=== PATIENT | female | born 1985 | race Caucasian/White ===

== ENCOUNTER → 2017-08-01 13:38 | Outpatient (CLI) | payer OTHER, MEDICAID, SELFPAY ==
--- NOTE | 2017-08-01 13:42 | ECHOD_ITS ---
Reason For Study: MVP Procedure This was a 2D Doppler, Color Flow transthoracic echocardiogram. The study was technically difficult. Contrast injection was performed. Exam performed in department. Left Ventricle Normal LV size. Left ventricular systolic function is normal. The estimated ejection fraction is 55 %. No evidence for diastolic dysfunction. No regional wall motion abnormalities noted. Right Ventricle Normal RV size. Normal systolic function. Atria Normal left atrium. Normal right atrium. Mitral Valve Normal mitral valve. Tricuspid Valve Normal tricuspid valve. Mild (1+) tricuspid valve insufficiency. Pulmonary artery systolic pressure is 36 mmHg. Aortic Valve The aortic valve is not well visualized. Pulmonic Valve Normal pulmonic valve. Great Vessels Normal aortic root. The pulmonary artery is normal size. Normal inferior vena cava. Pericardium/Pleural No pericardial effusion. Medication 22 gauge I.V. with prn adaptor inserted into right arm. Diluted definity 2ml given slow IV push to enhance endocardial definition. MMode/2D Measurements & Calculations LVIDd: 4.6 cm IVSd: 0.76 cm Ao root diam: 2.7 cm LVIDs: 3.4 cm LVPWd: 0.90 cm LA dimension: 3.3 cm RVDd: 2.9 cm FS: 25.7 % LAV(MOD-bp): 37.8 ml LVAd ap4: 31.4 cm2 SV(MOD-sp4): 54.6 ml LAV(MOD-bp) Indexed: 19.0 ml/m2 EDV(MOD-sp4): 104.6 ml LAV(MOD-sp2): 32.9 ml EDV(sp4-el): 106.9 ml LAV(MOD-sp4): 40.8 ml LVAs ap4: 20.1 cm2 ESV(MOD-sp4): 50.0 ml ESV(sp4-el): 49.9 ml EF(MOD-sp4): 52.2 % EF(sp4-el): 53.3 % SV(sp4-el): 57.0 ml LA A4 area: 16.4 cm2 RA A4 area: 11.7 cm2 Doppler Measurements & Calculations MV E max nilesh: 138.2 cm/sec Ao V2 max: 163.5 cm/sec LV V1 max: 120.2 cm/sec MV A max nilesh: 70.2 cm/sec Ao max P.7 mmHg LV V1 max P.8 mmHg MV E/A: 2.0 TR max nilesh: 283.4 cm/sec TR max P.1 mmHg Interpretation Summary Normal LV size. Left ventricular systolic function is normal. The estimated ejection fraction is 55 %. No evidence for diastolic dysfunction. Mild (1+) tricuspid valve insufficiency. Pulmonary artery systolic pressure is 36 mmHg. Contrast injection was performed. Ordering Physician: LIUDMILA BRANDON Referring Physician: REYNA LITTLE Performed By: Kanika Cook, MICHAELLE, RVT
== END ==
PROVIDERS: Family Provider Student in an Organized Health Care Education/Training Program; PCP Student in an Organized Health Care Education/Training Program; Visit Provider Nurse Practitioner Family
DX: I34.1 Nonrheumatic mitral (valve) prolapse (principal)
CPT/HCPCS: 93306; Q9957; C8929

== ENCOUNTER 2017-09-01 14:00 | Outpatient (RCR) | payer OTHER, SELFPAY | END 2017-09-01 23:59 | LOC: NS 14:00 | PROVIDERS: Family Provider Student in an Organized Health Care Education/Training Program; PCP Student in an Organized Health Care Education/Training Program; Visit Provider Student in an Organized Health Care Education/Training Program | DX: Z68.30 Body mass index [BMI] 30.0-30.9, adult (principal); Q90.9 Down syndrome, unspecified; Z71.3 Dietary counseling and surveillance | CPT/HCPCS: 97802; 97803 ==

== ENCOUNTER 2017-10-27 10:30 | Outpatient (RCR) | payer OTHER, SELFPAY ==
--- NOTE | 2017-10-13 10:00 | DT_ITS ---
This patient was seen during an EMR downtime October 06, 2017 - October 13, 2017. This patient may have a combination of paper and electronic documentation or all paper documentation. All documentation is viewable within the e-chart portion of [facility] for each patient visit.
== END 2017-11-01 23:59 ==
LOC: NS 10:30
PROVIDERS: Family Provider Student in an Organized Health Care Education/Training Program; PCP Student in an Organized Health Care Education/Training Program; Visit Provider Student in an Organized Health Care Education/Training Program
DX: Z68.30 Body mass index [BMI] 30.0-30.9, adult (principal); Q90.9 Down syndrome, unspecified; Z71.3 Dietary counseling and surveillance
CPT/HCPCS: 97803

== ENCOUNTER 2017-12-01 09:01 | Outpatient (RCR) | payer OTHER, SELFPAY | END 2017-12-02 23:59 | LOC: NS 09:01 | PROVIDERS: Family Provider Student in an Organized Health Care Education/Training Program; PCP Student in an Organized Health Care Education/Training Program; Visit Provider Student in an Organized Health Care Education/Training Program | DX: Z68.30 Body mass index [BMI] 30.0-30.9, adult (principal); Z71.3 Dietary counseling and surveillance; Q90.9 Down syndrome, unspecified | CPT/HCPCS: 97803 ==

== ENCOUNTER 2017-12-15 08:24 | Outpatient (RCR) | payer OTHER, SELFPAY | END 2018-01-02 23:59 | LOC: NS 08:24 | PROVIDERS: Family Provider Student in an Organized Health Care Education/Training Program; PCP Student in an Organized Health Care Education/Training Program; Visit Provider Student in an Organized Health Care Education/Training Program | DX: Z68.30 Body mass index [BMI] 30.0-30.9, adult (principal); Z71.3 Dietary counseling and surveillance; Q90.9 Down syndrome, unspecified | CPT/HCPCS: 97803 ==

== ENCOUNTER 2018-01-13 08:39 | Outpatient (RCR) | payer OTHER, SELFPAY | END 2018-02-01 23:59 | LOC: NS 08:39 | PROVIDERS: Family Provider Student in an Organized Health Care Education/Training Program; PCP Student in an Organized Health Care Education/Training Program; Visit Provider Student in an Organized Health Care Education/Training Program | DX: Z68.30 Body mass index [BMI] 30.0-30.9, adult (principal); Z71.3 Dietary counseling and surveillance; Q90.9 Down syndrome, unspecified | CPT/HCPCS: 97803 ==

== ENCOUNTER 2018-03-03 08:37 | Outpatient (RCR) | payer OTHER, SELFPAY | END 2018-03-04 23:59 | LOC: NS 08:37 | PROVIDERS: Family Provider Student in an Organized Health Care Education/Training Program; PCP Student in an Organized Health Care Education/Training Program; Visit Provider Student in an Organized Health Care Education/Training Program | DX: E66.01 Morbid (severe) obesity due to excess calories (principal); Z68.30 Body mass index [BMI] 30.0-30.9, adult; Z71.3 Dietary counseling and surveillance; Q90.9 Down syndrome, unspecified ==

== ENCOUNTER 2018-03-17 12:56 | Outpatient (RCR) | payer OTHER, SELFPAY | END 2018-03-17 23:59 | LOC: NS 12:56 | PROVIDERS: Family Provider Student in an Organized Health Care Education/Training Program; PCP Student in an Organized Health Care Education/Training Program; Visit Provider Student in an Organized Health Care Education/Training Program | DX: E66.01 Morbid (severe) obesity due to excess calories (principal); Z68.30 Body mass index [BMI] 30.0-30.9, adult; Z71.3 Dietary counseling and surveillance; Q90.9 Down syndrome, unspecified | CPT/HCPCS: 97803 ==

== ENCOUNTER 2018-03-24 16:51 | Emergency (ER) | payer MEDICAID, SELFPAY ==
[2018-03-24 16:52] VITALS: BP 141/92; PULSE 74; RESP 18; TEMP 36.8; O2SAT 100; BMI 47.9
--- NOTE | 2018-03-24 17:16 | ED.VISSUMM ---
- ER Visit Summary Date of Service: 03/24/18 Chief Complaint: Nasal wound History of Present Illness: The patient is a 32 F with a history of Down's. She is brought in by staff from her care home. She developed left nasal bridge wound from her glasses when she was visiting family members 3 weeks ago. She was seen at urgent care initially and given Zithromax. She had no improvement. She was taken back to urgent care last night and staff was told that she either had to see the wound center today or she needed to go the emergency room. She has not had fever. She has not had drainage from the wound. Physical Examination: Vital signs unremarkable. Patient sitting upright in bed no acute distress. Head neck examination reveals a 4 x 6 mm scabbed wound to the left nasal bridge. There is no fluctuance or drainage at this time. There is no cellulitis. Remainder of exam is unremarkable. Test Results: [] Emergency Department Course and Treatment: Wound care is discussed with staff. Will be cleansed and bacitracin will be applied. She will be given Bactrim and Keflex for good skin coverage. I did fill out a referral form for the wound center. Treatment Plan: [] Disposition: Discharge Impression: Scabbed wound to left nasal bridge This note was generated with [employer] dictation software. It may contain incorrect words, spelling, and punctuation that were not noted in review of the chart prior to signing ED Disposition - Plan for ED Patient: Chief Complaint: Wound Referrals: Trent Horowitz DO [Primary Care Provider] -
--- NOTE | 2018-03-24 17:18 | ED.DEP ---
ED Disposition - Plan for ED Patient: Disposition: Home or Assisted Living Chief Complaint: Wound Instructions: ED Wound Care Prescriptions: Cephalexin [Keflex] 500 mg PO Q6 #40 capsule Smz/Tmp Ds [Bactrim Ds] 1 tablet PO BID #20 tablet Referrals: Trent Horowitz DO [Primary Care Provider] - Additional Instructions: Follow-up with Wound Center [phone]
[2018-03-24 17:35] VITALS: BP 121/74; PULSE 62; RESP 15; O2SAT 99
== END 2018-03-24 17:39 | disposition home or self-care (01) ==
PROVIDERS: Emergency Provider Emergency Medicine; Family Provider Student in an Organized Health Care Education/Training Program; PCP Student in an Organized Health Care Education/Training Program
DX: S00.30XA Unspecified superficial injury of nose, initial encounter (principal); X58.XXXA Exposure to other specified factors, initial encounter; Y93.89 Activity, other specified; Q90.9 Down syndrome, unspecified
CPT/HCPCS: 99282

== ENCOUNTER 2018-03-31 13:02 | Outpatient (RCR) | payer MEDICAID, SELFPAY ==
[2018-03-31 13:46] VITALS: BP 114/77; PULSE 80; RESP 16; TEMP 35.9; BMI 48.6
[2018-03-31 14:07] VITALS: BMI 48.6
--- NOTE | 2018-03-31 14:29 | PCM.WC.HP ---
(1) Skin ulcer of nose Status: Acute Current Visit: Yes Code(s): L98.499 - Non-pressure chronic ulcer of skin of other sites with unspecified severity (2) History of Down syndrome Status: Chronic Current Visit: No Code(s): Q90.9 - Down syndrome, unspecified History of Present Illness Date of Service: 03/31/18 Chief Complaint: Sore on left side of nose that most likely was caused by sleeping with her glasses on. History of Wound: Sore on left side of nose occurred about a month ago. Noemy has Down Syndrome and her mother believes Noemy fell asleep with her eye glasses on about a month ago. They have not been able to get the sore to heal using bactroban ointment. With the constant pressure from wearing her glasses and Noemy picking at the sore has also prevented it from healing. She has been placed on Keflex by her PCP. Past Medical History Past Medical History: Chronic Problems History of Down syndrome (Chronic) Allergies/Adverse Reactions: Allergies cefaclor [From Ceclor] Allergy (Verified 03/24/18 17:34) Hives sulfamethoxazole [From Bactrim] Allergy (Verified 03/24/18 17:34) Upset Stomach trimethoprim [From Bactrim] Allergy (Verified 03/24/18 17:34) Upset Stomach Home Medications: Ambulatory Orders Medication Instructions Recorded Cephalexin [Keflex] 500 mg PO Q6 #40 capsule 03/24/18 Smz/Tmp Ds [Bactrim Ds] 1 tablet PO BID #20 tablet 03/24/18 Benzonatate 100 mg PO PRN PRN 03/31/18 Cholecalciferol (Vitamin D3) 50,000 unit PO QWEEK 03/31/18 [Vitamin D] Citalopram [Celexa] 20 mg PO DAILY 03/31/18 Fluticasone 0.05% [Flonase Nasal 2 spray NASAL DAILY 03/31/18 [place]] Folic Acid 1 mg PO DAILY 03/31/18 Levothyroxine [Synthroid] 137 mcg PO DAILY 03/31/18 Loratadine [Claritin] 10 mg PO DAILY 03/31/18 Methotrexate Sodium/Pf 25 mg IJ QWEEK 03/31/18 [Methotrexate 25 mg/ml Vial] Metoprolol Tartrate 25 mg PO BID 03/31/18 Multivitamin [Daily Multiple 1 each PO DAILY 03/31/18 Vitamin] Omeprazole [Prilosec] 20 mg PO DAILY 03/31/18 Lives: With Family Smoking Status: Never smoker Tobacco Use: Non-smoker Review of Systems Constitutional: Denies: Anorexia, Chills, Fever Eyes: Reports: - - Wears glasses HEENT: Denies: Difficulty Hearing, Head Aches, Hearing Changes, Nasal bleeding Cardiovascular: Denies: Chest Pain, Edema Respiratory: Denies: Cough, Shortness of Breath Gastrointestinal: Denies: Abdominal Pain Musculoskeletal: Denies: Joint Pain Skin: Reports: Lesions - Sore on left side of nose Psychiatric: Reports: Anxiety Endocrine: Reports: Heat/ Cold Intolerance, - - History of hypothyroidism - Physical Exam Vital Signs Temp Pulse Resp BP 96.6 F L 80 16 114/77 03/31/18 13:46 03/31/18 13:46 03/31/18 13:46 03/31/18 13:46 General: Alert, Cooperative - Very pleasant female HEENT: Atraumatic Oral: Moist Mucosa Lungs: Clear to auscultation, Normal air movement, No rhonchi Cardiovascular: Regular rate, Regular Rhythm Abdomen: Bowel Sounds Present, Soft, Non Tender, Non-Distended Extremities: No edema, Capillary Refill Less than 3 Seconds, No Calf Tenderness Skin: Ulcer/ Wound - Ulcer on left side of nose Wound Measurements and Assessment WC - Nurse 1 - General Ulcer Measurement Start: 03/31/18 13:45 Freq: Status: Active Protocol: Activity Type Activity Date Activity User E-Sign Co-Sign Detail Recorded Client Recorded Date Recorded By Document 03/31/18 13:46 [id number] 03/31/18 14:06 03/31/18 13:46 Wound Center Nurse 1 [Ulcer Assessment] #1 Left Bridge of Nose -Combined with other wound No -Current Size (cm) - Length 0.6 -Current Size (cm) - Width 0.3 -Current Size (cm) - Depth 0.1 -Total Square Cm 0.18 -Photo Taken Yes -Epithelialization None Present -Tunneling No -Undermining/Tunneling No -Circular Undermining No -Classification - Thickness Full Thickness without Exposed Support Structure -Exudate Amt Small (1-33%) -Exudate Type Serosanguineous -Wound Margin Flat & Intact -Granulation Amt None Present (0 %) -Granulation Quality N/A -Slough/Fibrin Yes -Necrosis Amt None Present (0 %) -Necrotic Tissue Type Eschar -Structure Exposed N/A -Texture (Suzette-wound Skin Appearance) Assessed Scarring -Moisture (Suzette-wound Skin Appearance No Abnormality ) Assessed -Color (Suzette-wound Skin Appearance) No Abnormality Assessed -Temperature (Suzette-wound Skin No Abnormality Appearance) (Pt Warm) -Tenderness on Palpation (Suzette-wound No Skin Appearance) -Ulcer Cleansing Rinsed/ Irrigated with Saline -Foul Odor after Cleansing No -Anesthetic Used 4% Lidocaine Solution - Nurse 2 - General Ulcer CM Notes Start: 03/31/18 13:45 Freq: Status: Active Protocol: Activity Type Activity Date Activity User E-Sign Co-Sign Detail Recorded Client Recorded Date Recorded By Document 03/31/18 14:14 [id number] 03/31/18 14:21 03/31/18 14:14 Wound Center Nurse 2 [Procedure/Treatment] -Time 14:14 -Correct Patient Yes -Correct Side, Site, Position Yes -Correct Procedure Yes -Procedure Performed Yes -Type of Procedure Debridement -Clinical Debridement Subcutaneous -Post Debridement Size (cm) - Length 0.9 -Post Debridement Size (cm) - Width 0.4 -Post Debridement Size (cm) - Depth 0.1 -Total Square Cm 0.36 -Wound/Ulcer Outcome Not Healed -Ulcer Cleansing Rinsed/ Irrigated with Saline -Foul Odor after Cleansing No -Bioengineered Tissue No -Bleeding Controlled with Pressure -Treatment Response Procedure Tolerated Well [See Physician Procedure note for Specifics] Pain Scale: 0-10 Numeric [Pain] -Is Patient Pain Free? Yes Musculoskeletal: No Tenderness to Palpation of Joints or Extremities Neurological: Neuro grossly intact Psych/Mental Status: Normal Affect, Appropriate Debridement Note Post-Debridement Measurements/Treatment - Nurse 2 - General Ulcer CM Notes Start: 03/31/18 13:45 Freq: Status: Active Protocol: Activity Type Activity Date Activity User E-Sign Co-Sign Detail Recorded Client Recorded Date Recorded By Document 03/31/18 14:14 [id number] 03/31/18 14:21 03/31/18 14:14 Wound Center Nurse 2 #1 Left Bridge of Nose -Time 14:14 -Correct Patient Yes -Correct Side, Site, Position Yes -Correct Procedure Yes -Procedure Performed Yes -Type of Procedure Debridement -Clinical Debridement Subcutaneous -Post Debridement Size (cm) - Length 0.9 -Post Debridement Size (cm) - Width 0.4 -Post Debridement Size (cm) - Depth 0.1 -Total Square Cm 0.36 -Wound/Ulcer Outcome Not Healed -Ulcer Cleansing Rinsed/ Irrigated with Saline -Foul Odor after Cleansing No -Bioengineered Tissue No -Bleeding Controlled with Pressure -Treatment Response Procedure Tolerated Well Pain Scale: 0-10 Numeric Is Patient Pain Free? Yes Wound debrided: Left side of nose Laterality: Left Type of Debridement: Excisional debridement Anesthesia Used: 4% Lidocaine Solution Depth: Down to and including healthy tissue, in the subcutaneous layer Percentage of wound debrided: 90 Instrument Used: 3mm curette Tissue Removed: Subcutaneous tissue and slough Severity: Limited To Skin Breakdown Amount of bleeding with debridement: Mild Bleeding Controlled with: Pressure Patient tolerated procedure well Assessment/Plan Active Problems Skin ulcer of nose (Acute) Assessment: 1. Skin Ulcer of Left Nose. 2. History of Down Syndrome Plan: The patient was seen and examined at the wound center today. She and her mother and were updated on the plan of care. Subcutaneous debridement was performed today. Patient tolerated procedure well. Patient's wound care will consist of collagen hydrogel that will be topped with dressing and secured with silicone tape. With this padding the patient should be able to wear her glasses. She is to continue her keflex as prescribed by PCP. We will have her follow-up in 1 week. Code Visit Office Visits / Consults: [id number] OV L3 New [id number]: [id number] Ivana subq tissue 20 sq cm/< - 25 modifier
--- NOTE | 2018-03-31 14:38 | HP.PCM_ITS ---
(1) Skin ulcer of nose Status: Acute Current Visit: Yes Code(s): L98.499 - Non-pressure chronic ulcer of skin of other sites with unspecified severity (2) History of Down syndrome Status: Chronic Current Visit: No Code(s): Q90.9 - Down syndrome, unspecified History of Present Illness Date of Service: 03/31/18 Chief Complaint: Sore on left side of nose that most likely was caused by sleeping with her glasses on. History of Wound: Sore on left side of nose occurred about a month ago. Noemy has Down Syndrome and her mother believes Noemy fell asleep with her eye glasses on about a month ago. They have not been able to get the sore to heal using bactroban ointment. With the constant pressure from wearing her glasses and Noemy picking at the sore has also prevented it from healing. She has been placed on Keflex by her PCP. Past Medical History Past Medical History: Chronic Problems History of Down syndrome (Chronic) Allergies/Adverse Reactions: Allergies cefaclor [From Ceclor] Allergy (Verified 03/24/18 17:34) Hives sulfamethoxazole [From Bactrim] Allergy (Verified 03/24/18 17:34) Upset Stomach trimethoprim [From Bactrim] Allergy (Verified 03/24/18 17:34) Upset Stomach Home Medications: Ambulatory Orders Medication Instructions Recorded Cephalexin [Keflex] 500 mg PO Q6 #40 capsule 03/24/18 Smz/Tmp Ds [Bactrim Ds] 1 tablet PO BID #20 tablet 03/24/18 Benzonatate 100 mg PO PRN PRN 03/31/18 Cholecalciferol (Vitamin D3) 50,000 unit PO QWEEK 03/31/18 [Vitamin D] Citalopram [Celexa] 20 mg PO DAILY 03/31/18 Fluticasone 0.05% [Flonase Nasal 2 spray NASAL DAILY 03/31/18 [place]] Folic Acid 1 mg PO DAILY 03/31/18 Levothyroxine [Synthroid] 137 mcg PO DAILY 03/31/18 Loratadine [Claritin] 10 mg PO DAILY 03/31/18 Methotrexate Sodium/Pf 25 mg IJ QWEEK 03/31/18 [Methotrexate 25 mg/ml Vial] Metoprolol Tartrate 25 mg PO BID 03/31/18 Multivitamin [Daily Multiple 1 each PO DAILY 03/31/18 Vitamin] Omeprazole [Prilosec] 20 mg PO DAILY 03/31/18 Lives: With Family Smoking Status: Never smoker Tobacco Use: Non-smoker Review of Systems Constitutional: Denies: Anorexia, Chills, Fever Eyes: Reports: - - Wears glasses HEENT: Denies: Difficulty Hearing, Head Aches, Hearing Changes, Nasal bleeding Cardiovascular: Denies: Chest Pain, Edema Respiratory: Denies: Cough, Shortness of Breath Gastrointestinal: Denies: Abdominal Pain Musculoskeletal: Denies: Joint Pain Skin: Reports: Lesions - Sore on left side of nose Psychiatric: Reports: Anxiety Endocrine: Reports: Heat/ Cold Intolerance, - - History of hypothyroidism - Physical Exam Vital Signs Temp Pulse Resp BP 96.6 F L 80 16 114/77 03/31/18 13:46 03/31/18 13:46 03/31/18 13:46 03/31/18 13:46 General: Alert, Cooperative - Very pleasant female HEENT: Atraumatic Oral: Moist Mucosa Lungs: Clear to auscultation, Normal air movement, No rhonchi Cardiovascular: Regular rate, Regular Rhythm Abdomen: Bowel Sounds Present, Soft, Non Tender, Non-Distended Extremities: No edema, Capillary Refill Less than 3 Seconds, No Calf Tenderness Skin: Ulcer/ Wound - Ulcer on left side of nose Wound Measurements and Assessment WC - Nurse 1 - General Ulcer Measurement Start: 03/31/18 13:45 Freq: Status: Active Protocol: Activity Type Activity Date Activity User E-Sign Co-Sign Detail Recorded Client Recorded Date Recorded By Document 03/31/18 13:46 [id number] 03/31/18 14:06 03/31/18 13:46 Wound Center Nurse 1 [Ulcer Assessment] #1 Left Bridge of Nose -Combined with other wound No -Current Size (cm) - Length 0.6 -Current Size (cm) - Width 0.3 -Current Size (cm) - Depth 0.1 -Total Square Cm 0.18 -Photo Taken Yes -Epithelialization None Present -Tunneling No -Undermining/Tunneling No -Circular Undermining No -Classification - Thickness Full Thickness without Exposed Support Structure -Exudate Amt Small (1-33%) -Exudate Type Serosanguineous -Wound Margin Flat & Intact -Granulation Amt None Present (0 %) -Granulation Quality N/A -Slough/Fibrin Yes -Necrosis Amt None Present (0 %) -Necrotic Tissue Type Eschar -Structure Exposed N/A -Texture (Suzette-wound Skin Appearance) Assessed Scarring -Moisture (Suzette-wound Skin Appearance No Abnormality ) Assessed -Color (Suzette-wound Skin Appearance) No Abnormality Assessed -Temperature (Suzette-wound Skin No Abnormality Appearance) (Pt Warm) -Tenderness on Palpation (Suzette-wound No Skin Appearance) -Ulcer Cleansing Rinsed/ Irrigated with Saline -Foul Odor after Cleansing No -Anesthetic Used 4% Lidocaine Solution - Nurse 2 - General Ulcer CM Notes Start: 03/31/18 13:45 Freq: Status: Active Protocol: Activity Type Activity Date Activity User E-Sign Co-Sign Detail Recorded Client Recorded Date Recorded By Document 03/31/18 14:14 [id number] 03/31/18 14:21 03/31/18 14:14 Wound Center Nurse 2 [Procedure/Treatment] -Time 14:14 -Correct Patient Yes -Correct Side, Site, Position Yes -Correct Procedure Yes -Procedure Performed Yes -Type of Procedure Debridement -Clinical Debridement Subcutaneous -Post Debridement Size (cm) - Length 0.9 -Post Debridement Size (cm) - Width 0.4 -Post Debridement Size (cm) - Depth 0.1 -Total Square Cm 0.36 -Wound/Ulcer Outcome Not Healed -Ulcer Cleansing Rinsed/ Irrigated with Saline -Foul Odor after Cleansing No -Bioengineered Tissue No -Bleeding Controlled with Pressure -Treatment Response Procedure Tolerated Well [See Physician Procedure note for Specifics] Pain Scale: 0-10 Numeric [Pain] -Is Patient Pain Free? Yes Musculoskeletal: No Tenderness to Palpation of Joints or Extremities Neurological: Neuro grossly intact Psych/Mental Status: Normal Affect, Appropriate Debridement Note Post-Debridement Measurements/Treatment - Nurse 2 - General Ulcer CM Notes Start: 03/31/18 13:45 Freq: Status: Active Protocol: Activity Type Activity Date Activity User E-Sign Co-Sign Detail Recorded Client Recorded Date Recorded By Document 03/31/18 14:14 [id number] 03/31/18 14:21 03/31/18 14:14 Wound Center Nurse 2 #1 Left Bridge of Nose -Time 14:14 -Correct Patient Yes -Correct Side, Site, Position Yes -Correct Procedure Yes -Procedure Performed Yes -Type of Procedure Debridement -Clinical Debridement Subcutaneous -Post Debridement Size (cm) - Length 0.9 -Post Debridement Size (cm) - Width 0.4 -Post Debridement Size (cm) - Depth 0.1 -Total Square Cm 0.36 -Wound/Ulcer Outcome Not Healed -Ulcer Cleansing Rinsed/ Irrigated with Saline -Foul Odor after Cleansing No -Bioengineered Tissue No -Bleeding Controlled with Pressure -Treatment Response Procedure Tolerated Well Pain Scale: 0-10 Numeric Is Patient Pain Free? Yes Wound debrided: Left side of nose Laterality: Left Type of Debridement: Excisional debridement Anesthesia Used: 4% Lidocaine Solution Depth: Down to and including healthy tissue, in the subcutaneous layer Percentage of wound debrided: 90 Instrument Used: 3mm curette Tissue Removed: Subcutaneous tissue and slough Severity: Limited To Skin Breakdown Amount of bleeding with debridement: Mild Bleeding Controlled with: Pressure Patient tolerated procedure well Assessment/Plan Active Problems Skin ulcer of nose (Acute) Assessment: 1. Skin Ulcer of Left Nose. 2. History of Down Syndrome Plan: The patient was seen and examined at the wound center today. She and her mother and were updated on the plan of care. Subcutaneous debridement was performed today. Patient tolerated procedure well. Patient's wound care will consist of collagen hydrogel that will be topped with dressing and secured with silicone tape. With this padding the patient should be able to wear her glasses. She is to continue her keflex as prescribed by PCP. We will have her follow-up in 1 week. Code Visit Office Visits / Consults: [id number] OV L3 New [id number]: [id number] Ivana subq tissue 20 sq cm/< - 25 modifier
--- OUTSIDE RECORDS SUMMARY | 2018-05-13 06:35 | XMS RPT_ITS ---
:1985 Author Organization OHIP Support Name Relationship Address Phone KALPANA VILLAGRAN Unavailable [address] + [place] [address] D Unavailable Unavailable Unavailable LOWE, JOSÉ Unavailable [address] + [place] [address] TYSHAWN KALPANA Unavailable [address] + [place] [address] D Unavailable Unavailable Unavailable LOWE, JOSÉ Unavailable [address] + [place] [address] TYSHAWN KALPANA Unavailable [address] + [place] [address] D Unavailable Unavailable Unavailable LOWE, JOSÉ Unavailable [address] + [place] [address] TYSHAWN KALPANA Unavailable [address] + [place] [address] D Unavailable Unavailable Unavailable LOWE, JOSÉ Unavailable [address] + [place] [address] KARTIK VILLAGRANINA Unavailable [address] + [place] [address] D Unavailable Unavailable Unavailable LOWE, JOSÉ Unavailable [address] + [place] [address] TYSHAWN KALPANA Unavailable [address] + [place] [address] D Unavailable Unavailable Unavailable LOWE, JOSÉ Unavailable [address] + [place] [address] TYSHAWN KALPANA Unavailable [address] + [place] [address] D Unavailable Unavailable Unavailable LOWE, JOSÉ Unavailable [address] + [place] [address] TYSHAWN KALPANA Unavailable [address] + [place] [address] D Unavailable Unavailable Unavailable LOWE, JOSÉ Unavailable [address] + [place] [address] TYSHAWN KALPANA Unavailable [address] + [place] [address] D Unavailable Unavailable Unavailable LOWE, JOSÉ Unavailable [address] + [place] [address] TYSHAWN KALPANA Unavailable [address] + [place] [address] D Unavailable Unavailable Unavailable LOWE, JOSÉ Unavailable [address] + [place] [address] TYSHAWN KALPANA Unavailable [address] + [place] [address] D Unavailable Unavailable Unavailable LOWE, JOSÉ Unavailable [address] + [place] [address] TYSHAWN KALPANA Unavailable [address] + [place] [address] D Unavailable Unavailable Unavailable LOWE, JOSÉ Unavailable [address] + [place] [address] TYSHAWN KALPANA Unavailable [address] + [place] [address] D Unavailable Unavailable Unavailable LOWE, JOSÉ Unavailable [address] + [place] [address] TYSHAWN KALPANA Unavailable [address] + [place] [address] D Unavailable Unavailable Unavailable LOWE, JOSÉ Unavailable [address] + [place] [address] TYSHAWN KALPANA Unavailable [address] + [place] [address] D Unavailable Unavailable Unavailable LOWE, JOSÉ Unavailable [address] + [place] [address] Care Team Providers Name Role Phone Trent Horowitz Primary Care Unavailable Tam Liudmila Attending Unavailable Tam, Liudmila Referring Unavailable Trent Horowitz Attending Unavailable Trent Horowitz Primary Care Unavailable Esequiel Perez Attending Unavailable Trent Horowitz Attending Unavailable Trent Horowitz Primary Care Unavailable Trent Horowitz Attending Unavailable Horowitz, Trent Primary Care Unavailable Horowitz, Trent Attending Unavailable Horowitz, Trent Primary Care Unavailable Horowitz, Trent Attending Unavailable Horowitz, Trent Primary Care Unavailable Horowitz, Trent Attending Unavailable Horowitz, Trent Primary Care Unavailable Horowitz, Trent Attending Unavailable Horowitz, Trent Primary Care Unavailable Horowitz, Trent Primary Care Unavailable Elayne Shah Attending Unavailable Eliu, Glendy E Attending Unavailable Horowitz, Trent Primary Care Unavailable Eliu, Glendy E Attending Unavailable Horowitz, Trent Primary Care Unavailable Eliu, Glendy E Consulting Unavailable Horowitz, Trent Attending Unavailable Horowitz, Trent Primary Care Unavailable Eliu, Glendy E Attending Unavailable Horowitz, Trent Primary Care Unavailable Eliu, Glendy E Attending Unavailable Horowitz, Trent Primary Care Unavailable Eliu, Glendy E Consulting Unavailable Juan Roca Referring Unavailable AZEM, MAY Attending Unavailable MARTIR, SEPTEMBER Referring Unavailable MARTIR, SEPTEMBER Referring Unavailable Marcin MCMAHAN SEPTEMBER Attending Unavailable Marcin MCMAHAN SEPTEMBER Referring Unavailable HOROWITZ, TRENT L Primary Care Unavailable Marcin MCMAHAN SEPTEMBER Attending Unavailable Marcin MCMAHAN SEPTEMBER Referring Unavailable HOROWITZ, TRENT L Primary Care Unavailable Marcin MCMAHAN MAY Referring Unavailable HOROWITZ, TRENT L Primary Care Unavailable VINCENT CARSON Attending Unavailable THOMPSON MALHOTRA (CALENDER SUPERVISOR) Referring Unavailable TESTRAKE, VINCENT Attending Unavailable TESTRAKEVINCENT Referring Unavailable HOROWITZ, TRENT L Attending Unavailable HOROWITZ, TRENT L Referring Unavailable HOROWITZ, TRENT L Referring Unavailable TESTRAKEVINCENT Attending Unavailable TESTRAKEVINCENT Referring Unavailable CORNIELLO, ENRIQUETA L (CALENDER SUPERVISOR) Attending Unavailable HOROWITZ, TRENT L Referring Unavailable CORNIELLO, ENRIQUETA L (CALENDER SUPERVISOR) Referring Unavailable CORNIELLO, ENRIQUETA L (CALENDER SUPERVISOR) Referring Unavailable TESTRAKE, VINCENT Attending Unavailable TESTRAKE, VINCENT Referring Unavailable CORNIELLO, ENRIQUETA L (CALENDER SUPERVISOR) Referring Unavailable HOROWITZ, TRENT L Attending Unavailable HOROWITZ, TRENT L Referring Unavailable HOROWITZ, TRENT L Referring Unavailable HOROWITZ, TRENT L Attending Unavailable TESTRAKEVINCENT Attending Unavailable TESTRAKEVINCENT Referring Unavailable HOROWITZ, TRENT L Referring Unavailable PROBLEMS PROBLEMS DATE TYPE CONDITION / CODE ATTENDING STATUS SOURCE 04/16/2018 Active Abnormal findings on NA Active [facility] Main of other parts of [place] musculoskeletal Repository system / R93.7(ICD-10) 04/16/2018 Active Arthrodesis status / NA Active [facility] Z98.1(ICD-10) Clinic Main [place] Repository 04/16/2018 Active Personal history of NA Active [facility] (healed) traumatic Clinic Main fracture / [place] Z87.81(ICD-10) Repository 04/04/2018 Unknown E66.01 - Morbid Horowitz, Active [place] (severe) obesity due [facility] to excess calories / Hospital E66.01(ICD-10) Repository 03/05/2018 Unknown Z68.30 - Body mass Horowitz, Active [place] index (BMI) [facility] 30.0-30.9, adult / Hospital Z68.30(ICD-10) Repository 12/31/2017 Active Cervicalgia / NA Active [facility] M54.2(ICD-10) Clinic Main [place] Repository 10/13/2017 Active Encounter for NA Active [facility] antibody response Clinic Main examination / [place] Z01.84(ICD-10) Repository 08/27/2016 Active Inflammatory NA Active [facility] polyarthropathy / Clinic Other M06.4(ICD-10) [place] Repository 08/27/2016 Active Elevated C-reactive AZEM, MAY Active [facility] protein (CRP) / Clinic Other R79.82(ICD-10) [place] Repository 05/23/2016 Active Pain in right knee / AZEM, MAY Active [facility] M25.561(ICD-10) Clinic Other [place] Repository 05/23/2016 Active Pain in left knee / AZEM, MAY Active [facility] M25.562(ICD-10) Clinic Other [place] Repository 05/23/2016 Active Other chronic pain / AZEM, MAY Active [facility] G89.29(ICD-10) Clinic Other [place] Repository 05/23/2016 Active Pain in right hip / AZEM, MAY Active [facility] M25.551(ICD-10) Clinic Other [place] Repository 05/23/2016 Active Pain in left hip / AZEM, MAY Active [facility] M25.552(ICD-10) Clinic Other [place] Repository 05/23/2016 Active Juvenile AZEM, MAY Active [facility] osteochondrosis of Clinic Other hip and pelvis, [place] unspecified, left Repository leg / M91.92(ICD-10) 06/15/2013 Active Vitamin D September Active [facility] deficiency, [facility] Other unspecified / [place] E55.9(ICD-10) Repository 06/15/2013 Active Hypothyroidism, , SEPTEMBER Active [facility] unspecified / Clinic Other E03.9(ICD-10) [place] Repository 03/24/2002 Active Down syndrome, , SEPTEMBER Active [facility] unspecified / Clinic Other Q90.9(ICD-10) [place] Repository 08/27/2016 Admitting Unknown / Marcin MCMAHAN SEPTEMBER Active [facility] UNK(Unknown) [facility] Repository 08/06/2017 Active Unknown / TESTRAKE, Active [facility] UNK(Unknown) [facility] Repository 01/01/2018 Unknown I34.1 - Nonrheumatic Fish, Liudmila Active [place] mitral (valve) Community prolapse / Hospital I34.1(ICD-10) Repository 07/02/2017 Active Other termination clerk NA Active [facility] (current) drug [facility] Main therapy / [place] Z79.899(ICD-10) Repository 07/02/2017 Active Impaired fasting NA Active [facility] glucose / Clinic Main R73.01(ICD-10) [place] Repository PROCEDURES PROCEDURES No Procedure Records FoundRESULTS RESULTS CT CERVICAL SPINE WO Observed: 04/16/2018 Status: F [facility] REPOSITORY * * *Final Report* * * DATE OF EXAM: Apr 16 2018 11:57AM [facility] 0505 - CT CERVICAL SPINE WO IVCON / PROCEDURE REASON: multiple diagnoses * * * * Physician Interpretation * * * * EXAMINATION: CT CERVICAL SPINE WO IVCON CLINICAL HISTORY: Abnormal findings on diagnostic imaging TECHNIQUE: CT of the cervical spine without IV contrast. Spiral, high resolution axial images were obtained from the skull base to the cervicothoracic junction with sagittal and coronal planar reconstructions. MQ: [id number] CT Dose-Length Product (DLP): 585 mGy*cm CT Dose Reduction Employed: Automated exposure control(AEC) and iterative recon COMPARISON: None. RESULT: Counting reference: Craniocervical junction. Anatomic Variants: None. Alignment: Chronic appearing type I dens fracture or os odontoideum is present. Hypertrophy of the anterior arch of C1 suggests os odontoideum. Cerclage wires are present connecting the posterior arch of C1 posterior arch of C2, and appear to have been remotely placed with a free cerclage wire fragment posteriorly, of unclear functional significance. There is anterior subluxation of C1 relative to C2 which causes moderate to severe bony canal stenosis at this level. Craniocervical junction: Craniocervical junction is otherwise normal. Osseous structures/fracture: No evidence of a lytic or blastic process in the visualized spine. No evidence of acute or chronic fracture. Cervical soft tissues: The paraspinal soft tissues are within normal limits. Degenerative changes: Mild degenerative changes inferiorly in the cervical spine without high-grade canal or foraminal stenosis. 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 There is a cerclage wire fragment posterior to the C1 posterior arch that does not unite with the remaining surgical hardware.. Anatomic Variant: None. Assume 7 cervical vertebrae with counting from the craniocervical junction. Beverage Manager: JENI Transcribe Date/Time: Apr 16 2018 12:58P Dictated by : SONDRA GUADALUPE MD This examination was interpreted and the report reviewed and electronically signed by: SONDRA GUADALUPE MD on Apr 16 2018 1:03PM EST [id number] PROGRESS Observed: 04/16/2018 Status: COMPLETED Source: [place] 11:56 AM [facility] REPOSITORY HNO ID: [id number] Author: Anabel Mi Service: (none) Author Type: (none) Type: Progress Notes Filed: 04/16/2018 11:57 AM Note Text: Radiology Service Progress Note PATIENT NAME: Danni Evans DATE OF SERVICE: April 16, 2018 TIME: 11:56 AM PATIENT IDENTITY VERIFICATION COMPLETED USING TWO (2) METHODS: Patient confirmed name verbally and Date of . PATIENT GENDER DATA: Female. status: : No status: NO. PATIENT RELEVANT IMPLANT DATA REVIEWED: Not Applicable RADIOLOGY DEPARTMENT: CT; Exam(s) Completed: Spine PERIPHERAL IV DATA: Not applicable SIGNED BY: Anabel Mi April 16, 2018 11:56 AM PROGRESS Observed: 04/14/2018 Status: COMPLETED Source: [place] 8:34 AM [facility] REPOSITORY HNO ID: [id number] Author: Vincent Carson Service: (none) Author Type: Physician Type: Progress Notes Filed: 04/14/2018 8:44 AM Note Text: Subjective: Patient presents to clinic c/o painful toenails. They state that the nails are especially painful with shoe gear and pressure. Patient states that nails 1-5 b/l are painful. Patient also has painful callus of b/l feet. No other pedal complaints at this time. Patient states no change in medications or medical history since last visit. Objective: Patient presents to clinic ambulating in boots Vasc: DP and PT pulses are palpable bilateral. CFT is less than 5 seconds bilateral. Skin temperature is warm to cool proximal to distal bilateral. There is no edema or varicosities noted. Neuro: Protective sensation is intact to the foot and toes when tested with the 5.07 SWM bilateral. Vibratory sensation is intact at the hallux IPJ bilateral. The hallux is downgoing bilateral. Derm: Nails 1-5 b/l are painful, discolored-yellow, thick, crumbly, dystrophic and with subungal debris. Skin is dry and scaly bilateral. There are callus to left hallux and left heel. no ulcerations, scars, verruca or other lesions noted. Ortho: Muscle strength is 5/5 for all pedal groups tested. Ankle joint DF is full with the knee extended with no pain or crepitus noted. 1st MPJ ROM is full bilateral. There is bunion b/l. Assessment: (B35.1) Onychomycosis (primary encounter diagnosis) (M79.675) Pain in toe of left foot (M79.674) Pain in toe of right foot (L85.9) Hyperkeratosis Plan: Patient was seen and evaluated. Nails 1-5 bilateral were debrided in length and thickness. Callus filed to b/l feet with sanding disk Patient is to RTC in 3-4 months. Continue with wider shoes for bunion MABEL Pacheco Observed: 04/14/2018 Status: COMPLETED Source: [place] 8:10 AM [facility] REPOSITORY Office Visit (PODIWS) DANNI EVANS ([id number]) 1985 F [facility] Date Time Provider Department 04/14/18 8:10 AM VINCENT CARSON During your visit today, we recorded the following information about you: Margarita Mcmahan RN 04/14/2018 8:33 AM Signed Patient is accompanied today by her nephewAaron. LAZARUS Mcguire DPAraceli 04/14/2018 8:44 AM Signed Subjective: Patient presents to clinic c/o painful toenails. They state that the nails are especially painful with shoe gear and pressure. Patient states that nails 1-5 b/l are painful. Patient also has painful callus of b/l feet. No other pedal complaints at this time. Patient states no change in medications or medical history since last visit. Objective: Patient presents to clinic ambulating in boots Vasc: DP and PT pulses are palpable bilateral. CFT is less than 5 seconds bilateral. Skin temperature is warm to cool proximal to distal bilateral. There is no edema or varicosities noted. Neuro: Protective sensation is intact to the foot and toes when tested with the 5.07 SWM bilateral. Vibratory sensation is intact at the hallux IPJ bilateral. The hallux is downgoing bilateral. Derm: Nails 1-5 b/l are painful, discolored-yellow, thick, crumbly, dystrophic and with subungal debris. Skin is dry and scaly bilateral. There are callus to left hallux and left heel. no ulcerations, scars, verruca or other lesions noted. Ortho: Muscle strength is 5/5 for all pedal groups tested. Ankle joint DF is full with the knee extended with no pain or crepitus noted. 1st MPJ ROM is full bilateral. There is bunion b/l. Assessment: (B35.1) Onychomycosis (primary encounter diagnosis) (M79.675) Pain in toe of left foot (M79.674) Pain in toe of right foot (L85.9) Hyperkeratosis Plan: Patient was seen and evaluated. Nails 1-5 bilateral were debrided in length and thickness. Callus filed to b/l feet with sanding disk Patient is to RTC in 3-4 months. Continue with wider shoes for jackelyn Vincent Carson DPM Referring Provider: VINCENT CARSON [[id number]] Allergies As of Date: 04/14/2018 Noted Allergy Reaction BACTRIM (SULFAMETHOXAZOLE) 09/26/2010 4 - Hives CECLOR (CEFACLOR) 09/26/2010 4 - Hives PENICILLINS 05/25/2013 16 - Unknown SULFASALAZINE 06/28/2011 16 - Unknown Date Reviewed: 04/14/2018 Reviewed by: Margarita (Rn) Marj - Fully Assessed Reason for Visit: Established Patient [175] Cmt: nail care Primary Visit Diagnosis:Onychomycosis [B35.1] Other Visit Diagnoses:Pain in toe of left foot [M79.675] Pain in toe of right foot [M79.674] Hyperkeratosis [L85.9] Prescriptions as of 04/14/2018 Sig: ALBUTEROL INHALATION Inhale as instructed. CHOLECALCIFEROL (VITAMIN D3) * take 1 capsule by mouth ONCE * CITALOPRAM 20 MG TABLET take 1 tablet by mouth once d* COMPOUNDED PRESCRIPTION RECUMBENT BIKE TO SUKH* COMPOUNDED PRESCRIPTION DECK AND STEPS TO GET PATIENT* VITAMIN D2 ORAL Take 50,000 Units by mouth on* FLUTICASONE 50 MCG/ACTUATION * Use 2 Sprays in each nostril * FOLIC ACID 1 MG TABLET Take 1 tablet by mouth once d* INSULIN SYRINGE WITH SAFETY N* 1 Syringe once each week. To * LORATADINE 10 MG TABLET Take 1 tablet by mouth once d* METOPROLOL TARTRATE 25 MG TAB* Take 1.5 tablets by mouth twi* TRAMADOL 50 MG TABLET take 1 tablet by mouth every * LEVOTHYROXINE 137 MCG TABLET take 1 tablet by mouth once d* METHOTREXATE SODIUM (PF) 25 M* 0.8cc SC once/week OMEPRAZOLE 20 MG CAPSULE,CARO* take 1 capsule by mouth once * TAB-A-AMADEO TABLET take 1 tablet by mouth at bed* Problem List As Of Date 04/14/2018 Noted Resolved DOWN'S SYNDROME [Q90.9] INVALID FOR* SURGERY FOLLOW-UP [V67.0] INVALID FOR* Abdominal pain, left upper quadrant [R10.12] INVALID FOR* Anxiety [F41.9] INVALID FOR* YVETTE on CPAP [G47.33, Z99.89] INVALID FOR* Allergic rhinitis [J30.9] INVALID FOR* Hypothyroidism [E03.9] INVALID FOR* Vitamin D deficiency [E55.9] INVALID FOR* Rash and nonspecific skin eruption [R21] INVALID FOR* Obesity, morbid, BMI 50 or higher (HCC) [E66.01]INVALID FOR* 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 Margarita Mcmahan RN Disposition: Return in about 3 months (around 07/13/2018) for nail care. Follow-up and Disposition History Recorded Encounter Status:Closed by VINCENT CARSON DPM on 04/14/18 PROGRESS Observed: 04/03/2018 Status: COMPLETED Source: [place] 3:46 PM [facility] [place] REPOSITORY O ID: [id number] Author: Trent Horowitz Service: (none) Author Type: Physician Type: Progress Notes Filed: 04/03/2018 4:33 PM Note Text: YESSICA vEans is a 32 year old female who presents to the office for medication follow up HPI: Previously 9 months ago Cold symptoms, present for the last few days, fever yesterday, b/l ear pain, nasal congestion and PND symptoms, ?+ sick contacts per mother at her job ?? Anxiety and depressed mood, hair pulling recently per mother, stressed appearing, has to do with situation with mother's other son living with them- he will be moving out of their home soon. ?No SI or HI. She is well supported by mother. Not any any current medications. ?? ? Asthma, no recent flare ups, no wheezing or cough, using inhalers as prescribed ? Inflammatory polyarthritis, seeing Sas Architect still, has upcoming labs and appt ? She was started on Zoloft ? At last OFFICE VISIT 6 months ago Per mother she is still irritable and hair pulling/picking as well as cursing at me. ?No aggression. ??No SI or HI. ?Still able to be working at the [employer]. ? Seeing Truck Driver Teamster Dr. Flores for congenital heart disease hx. ? Seeing Sas Architect for chronic inflammatory joint changes. ? At last OV ? Mood, hair pulling, irritability, slightly improved with Celexa, wondering if can increase dose of medication, no obvious adverse SE from medication ? Inflammatory joint disease, seeing Rheum Dr. Mcmahan, use of Tramadol up to 3 tablets a day for severe hip pain ? B/l knee pain and neck pain is starting, did trip and fall about 1 month ago at camp, wasn't assessed at that time ? Still continuing to see Truck Driver Teamster Currently Neck pain, hasn't had CT neck completed yet, appt has to be rescheduled, having it completed at [facility] then will see Spine Surgeon Dr. Harper Inflammatory joint disease, seeing Dr. Mcmahan Sas Architect, taking Tramadol as prescribed up to 3 tablets a day for joint and spine and hip pain with improvement in functioning Mood, overall much improved with Celexa, less stressors since her nieces/nephews have moved out of her mother's home ? 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Teamster - Congestive heart failure, unspecified - CRP elevated - Down's syndrome - Fatty liver - Hip pain - Hypercholesteremia 06/2013 - Hypothyroidism - Inflammatory polyarthritis (HCC) - Juvenile osteochondrosis of hip and pelvis - Knee pain - Methicillin resistant Staphylococcus aureus in conditions classified elsewhere and of unspecified site - Mitral valve disorders - Obstructive sleep apnea (adult) (pediatric) - YVETTE on CPAP - Osteoarthrosis, unspecified whether generalized or localized, lower leg - Other candidiasis of other specified sites - Other ventral hernia without mention of obstruction or gangrene - Unspecified congenital anomaly of heart - Vitamin D deficiency PAST SURGICAL HISTORY Procedure Laterality Date - EGD W/O OR W/BRUSH/WASH 08/14/2011 EGD - PAST SURGICAL HISTORY OF neck fused - PAST SURGICAL HISTORY OF pelvicoscopy - PAST SURGICAL HISTORY OF right hip plate and leg surgeries - PAST SURGICAL HISTORY OF tubes in bilat ears. Current Outpatient Prescriptions: traMADol (ULTRAM) 50 mg tablet take 1 tablet by mouth every 8 hours if needed for pain FOR UP TO 30 DAYS TAB-A-AMADEO tablet take 1 tablet by mouth at bedtime citalopram (CELEXA) 20 mg tablet take 1 tablet by mouth once daily omeprazole (PRILOSEC) 20 mg capsule take 1 capsule by mouth once daily levothyroxine (SYNTHROID) 137 mcg tablet take 1 tablet by mouth once daily cholecalciferol, Vitamin D3, (VITAMIN D3) 50,000 unit cap capsule take 1 capsule by mouth ONCE EACH WEEK COMPOUNDED PRESCRIPTION RECUMBENT BIKE TO BENEFIT PATIENT HEALTH WEIGHT IS 233# COMPOUNDED PRESCRIPTION DECK AND STEPS TO GET PATIENT IN BACK YARD POOL TO BENEFIT HER HEALTH metoprolol tartrate, short acting, (LOPRESSOR) 25 mg tablet Take 1.5 tablets by mouth twice daily. insulin syringe,safetyneedle (ASSURE ID INSULIN SAFETY) 1 mL 29 gauge x 1/2 syrg 1 Syringe once each week. To use with SC MTX once/week methotrexate, PF, 25 mg/mL soln 0.8cc SC once/week folic acid 1 mg tablet Take 1 tablet by mouth once daily. fluticasone (FLONASE) 50 mcg/actuation nasal spray Use 2 Sprays in each nostril once daily. loratadine (CLARITIN) 10 mg tablet Take 1 tablet by mouth once daily. ERGOCALCIFEROL, VITAMIN D2, (VITAMIN D ORAL) Take 50,000 Units by mouth once each week. 2000 units daily ALBUTEROL INHALATION Inhale as instructed. No current facility-administered medications for this visit. ALLERGIES Allergen Reactions - Bactrim [Sulfametho* Hives - Ceclor [Cefaclor] Hives - Penicillins Unknown - Sulfasalazine Unknown Social History Marital status: Single Spouse name: Years of education: Number of children: Social History Main Topics Smoking status: Never Smoker Smokeless tobacco: Never Used Alcohol use: No Drug use: No Sexual activity: Not Currently Social History Narrative Mother Kalpana Villagran ROS: See HPI PE: BP 120/68 Pulse 72 Resp 18 Wt 240 lb 0.6 oz (108.9kg) Gen: AANDOX3, NAD, non-toxic appearing, pleasant, smiling, difficult with communication verbally, typical Downs appearance HEENT: PERRLA, EOMs intact b/l, nares without drainage, pharynx without erythema, exudate, lesions, or drainage. Uvula midline. MMM, poor dentition Neck: No LAD, no thyromegaly, no meningismus. + muscle tension, short thick neck, no obvious midline TTP CV: RRR, no murmur, normal s1s2 Lungs: CTA b/l, no wheezing Skin: scattered nevi typical appearing on back B/l knee TTP b/l Medial joint line without effusion Antalgic gait PDMP website checked and validated. All prescriptions have been APPROPRIATELY filled. No suspicious activity was identified. 04/03/2018 by Trent Horowitz DO ASSESSMENT/PLAN: 1. Chronic pain syndrome - ICD9: 338.4, ICD10: G89.4 (primary diagnosis) - 1 month rx printed and given to her today, chronic, stable - TRAMADOL 50 MG TABLET 2. Need for vaccination - ICD9: V05.9, ICD10: Z23 - INFLUENZA VACCINE QUADRIVALENT AGE 3 YRS PLUS + IM 3. Inflammatory polyarthritis (HCC) - ICD9: 714.9, ICD10: M06.4 - rx as below, chronic, stable - TRAMADOL 50 MG TABLET 4. Osteoarthritis of cervical spine, unspecified spinal osteoarthritis complication status - ICD9: 721.0, ICD10: M47.812 - f/u with Spine surgeon, need for upcoming CT neck - TRAMADOL 50 MG TABLET 5. Vitamin D deficiency - ICD9: 268.9, ICD10: E55.9 - continue supplement 6. Situational stress - ICD9: V62.89, ICD10: F43.9 - stable, improved with Celexa 7. Abnormal x-ray of cervical spine - ICD9: 793.7, ICD10: R93.7 - see above 8. Down's syndrome - ICD9: 758.0, ICD10: Q90.9 - lives with mother Trent Keegan DO Carlos Manuel Return if no improvement. Follow up with Trent Horowitz DO. Discussed risks, benefits, alternatives, and potential side effects of medications. Patient/Guardian expressed understanding and agreed with the plan. See patient instructions. Trent Horowitz DO [address] [place] [address] PROGRESS Observed: 04/03/2018 Status: COMPLETED Source: RINGLE 2:48 PM [facility] [place] REPOSITORY HNO ID: [id number] Author: Annelise Charles ([place]) CHIOMA Putnam Service: (none) Author Type: LICENSED NURSE Type: Progress Notes Filed: 04/03/2018 4:33 PM Note Text: 32 year old female here for INACTIVATED INFLUENZA VACCINE. 3936-5170 Season Patient is identified by name and date of : Yes [] CONTRAINDICATIONS color enhanced section Age less than 6 months? No Allergy to eggs, chicken, chicken feathers, or chicken dander? No Allergy to thimerosal (a preservative) or formaldehyde, gelatin? No History of severe reaction to any vaccine component or a previous dose of influenza vaccination? No History of Guillain-Novi Syndrome within 6 weeks after a previous influenza vaccine? No Patient is not moderately or severely ill? No Current temperature greater or equal to 100.4F? No History of Bone Marrow Transplant prior 6 months or solid organ transplant in the past 3 months ? No History of fainting after a prior injection or medical procedure? No- ? If patient has fainted in the past, the CDC recommends sitting or lying down for 15 minutes after the vaccination. [] VERIFICATION color enhanced section Was the answer Yes for any of the above contraindications? No contraindications present. Acceptable to proceed with vaccine. Patient/guardian agrees the above answers are true to the best of their knowledge? Yes Flu vaccine information sheet given? Yes See immunization activity in [facility] for details of immunizations adminstered today. Patient age: [age] year old For The 2074-6877 Flu Season 6-35 months old: Fluzone 0.25 ml - IM (Preservative Free) 3 years of age: Fluzone 0.5 ml - IM (Preservative Free) 3 years and older: Fluzone 0.5 ml- IM-(with Preservatives) 65+ years old: 2-49 years old Fluzone High-Dose 0.5 ml - IM (Preservative Free) FLUMIST- intranasal REMEMBER: If patient is less than 9 years of age and this is the first vaccine of Influenza to be received in any flu season, they should receive a second dose in one months time. CNOV Observed: 04/03/2018 Status: COMPLETED Source: RINGLE 2:40 PM [facility] REPOSITORY Office Visit (FAMPWS) DANNI EVANS ([id number]) 1985 F LUIS ANTONIO Date Time Provider Department 04/03/18 2:40 PM TRENT HOROWITZ [facility] During your visit today, we recorded the following information about you: Pulse Respiration Blood pressure Weight 72/minute 18/minute 120/68 108.9 kg Annelise Putnam LPN, CHIOMA 04/03/2018 4:33 PM Signed 32 year old female here for INACTIVATED INFLUENZA VACCINE. Season Patient is identified by name and date of : Yes [] CONTRAINDICATIONS color enhanced section Age less than 6 months? No Allergy to eggs, chicken, chicken feathers, or chicken dander? No Allergy to thimerosal (a preservative) or formaldehyde, gelatin? No History of severe reaction to any vaccine component or a previous dose of influenza vaccination? No History of Guillain-Novi Syndrome within 6 weeks after a previous influenza vaccine? No Patient is not moderately or severely ill? No Current temperature greater or equal to 100.4F? No History of Bone Marrow Transplant prior 6 months or solid organ transplant in the past 3 months ? No History of fainting after a prior injection or medical procedure? No- ? If patient has fainted in the past, the CDC recommends sitting or lying down for 15 minutes after the vaccination. [] VERIFICATION color enhanced section Was the answer Yes for any of the above contraindications? No contraindications present. Acceptable to proceed with vaccine. Patient/guardian agrees the above answers are true to the best of their knowledge? Yes Flu vaccine information sheet given? Yes See immunization activity in [facility] for details of immunizations adminstered today. Patient age: [age] year old For The 2881-7483 Flu Season 6-35 months old: Fluzone 0.25 ml - IM (Preservative Free) 3 years of age: Fluzone 0.5 ml - IM (Preservative Free) 3 years and older: Fluzone 0.5 ml- IM-(with Preservatives) 65+ years old: 2-49 years old Fluzone High-Dose 0.5 ml - IM (Preservative Free) FLUMIST- intranasal REMEMBER: If patient is less than 9 years of age and this is the first vaccine of Influenza to be received in any flu season, they should receive a second dose in one months time. Annelise Putnam LPN, LAYOUT DESIGNER 04/03/2018 2:52 PM Signed Pt c/o neck pain and so leg pain. Missed ct scan in February asking if needs another order. Trent Horowitz DO 04/03/2018 4:33 PM Signed CC Danni A Lowe is a 32 year old female who presents to the office for medication follow up HPI: Previously 9 months ago Cold symptoms, present for the last few days, fever yesterday, b/l ear pain, nasal congestion and PND symptoms, ?+ sick contacts per mother at her job ?? Anxiety and depressed mood, hair pulling recently per mother, stressed appearing, has to do with situation with mother's other son living with them- he will be moving out of their home soon. ?No SI or HI. She is well supported by mother. Not any any current medications. ?? ? Asthma, no recent flare ups, no wheezing or cough, using inhalers as prescribed ? Inflammatory polyarthritis, seeing Sas Architect still, has upcoming labs and appt ? She was started on Zoloft ? At last OFFICE VISIT 6 months ago Per mother she is still irritable and hair pulling/picking as well as cursing at me. ?No aggression. ??No SI or HI. ?Still able to be working at the [employer]. ? Seeing Truck Driver [employer] Dr. Flores for congenital heart disease hx. ? Seeing Sas Architect for chronic inflammatory joint changes. ? At last OV ? Mood, hair pulling, irritability, slightly improved with Celexa, wondering if can increase dose of medication, no obvious adverse SE from medication ? Inflammatory joint disease, seeing Rheum Dr. Mcmahan, use of Tramadol up to 3 tablets a day for severe hip pain ? B/l knee pain and neck pain is starting, did trip and fall about 1 month ago at camp, wasn't assessed at that time ? Still continuing to see Truck Driver Teamster Currently Neck pain, hasn't had CT neck completed yet, appt has to be rescheduled, having it completed at [facility] then will see Spine Surgeon Dr. Harper Inflammatory joint disease, seeing Dr. Mcmahan [employer], taking Tramadol as prescribed up to 3 tablets a day for joint and spine and hip pain with improvement in functioning Mood, overall much improved with Celexa, less stressors since her nieces/nephews have moved out of her mother's home ? 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[employer]ster - Congestive heart failure, unspecified - CRP elevated - Down's syndrome - Fatty liver - Hip pain - Hypercholesteremia 06/2013 - Hypothyroidism - Inflammatory polyarthritis (HCC) - Juvenile osteochondrosis of hip and pelvis - Knee pain - Methicillin resistant Staphylococcus aureus in conditions classified elsewhere and of unspecified site - Mitral valve disorders - Obstructive sleep apnea (adult) (pediatric) - YVETTE on CPAP - Osteoarthrosis, unspecified whether generalized or localized, lower leg - Other candidiasis of other specified sites - Other ventral hernia without mention of obstruction or gangrene - Unspecified congenital anomaly of heart - Vitamin D deficiency PAST SURGICAL HISTORY Procedure Laterality Date - EGD W/O OR W/BRUSH/WASH 08/14/2011 EGD - PAST SURGICAL HISTORY OF neck fused - PAST SURGICAL HISTORY OF pelvicoscopy - PAST SURGICAL HISTORY OF right hip plate and leg surgeries - PAST SURGICAL HISTORY OF tubes in bilat ears. Current Outpatient Prescriptions: traMADol (ULTRAM) 50 mg tablet take 1 tablet by mouth every 8 hours if needed for pain FOR UP TO 30 DAYS TAB-A-AMADEO tablet take 1 tablet by mouth at bedtime citalopram (CELEXA) 20 mg tablet take 1 tablet by mouth once daily omeprazole (PRILOSEC) 20 mg capsule take 1 capsule by mouth once daily levothyroxine (SYNTHROID) 137 mcg tablet take 1 tablet by mouth once daily cholecalciferol, Vitamin D3, (VITAMIN D3) 50,000 unit cap capsule take 1 capsule by mouth ONCE EACH WEEK COMPOUNDED PRESCRIPTION RECUMBENT BIKE TO BENEFIT PATIENT HEALTH WEIGHT IS 233# COMPOUNDED PRESCRIPTION DECK AND STEPS TO GET PATIENT IN BACK YARD POOL TO BENEFIT HER HEALTH metoprolol tartrate, short acting, (LOPRESSOR) 25 mg tablet Take 1.5 tablets by mouth twice daily. insulin syringe,safetyneedle (ASSURE ID INSULIN SAFETY) 1 mL 29 gauge x 1/2 syrg 1 Syringe once each week. To use with SC MTX once/week methotrexate, PF, 25 mg/mL soln 0.8cc SC once/week folic acid 1 mg tablet Take 1 tablet by mouth once daily. fluticasone (FLONASE) 50 mcg/actuation nasal spray Use 2 Sprays in each nostril once daily. loratadine (CLARITIN) 10 mg tablet Take 1 tablet by mouth once daily. ERGOCALCIFEROL, VITAMIN D2, (VITAMIN D ORAL) Take 50,000 Units by mouth once each week. 2000 units daily ALBUTEROL INHALATION Inhale as instructed. No current facility-administered medications for this visit. ALLERGIES Allergen Reactions - Bactrim [Sulfametho* Hives - Ceclor [Cefaclor] Hives - Penicillins Unknown - Sulfasalazine Unknown Social History Marital status: Single Spouse name: Years of education: Number of children: Social History Main Topics Smoking status: Never Smoker Smokeless tobacco: Never Used Alcohol use: No Drug use: No Sexual activity: Not Currently Social History Narrative Mother Kalpana Villagran ROS: See HPI PE: BP 120/68 Pulse 72 Resp 18 Wt 240 lb 0.6 oz (108.9kg) Gen: AANDOX3, NAD, non-toxic appearing, pleasant, smiling, difficult with communication verbally, typical Downs appearance HEENT: PERRLA, EOMs intact b/l, nares without drainage, pharynx without erythema, exudate, lesions, or drainage. Uvula midline. MMM, poor dentition Neck: No LAD, no thyromegaly, no meningismus. + muscle tension, short thick neck, no obvious midline TTP CV: RRR, no murmur, normal s1s2 Lungs: CTA b/l, no wheezing Skin: scattered nevi typical appearing on back B/l knee TTP b/l Medial joint line without effusion Antalgic gait PDMP website checked and validated. All prescriptions have been APPROPRIATELY filled. No suspicious activity was identified. 04/03/2018 by Trent Horowitz, ASSESSMENT/PLAN: 1. Chronic pain syndrome - ICD9: 338.4, ICD10: G89.4 (primary diagnosis) - 1 month rx printed and given to her today, chronic, stable - TRAMADOL 50 MG TABLET 2. Need for vaccination - ICD9: V05.9, ICD10: Z23 - INFLUENZA VACCINE QUADRIVALENT AGE 3 YRS PLUS + IM 3. Inflammatory polyarthritis (HCC) - ICD9: 714.9, ICD10: M06.4 - rx as below, chronic, stable - TRAMADOL 50 MG TABLET 4. Osteoarthritis of cervical spine, unspecified spinal osteoarthritis complication status - ICD9: 721.0, ICD10: M47.812 - f/u with Spine surgeon, need for upcoming CT neck - TRAMADOL 50 MG TABLET 5. Vitamin D deficiency - ICD9: 268.9, ICD10: E55.9 - continue supplement 6. Situational stress - ICD9: V62.89, ICD10: F43.9 - stable, improved with Celexa 7. Abnormal x-ray of cervical spine - ICD9: 793.7, ICD10: R93.7 - see above 8. Down's syndrome - ICD9: 758.0, ICD10: Q90.9 - lives with mother Trent Horowitz DO Return if no improvement. Follow up with Trent Horowitz DO. Discussed risks, benefits, alternatives, and potential side effects of medications. Patient/Guardian expressed understanding and agreed with the plan. See patient instructions. Trent Horowitz DO [address] [place] [address] Annelise Putnam LPN, CHIOMA 04/03/2018 4:04 PM Signed Pt receives flu vaccine today tolerates well. Referring Provider: SELF [[id number]] Allergies As of Date: 04/03/2018 Noted Allergy Reaction BACTRIM (SULFAMETHOXAZOLE) 09/26/2010 4 - Hives CECLOR (CEFACLOR) 09/26/2010 4 - Hives PENICILLINS 05/25/2013 16 - Unknown SULFASALAZINE 06/28/2011 16 - Unknown Date Reviewed: 04/03/2018 Reviewed by: Annelise Charles ([place]) CHIOMA Putnam - Fully Assessed Reason for Visit: Recheck [92] Cmt: asking about citalopram dosage Imm/Inj [58] Cmt: Flu Vaccine Reason For Visit History Recorded Primary Visit Diagnosis:Chronic pain syndrome [G89.4] Other Visit Diagnoses:Need for vaccination [Z23] Inflammatory polyarthritis (HCC) [M06.4] Osteoarthritis of cervical spine, unspecified spinal osteoarthritis complication status [M47.812] Vitamin D deficiency [E55.9] Situational stress [F43.9] Abnormal x-ray of cervical spine [R93.7] Down's syndrome [Q90.9] Order(s):INFLUENZA VACCINE QUADRIVALENT AGE 3 YRS PLUS + IM [[id number]] Order #: [id number] traMADol (ULTRAM) 50 mg tablettake 1 tablet by mouth every 8 hours if needed for pain FOR UP TO 30 DAYSDisp: 90 tabletRfl: 0 Prescriptions as of 04/03/2018 Sig: TRAMADOL 50 MG TABLET take 1 tablet by mouth every * TAB-A-AMADEO TABLET take 1 tablet by mouth at bed* CITALOPRAM 20 MG TABLET take 1 tablet by mouth once d* OMEPRAZOLE 20 MG CAPSULE,CARO* take 1 capsule by mouth once * LEVOTHYROXINE 137 MCG TABLET take 1 tablet by mouth once d* CHOLECALCIFEROL (VITAMIN D3) * take 1 capsule by mouth ONCE * COMPOUNDED PRESCRIPTION RECUMBENT BIKE TO SUKH* COMPOUNDED PRESCRIPTION DECK AND STEPS TO GET PATIENT* METOPROLOL TARTRATE 25 MG TAB* Take 1.5 tablets by mouth twi* INSULIN SYRINGE WITH SAFETY N* 1 Syringe once each week. To * METHOTREXATE SODIUM (PF) 25 M* 0.8cc SC once/week FOLIC ACID 1 MG TABLET Take 1 tablet by mouth once d* FLUTICASONE 50 MCG/ACTUATION * Use 2 Sprays in each nostril * LORATADINE 10 MG TABLET Take 1 tablet by mouth once d* VITAMIN D2 ORAL Take 50,000 Units by mouth on* ALBUTEROL INHALATION Inhale as instructed. Problem List As Of Date 04/03/2018 Noted Resolved DOWN'S SYNDROME [Q90.9] INVALID FOR* SURGERY FOLLOW-UP [V67.0] INVALID FOR* Abdominal pain, left upper quadrant [R10.12] INVALID FOR* Anxiety [F41.9] INVALID FOR* YVETTE on CPAP [G47.33, Z99.89] INVALID FOR* Allergic rhinitis [J30.9] INVALID FOR* Hypothyroidism [E03.9] INVALID FOR* Vitamin D deficiency [E55.9] INVALID FOR* Rash and nonspecific skin eruption [R21] INVALID FOR* Obesity, morbid, BMI 50 or higher (HCC) [E66.01]INVALID FOR* 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* Hip pain [M25.559] Knee pain [M25.569] CRP elevated [R79.82] Inflammatory polyarthritis (HCC) [M06.4] Acute non-recurrent maxillary sinusitis [J01.00]INVALID FOR* Hair pulling [F63.3] INVALID FOR* Abnormal x-ray of cervical spine [R93.7] INVALID FOR* Situational stress [F43.9] INVALID FOR* Osteoarthritis of cervical spine [M47.812] INVALID FOR* Chronic pain syndrome [G89.4] INVALID FOR* Visit Notes: >> Annelise Putnam LPN FriApr 03, 2018 2:49 PM Status: Signed Pt c/o neck pain and so leg pain. Missed ct scan in February asking if needs another order. >> Annelise Putnam LPN FriApr 03, 2018 4:04 PM Status: Signed Pt receives flu vaccine today tolerates well. Prescriptions ordered this encounter Disp Refills Start End TRAMADOL 50 MG TABLET 90 t* 0 04/03/2018 05/03/2018 Class: Print RX Sig: take 1 tablet by mouth every 8 hours if needed for pain FOR UP TO 30 DAYS Medications Discontinued During This Encounter benzonatate (TESSALON PERLES) 100 mg* 40 c* 0 03/23/2018 04/03/2018 Route: ORAL Sig: Take 1 capsule by mouth three times daily as needed. Disc: Reason for discontinue is not on file. traMADol (ULTRAM) 50 mg tablet 90 t* 0 02/17/2018 04/03/2018 Class: Print RX Sig: take 1 tablet by mouth every 8 hours if needed for pain FOR UP TO 30 DAYS Disc: Reason for discontinue is not on file. Encounter Status:Closed by TRENT HOROWITZ DO on 04/03/18 WOUND CTR HISTORY Observed: 04/01/2018 Status: F Source: LYNETTE AND PHYSICAL 4:11 PM [facility] REPOSITORY [facility] [address] [place] [id number] Wound Ctr History AND Physical 03/31/18 1429 MR#: [id number] Acct: [id number] Name: DANNI EVANS Rep #: [id number] : 1985 32 From: Glendy DUC PCP: Trent Giang DO Status: REG RCR Y Location: WC (1) Skin ulcer of nose Status: Acute Current Visit: Yes Code(s): L98.499 - Non- pressure chronic ulcer of skin of other sites with unspecified severity (2) History of Down syndrome Status: Chronic Current Visit: No Code(s): Q90.9 - Down syndrome, unspecified History of Present Illness Date of Service: 03/31/18 Chief Complaint: Sore on left side of nose that most likely was caused by sleeping with her glasses on. History of Wound: Sore on left side of nose occurred about a month ago. Danni has Down Syndrome and her mother believes Danni fell asleep with her eye glasses on about a month ago. They have not been able to get the sore to heal using bactroban ointment. With the constant pressure from wearing her glasses and Danni picking at the sore has also prevented it from healing. She has been placed on Keflex by her PCP. Past Medical History Past Medical History: Chronic Problems History of Down syndrome (Chronic) Allergies/Adverse Reactions: Allergies cefaclor [From Ceclor] Allergy (Verified 03/24/18 17:34) Hives sulfamethoxazole [From Bactrim] Allergy (Verified 03/24/18 17:34) Upset Stomach trimethoprim [From Bactrim] Allergy (Verified 03/24/18 17:34) Upset Stomach Home Medications: Ambulatory Orders Medication Instructions Recorded Cephalexin [Keflex] 500 mg PO Q6 #40 capsule 03/24/18 Smz/Tmp Ds [Bactrim Ds] 1 tablet PO BID #20 tablet 03/24/18 Benzonatate 100 mg PO PRN PRN 03/31/18 Lives: With Family Smoking Status: Never smoker Tobacco Use: Non-smoker Review of Systems Constitutional: Denies: Anorexia, Chills, Fever Eyes: Reports: - - Wears glasses HEENT: Denies: Difficulty Hearing, Head Aches, Hearing Changes, Nasal bleeding Cardiovascular: Denies: Chest Pain, Edema Respiratory: Denies: Cough, Shortness of Breath Gastrointestinal: Denies: Abdominal Pain Musculoskeletal: Denies: Joint Pain Skin: Reports: Lesions - Sore on left side of nose Psychiatric: Reports: Anxiety Endocrine: Reports: Heat/ Cold Intolerance, - - History of hypothyroidism - Physical Exam Vital Signs Temp Pulse Resp BP 96.6 F L 80 16 114/77 03/31/18 13:46 03/31/18 13:46 03/31/18 13:46 03/31/18 13:46 General: Alert, Cooperative - Very pleasant female HEENT: Atraumatic Oral: Moist Mucosa Lungs: Clear to auscultation, Normal air movement, No rhonchi Cardiovascular: Regular rate, Regular Rhythm Abdomen: Bowel Sounds Present, Soft, Non Tender, Non-Distended Extremities: No edema, Capillary Refill Less than 3 Seconds, No Calf Tenderness Skin: Ulcer/ Wound - Ulcer on left side of nose Wound Measurements and Assessment WC - Nurse 1 - General Ulcer Measurement Start: 03/31/18 13:45 Freq: Status: Active Protocol: Activity Type Activity Date Activity User E-Sign Co-Sign Detail Recorded Client Recorded Date Recorded By Document 03/31/18 13:46 CS [id number] 03/31/18 14:06 Wound Center Nurse 1 WC - Nurse 2 - General Ulcer CM Notes Start: 03/31/18 13:45 Freq: Status: Active Protocol: Activity Type Activity Date Activity User E-Sign Co-Sign Detail Recorded Client Recorded Date Recorded By Document 03/31/18 14:14 ELOISA [id number] 03/31/18 14:21 ELOISA Musculoskeletal: No Tenderness to Palpation of Joints or Extremities Neurological: Neuro grossly intact Psych/Mental Status: Normal Affect, Appropriate Debridement Note Post-Debridement Measurements/Treatment WC - Nurse 2 - General Ulcer CM Notes Start: 03/31/18 13:45 Freq: Status: Active Protocol: Activity Type Activity Date Activity User E-Sign Co-Sign Detail Recorded Client Recorded Date Recorded By Document 03/31/18 14:14 [id number] 03/31/18 14:21 Wound Center Nurse 2 #1 Left Bridge of Nose -Time 14:14 -Correct Patient Yes -Correct Side, Site, Position Yes Wound debrided: Left side of nose Laterality: Left Type of Debridement: Excisional debridement Anesthesia Used: 4% Lidocaine Solution Depth: Down to and including healthy tissue, in the subcutaneous layer Percentage of wound debrided: 90 Instrument Used: 3mm curette Tissue Removed: Subcutaneous tissue and slough Severity: Limited To Skin Breakdown Amount of bleeding with debridement: Mild Bleeding Controlled with: Pressure Patient tolerated procedure well Assessment/Plan Active Problems Skin ulcer of nose (Acute) Assessment: 1. Skin Ulcer of Left Nose. 2. History of Down Syndrome Plan: The patient was seen and examined at the wound center today. She and her mother and were updated on the plan of care. Subcutaneous debridement was performed today. Patient tolerated procedure well. Patient's wound care will consist of collagen hydrogel that will be topped with dressing and secured with silicone tape. With this padding the patient should be able to wear her glasses. She is to continue her keflex as prescribed by PCP. We will have her follow-up in 1 week. Code Visit Office Visits / Consults: 69275 OV L3 New 111xxx-113xx: [id number] Ivana subq tissue 20 sq cm/< - 25 modifier 04/01/18 1611 <Electronically signed by Glendy GARDUNO> Date Glendy Nowak NP-C CC: Signed EMERGENCY DEPARTMENT Observed: 03/25/2018 Status: F Source: HASLET SUMMARY 1:43 AM [facility] REPOSITORY [facility] Medical Records Department [address] [place] [address] Emergency Department Summary 03/24/18 1716 MR#: [id number] Acct: [id number] Name: DANNI EVANS Rep #: [id number] : 1985 32 From: Elayne Shah MD PCP: Trent Giang DO Status: DEP ER - ER Visit Summary Date of Service: 03/24/18 Chief Complaint: Nasal wound History of Present Illness: The patient is a 32 F with a history of Down's. She is brought in by staff from her intermediate. She developed left nasal bridge wound from her glasses when she was visiting family members 3 weeks ago. She was seen at urgent care initially and given Zithromax. She had no improvement. She was taken back to urgent care last night and staff was told that she either had to see the wound center today or she needed to go the emergency room. She has not had fever. She has not had drainage from the wound. Physical Examination: Vital signs unremarkable. Patient sitting upright in bed no acute distress. Head neck examination reveals a 4 x 6 mm scabbed wound to the left nasal bridge. There is no fluctuance or drainage at this time. There is no cellulitis. Remainder of exam is unremarkable. Test Results: [] Emergency Department Course and Treatment: Wound care is discussed with staff. Will be cleansed and bacitracin will be applied. She will be given Bactrim and Keflex for good skin coverage. I did fill out a referral form for the wound center. Treatment Plan: [] Disposition: Discharge Impression: Scabbed wound to left nasal bridge This note was generated with [employer] dictation software. It may contain incorrect words, spelling, and punctuation that were not noted in review of the chart prior to signing ED Disposition - Plan for ED Patient: Chief Complaint: Wound Referrals: Trent Horowitz DO [Primary Care Provider] - What to do if you have Problems For any increased pain, shortness of breath, bleeding, nausea or vomiting, chest pain, or any unexpected problems, contact your Primary Care Provider. Call [facility] ([phone]) or report to the closest Emergency Room. Call 911 if necessary. 03/25/18 0143 <Electronically signed by Elayne Shah MD> Date Elayne Shah MD Cosigner Signature (If Indicated): Date CC: Trent Giang DO DISCHARGE INSTRUCTION Observed: 03/24/2018 Status: F Source: [place] 5:23 PM [facility] REPOSITORY [facility] Medical Records Department [address] [place] [address] Discharge Instruction 03/24/18 1718 MR#: [id number] Acct: [id number] Name: DANNI EVANS Rep #: [id number] : 1985 32 From: Elayne Shah MD PCP: Trent Giang DO Status: REG ER ED Disposition - Plan for ED Patient: Disposition: Home or Assisted Living Chief Complaint: Wound Instructions: ED Wound Care Prescriptions: Cephalexin [Keflex] 500 mg PO Q6 #40 capsule Smz/Tmp Ds [Bactrim Ds] 1 tablet PO BID #20 tablet Referrals: Trent Horowitz DO [Primary Care Provider] - Additional Instructions: Follow-up with Wound Center [phone] What to do if you have Problems For any increased pain, shortness of breath, bleeding, nausea or vomiting, chest pain, or any unexpected problems, contact your Primary Care Provider. Call [facility] ([phone]) or report to the closest Emergency Room. Call 911 if necessary. 03/24/18 1723 <Electronically signed by Elayne Shah MD> Date Elayne Shah MD Cosigner Signature (If Indicated): Date CC: Trent Giang, PROGRESS Observed: 03/23/2018 Status: COMPLETED Source: [place] 6:13 PM [facility] REPOSITORY HNO ID: [id number] Author: Izabel Hanley Service: (none) Author Type: Nurse Practitioner Type: Progress Notes Filed: 03/23/2018 6:20 PM Note Text: Subjective HPI Pt presents with c/o persistent cough, post nasal drip and sore on nose x 2 weeks. Was evaluated and treated here at [facility] on 03/14. Dx viral uri and BAOM, skin infection to nose. rx zpak, bromfed and mupirocin. Completed all as prescribed. Area on nose is ulcer-like. Unsure if was caused by wearing glasses or from CPAP. Pt continues to rub and pick at-delaying healing. Has been present weeks to months. Begins to heal then worsens again. No drainage, heat. Cough is dry, nonproductive. States bromfed worked well suppressing cough but has used all of it. Denies fever, chills, dyspnea, wheezing. Review of Systems Constitutional: Negative for chills and fever. HENT: Positive for congestion and sore throat. Negative for ear discharge, ear pain, sinus pain and tinnitus. Respiratory: Positive for cough. Negative for sputum production, shortness of breath and wheezing. Cardiovascular: Negative for chest pain. Skin: Negative for rash. Neurological: Negative for headaches. Objective Physical Exam Constitutional: She is oriented to person, place, and time and well-developed, well-nourished, and in no distress. No distress. HENT: Head: Normocephalic. Right Ear: Hearing, tympanic membrane, external ear and ear canal normal. Tympanic membrane is not injected. Left Ear: Hearing, tympanic membrane, external ear and ear canal normal. Tympanic membrane is not injected. Nose: Nose normal. Right sinus exhibits no maxillary sinus tenderness and no frontal sinus tenderness. Left sinus exhibits no maxillary sinus tenderness and no frontal sinus tenderness. Mouth/Throat: Uvula is midline, oropharynx is clear and moist and mucous membranes are normal. No oropharyngeal exudate, posterior oropharyngeal edema, posterior oropharyngeal erythema or tonsillar abscesses. Ulcer like lesion to left lateral nare. Mild erythema. No active drainage, edema or heat. Eyes: Pupils are equal, round, and reactive to light. Conjunctivae are normal. Right eye exhibits no discharge. Left eye exhibits no discharge. Neck: Neck supple. Cardiovascular: Normal rate, regular rhythm and normal heart sounds. Exam reveals no gallop and no friction rub. No murmur heard. Pulmonary/Chest: Effort normal and breath sounds normal. No accessory muscle usage. No tachypnea. No respiratory distress. She has no decreased breath sounds (CTA, good air movement throughout, no cough noted during exam.). She has no wheezes. She has no rhonchi. She has no rales. Lymphadenopathy: She has no cervical adenopathy. Neurological: She is alert and oriented to person, place, and time. Skin: Skin is warm. She is not diaphoretic. BP 104/70 Pulse 73 Temp 36.8 ?C (98.2 ?F) (Tympanic) Resp 18 Wt 106.4 kg (234 lb 9.6 oz) SpO2 98% BMI 48.20 kg/m? 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 - Congestive heart failure, unspecified - CRP elevated - Down's syndrome - Fatty liver - Hip pain - Hypercholesteremia 06/2013 - Hypothyroidism - Inflammatory polyarthritis (HCC) - Juvenile osteochondrosis of hip and pelvis - Knee pain - Methicillin resistant Staphylococcus aureus in conditions classified elsewhere and of unspecified site - Mitral valve disorders - Obstructive sleep apnea (adult) (pediatric) - YVETTE on CPAP - Osteoarthrosis, unspecified whether generalized or localized, lower leg - Other candidiasis of other specified sites - Other ventral hernia without mention of obstruction or gangrene - Unspecified congenital anomaly of heart - Vitamin D deficiency PAST SURGICAL HISTORY Procedure Laterality Date - EGD W/O OR W/BRUSH/WASH 08/14/2011 EGD - PAST SURGICAL HISTORY OF neck fused - PAST SURGICAL HISTORY OF pelvicoscopy - PAST SURGICAL HISTORY OF right hip plate and leg surgeries - PAST SURGICAL HISTORY OF tubes in bilat ears. ALLERGIES Bactrim [Sulfamethoxazole]; Ceclor [Cefaclor]; Penicillins; Sulfasalazine MEDICATIONS mupirocin (BACTROBAN) 2 % ointment Apply 1 application to affected area three times daily for 10 days. citalopram (CELEXA) 20 mg tablet take 1 tablet by mouth once daily omeprazole (PRILOSEC) 20 mg capsule take 1 capsule by mouth once daily levothyroxine (SYNTHROID) 137 mcg tablet take 1 tablet by mouth once daily cholecalciferol, Vitamin D3, (VITAMIN D3) 50,000 unit cap capsule take 1 capsule by mouth ONCE EACH WEEK COMPOUNDED PRESCRIPTION RECUMBENT BIKE TO BENEFIT PATIENT HEALTH WEIGHT IS 233# COMPOUNDED PRESCRIPTION DECK AND STEPS TO GET PATIENT IN BACK YARD POOL TO BENEFIT HER HEALTH metoprolol tartrate, short acting, (LOPRESSOR) 25 mg tablet Take 1.5 tablets by mouth twice daily. TAB-A-AMADEO tablet take 1 tablet by mouth once daily at bedtime insulin syringe,safetyneedle (ASSURE ID INSULIN SAFETY) 1 mL 29 gauge x 1/2 syrg 1 Syringe once each week. To use with SC MTX once/week methotrexate, PF, 25 mg/mL soln 0.8cc SC once/week folic acid 1 mg tablet Take 1 tablet by mouth once daily. fluticasone (FLONASE) 50 mcg/actuation nasal spray Use 2 Sprays in each nostril once daily. loratadine (CLARITIN) 10 mg tablet Take 1 tablet by mouth once daily. ERGOCALCIFEROL, VITAMIN D2, (VITAMIN D ORAL) Take 50,000 Units by mouth once each week. 2000 units daily ALBUTEROL INHALATION Inhale as instructed. benzonatate (TESSALON PERLES) 100 mg capsule Take 1 capsule by mouth three times daily as needed. traMADol (ULTRAM) 50 mg tablet take 1 tablet by mouth every 8 hours if needed for pain FOR UP TO 30 DAYS FAMILY HISTORY Problem Relation Age of Onset - Colon Cancer Paternal Grandfather Social History Substance Use Topics - Smoking status: Never Smoker - Smokeless tobacco: Never Used - Alcohol use No ASSESSMENT/PLAN: 1. Lesion of nose - ICD9: 478.19, ICD10: J34.89 (primary diagnosis) - CONSULT TO DERMATOLOGY or WOUND Center whichever can evaluated pt in next 2 days. 2. Cough - ICD9: 786.2, ICD10: R05 - BENZONATATE 100 MG CAPSULE The patient/parent is instructed to return or seek emergency treatment if symptoms become worse or with any acute change in condition. The patient/parent verbalizes understanding and is in agreement with plan of care. Izabel Hanley CNP CNOV Observed: 03/23/2018 Status: COMPLETED Source: RING[place] 5:00 PM [facility] REPOSITORY Office Visit (WSTR) DANNI EVANS ([id number]) 1985 F [facility] Date Time Provider Department 03/23/18 5:00 PM IZABEL HANLEY [facility] [[email or web address]] During your visit today, we recorded the following information about you: Temperature Pulse Respiration Blood pressure 98.2 degrees 73/minute 18/minute 104/70 Weight 106.4 kg Izabel Hanley APRN.CNP 03/23/2018 6:20 PM Signed Subjective HPI Pt presents with c/o persistent cough, post nasal drip and sore on nose x 2 weeks. Was evaluated and treated here at [facility] on 03/14. Dx viral uri and BAOM, skin infection to nose. rx zpak, bromfed and mupirocin. Completed all as prescribed. Area on nose is ulcer-like. Unsure if was caused by wearing glasses or from CPAP. Pt continues to rub and pick at-delaying healing. Has been present weeks to months. Begins to heal then worsens again. No drainage, heat. Cough is dry, nonproductive. States bromfed worked well suppressing cough but has used all of it. Denies fever, chills, dyspnea, wheezing. Review of Systems Constitutional: Negative for chills and fever. HENT: Positive for congestion and sore throat. Negative for ear discharge, ear pain, sinus pain and tinnitus. Respiratory: Positive for cough. Negative for sputum production, shortness of breath and wheezing. Cardiovascular: Negative for chest pain. Skin: Negative for rash. Neurological: Negative for headaches. Objective Physical Exam Constitutional: She is oriented to person, place, and time and well-developed, well-nourished, and in no distress. No distress. HENT: Head: Normocephalic. Right Ear: Hearing, tympanic membrane, external ear and ear canal normal. Tympanic membrane is not injected. Left Ear: Hearing, tympanic membrane, external ear and ear canal normal. Tympanic membrane is not injected. Nose: Nose normal. Right sinus exhibits no maxillary sinus tenderness and no frontal sinus tenderness. Left sinus exhibits no maxillary sinus tenderness and no frontal sinus tenderness. Mouth/Throat: Uvula is midline, oropharynx is clear and moist and mucous membranes are normal. No oropharyngeal exudate, posterior oropharyngeal edema, posterior oropharyngeal erythema or tonsillar abscesses. Ulcer like lesion to left lateral nare. Mild erythema. No active drainage, edema or heat. Eyes: Pupils are equal, round, and reactive to light. Conjunctivae are normal. Right eye exhibits no discharge. Left eye exhibits no discharge. Neck: Neck supple. Cardiovascular: Normal rate, regular rhythm and normal heart sounds. Exam reveals no gallop and no friction rub. No murmur heard. Pulmonary/Chest: Effort normal and breath sounds normal. No accessory muscle usage. No tachypnea. No respiratory distress. She has no decreased breath sounds (CTA, good air movement throughout, no cough noted during exam.). She has no wheezes. She has no rhonchi. She has no rales. Lymphadenopathy: She has no cervical adenopathy. Neurological: She is alert and oriented to person, place, and time. Skin: Skin is warm. She is not diaphoretic. BP 104/70 Pulse 73 Temp 36.8 ?C (98.2 ?F) (Tympanic) Resp 18 Wt 106.4 kg (234 lb 9.6 oz) SpO2 98% BMI 48.20 kg/m? 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 - Congestive heart failure, unspecified - CRP elevated - Down's syndrome - Fatty liver - Hip pain - Hypercholesteremia 06/2013 - Hypothyroidism - Inflammatory polyarthritis (HCC) - Juvenile osteochondrosis of hip and pelvis - Knee pain - Methicillin resistant Staphylococcus aureus in conditions classified elsewhere and of unspecified site - Mitral valve disorders - Obstructive sleep apnea (adult) (pediatric) - YVETTE on CPAP - Osteoarthrosis, unspecified whether generalized or localized, lower leg - Other candidiasis of other specified sites - Other ventral hernia without mention of obstruction or gangrene - Unspecified congenital anomaly of heart - Vitamin D deficiency PAST SURGICAL HISTORY Procedure Laterality Date - EGD W/O OR W/BRUSH/WASH 08/14/2011 EGD - PAST SURGICAL HISTORY OF neck fused - PAST SURGICAL HISTORY OF pelvicoscopy - PAST SURGICAL HISTORY OF right hip plate and leg surgeries - PAST SURGICAL HISTORY OF tubes in bilat ears. ALLERGIES Bactrim [Sulfamethoxazole]; Ceclor [Cefaclor]; Penicillins; Sulfasalazine MEDICATIONS mupirocin (BACTROBAN) 2 % ointment Apply 1 application to affected area three times daily for 10 days. citalopram (CELEXA) 20 mg tablet take 1 tablet by mouth once daily omeprazole (PRILOSEC) 20 mg capsule take 1 capsule by mouth once daily levothyroxine (SYNTHROID) 137 mcg tablet take 1 tablet by mouth once daily cholecalciferol, Vitamin D3, (VITAMIN D3) 50,000 unit cap capsule take 1 capsule by mouth ONCE EACH WEEK COMPOUNDED PRESCRIPTION RECUMBENT BIKE TO BENEFIT PATIENT HEALTH WEIGHT IS 233# COMPOUNDED PRESCRIPTION DECK AND STEPS TO GET PATIENT IN BACK YARD POOL TO BENEFIT HER HEALTH metoprolol tartrate, short acting, (LOPRESSOR) 25 mg tablet Take 1.5 tablets by mouth twice daily. TAB-A-AMADEO tablet take 1 tablet by mouth once daily at bedtime insulin syringe,safetyneedle (ASSURE ID INSULIN SAFETY) 1 mL 29 gauge x 1/2 syrg 1 Syringe once each week. To use with SC MTX once/week methotrexate, PF, 25 mg/mL soln 0.8cc SC once/week folic acid 1 mg tablet Take 1 tablet by mouth once daily. fluticasone (FLONASE) 50 mcg/actuation nasal spray Use 2 Sprays in each nostril once daily. loratadine (CLARITIN) 10 mg tablet Take 1 tablet by mouth once daily. ERGOCALCIFEROL, VITAMIN D2, (VITAMIN D ORAL) Take 50,000 Units by mouth once each week. 2000 units daily ALBUTEROL INHALATION Inhale as instructed. benzonatate (TESSALON PERLES) 100 mg capsule Take 1 capsule by mouth three times daily as needed. traMADol (ULTRAM) 50 mg tablet take 1 tablet by mouth every 8 hours if needed for pain FOR UP TO 30 DAYS FAMILY HISTORY Problem Relation Age of Onset - Colon Cancer Paternal Grandfather Social History Substance Use Topics - Smoking status: Never Smoker - Smokeless tobacco: Never Used - Alcohol use No ASSESSMENT/PLAN: 1. Lesion of nose - ICD9: 478.19, ICD10: J34.89 (primary diagnosis) - CONSULT TO DERMATOLOGY or WOUND Center whichever can evaluated pt in next 2 days. 2. Cough - ICD9: 786.2, ICD10: R05 - BENZONATATE 100 MG CAPSULE The patient/parent is instructed to return or seek emergency treatment if symptoms become worse or with any acute change in condition. The patient/parent verbalizes understanding and is in agreement with plan of care. Izabel Hanley CNP Referring Provider: SELF [[id number]] Allergies As of Date: 03/23/2018 Noted Allergy Reaction BACTRIM (SULFAMETHOXAZOLE) 09/26/2010 4 - Hives CECLOR (CEFACLOR) 09/26/2010 4 - Hives PENICILLINS 05/25/2013 16 - Unknown SULFASALAZINE 06/28/2011 16 - Unknown Date Reviewed: 03/23/2018 Reviewed by: Luisa Kong LPN - Fully Assessed Reason for Visit: ST, cough and diarrhea, and sore on nose [Other] Cmt: x 1 week-was seen last week Primary Visit Diagnosis:Lesion of nose [J34.89] Other Visit Diagnosis:Cough [R05] Order(s):benzonatate (TESSALON PERLES) 100 mg capsuleTake 1 capsule by mouth three times daily as needed.Disp: 40 capsuleRfl: 0 CONSULT TO DERMATOLOGY [[id number]] Order #: [id number]: 1 Prescriptions as of 03/23/2018 Sig: MUPIROCIN 2 % TOPICAL OINTMENT Apply 1 application to affect* CITALOPRAM 20 MG TABLET take 1 tablet by mouth once d* OMEPRAZOLE 20 MG CAPSULE,CARO* take 1 capsule by mouth once * LEVOTHYROXINE 137 MCG TABLET take 1 tablet by mouth once d* CHOLECALCIFEROL (VITAMIN D3) * take 1 capsule by mouth ONCE * COMPOUNDED PRESCRIPTION RECUMBENT BIKE TO SUKH* COMPOUNDED PRESCRIPTION DECK AND STEPS TO GET PATIENT* METOPROLOL TARTRATE 25 MG TAB* Take 1.5 tablets by mouth twi* TAB-A-AMADEO TABLET take 1 tablet by mouth once d* INSULIN SYRINGE WITH SAFETY N* 1 Syringe once each week. To * METHOTREXATE SODIUM (PF) 25 M* 0.8cc SC once/week FOLIC ACID 1 MG TABLET Take 1 tablet by mouth once d* FLUTICASONE 50 MCG/ACTUATION * Use 2 Sprays in each nostril * LORATADINE 10 MG TABLET Take 1 tablet by mouth once d* VITAMIN D2 ORAL Take 50,000 Units by mouth on* ALBUTEROL INHALATION Inhale as instructed. BENZONATATE 100 MG CAPSULE Take 1 capsule by mouth three* TRAMADOL 50 MG TABLET take 1 tablet by mouth every * Problem List As Of Date 03/23/2018 Noted Resolved DOWN'S SYNDROME [Q90.9] INVALID FOR* SURGERY FOLLOW-UP [V67.0] INVALID FOR* Abdominal pain, left upper quadrant [R10.12] INVALID FOR* Anxiety [F41.9] INVALID FOR* YVETTE on CPAP [G47.33, Z99.89] INVALID FOR* Allergic rhinitis [J30.9] INVALID FOR* Hypothyroidism [E03.9] INVALID FOR* Vitamin D deficiency [E55.9] INVALID FOR* Rash and nonspecific skin eruption [R21] INVALID FOR* Obesity, morbid, BMI 50 or higher (HCC) [E66.01]INVALID FOR* 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* Hip pain [M25.559] Knee pain [M25.569] CRP elevated [R79.82] Inflammatory polyarthritis (HCC) [M06.4] Acute non-recurrent maxillary sinusitis [J01.00]INVALID FOR* Hair pulling [F63.3] INVALID FOR* Prescriptions ordered this encounter Disp Refills Start End BENZONATATE 100 MG CAPSULE 40 c* 0 03/23/2018 Route: ORAL Sig: Take 1 capsule by mouth three times daily as needed. Letter Text Izabel Hanley APRN.CNP Urgent Care [address] [facility] [address] Dept: [phone] 03/23/2018 Danni Evans [address] [facility] [address] To Whom it May Concern: This is to certify that Danni Evans was seen at our office for medical care. Danni may return to work on 03/25/2018. If you have any questions please feel free to call. Sincerely: Izabel Hanley APRN.CNP Encounter Status:Closed by IZABEL HANLEY CNP on 03/23/18 PROGRESS Observed: 03/20/2018 Status: COMPLETED Source: RINGLE 6:11 PM [facility] REPOSITORY HNO ID: [id number] Author: Scarlett Mahoney (Shagufta) Dev Service: (none) Author Type: Nurse Practitioner Type: Progress Notes Filed: 03/20/2018 6:13 PM Note Text: Subjective HPI Patient presents with: URI x 3 days and ear pain today OTC cold medication with minimal relief. Review of Systems Constitutional: Negative for chills, fever and malaise/fatigue. HENT: Positive for congestion, ear pain and sore throat. Eyes: Negative for discharge and redness. Respiratory: Positive for cough. Negative for hemoptysis, sputum production, shortness of breath and wheezing. Gastrointestinal: Negative for abdominal pain, diarrhea, nausea and vomiting. Skin: Negative for rash. Neurological: Negative for headaches. 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 - Congestive heart failure, unspecified - CRP elevated - Down's syndrome - Fatty liver - Hip pain - Hypercholesteremia 06/2013 - Hypothyroidism - Inflammatory polyarthritis (HCC) - Juvenile osteochondrosis of hip and pelvis - Knee pain - Methicillin resistant Staphylococcus aureus in conditions classified elsewhere and of unspecified site - Mitral valve disorders - Obstructive sleep apnea (adult) (pediatric) - YVETTE on CPAP - Osteoarthrosis, unspecified whether generalized or localized, lower leg - Other candidiasis of other specified sites - Other ventral hernia without mention of obstruction or gangrene - Unspecified congenital anomaly of heart - Vitamin D deficiency PAST SURGICAL HISTORY Procedure Laterality Date - EGD W/O OR W/BRUSH/WASH 08/14/2011 EGD - PAST SURGICAL HISTORY OF neck fused - PAST SURGICAL HISTORY OF pelvicoscopy - PAST SURGICAL HISTORY OF right hip plate and leg surgeries - PAST SURGICAL HISTORY OF tubes in bilat ears. ALLERGIES Bactrim [Sulfamethoxazole]; Ceclor [Cefaclor]; Penicillins; Sulfasalazine MEDICATIONS citalopram (CELEXA) 20 mg tablet take 1 tablet by mouth once daily omeprazole (PRILOSEC) 20 mg capsule take 1 capsule by mouth once daily traMADol (ULTRAM) 50 mg tablet take 1 tablet by mouth every 8 hours if needed for pain FOR UP TO 30 DAYS levothyroxine (SYNTHROID) 137 mcg tablet take 1 tablet by mouth once daily cholecalciferol, Vitamin D3, (VITAMIN D3) 50,000 unit cap capsule take 1 capsule by mouth ONCE EACH WEEK COMPOUNDED PRESCRIPTION RECUMBENT BIKE TO BENEFIT PATIENT HEALTH WEIGHT IS 233# COMPOUNDED PRESCRIPTION DECK AND STEPS TO GET PATIENT IN BACK YARD POOL TO BENEFIT HER HEALTH metoprolol tartrate, short acting, (LOPRESSOR) 25 mg tablet Take 1.5 tablets by mouth twice daily. TAB-A-AMADEO tablet take 1 tablet by mouth once daily at bedtime insulin syringe,safetyneedle (ASSURE ID INSULIN SAFETY) 1 mL 29 gauge x 1/2 syrg 1 Syringe once each week. To use with SC MTX once/week methotrexate, PF, 25 mg/mL soln 0.8cc SC once/week folic acid 1 mg tablet Take 1 tablet by mouth once daily. fluticasone (FLONASE) 50 mcg/actuation nasal spray Use 2 Sprays in each nostril once daily. loratadine (CLARITIN) 10 mg tablet Take 1 tablet by mouth once daily. ERGOCALCIFEROL, VITAMIN D2, (VITAMIN D ORAL) Take 50,000 Units by mouth once each week. 2000 units daily ALBUTEROL INHALATION Inhale as instructed. Scdszyenkkdtyhg-Vceoezfgp-MZ (BROMFED DM) 2-30-10 mg/5 mL syrup Take 10 mL by mouth four times daily as needed for up to 7 days. mupirocin (BACTROBAN) 2 % ointment Apply 1 application to affected area three times daily for 10 days. FAMILY HISTORY Problem Relation Age of Onset - Colon Cancer Paternal Grandfather Social History Substance Use Topics - Smoking status: Never Smoker - Smokeless tobacco: Never Used - Alcohol use No Objective Physical Exam Constitutional: She is well-developed, well-nourished, and in no distress. HENT: Head: Normocephalic. Right Ear: External ear and ear canal normal. Tympanic membrane is erythematous (partially opaque). Left Ear: External ear and ear canal normal. Tympanic membrane is erythematous (partially opaque). Nose: Rhinorrhea present. Right sinus exhibits no maxillary sinus tenderness and no frontal sinus tenderness. Left sinus exhibits no maxillary sinus tenderness and no frontal sinus tenderness. Mouth/Throat: Posterior oropharyngeal erythema (PND) present. Eyes: Conjunctivae are normal. Neck: Normal range of motion. Neck supple. Cardiovascular: Normal rate, regular rhythm and normal heart sounds. Pulmonary/Chest: Effort normal and breath sounds normal. No respiratory distress. She has no wheezes. Abdominal: Soft. She exhibits no distension. There is no tenderness. Lymphadenopathy: She has cervical adenopathy. Skin: Skin is warm and dry. No rash noted. Nursing note and vitals reviewed. ASSESSMENT/PLAN: 1. Viral URI with cough - ICD9: 465.9, ICD10: J06.9, B97.89 (primary diagnosis) - Discussed viral etiology and rationale for treatment. - Symptomatic treatment with prn analgesia - Supportive care with fluids and rest - The patient may also use OTC decongestants prn, OTC cough and cold meds as needed, warm salt water gargles, throat lozenges and/or OTC throat spray as needed and nasal saline gtts and suction prn. - Follow up in 3-5 days if symptoms persist or sooner if worsening of symptoms 2. Acute suppurative otitis media of both ears without spontaneous rupture of tympanic membranes, recurrence not specified - ICD9: 382.00, ICD10: H66.003 - Will begin treatment with Zithromax pack as directed - The patient should also be given OTC decongestants prn, OTC cough and cold meds as needed, warm salt water gargles, throat lozenges and/or OTC throat spray as needed and nasal saline gtts and suction prn for the first 5-7 days of treatment. - Supportive care with plenty of fluids, rest, and analgesia prn. - Follow up in 3-5 days if symptoms persist or worsen. 3. Infection of skin and subcutaneous tissue - ICD9: 686.9, ICD10: L08.9 Prescription instructions reviewed with patient as applicable. Patient advised if symptoms do not improve or if symptoms worsen sooner, to contact their primary care physician. Potential red flag symptoms discussed with the patient. Reviewed appropriate action plan to take if red flag symptoms occur. Patient agreeable to treatment plan. Scarlett Méndez APRN.CALENDER SUPERVISOR PROGRESS Observed: 03/14/2018 Status: COMPLETED Source: RINGLE 1:18 PM [facility] REPOSITORY HNO ID: [id number] Author: Kimberley Garcia Ma Service: (none) Author Type: (none) Type: Progress Notes Filed: 03/20/2018 6:13 PM Note Text: 32 year old female here for INACTIVATED INFLUENZA VACCINE. 5867-6787 Season Patient is identified by name and date of : Yes [] CONTRAINDICATIONS color enhanced section Age less than 6 months? No Allergy to eggs, chicken, chicken feathers, or chicken dander? No Allergy to thimerosal (a preservative) or formaldehyde, gelatin? No History of severe reaction to any vaccine component or a previous dose of influenza vaccination? No History of Guillain-Novi Syndrome within 6 weeks after a previous influenza vaccine? No Patient is not moderately or severely ill? No Current temperature greater or equal to 100.4F? No History of Bone Marrow Transplant prior 6 months or solid organ transplant in the past 3 months ? No History of fainting after a prior injection or medical procedure? No- ? If patient has fainted in the past, the CDC recommends sitting or lying down for 15 minutes after the vaccination. [] VERIFICATION color enhanced section Was the answer Yes for any of the above contraindications? No contraindications present. Acceptable to proceed with vaccine. Patient/guardian agrees the above answers are true to the best of their knowledge? Yes Flu vaccine information sheet given? Yes See immunization activity in [facility] for details of immunizations adminstered today. Patient age: [age] year old For The 6320-2192 Flu Season 6-35 months old: Fluzone 0.25 ml - IM (Preservative Free) 3 years of age: Fluzone 0.5 ml - IM (Preservative Free) 3 years and older: Fluzone 0.5 ml- IM-(with Preservatives) 65+ years old: 2-49 years old Fluzone High-Dose 0.5 ml - IM (Preservative Free) FLUMIST- intranasal REMEMBER: If patient is less than 9 years of age and this is the first vaccine of Influenza to be received in any flu season, they should receive a second dose in one months time. CNOV Observed: 03/14/2018 Status: COMPLETED Source: RINGLE 1:15 PM [facility] REPOSITORY [facility] DANNI EVANS ([id number]) 1985 F LU[place] ANTONIO Date Time Provider Department 03/14/18 1:15 PM SCARLETT MÉNDEZ (GERMINATION TESTING MANAGER) [facility] During your visit today, we recorded the following information about you: Temperature Pulse Respiration Blood pressure 98.3 degrees 66/minute 20/minute 106/72 Weight 107 kg Kimberley Garcia Marilu 03/20/2018 6:13 PM Signed 32 year old female here for INACTIVATED INFLUENZA VACCINE. Season Patient is identified by name and date of : Yes [] CONTRAINDICATIONS color enhanced section Age less than 6 months? No Allergy to eggs, chicken, chicken feathers, or chicken dander? No Allergy to thimerosal (a preservative) or formaldehyde, gelatin? No History of severe reaction to any vaccine component or a previous dose of influenza vaccination? No History of Guillain-Novi Syndrome within 6 weeks after a previous influenza vaccine? No Patient is not moderately or severely ill? No Current temperature greater or equal to 100.4F? No History of Bone Marrow Transplant prior 6 months or solid organ transplant in the past 3 months ? No History of fainting after a prior injection or medical procedure? No- ? If patient has fainted in the past, the CDC recommends sitting or lying down for 15 minutes after the vaccination. [] VERIFICATION color enhanced section Was the answer Yes for any of the above contraindications? No contraindications present. Acceptable to proceed with vaccine. Patient/guardian agrees the above answers are true to the best of their knowledge? Yes Flu vaccine information sheet given? Yes See immunization activity in [facility] for details of immunizations adminstered today. Patient age: [age] year old For The 2008-2391 Flu Season 6-35 months old: Fluzone 0.25 ml - IM (Preservative Free) 3 years of age: Fluzone 0.5 ml - IM (Preservative Free) 3 years and older: Fluzone 0.5 ml- IM-(with Preservatives) 65+ years old: 2-49 years old Fluzone High-Dose 0.5 ml - IM (Preservative Free) FLUMIST- intranasal REMEMBER: If patient is less than 9 years of age and this is the first vaccine of Influenza to be received in any flu season, they should receive a second dose in one months time. Scarlett Méndez APRN.CALENDER SUPERVISOR 03/20/2018 6:13 PM Signed Subjective HPI Patient presents with: URI x 3 days and ear pain today OTC cold medication with minimal relief. Review of Systems Constitutional: Negative for chills, fever and malaise/fatigue. HENT: Positive for congestion, ear pain and sore throat. Eyes: Negative for discharge and redness. Respiratory: Positive for cough. Negative for hemoptysis, sputum production, shortness of breath and wheezing. Gastrointestinal: Negative for abdominal pain, diarrhea, nausea and vomiting. Skin: Negative for rash. Neurological: Negative for headaches. 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[employer] - Congestive heart failure, unspecified - CRP elevated - Down's syndrome - Fatty liver - Hip pain - Hypercholesteremia 06/2013 - Hypothyroidism - Inflammatory polyarthritis (HCC) - Juvenile osteochondrosis of hip and pelvis - Knee pain - Methicillin resistant Staphylococcus aureus in conditions classified elsewhere and of unspecified site - Mitral valve disorders - Obstructive sleep apnea (adult) (pediatric) - YVETTE on CPAP - Osteoarthrosis, unspecified whether generalized or localized, lower leg - Other candidiasis of other specified sites - Other ventral hernia without mention of obstruction or gangrene - Unspecified congenital anomaly of heart - Vitamin D deficiency PAST SURGICAL HISTORY Procedure Laterality Date - EGD W/O OR W/BRUSH/WASH 08/14/2011 EGD - PAST SURGICAL HISTORY OF neck fused - PAST SURGICAL HISTORY OF pelvicoscopy - PAST SURGICAL HISTORY OF right hip plate and leg surgeries - PAST SURGICAL HISTORY OF tubes in bilat ears. ALLERGIES Bactrim [Sulfamethoxazole]; Ceclor [Cefaclor]; Penicillins; Sulfasalazine MEDICATIONS citalopram (CELEXA) 20 mg tablet take 1 tablet by mouth once daily omeprazole (PRILOSEC) 20 mg capsule take 1 capsule by mouth once daily traMADol (ULTRAM) 50 mg tablet take 1 tablet by mouth every 8 hours if needed for pain FOR UP TO 30 DAYS levothyroxine (SYNTHROID) 137 mcg tablet take 1 tablet by mouth once daily cholecalciferol, Vitamin D3, (VITAMIN D3) 50,000 unit cap capsule take 1 capsule by mouth ONCE EACH WEEK COMPOUNDED PRESCRIPTION RECUMBENT BIKE TO BENEFIT PATIENT HEALTH WEIGHT IS 233# COMPOUNDED PRESCRIPTION DECK AND STEPS TO GET PATIENT IN BACK YARD POOL TO BENEFIT HER HEALTH metoprolol tartrate, short acting, (LOPRESSOR) 25 mg tablet Take 1.5 tablets by mouth twice daily. TAB-A-AMADEO tablet take 1 tablet by mouth once daily at bedtime insulin syringe,safetyneedle (ASSURE ID INSULIN SAFETY) 1 mL 29 gauge x 1/2 syrg 1 Syringe once each week. To use with SC MTX once/week methotrexate, PF, 25 mg/mL soln 0.8cc SC once/week folic acid 1 mg tablet Take 1 tablet by mouth once daily. fluticasone (FLONASE) 50 mcg/actuation nasal spray Use 2 Sprays in each nostril once daily. loratadine (CLARITIN) 10 mg tablet Take 1 tablet by mouth once daily. ERGOCALCIFEROL, VITAMIN D2, (VITAMIN D ORAL) Take 50,000 Units by mouth once each week. 2000 units daily ALBUTEROL INHALATION Inhale as instructed. Boldbfsjunqvnna-Tlbevhrzc-FP (BROMFED DM) 2-30-10 mg/5 mL syrup Take 10 mL by mouth four times daily as needed for up to 7 days. mupirocin (BACTROBAN) 2 % ointment Apply 1 application to affected area three times daily for 10 days. FAMILY HISTORY Problem Relation Age of Onset - Colon Cancer Paternal Grandfather Social History Substance Use Topics - Smoking status: Never Smoker - Smokeless tobacco: Never Used - Alcohol use No Objective Physical Exam Constitutional: She is well-developed, well-nourished, and in no distress. HENT: Head: Normocephalic. Right Ear: External ear and ear canal normal. Tympanic membrane is erythematous (partially opaque). Left Ear: External ear and ear canal normal. Tympanic membrane is erythematous (partially opaque). Nose: Rhinorrhea present. Right sinus exhibits no maxillary sinus tenderness and no frontal sinus tenderness. Left sinus exhibits no maxillary sinus tenderness and no frontal sinus tenderness. Mouth/Throat: Posterior oropharyngeal erythema (PND) present. Eyes: Conjunctivae are normal. Neck: Normal range of motion. Neck supple. Cardiovascular: Normal rate, regular rhythm and normal heart sounds. Pulmonary/Chest: Effort normal and breath sounds normal. No respiratory distress. She has no wheezes. Abdominal: Soft. She exhibits no distension. There is no tenderness. Lymphadenopathy: She has cervical adenopathy. Skin: Skin is warm and dry. No rash noted. Nursing note and vitals reviewed. ASSESSMENT/PLAN: 1. Viral URI with cough - ICD9: 465.9, ICD10: J06.9, B97.89 (primary diagnosis) - Discussed viral etiology and rationale for treatment. - Symptomatic treatment with prn analgesia - Supportive care with fluids and rest - The patient may also use OTC decongestants prn, OTC cough and cold meds as needed, warm salt water gargles, throat lozenges and/or OTC throat spray as needed and nasal saline gtts and suction prn. - Follow up in 3-5 days if symptoms persist or sooner if worsening of symptoms 2. Acute suppurative otitis media of both ears without spontaneous rupture of tympanic membranes, recurrence not specified - ICD9: 382.00, ICD10: H66.003 - Will begin treatment with Zithromax pack as directed - The patient should also be given OTC decongestants prn, OTC cough and cold meds as needed, warm salt water gargles, throat lozenges and/or OTC throat spray as needed and nasal saline gtts and suction prn for the first 5-7 days of treatment. - Supportive care with plenty of fluids, rest, and analgesia prn. - Follow up in 3-5 days if symptoms persist or worsen. 3. Infection of skin and subcutaneous tissue - ICD9: 686.9, ICD10: L08.9 Prescription instructions reviewed with patient as applicable. Patient advised if symptoms do not improve or if symptoms worsen sooner, to contact their primary care physician. Potential red flag symptoms discussed with the patient. Reviewed appropriate action plan to take if red flag symptoms occur. Patient agreeable to treatment plan. Scarlett Méndez APRN.CALENDER SUPERVISOR Referring Provider: SELF [[id number]] Allergies As of Date: 03/14/2018 Noted Allergy Reaction BACTRIM (SULFAMETHOXAZOLE) 09/26/2010 4 - Hives CECLOR (CEFACLOR) 09/26/2010 4 - Hives PENICILLINS 05/25/2013 16 - Unknown SULFASALAZINE 06/28/2011 16 - Unknown Date Reviewed: 03/14/2018 Reviewed by: Scarlett Mahoney (Film Processing Utility Worker) Dev - Fully Assessed Reason for Visit: URI [115] Imm/Inj [58] Cmt: Flu Vaccine Reason For Visit History Recorded Primary Visit Diagnosis:Viral URI with cough [J06.9, B97.89] Other Visit Diagnoses:Acute suppurative otitis media of both ears without spontaneous rupture of tympanic membranes, recurrence not specified [H66.003] Infection of skin and subcutaneous tissue [L08.9] Order(s):Radnwqsmrcgyqby-Srlhdxubs-DH (BROMFED DM) 2-30-10 mg/5 mL syrupTake 10 mL by mouth four times daily as needed for up to 7 days.Disp: 240 mLRfl: 0 [] azithromycin (ZITHROMAX Z-KATHY) 250 mg tabletTake 2 tablets day one, then, 1 tablet daily until gone.Disp: 1 PackageRfl: 0 mupirocin (BACTROBAN) 2 % ointmentApply 1 application to affected area three times daily for 10 days.Disp: 22 gRfl: 0 Prescriptions as of 03/14/2018 Sig: CITALOPRAM 20 MG TABLET take 1 tablet by mouth once d* OMEPRAZOLE 20 MG CAPSULE,CARO* take 1 capsule by mouth once * TRAMADOL 50 MG TABLET take 1 tablet by mouth every * LEVOTHYROXINE 137 MCG TABLET take 1 tablet by mouth once d* CHOLECALCIFEROL (VITAMIN D3) * take 1 capsule by mouth ONCE * COMPOUNDED PRESCRIPTION RECUMBENT BIKE TO SUKH* COMPOUNDED PRESCRIPTION DECK AND STEPS TO GET PATIENT* METOPROLOL TARTRATE 25 MG TAB* Take 1.5 tablets by mouth twi* TAB-A-AMADEO TABLET take 1 tablet by mouth once d* INSULIN SYRINGE WITH SAFETY N* 1 Syringe once each week. To * METHOTREXATE SODIUM (PF) 25 M* 0.8cc SC once/week FOLIC ACID 1 MG TABLET Take 1 tablet by mouth once d* FLUTICASONE 50 MCG/ACTUATION * Use 2 Sprays in each nostril * LORATADINE 10 MG TABLET Take 1 tablet by mouth once d* VITAMIN D2 ORAL Take 50,000 Units by mouth on* ALBUTEROL INHALATION Inhale as instructed. BROMPHENIRAMINE-PSEUDOEPHEDRI* Take 10 mL by mouth four time* AZITHROMYCIN 250 MG TABLET Take 2 tablets day one, then,* MUPIROCIN 2 % TOPICAL OINTMENT Apply 1 application to affect* Problem List As Of Date 03/14/2018 Noted Resolved DOWN'S SYNDROME [Q90.9] INVALID FOR* SURGERY FOLLOW-UP [V67.0] INVALID FOR* Abdominal pain, left upper quadrant [R10.12] INVALID FOR* Anxiety [F41.9] INVALID FOR* YVETTE on CPAP [G47.33, Z99.89] INVALID FOR* Allergic rhinitis [J30.9] INVALID FOR* Hypothyroidism [E03.9] INVALID FOR* Vitamin D deficiency [E55.9] INVALID FOR* Rash and nonspecific skin eruption [R21] INVALID FOR* Obesity, morbid, BMI 50 or higher (HCC) [E66.01]INVALID FOR* 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* Hip pain [M25.559] Knee pain [M25.569] CRP elevated [R79.82] Inflammatory polyarthritis (HCC) [M06.4] Acute non-recurrent maxillary sinusitis [J01.00]INVALID FOR* Hair pulling [F63.3] INVALID FOR* Prescriptions ordered this encounter Disp Refills Start End DZPNSVXMGCWPUSJ-KQUJOQZYFSTVYAP-EN 2* 240 * 0 03/14/2018 03/21/2018 Route: ORAL Sig: Take 10 mL by mouth four times daily as needed for up to 7 days. AZITHROMYCIN 250 MG TABLET 1 Pa* 0 03/14/2018 03/19/2018 Sig: Take 2 tablets day one, then, 1 tablet daily until gone. MUPIROCIN 2 % TOPICAL OINTMENT 22 g 0 03/14/2018 03/24/2018 Route: TOPICAL Sig: Apply 1 application to affected area three times daily for 10 days. Disposition: Return if symptoms worsen or fail to improve. Follow-up and Disposition History Recorded Encounter Status:Closed by SCARLETT MÉNDEZ on 03/20/18 XR KNEE 4V AP/PA/LAT/MERCH Observed: 12/31/2017 Status: F Source: [facility] 10:25 AM [facility] REPOSITORY * * *Final Report* * * DATE OF EXAM: Dec 31 2017 10:25AM WOX [id number] - XR KNEE 4V AP/PA/LAT/MERCH SO / PROCEDURE REASON: multiple diagnoses * * * * Physician Interpretation * * * * HISTORY: Bilateral knee pain COMPARISON: There are no prior relevant examinations available for comparison. RESULT: Standing frontal radiographs of the bilateral knees with bilateral PA flexion, bilateral lateral and sunrise views show no acute osseous or articular process. There is mild narrowing of the left medial tibiofemoral joint compartment. [place] views demonstrate mild symmetric narrowing of the patellofemoral joint compartment on the left. Right patellofemoral joint space appears grossly preserved, views are somewhat underpenetrated due to patient body habitus. There is no significant joint fluid. The soft tissues are unremarkable. IMPRESSION: Degenerative changes as detailed in report. Beverage Manager: PSCB Transcribe Date/Time: Dec 31 2017 4:03P Dictated by : OMID LUONG MD This examination was interpreted and the report reviewed and electronically signed by: OMID LUONG MD on Dec 31 2017 4:54PM EST [id number] XR CERVICAL 4V Observed: 12/31/2017 Status: F Source: [facility] 10:23 AM [facility] REPOSITORY * * *Final Report* * * DATE OF EXAM: Dec 31 2017 10:23AM WOX [id number] - XR CERVICAL 4V AP/LAT/OBL / PROCEDURE REASON: Cervicalgia * * * * Physician Interpretation * * * * Indication: Neck pain. The patient has a history of Down syndrome. Comparison: None AP, lateral and oblique views of the cervical spine are obtained. Study is limited due to difficulty positioning the patient. A broken cerclage wire is visualized at C1-2. The anterior atlantoodontoid distance measures approximately 5 mm. There is no acute fracture or destructive osseous lesion. 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 A broken cerclage wire is noted at C1-2 posteriorly. Beverage Manager: PSCKiki Transcribe Date/Time: Jan 01 2018 8:49A Dictated by : ANGELA LOWE MD This examination was interpreted and the report reviewed and electronically signed by: ANGELA LOWE MD on Jan 01 2018 9:00AM EST [id number] PROGRESS Observed: 12/31/2017 Status: COMPLETED Source: [facility] 9:58 AM [facility] REPOSITORY HNO ID: [id number] Author: Shari Allison (Rt) Aurelio Schuler Service: (none) Author Type: Food Safety Auditor Type: Progress Notes Filed: 12/31/2017 10:26 AM Note Text: Radiology Service Progress Note PATIENT NAME: Danni Evans DATE OF SERVICE: December 31, 2017 TIME: 9:58 AM PATIENT IDENTITY VERIFICATION COMPLETED USING TWO (2) METHODS: Patient confirmed name verbally and Date of . PATIENT GENDER DATA: Female. status: : No status: NO. PATIENT RELEVANT IMPLANT DATA REVIEWED: Not Applicable RADIOLOGY DEPARTMENT: General X-ray: Exam(s) Completed: Spine X-Ray(s): Cervical AP / LAT / OBL Lower Extremity X-Ray(s): Knee, AP / Lat / [place] / Merchant Bilateral and Wt. Bearing: PERIPHERAL IV DATA: Not applicable SIGNED BY: RT Yordy December 31, 2017 9:58 AM PROGRESS Observed: 12/31/2017 Status: COMPLETED Source: [facility] 9:57 AM [facility] REPOSITORY HNO ID: [id number] Author: Trent Hroowitz Service: (none) Author Type: Physician Type: Progress Notes Filed: 12/31/2017 10:01 AM Note Text: CC: Danni Evans is a 32 year old female who presents to the office for medication follow up HPI: Previously 9 months ago Cold symptoms, present for the last few days, fever yesterday, b/l ear pain, nasal congestion and PND symptoms, ?+ sick contacts per mother at her job ?? Anxiety and depressed mood, hair pulling recently per mother, stressed appearing, has to do with situation with mother's other son living with them- he will be moving out of their home soon. ?No SI or HI. She is well supported by mother. Not any any current medications. ?? ? Asthma, no recent flare ups, no wheezing or cough, using inhalers as prescribed ? Inflammatory polyarthritis, seeing Sas Architect still, has upcoming labs and appt ? She was started on Zoloft ? At last OFFICE VISIT 6 months ago Per mother she is still irritable and hair pulling/picking as well as cursing at me. No aggression. No SI or HI. Still able to be working at the [employer]. ? Seeing Truck Driver Teamster Dr. Flores for congenital heart disease hx. ? Seeing Sas Architect for chronic inflammatory joint changes. ? Currently Mood, hair pulling, irritability, slightly improved with Celexa, wondering if can increase dose of medication, no obvious adverse SE from medication Inflammatory joint disease, seeing Rheum Dr. Mcmahan, use of Tramadol up to 3 tablets a day for severe hip pain B/l knee pain and neck pain is starting, did trip and fall about 1 month ago at camp, wasn't assessed at that time Still continuing to see Truck Driver Teamster PAST MEDICAL HISTORY Diagnosis Date - Abdominal pain, epigastric - Abdominal pain, left upper quadrant - Abscess - Allergic rhinitis, cause unspecified - Anxiety - Asthma mild intermittent, 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[employer] - Congestive heart failure, unspecified - CRP elevated - Down's syndrome - Fatty liver - Hip pain - Hypercholesteremia 06/2013 - Hypothyroidism - Inflammatory polyarthritis (HCC) - Juvenile osteochondrosis of hip and pelvis - Knee pain - Methicillin resistant Staphylococcus aureus in conditions classified elsewhere and of unspecified site - Mitral valve disorders - Obstructive sleep apnea (adult) (pediatric) - YVETTE on CPAP - Osteoarthrosis, unspecified whether generalized or localized, lower leg - Other candidiasis of other specified sites - Other ventral hernia without mention of obstruction or gangrene - Unspecified congenital anomaly of heart - Vitamin D deficiency PAST SURGICAL HISTORY Procedure Laterality Date - EGD W/O OR W/BRUSH/WASH 08/14/2011 EGD - PAST SURGICAL HISTORY OF neck fused - PAST SURGICAL HISTORY OF pelvicoscopy - PAST SURGICAL HISTORY OF right hip plate and leg surgeries - PAST SURGICAL HISTORY OF tubes in bilat ears. Current Outpatient Prescriptions: traMADol (ULTRAM) 50 mg tablet Take 1 tablet by mouth every 8 hours as needed for Pain for up to 30 days. omeprazole (PRILOSEC) 20 mg capsule Take 1 capsule by mouth once daily. citalopram (CELEXA) 40 mg tablet Take 1 tablet by mouth once daily. COMPOUNDED PRESCRIPTION RECUMBENT BIKE TO BENEFIT PATIENT HEALTH WEIGHT IS 233# COMPOUNDED PRESCRIPTION DECK AND STEPS TO GET PATIENT IN BACK YARD POOL TO BENEFIT HER HEALTH metoprolol tartrate, short acting, (LOPRESSOR) 25 mg tablet Take 1.5 tablets by mouth twice daily. TAB-A-AMADEO tablet take 1 tablet by mouth once daily at bedtime levothyroxine (SYNTHROID) 137 mcg tablet take 1 tablet by mouth once daily insulin syringe,safetyneedle (ASSURE ID INSULIN SAFETY) 1 mL 29 gauge x 1/2 syrg 1 Syringe once each week. To use with SC MTX once/week ondansetron orally disintegrating (ZOFRAN ODT) 4 mg disintegrating tablet Take 1 tablet by mouth every 6 hours as needed for Nausea/Vomiting for up to 4 doses. methotrexate, PF, 25 mg/mL soln 0.8cc SC once/week folic acid 1 mg tablet Take 1 tablet by mouth once daily. cholecalciferol, Vitamin D3, (VITAMIN D3) 50,000 unit cap capsule Take 1 capsule by mouth once each week. fluticasone (FLONASE) 50 mcg/actuation nasal spray Use 2 Sprays in each nostril once daily. loratadine (CLARITIN) 10 mg tablet Take 1 tablet by mouth once daily. ERGOCALCIFEROL, VITAMIN D2, (VITAMIN D ORAL) Take 50,000 Units by mouth once each week. 2000 units daily ALBUTEROL INHALATION Inhale as instructed. No current facility-administered medications for this visit. ALLERGIES Allergen Reactions - Bactrim [Sulfametho* Hives - Ceclor [Cefaclor] Hives - Penicillins Unknown Social History Marital status: Single Spouse name: Years of education: Number of children: Social History Main Topics Smoking status: Never Smoker Smokeless tobacco: Never Used Alcohol use: No Drug use: No Sexual activity: Not Currently Social History Narrative Mother Kalpana Villagran ROS: See HPI PE: BP 120/70 Pulse 64 Temp (Src) 98.1 (Right Tympanic) Resp 20 Wt 235 lb (106.6kg) Gen: AANDOX3, NAD, non-toxic appearing, pleasant, smiling, difficult with communication verbally, typical Downs appearance HEENT: PERRLA, EOMs intact b/l, nares without drainage, pharynx without erythema, exudate, lesions, or drainage. Uvula midline. MMM, poor dentition Neck: No LAD, no thyromegaly, no meningismus. + muscle tension, short thick neck, no obvious midline TTP CV: RRR, no murmur, normal s1s2 Lungs: CTA b/l, no wheezing Skin: scattered nevi typical appearing on back B/l knee TTP b/l Medial joint line without effusion Antalgic gait ASSESSMENT/PLAN: 1. Chronic pain syndrome - ICD9: 338.4, ICD10: G89.4 (primary diagnosis) - rx as below, chronic, f/u with Rheum - TRAMADOL 50 MG TABLET PDMP website checked and validated. All prescriptions have been APPROPRIATELY filled. No suspicious activity was identified. 12/31/2017 by Trent Horowitz DO 2. Hair pulling - ICD9: 307.9, ICD10: F63.3 - increase dose of medication, f/u in office in 2-3 months - CITALOPRAM 40 MG TABLET 3. Situational stress - ICD9: V62.89, ICD10: F43.9 - see above, no SI or Hi, good support from mother - CITALOPRAM 40 MG TABLET 4. Chronic pain of both knees - ICD9: 719.46, 338.29, ICD10: M25.561, M25.562, G89.29 - xray as ordered, hx of inflammatory joint disease - XR KNEE GENERAL 4V AP BOTH/PA BOTH/LAT/MERC BILAT 5. Neck pain - ICD9: 723.1, ICD10: M54.2 - xray as ordered due to fall, likely muscular, use of heating pad as d/w mother today in office - XR CERV OTHER 4V AP/LAT/OBL 6. Down's syndrome - ICD9: 758.0, ICD10: Q90.9 7. YVETTE on CPAP - ICD9: 327.23, V46.8, ICD10: G47.33, Z99.89 8. Obesity, morbid, BMI 50 or higher (HCC) - ICD9: 278.01, ICD10: E66.01 - Lengthy discussion in office today regarding diet and exercise. Discussed use of small plate to eat meals from, drink 1 glass of water 10-15 minutes prior to eating meal, drink 8 glasses of water daily, eat fresh fruit and vegetable during meal first then lean protein such as grilled/baked chicken breast or fish, limit carbohydrate intake (less pasta, breads, rice and snack foods) as well as limiting sugars (desserts etc). Important to count / track your calories and exercise as well. 9. Inflammatory polyarthritis (HCC) - ICD9: 714.9, ICD10: M06.4 - f/u with Dr. Martir Horowitz DO Return if no improvement. Follow up with Trent Horowitz DO. Discussed risks, benefits, alternatives, and potential side effects of medications. Patient/Guardian expressed understanding and agreed with the plan. See patient instructions. Trent Horowitz DO [address] [place] [address] CNOV Observed: 12/31/2017 Status: COMPLETED Source: RINGLE 9:20 AM [facility] REPOSITORY Office Visit (FAMPWS) DANNI EVANS ([id number]) 1985 [facility] Date Time Provider Department 12/31/17 9:20 AM TRENT HOROWITZ During your visit today, we recorded the following information about you: Temperature Pulse Respiration Blood pressure 98.1 degrees 64/minute 20/minute 120/70 Weight 106.6 kg Trent Horowitz DO 12/31/2017 10:01 AM Signed CC: Danni Evans is a 32 year old female who presents to the office for medication follow up HPI: Previously 9 months ago Cold symptoms, present for the last few days, fever yesterday, b/l ear pain, nasal congestion and PND symptoms, ?+ sick contacts per mother at her job ?? Anxiety and depressed mood, hair pulling recently per mother, stressed appearing, has to do with situation with mother's other son living with them- he will be moving out of their home soon. ?No SI or HI. She is well supported by mother. Not any any current medications. ?? ? Asthma, no recent flare ups, no wheezing or cough, using inhalers as prescribed ? Inflammatory polyarthritis, seeing Sas Architect still, has upcoming labs and appt ? She was started on Zoloft ? At last OFFICE VISIT 6 months ago Per mother she is still irritable and hair pulling/picking as well as cursing at me. No aggression. No SI or HI. Still able to be working at the [employer]. ? Seeing Truck [employer] Dr. Flores for congenital heart disease hx. ? Seeing S[employer] Architect for chronic inflammatory joint changes. ? Currently Mood, hair pulling, irritability, slightly improved with Celexa, wondering if can increase dose of medication, no obvious adverse SE from medication Inflammatory joint disease, seeing Rheum Dr. Mcmahan, use of Tramadol up to 3 tablets a day for severe hip pain B/l knee pain and neck pain is starting, did trip and fall about 1 month ago at camp, wasn't assessed at that time Still continuing to see Truck Driver Teamster PAST MEDICAL HISTORY Diagnosis Date - Abdominal pain, epigastric - Abdominal pain, left upper quadrant - Abscess - Allergic rhinitis, cause unspecified - Anxiety - Asthma mild intermittent, 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[employer] - Congestive heart failure, unspecified - CRP elevated - Down's syndrome - Fatty liver - Hip pain - Hypercholesteremia 06/2013 - Hypothyroidism - Inflammatory polyarthritis (HCC) - Juvenile osteochondrosis of hip and pelvis - Knee pain - Methicillin resistant Staphylococcus aureus in conditions classified elsewhere and of unspecified site - Mitral valve disorders - Obstructive sleep apnea (adult) (pediatric) - YVETTE on CPAP - Osteoarthrosis, unspecified whether generalized or localized, lower leg - Other candidiasis of other specified sites - Other ventral hernia without mention of obstruction or gangrene - Unspecified congenital anomaly of heart - Vitamin D deficiency PAST SURGICAL HISTORY Procedure Laterality Date - EGD W/O OR W/BRUSH/WASH 08/14/2011 EGD - PAST SURGICAL HISTORY OF neck fused - PAST SURGICAL HISTORY OF pelvicoscopy - PAST SURGICAL HISTORY OF right hip plate and leg surgeries - PAST SURGICAL HISTORY OF tubes in bilat ears. Current Outpatient Prescriptions: traMADol (ULTRAM) 50 mg tablet Take 1 tablet by mouth every 8 hours as needed for Pain for up to 30 days. omeprazole (PRILOSEC) 20 mg capsule Take 1 capsule by mouth once daily. citalopram (CELEXA) 40 mg tablet Take 1 tablet by mouth once daily. COMPOUNDED PRESCRIPTION RECUMBENT BIKE TO BENEFIT PATIENT HEALTH WEIGHT IS 233# COMPOUNDED PRESCRIPTION DECK AND STEPS TO GET PATIENT IN BACK YARD POOL TO BENEFIT HER HEALTH metoprolol tartrate, short acting, (LOPRESSOR) 25 mg tablet Take 1.5 tablets by mouth twice daily. TAB-A-AMADEO tablet take 1 tablet by mouth once daily at bedtime levothyroxine (SYNTHROID) 137 mcg tablet take 1 tablet by mouth once daily insulin syringe,safetyneedle (ASSURE ID INSULIN SAFETY) 1 mL 29 gauge x 1/2 syrg 1 Syringe once each week. To use with SC MTX once/week ondansetron orally disintegrating (ZOFRAN ODT) 4 mg disintegrating tablet Take 1 tablet by mouth every 6 hours as needed for Nausea/Vomiting for up to 4 doses. methotrexate, PF, 25 mg/mL soln 0.8cc SC once/week folic acid 1 mg tablet Take 1 tablet by mouth once daily. cholecalciferol, Vitamin D3, (VITAMIN D3) 50,000 unit cap capsule Take 1 capsule by mouth once each week. fluticasone (FLONASE) 50 mcg/actuation nasal spray Use 2 Sprays in each nostril once daily. loratadine (CLARITIN) 10 mg tablet Take 1 tablet by mouth once daily. ERGOCALCIFEROL, VITAMIN D2, (VITAMIN D ORAL) Take 50,000 Units by mouth once each week. 2000 units daily ALBUTEROL INHALATION Inhale as instructed. No current facility-administered medications for this visit. ALLERGIES Allergen Reactions - Bactrim [Sulfametho* Hives - Ceclor [Cefaclor] Hives - Penicillins Unknown Social History Marital status: Single Spouse name: Years of education: Number of children: Social History Main Topics Smoking status: Never Smoker Smokeless tobacco: Never Used Alcohol use: No Drug use: No Sexual activity: Not Currently Social History Narrative Mother Kalpana Villagran ROS: See HPI PE: BP 120/70 Pulse 64 Temp (Src) 98.1 (Right Tympanic) Resp 20 Wt 235 lb (106.6kg) Gen: AANDOX3, NAD, non-toxic appearing, pleasant, smiling, difficult with communication verbally, typical Downs appearance HEENT: PERRLA, EOMs intact b/l, nares without drainage, pharynx without erythema, exudate, lesions, or drainage. Uvula midline. MMM, poor dentition Neck: No LAD, no thyromegaly, no meningismus. + muscle tension, short thick neck, no obvious midline TTP CV: RRR, no murmur, normal s1s2 Lungs: CTA b/l, no wheezing Skin: scattered nevi typical appearing on back B/l knee TTP b/l Medial joint line without effusion Antalgic gait ASSESSMENT/PLAN: 1. Chronic pain syndrome - ICD9: 338.4, ICD10: G89.4 (primary diagnosis) - rx as below, chronic, f/u with Rheum - TRAMADOL 50 MG TABLET PDMP website checked and validated. All prescriptions have been APPROPRIATELY filled. No suspicious activity was identified. 12/31/2017 by Trent Horowitz DO 2. Hair pulling - ICD9: 307.9, ICD10: F63.3 - increase dose of medication, f/u in office in 2-3 months - CITALOPRAM 40 MG TABLET 3. Situational stress - ICD9: V62.89, ICD10: F43.9 - see above, no SI or Hi, good support from mother - CITALOPRAM 40 MG TABLET 4. Chronic pain of both knees - ICD9: 719.46, 338.29, ICD10: M25.561, M25.562, G89.29 - xray as ordered, hx of inflammatory joint disease - XR KNEE GENERAL 4V AP BOTH/PA BOTH/LAT/MERC BILAT 5. Neck pain - ICD9: 723.1, ICD10: M54.2 - xray as ordered due to fall, likely muscular, use of heating pad as d/w mother today in office - XR CERV OTHER 4V AP/LAT/OBL 6. Down's syndrome - ICD9: 758.0, ICD10: Q90.9 7. YVETTE on CPAP - ICD9: 327.23, V46.8, ICD10: G47.33, Z99.89 8. Obesity, morbid, BMI 50 or higher (HCC) - ICD9: 278.01, ICD10: E66.01 - Lengthy discussion in office today regarding diet and exercise. Discussed use of small plate to eat meals from, drink 1 glass of water 10- 15 minutes prior to eating meal, drink 8 glasses of water daily, eat fresh fruit and vegetable during meal first then lean protein such as grilled/baked chicken breast or fish, limit carbohydrate intake (less pasta, breads, rice and snack foods) as well as limiting sugars (desserts etc). Important to count / track your calories and exercise as well. 9. Inflammatory polyarthritis (HCC) - ICD9: 714.9, ICD10: M06.4 - f/u with Dr. Martir Horowitz DO Return if no improvement. Follow up with Trent Horowitz DO. Discussed risks, benefits, alternatives, and potential side effects of medications. Patient/Guardian expressed understanding and agreed with the plan. See patient instructions. Trent Horowitz DO [address] [place] [address] Referring Provider: TRENT HOROWITZ [[id number]] Allergies As of Date: 12/31/2017 Noted Allergy Reaction BACTRIM (SULFAMETHOXAZOLE) 09/26/2010 4 - Hives CECLOR (CEFACLOR) 09/26/2010 4 - Hives PENICILLINS 05/25/2013 16 - Unknown Date Reviewed: 12/31/2017 Reviewed by: Pippa Phillips LPN - Fully Assessed Reason for Visit: Follow Up [171] Cmt: 6 months Primary Visit Diagnosis:Chronic pain syndrome [G89.4] Other Visit Diagnoses:Hair pulling [F63.3] Situational stress [F43.9] Chronic pain of both knees [M25.561, M25.562, G89.29] Neck pain [M54.2] Down's syndrome [Q90.9] YVETTE on CPAP [G47.33, Z99.89] Obesity, morbid, BMI 50 or higher (HCC) [E66.01] Inflammatory polyarthritis (HCC) [M06.4] Order(s):traMADol (ULTRAM) 50 mg tabletTake 1 tablet by mouth every 8 hours as needed for Pain for up to 30 days.Disp: 90 tabletRfl: 0 omeprazole (PRILOSEC) 20 mg capsuleTake 1 capsule by mouth once daily.Disp: 30 capsuleRfl: 1 citalopram (CELEXA) 40 mg tabletTake 1 tablet by mouth once daily.Disp: 30 tabletRfl: 3 XR KNEE GENERAL 4V AP BOTH/PA BOTH/LAT/MERC BILAT [[id number]] Order #: [id number] FUTURE XR CERV OTHER 4V AP/LAT/OBL [[id number]] Order #: [id number] FUTURE Prescriptions as of 12/31/2017 Sig: TRAMADOL 50 MG TABLET Take 1 tablet by mouth every * OMEPRAZOLE 20 MG CAPSULE,CARO* Take 1 capsule by mouth once * CITALOPRAM 40 MG TABLET Take 1 tablet by mouth once d* COMPOUNDED PRESCRIPTION RECUMBENT BIKE TO SUKH* COMPOUNDED PRESCRIPTION DECK AND STEPS TO GET PATIENT* METOPROLOL TARTRATE 25 MG TAB* Take 1.5 tablets by mouth twi* TAB-A-AMADEO TABLET take 1 tablet by mouth once d* LEVOTHYROXINE 137 MCG TABLET take 1 tablet by mouth once d* INSULIN SYRINGE WITH SAFETY N* 1 Syringe once each week. To * ONDANSETRON 4 MG DISINTEGRATI* Take 1 tablet by mouth every * METHOTREXATE SODIUM (PF) 25 M* 0.8cc SC once/week FOLIC ACID 1 MG TABLET Take 1 tablet by mouth once d* CHOLECALCIFEROL (VITAMIN D3) * Take 1 capsule by mouth once * FLUTICASONE 50 MCG/ACTUATION * Use 2 Sprays in each nostril * LORATADINE 10 MG TABLET Take 1 tablet by mouth once d* VITAMIN D2 ORAL Take 50,000 Units by mouth on* ALBUTEROL INHALATION Inhale as instructed. Problem List As Of Date 12/31/2017 Noted Resolved DOWN'S SYNDROME [Q90.9] INVALID FOR* SURGERY FOLLOW-UP [V67.0] INVALID FOR* Abdominal pain, left upper quadrant [R10.12] INVALID FOR* Anxiety [F41.9] INVALID FOR* YVETTE on CPAP [G47.33, Z99.89] INVALID FOR* Allergic rhinitis [J30.9] INVALID FOR* Hypothyroidism [E03.9] INVALID FOR* Vitamin D deficiency [E55.9] INVALID FOR* Rash and nonspecific skin eruption [R21] INVALID FOR* Obesity, morbid, BMI 50 or higher (HCC) [E66.01]INVALID FOR* 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* Hip pain [M25.559] Knee pain [M25.569] CRP elevated [R79.82] Inflammatory polyarthritis (HCC) [M06.4] Acute non-recurrent maxillary sinusitis [J01.00]INVALID FOR* Hair pulling [F63.3] INVALID FOR* Prescriptions ordered this encounter Disp Refills Start End TRAMADOL 50 MG TABLET 90 t* 0 12/31/2017 01/30/2018 Class: Print RX Route: ORAL Sig: Take 1 tablet by mouth every 8 hours as needed for Pain for up to 30 days. OMEPRAZOLE 20 MG CAPSULE,DELAYED REL* 30 c* 1 12/31/2017 Route: ORAL Sig: Take 1 capsule by mouth once daily. CITALOPRAM 40 MG TABLET 30 t* 3 12/31/2017 Route: ORAL Sig: Take 1 tablet by mouth once daily. Medications Discontinued During This Encounter traMADol (ULTRAM) 50 mg tablet 90 t* 0 11/08/2017 12/31/2017 Class: Print RX Route: ORAL Sig: Take 1 tablet by mouth every 8 hours as needed for Pain for up to 30 days. Disc: Reason for discontinue is not on file. omeprazole (PRILOSEC) 20 mg capsule 30 c* 1 11/08/2017 12/31/2017 Route: ORAL Sig: Take 1 capsule by mouth once daily. Disc: Reason for discontinue is not on file. citalopram (CELEXA) 20 mg tablet 30 t* 3 10/30/2017 12/31/2017 Route: ORAL Sig: take 1 tablet by mouth once daily Disc: Reason for discontinue is not on file. Encounter Status:Closed by TRENT HOROWITZ DO on 12/31/17 PROGRESS Observed: 11/21/2017 Status: COMPLETED Source: RINGLE 9:33 AM [facility] [place] REPOSITORY HNO ID: [id number] Author: Angela Hagan LPN Service: (none) Author Type: (none) Type: Progress Notes Filed: 11/21/2017 9:34 AM Note Text: Patient presents for MMR vaccine. Denies any problems at this time. Tolerated injection well. Angela Hagan LPN CNNURSE Observed: 11/21/2017 Status: COMPLETED Source: RINGLE 9:30 AM [facility] REPOSITORY Nurse Visit (FAMPWS) DANNI EVANS ([id number]) 1985 [facility] Date Time Provider Department 11/21/17 9:30 AM [facility] During your visit today, we recorded the following information about you: Angela Hagan LPN 11/21/2017 9:34 AM Signed Patient presents for MMR vaccine. Denies any problems at this time. Tolerated injection well. Angela Hagan LPN Referring Provider: ENRIQUETA FELIPE ([facility]) [[id number]] Allergies As of Date: 11/21/2017 Noted Allergy Reaction BACTRIM (SULFAMETHOXAZOLE) 09/26/2010 4 - Hives CECLOR (CEFACLOR) 09/26/2010 4 - Hives PENICILLINS 05/25/2013 16 - Unknown Date Reviewed: 11/06/2017 Reviewed by: Shona Avitia Ma - Fully Assessed Reason for Visit: Imm/Inj [58] Primary Visit Diagnosis:Need for vaccination [Z23] Prescriptions as of 11/21/2017 Sig: OMEPRAZOLE 20 MG CAPSULE,CARO* Take 1 capsule by mouth once * TRAMADOL 50 MG TABLET Take 1 tablet by mouth every * CITALOPRAM 20 MG TABLET take 1 tablet by mouth once d* COMPOUNDED PRESCRIPTION RECUMBENT BIKE TO SUKH* COMPOUNDED PRESCRIPTION DECK AND STEPS TO GET PATIENT* METOPROLOL TARTRATE 25 MG TAB* Take 1.5 tablets by mouth twi* TAB-A-AMADEO TABLET take 1 tablet by mouth once d* LEVOTHYROXINE 137 MCG TABLET take 1 tablet by mouth once d* INSULIN SYRINGE WITH SAFETY N* 1 Syringe once each week. To * ONDANSETRON 4 MG DISINTEGRATI* Take 1 tablet by mouth every * METHOTREXATE SODIUM (PF) 25 M* 0.8cc SC once/week FOLIC ACID 1 MG TABLET Take 1 tablet by mouth once d* CHOLECALCIFEROL (VITAMIN D3) * Take 1 capsule by mouth once * FLUTICASONE 50 MCG/ACTUATION * Use 2 Sprays in each nostril * LORATADINE 10 MG TABLET Take 1 tablet by mouth once d* VITAMIN D2 ORAL Take 50,000 Units by mouth on* ALBUTEROL INHALATION Inhale as instructed. Problem List As Of Date 11/21/2017 Noted Resolved DOWN'S SYNDROME [Q90.9] INVALID FOR* SURGERY FOLLOW-UP [V67.0] INVALID FOR* Abdominal pain, left upper quadrant [R10.12] INVALID FOR* Anxiety [F41.9] INVALID FOR* YVETTE on CPAP [G47.33, Z99.89] INVALID FOR* Allergic rhinitis [J30.9] INVALID FOR* Hypothyroidism [E03.9] INVALID FOR* Vitamin D deficiency [E55.9] INVALID FOR* Rash and nonspecific skin eruption [R21] INVALID FOR* Obesity, morbid, BMI 50 or higher (HCC) [E66.01]INVALID FOR* 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* Hip pain [M25.559] Knee pain [M25.569] CRP elevated [R79.82] Inflammatory polyarthritis (HCC) [M06.4] Acute non-recurrent maxillary sinusitis [J01.00]INVALID FOR* Hair pulling [F63.3] INVALID FOR* Encounter Status:Closed by ANGELA HAGAN LPN on 11/21/17 PROGRESS Observed: 11/06/2017 Status: COMPLETED Source: RINGLE 3:33 PM [facility] HNO ID: [id number] Author: Vincent aCrson Service: (none) Author Type: Physician Type: Progress Notes Filed: 11/06/2017 3:36 PM Note Text: Subjective: Patient presents to clinic c/o painful toenails. They state that the nails are especially painful with shoe gear and pressure. Patient states that nails 1-5 b/l are painful. Patient has callus of left 1st metatarsal. She has bunion b/l but no pain. Patient denies being diabetic. No other pedal complaints at this time. Patient states no change in medications or medical history since last visit. Objective: Patient presents to clinic ambulating in tennis shoes Vasc: DP and PT pulses are palpable bilateral. CFT is less than 5 seconds bilateral. Skin temperature is warm to cool proximal to distal bilateral. There is no edema or varicosities noted. Neuro: Protective sensation is intact to the foot and toes when tested with the 5.07 SWM bilateral. Vibratory sensation is decreased at the hallux IPJ bilateral. The hallux is downgoing bilateral. Derm: Nails 1-5 b/l are painful, discolored-yellow, thick, crumbly, dystrophic and with subungal debris. Skin is of normal turgor, texture and hair growth is present bilateral. There is callus present to left 1st metatarsal. No ulceration present. Macerated webspaces b/l 4th and left 1st Ortho: Muscle strength is 5/5 for all pedal groups tested. Ankle joint DF is full with the knee extended with no pain or crepitus noted. 1st MPJ ROM is full bilateral. Bunion present to b/l 1st mtpj Assessment: (B35.1) Onychomycosis (primary encounter diagnosis) (M79.675) Pain in toe of left foot (M79.674) Pain in toe of right foot (M20.12) Acquired hallux valgus of left foot (L85.9) Hyperkeratosis Plan: Patient was seen and evaluated. Nails 1-5 bilateral were debrided in length and thickness. Callus filed to left foot with sanding disk as courtesy. Discussed maceration of webspaces. Recommend use of betadine daily and proper drying of toes Continue with lotion to feet daily but do not apply between toes f/u in 3 months Continue with wider shoes for bunion. MABEL Pacheco Observed: 11/06/2017 Status: COMPLETED Source: RINGLE 3:00 PM [facility] REPOSITORY Office Visit (PODIWS) DANNI EVANS ([id number]) 1985 F [place] [facility] Date Time Provider Department 11/06/17 3:00 PM VINCENT CARSON During your visit today, we recorded the following information about you: Regina Devlin RN 11/06/2017 3:33 PM Signed Thoroughly dry between your toes after bathing. Apply betadine solution between toes few times a week. This can be found at your local drug store and is quite inexpensive. If any redness, pain is noted to your webspace let the office know right away. Vincent Carson DPM 11/06/2017 3:36 PM Signed Subjective: Patient presents to clinic c/o painful toenails. They state that the nails are especially painful with shoe gear and pressure. Patient states that nails 1-5 b/l are painful. Patient has callus of left 1st metatarsal. She has bunion b/l but no pain. Patient denies being diabetic. No other pedal complaints at this time. Patient states no change in medications or medical history since last visit. Objective: Patient presents to clinic ambulating in tennis shoes Vasc: DP and PT pulses are palpable bilateral. CFT is less than 5 seconds bilateral. Skin temperature is warm to cool proximal to distal bilateral. There is no edema or varicosities noted. Neuro: Protective sensation is intact to the foot and toes when tested with the 5.07 SWM bilateral. Vibratory sensation is decreased at the hallux IPJ bilateral. The hallux is downgoing bilateral. Derm: Nails 1-5 b/l are painful, discolored-yellow, thick, crumbly, dystrophic and with subungal debris. Skin is of normal turgor, texture and hair growth is present bilateral. There is callus present to left 1st metatarsal. No ulceration present. Macerated webspaces b/l 4th and left 1st Ortho: Muscle strength is 5/5 for all pedal groups tested. Ankle joint DF is full with the knee extended with no pain or crepitus noted. 1st MPJ ROM is full bilateral. Bunion present to b/l 1st mtpj Assessment: (B35.1) Onychomycosis (primary encounter diagnosis) (M79.675) Pain in toe of left foot (M79.674) Pain in toe of right foot (M20.12) Acquired hallux valgus of left foot (L85.9) Hyperkeratosis Plan: Patient was seen and evaluated. Nails 1-5 bilateral were debrided in length and thickness. Callus filed to left foot with sanding disk as courtesy. Discussed maceration of webspaces. Recommend use of betadine daily and proper drying of toes Continue with lotion to feet daily but do not apply between toes f/u in 3 months Continue with wider shoes for bunion. Vincent Carson DPM Referring Provider: VINCENT CARSON [[id number]] Allergies As of Date: 11/06/2017 Noted Allergy Reaction BACTRIM (SULFAMETHOXAZOLE) 09/26/2010 4 - Hives CECLOR (CEFACLOR) 09/26/2010 4 - Hives PENICILLINS 05/25/2013 16 - Unknown Date Reviewed: 11/06/2017 Reviewed by: Shona Avitia Ma - Fully Assessed Reason for Visit: nail care [Other] Primary Visit Diagnosis:Onychomycosis [B35.1] Other Visit Diagnoses:Pain in toe of left foot [M79.675] Pain in toe of right foot [M79.674] Acquired hallux valgus of left foot [M20.12] Hyperkeratosis [L85.9] Prescriptions as of 11/06/2017 Sig: CITALOPRAM 20 MG TABLET take 1 tablet by mouth once d* COMPOUNDED PRESCRIPTION RECUMBENT BIKE TO SUKH* COMPOUNDED PRESCRIPTION DECK AND STEPS TO GET PATIENT* METOPROLOL TARTRATE 25 MG TAB* Take 1.5 tablets by mouth twi* TRAMADOL 50 MG TABLET take 1 tablet by mouth every * OMEPRAZOLE 20 MG CAPSULE,CARO* take 1 capsule by mouth once * TAB-A-AMADEO TABLET take 1 tablet by mouth once d* LEVOTHYROXINE 137 MCG TABLET take 1 tablet by mouth once d* INSULIN SYRINGE WITH SAFETY N* 1 Syringe once each week. To * ONDANSETRON 4 MG DISINTEGRATI* Take 1 tablet by mouth every * METHOTREXATE SODIUM (PF) 25 M* 0.8cc SC once/week FOLIC ACID 1 MG TABLET Take 1 tablet by mouth once d* CHOLECALCIFEROL (VITAMIN D3) * Take 1 capsule by mouth once * FLUTICASONE 50 MCG/ACTUATION * Use 2 Sprays in each nostril * LORATADINE 10 MG TABLET Take 1 tablet by mouth once d* VITAMIN D2 ORAL Take 50,000 Units by mouth on* ALBUTEROL INHALATION Inhale as instructed. Problem List As Of Date 11/06/2017 Noted Resolved DOWN'S SYNDROME [Q90.9] INVALID FOR* SURGERY FOLLOW-UP [V67.0] INVALID FOR* Abdominal pain, left upper quadrant [R10.12] INVALID FOR* Anxiety [F41.9] INVALID FOR* YVETTE on CPAP [G47.33, Z99.89] INVALID FOR* Allergic rhinitis [J30.9] INVALID FOR* Hypothyroidism [E03.9] INVALID FOR* Vitamin D deficiency [E55.9] INVALID FOR* Rash and nonspecific skin eruption [R21] INVALID FOR* Obesity, morbid, BMI 50 or higher (HCC) [E66.01]INVALID FOR* 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* Hip pain [M25.559] Knee pain [M25.569] CRP elevated [R79.82] Inflammatory polyarthritis (HCC) [M06.4] Acute non-recurrent maxillary sinusitis [J01.00]INVALID FOR* Hair pulling [F63.3] INVALID FOR* Other instructions from your clinician: Thoroughly dry between your toes after bathing. Apply betadine solution between toes few times a week. This can be found at your local drug store and is quite inexpensive. If any redness, pain is noted to your webspace let the office know right away. Disposition: Return in about 3 months (around 02/06/2018) for nail care. Follow-up and Disposition History Recorded Encounter Status:Closed by VINCENT CARSON DPM on 11/06/17 DOWNTIME REPORT Observed: 10/23/2017 Status: F Source: LYNETTE 12:21 PM [facility] REPOSITORY [facility] Medical Records Department [address] [place] [address] Downtime Report MR#: [id number] Acct: [id number] Name: DANNI EVANS Rep #: [id number] : 1985 31 From: [place] Fernandez PCP: Trent Giang DO Status: REG RCR This patient was seen during an EMR downtime October 06, 2017 - October 13, 2017. This patient may have a combination of paper and electronic documentation or all paper documentation. All documentation is viewable within the e-chart portion of [facility] for each patient visit. PROGRESS Observed: 10/16/2017 Status: COMPLETED Source: RINGLE 2:12 PM [facility] HNO ID: [id number] Author: Angela Hagan LPN Service: (none) Author Type: (none) Type: Progress Notes Filed: 10/16/2017 2:14 PM Note Text: Patient presents for MMR vaccine. Denies any problems at this time. Tolerated injection well. Angela Hagan LPN CNNURSE Observed: 10/16/2017 Status: COMPLETED Source: RINGLE 2:00 PM [facility] REPOSITORY Nurse Visit (FAMPWS) DANNI EVANS ([id number]) 1985 [facility] Date Time Provider Department 10/16/17 2:00 PM [facility] NURSE FAMPWS During your visit today, we recorded the following information about you: Angela Hagan LPN 10/16/2017 2:14 PM Signed Patient presents for MMR vaccine. Denies any problems at this time. Tolerated injection well. Angela Hagan LPN Referring Provider: ENRIQUETA FELIPE ([facility]) [[id number]] Allergies As of Date: 10/16/2017 Noted Allergy Reaction BACTRIM (SULFAMETHOXAZOLE) 09/26/2010 4 - Hives CECLOR (CEFACLOR) 09/26/2010 4 - Hives PENICILLINS 05/25/2013 16 - Unknown Date Reviewed: 10/13/2017 Reviewed by: Enriqueta Allison ([facility]) Bev - Fully Assessed Reason for Visit: Imm/Inj [58] Primary Visit Diagnosis:Need for vaccination [Z23] Prescriptions as of 10/16/2017 Sig: METOPROLOL TARTRATE 25 MG TAB* Take 1.5 tablets by mouth twi* TRAMADOL 50 MG TABLET take 1 tablet by mouth every * OMEPRAZOLE 20 MG CAPSULE,CARO* take 1 capsule by mouth once * TAB-A-AMADEO TABLET take 1 tablet by mouth once d* LEVOTHYROXINE 137 MCG TABLET take 1 tablet by mouth once d* UREA 40 % LOTION Apply 1 application to affect* INSULIN SYRINGE WITH SAFETY N* 1 Syringe once each week. To * CITALOPRAM 20 MG TABLET Take 1 tablet by mouth once d* ONDANSETRON 4 MG DISINTEGRATI* Take 1 tablet by mouth every * METHOTREXATE SODIUM (PF) 25 M* 0.8cc SC once/week FOLIC ACID 1 MG TABLET Take 1 tablet by mouth once d* CHOLECALCIFEROL (VITAMIN D3) * Take 1 capsule by mouth once * FLUTICASONE 50 MCG/ACTUATION * Use 2 Sprays in each nostril * LORATADINE 10 MG TABLET Take 1 tablet by mouth once d* VITAMIN D2 ORAL Take 50,000 Units by mouth on* ALBUTEROL INHALATION Inhale as instructed. Problem List As Of Date 10/16/2017 Noted Resolved DOWN'S SYNDROME [Q90.9] INVALID FOR* SURGERY FOLLOW-UP [V67.0] INVALID FOR* Abdominal pain, left upper quadrant [R10.12] INVALID FOR* Anxiety [F41.9] INVALID FOR* YVETTE on CPAP [G47.33, Z99.89] INVALID FOR* Allergic rhinitis [J30.9] INVALID FOR* Hypothyroidism [E03.9] INVALID FOR* Vitamin D deficiency [E55.9] INVALID FOR* Rash and nonspecific skin eruption [R21] INVALID FOR* Obesity, morbid, BMI 50 or higher (HCC) [E66.01]INVALID FOR* 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* Hip pain [M25.559] Knee pain [M25.569] CRP elevated [R79.82] Inflammatory polyarthritis (HCC) [M06.4] Acute non-recurrent maxillary sinusitis [J01.00]INVALID FOR* Hair pulling [F63.3] INVALID FOR* Encounter Status:Closed by ANGELA HAGAN LPN on 10/16/17 PROGRESS Observed: 10/13/2017 Status: COMPLETED Source: RINGLE 4:02 PM [facility] REPOSITORY HNO ID: [id number] Author: Enriqueta Allison (Assigner) [facility] Service: (none) Author Type: Nurse Practitioner Type: Progress Notes Filed: 10/13/2017 4:06 PM Note Text: HPI/CC: Danni Evans is a 31 year old female who presents for a well adult exam- camp physical form. Mother accompanied patient and assisted with encounter. REVIEW OF SYSTEMS: GENERAL:Denies fever, chills, night sweats, or changes in weight. DERMATOLOGIC: Denies any new skin conditions, rashes or changing moles. EYES: Denies recent visual changes., wears glasses/contacts ENT: Denies hearing loss or tinnitus RESPIRATORY: Denies any cough, dyspnea, or wheezing. CARDIOVASCULAR: Denies any chest pain with exertion or at rest, palpitations, syncope, or edema. BREASTS: Denies any breast lumps, tenderness, dimpling, skin changes, or nipple discharge. GASTROINTESTINAL: Denies any nausea, vomiting, abdominal pain, heartburn, changes in bowel habit, Denies any rectal bleeding. GENITOURINARY: Denies any urinary frequency, urgency, incontinence, dysuria. Denies vaginal odor, discharge or lesions. Denies irregular vaginal bleeding or spotting. No LMP recorded. BSE? no MUSCULOSKELETAL: Denies any new joint swelling, crepitus, joint pain, or loss of range of motion., Denies back pain. NEURO: Denies any headaches, tremors, dizziness, vertigo, memory loss, confusion., Denies weakness, numbness or tingling.. PSYCHIATRIC: Positive for anxiety HEMATOLOGIC/LYMPHATIC/IMMUNOLOGIC: Denies anemia, bruising, bleeding abnormalities. ENDOCRINE: Denies any heat or cold intolerance, polyuria or polydipsia. 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 - Congestive heart failure, unspecified - CRP elevated - Down's syndrome - Fatty liver - Hip pain - Hypercholesteremia 06/2013 - Hypothyroidism - Inflammatory polyarthritis (HCC) - Juvenile osteochondrosis of hip and pelvis - Knee pain - Methicillin resistant Staphylococcus aureus in conditions classified elsewhere and of unspecified site - Mitral valve disorders - Obstructive sleep apnea (adult) (pediatric) - YVETTE on CPAP - Osteoarthrosis, unspecified whether generalized or localized, lower leg - Other candidiasis of other specified sites - Other ventral hernia without mention of obstruction or gangrene - Unspecified congenital anomaly of heart - Vitamin D deficiency PAST SURGICAL HISTORY Procedure Laterality Date - EGD W/O OR W/BRUSH/WASH 08/14/2011 EGD - PAST SURGICAL HISTORY OF neck fused - PAST SURGICAL HISTORY OF pelvicoscopy - PAST SURGICAL HISTORY OF right hip plate and leg surgeries - PAST SURGICAL HISTORY OF tubes in bilat ears. FAMILY HISTORY Problem Relation Age of Onset - Colon Cancer Paternal Grandfather Social History Marital status: Single Spouse name: Years of education: Number of children: Social History Main Topics Smoking status: Never Smoker Smokeless tobacco: Never Used Alcohol use: No Drug use: No Sexual activity: Not Currently Social History Narrative Mother Kalpana Villagran Current Outpatient Prescriptions on File Prior to Visit: traMADol (ULTRAM) 50 mg tablet take 1 tablet by mouth every 6 hours if needed omeprazole (PRILOSEC) 20 mg capsule take 1 capsule by mouth once daily 1/2 HOUR BEFORE BREAKFAST TAB-A-AMADEO tablet take 1 tablet by mouth once daily at bedtime levothyroxine (SYNTHROID) 137 mcg tablet take 1 tablet by mouth once daily urea (CARMOL) 40 % lotn Apply 1 application to affected area once daily. insulin syringe,safetyneedle (ASSURE ID INSULIN SAFETY) 1 mL 29 gauge x 1/2 syrg 1 Syringe once each week. To use with SC MTX once/week citalopram (CELEXA) 20 mg tablet Take 1 tablet by mouth once daily. ondansetron orally disintegrating (ZOFRAN ODT) 4 mg disintegrating tablet Take 1 tablet by mouth every 6 hours as needed for Nausea/Vomiting for up to 4 doses. folic acid 1 mg tablet Take 1 tablet by mouth once daily. cholecalciferol, Vitamin D3, (VITAMIN D3) 50,000 unit cap capsule Take 1 capsule by mouth once each week. fluticasone (FLONASE) 50 mcg/actuation nasal spray Use 2 Sprays in each nostril once daily. loratadine (CLARITIN) 10 mg tablet Take 1 tablet by mouth once daily. ALBUTEROL INHALATION Inhale as instructed. methotrexate, PF, 25 mg/mL soln 0.8cc SC once/week ERGOCALCIFEROL, VITAMIN D2, (VITAMIN D ORAL) Take 50,000 Units by mouth once each week. 2000 units daily No current facility-administered medications on file prior to visit. ALLERGIES Allergen Reactions - Bactrim [Sulfametho* Hives - Ceclor [Cefaclor] Hives - Penicillins Unknown OBJECTIVE/PHYSICAL EXAMINATION: BP 120/72 Pulse 72 Resp 16 Ht 148.6 cm (4' 10.5) Wt 105.7 kg (233 lb) BMI 47.87 kg/m? General appearance: Well appearing, alert, in no acute distress, well-hydrated, well nourished, typical down syndrome facies with communication difficulty Skin: Skin color, texture, turgor normal, no suspicious rashes or lesions Head: Normocephalic, no masses, lesions, tenderness or abnormalities Eyes: Anicteric sclera. Pupils are equally round and reactive to light. Extraocular movements are intact. Ears: External ears normal, canals clear, TM's normal Nose/Sinuses: Nares normal, septum midline, mucosa normal, no drainage or sinus tenderness Oropharynx: Lips, mucosa, and tongue normal, teeth and gums normal, oropharynx normal Neck: Supple, no adenopathy; thyroid symmetric, normal size, no bruits Back: Normal exam Lungs: Lungs clear to auscultation. No wheezing, rhonchi, rales Heart: Regular rate and rythm without murmur, normal S1 and S2 Breasts: deferred Abdomen: Normal abdominal exam, Abdomen soft, non-tender. Bowel sounds normal. No masses, organomegaly Extremities: No deformities, edema, skin discoloration, clubbing or cyanosis. Good capillary refill. Musculoskeletal: Spine range of motion normal. Muscular strength intact, No joint swelling, deformity, or tenderness Peripheral pulses: Normal Neuro:Awake, alert and oriented x 3, Cranial nerves II-XII grossly intact, Reflexes symmetrical, Normal gait and No involuntary motions. Pelvic: Deferred ASSESSMENT/PLAN: 1. Encounter for wellness examination in adult - ICD9: V70.0, ICD10: Z00.00 (primary diagnosis) - Follow up for annual exam in one year. - Forms completed 2. Immunity status testing - ICD9: V72.61, ICD10: Z01.84 - MUMPS IGG AB - RUBEOLA (MEASLES)IGG - RUBELLA IGG AB Enriqueta Felipe, TIARA.CALENDER SUPERVISOR SED RATE WESTERGREN Collected: 10/13/2017 Status: F Source: RINGLE 2:40 PM [facility] REPOSITORY TYPE CODE TESTS RESULT OUT OF REFERENCE UNITS RANGE LAB WSR 0-20 mm/hr Sed Rate High Westergren 21 Performed By: #### WSR, CBCDIF, CMP, CRP #### [facility] [address] [place], [place] [address] CBC AND DIFFERENTIAL Collected: 10/13/2017 Status: F Source: RINGLE 2:40 PM [facility] REPOSITORY TYPE CODE TESTS RESULT OUT OF REFERENCE UNITS RANGE LAB WBC 3.70-11.00 k/uL WBC 5.37 LAB RBC 3.90-5.20 m/uL RBC 4.41 LAB HGB 11.5-15.5 g/dL Hemoglobin 15.1 LAB HCT 36.0-46.0 % High Hematocrit 47.4 LAB MCV 80.0-100.0 fL MCV High 107.5 LAB MCH 26.0-34.0 pG MCH High 34.2 LAB MCHC 30.5-36.0 g/dL MCHC 31.9 LAB RDWCV 11.5-15.0 % RDW-CV 13.7 LAB PLTCT 150-400 k/uL Platelet Count 338 LAB MPV 9.0-12.7 fL MPV 9.7 LAB ANEUT % Neut% 70.8 LAB AANEUT 1.45-7.50 k/uL Abs Neut 3.80 LAB ALYMP % Lymph% 18.8 LAB AALYMP 1.00-4.00 k/uL Abs Lymph 1.01 LAB AMONO % Pickett% 8.2 LAB AAMONO <0.87 k/uL Abs Pickett 0.44 LAB AEOS % Eosin% 0.9 LAB AAEOS <0.46 k/uL Abs Eosin 0.05 LAB ABASO % Baso% 1.3 LAB AABASO <0.11 k/uL Abs Baso 0.07 LAB AUNRBC 0 /100 WBC NRBCs 0.0 LAB ABNRBC <0.01 k/uL Absolute nRBC <0.01 LAB DTYP DTYPE Auto Diff Performed By: #### WSR, CBCDIF, CMP, CRP #### [facility] [address] [place], [place] [address] COMP METABOLIC PANEL Collected: 10/13/2017 Status: F Source: RINGLE 2:40 PM [facility] TYPE CODE TESTS RESULT OUT OF REFERENCE UNITS RANGE LAB TP 6.3-8.0 g/dL Protein, Total 7.9 LAB ALB 3.9-4.9 g/dL Albumin 4.3 LAB CA 8.5-10.2 mg/dL Calcium, Total 9.1 LAB TBIL 0.2-1.3 mg/dL Bilirubin, Total 0.3 LAB ALKP 32-117 U/L Alkaline Phosphatase 72 LAB AST 13-35 U/L AST 26 LAB GLU 74-99 mg/dL Glucose High 102 Result Comment: The [place] Diabetes Association (ADA) provides guidance for cutoff values for fasting glucose and random glucose. The ADA defines fasting as no caloric intake for at least 8 hours. Fas ting plasma glucose results between 100 to 125 mg/dL indicate increased risk for diabetes (prediabetes). Fasting plasma glucose results greater than or equal to 126 mg/dL meet the criteria for diagnosis of diabetes. In the absence of unequivocal hyperglycemia, results should be confirmed by repeat testing. In a patient with classic symptoms of hyperglycemia or hyperglycemic crisis, random plasma glucose results greater than or equal to 200 mg/dL meet the criteria for diagnosis of diabetes. Reference: Standards of Medical Care in Diabetes 2016, [place] [employer] Association. Diabetes Care. 2016.39(Suppl 1). LAB BUN 7-21 mg/dL BUN 19 LAB CRET 0.58-0.96 mg/dL Creatinine 0.90 LAB NA 136-144 mmol/L Sodium 139 LAB K 3.7-5.1 mmol/L Potassium 4.8 LAB CL 97-105 mmol/L Chloride 99 LAB CO2 22-30 mmol/L CO2 25 LAB AGAP 9-18 mmol/L Anion Gap 15 LAB ALT 7-38 U/L ALT 25 LAB GFRAA eGFR- Amer. >60 LAB GFRNAA . eGFR-All Other Races >60 Result Comment: eGFR (Estimated GFR) Units of measure: mL/min/1.73 meters squared eGFR is derived from the reexpressed MDRD Study equation using the following parameters: serum creatinine, age, gender and race. The creatinine assay has been calibrated to be traceable to IDPR. An eGFR <60 mL/min/1.73m2 for >3 months is consistent with chronic kidney disease. Refer to KDOQI guidelines for clinical interpretation. In patients with unstable renal function, e.g. those with acute kidney injury, the eGFR may not accurately reflect actual GFR. Performed By: #### WSR, CBCDIF, CMP, CRP #### [facility] [employer] [address] [address] C-REACTIVE PROTEIN Collected: 10/13/2017 Status: F Source: RINGLE 2:40 PM [facility] REPOSITORY TYPE CODE TESTS RESULT OUT OF REFERENCE UNITS RANGE LAB CRP <0.9 mg/dL High C-Reactive 1.2 Protein Performed By: #### WSR, CBCDIF, CMP, CRP #### [facility] [address] [address] RUBELLA IGG ANTIBODY Collected: 10/13/2017 Status: F Source: RINGLE 2:40 [facility] REPOSITORY TYPE CODE TESTS RESULT OUT OF REFERENCE UNITS RANGE LAB RUBGQL Negative Rubella IgG Negative Ab, Qual Result Comment: Sample is considered negative for IgG antibodies to rubella virus. A negative result presumes that immunity has not been acquired. If exposure to rubella virus is suspected despite a neg ative finding, a second specimen should be collected and tested one to two weeksn later. Seroconversion from a negative specimen to a positive specimen is evidence of either recent infection, response to vaccination, or administration of immunoglobulins. LAB RUBQNT Index Value Rubella IgG Ab 0.44 Result Comment: Index values are interpreted as follows: Negative specimens <0.90 Equivocol specimens 0.90 to 0.99 Positive specimens >0.99 The magnitude of the measured result is not indicative of the amount of antibody present. Performed By: #### RUBIGG, MEASLG, MUMPSG #### [facility] [address] [address] MEASLES IGG ANTIBODY Collected: 10/13/2017 Status: F Source: RINGLE 2:40 [facility] REPOSITORY TYPE CODE TESTS RESULT OUT OF RANGE REFERENCE UNITS LAB MEASQL Negative Abnormal Measles IgG Positive Alert Ab, Qual Result Comment: Presence of detectable measles virus IgG antibodies. A positive result generally indicates exposure to measles virus or previous vaccination. LAB MEASG AU/mL Measles IgG Antibody 82.5 Result Comment: AU/mL Value interpreted as follows: Negative specimens <25.0 Equivocal specimens 25.0 to 29.9 Positive specimens >29.9 The magnitude of the measured result, above the cutoff, is not indicative of the amount of antibody present. Performed By: #### JERED HEALY, MUMPSG #### [facility] [employer] [address] [place], [place] [address] MUMPS IGG AB Collected: 10/13/2017 Status: F Source: RINGLE 2:40 PM [facility] REPOSITORY TYPE CODE TESTS RESULT OUT OF RANGE REFERENCE UNITS LAB MUMPSR Negative Abnormal Alert Mumps Positive IgG, Qual Result Comment: Presence of detectable mumps virus IgG antibodies. A positive result generally indicates past exposure to mumps virus or previous vaccination. LAB MUMS AU/mL Mumps IgG Ab 87.2 Result Comment: AU/mL Values interpreted as follows: Negative Specimens <9.0 Equivocal specimens 9.0 to 10.9 Positive specimens >10.9 The magnitude of the measured result, above the cutoff, is not indicative of the amount of antibody present. Performed By: #### JERED HEALY, MUMPSG #### [facility] [employer] [address], [place] [address] CNOV Observed: 10/13/2017 Status: COMPLETED Source: RINGLE 1:20 PM [facility] REPOSITORY Office Visit (FAMPWS) DANNI EVANS ([id number]) 1985 F [facility] Date Time Provider Department 10/13/17 1:20 PM ENRIQUETA FELIPE ([facility]) FAMPWS During your visit today, we recorded the following information about you: Pulse Respiration Blood pressure Weight 72/minute 16/minute 120/72 105.7 kg Height 1.486 m Enriqueta Felipe, TIARA.CALENDER SUPERVISOR 10/13/2017 4:06 PM Signed HPI/CC: Danni Evans is a 31 year old female who presents for a well adult exam- camp physical form. Mother accompanied patient and assisted with encounter. REVIEW OF SYSTEMS: GENERAL:Denies fever, chills, night sweats, or changes in weight. DERMATOLOGIC: Denies any new skin conditions, rashes or changing moles. EYES: Denies recent visual changes., wears glasses/contacts ENT: Denies hearing loss or tinnitus RESPIRATORY: Denies any cough, dyspnea, or wheezing. CARDIOVASCULAR: Denies any chest pain with exertion or at rest, palpitations, syncope, or edema. BREASTS: Denies any breast lumps, tenderness, dimpling, skin changes, or nipple discharge. GASTROINTESTINAL: Denies any nausea, vomiting, abdominal pain, heartburn, changes in bowel habit, Denies any rectal bleeding. GENITOURINARY: Denies any urinary frequency, urgency, incontinence, dysuria. Denies vaginal odor, discharge or lesions. Denies irregular vaginal bleeding or spotting. No LMP recorded. BSE? no MUSCULOSKELETAL: Denies any new joint swelling, crepitus, joint pain, or loss of range of motion., Denies back pain. NEURO: Denies any headaches, tremors, dizziness, vertigo, memory loss, confusion., Denies weakness, numbness or tingling.. PSYCHIATRIC: Positive for anxiety HEMATOLOGIC/LYMPHATIC/IMMUNOLOGIC: Denies anemia, bruising, bleeding abnormalities. ENDOCRINE: Denies any heat or cold intolerance, polyuria or polydipsia. 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[employer] - Congestive heart failure, unspecified - CRP elevated - Down's syndrome - Fatty liver - Hip pain - Hypercholesteremia 06/2013 - Hypothyroidism - Inflammatory polyarthritis (HCC) - Juvenile osteochondrosis of hip and pelvis - Knee pain - Methicillin resistant Staphylococcus aureus in conditions classified elsewhere and of unspecified site - Mitral valve disorders - Obstructive sleep apnea (adult) (pediatric) - YVETTE on CPAP - Osteoarthrosis, unspecified whether generalized or localized, lower leg - Other candidiasis of other specified sites - Other ventral hernia without mention of obstruction or gangrene - Unspecified congenital anomaly of heart - Vitamin D deficiency PAST SURGICAL HISTORY Procedure Laterality Date - EGD W/O OR W/BRUSH/WASH 08/14/2011 EGD - PAST SURGICAL HISTORY OF neck fused - PAST SURGICAL HISTORY OF pelvicoscopy - PAST SURGICAL HISTORY OF right hip plate and leg surgeries - PAST SURGICAL HISTORY OF tubes in bilat ears. FAMILY HISTORY Problem Relation Age of Onset - Colon Cancer Paternal Grandfather Social History Marital status: Single Spouse name: Years of education: Number of children: Social History Main Topics Smoking status: Never Smoker Smokeless tobacco: Never Used Alcohol use: No Drug use: No Sexual activity: Not Currently Social History Narrative Mother Kalpana Villagran Current Outpatient Prescriptions on File Prior to Visit: traMADol (ULTRAM) 50 mg tablet take 1 tablet by mouth every 6 hours if needed omeprazole (PRILOSEC) 20 mg capsule take 1 capsule by mouth once daily 1/2 HOUR BEFORE BREAKFAST TAB-A-AMADEO tablet take 1 tablet by mouth once daily at bedtime levothyroxine (SYNTHROID) 137 mcg tablet take 1 tablet by mouth once daily urea (CARMOL) 40 % lotn Apply 1 application to affected area once daily. insulin syringe,safetyneedle (ASSURE ID INSULIN SAFETY) 1 mL 29 gauge x 1/2 syrg 1 Syringe once each week. To use with SC MTX once/week citalopram (CELEXA) 20 mg tablet Take 1 tablet by mouth once daily. ondansetron orally disintegrating (ZOFRAN ODT) 4 mg disintegrating tablet Take 1 tablet by mouth every 6 hours as needed for Nausea/Vomiting for up to 4 doses. folic acid 1 mg tablet Take 1 tablet by mouth once daily. cholecalciferol, Vitamin D3, (VITAMIN D3) 50,000 unit cap capsule Take 1 capsule by mouth once each week. fluticasone (FLONASE) 50 mcg/actuation nasal spray Use 2 Sprays in each nostril once daily. loratadine (CLARITIN) 10 mg tablet Take 1 tablet by mouth once daily. ALBUTEROL INHALATION Inhale as instructed. methotrexate, PF, 25 mg/mL soln 0.8cc SC once/week ERGOCALCIFEROL, VITAMIN D2, (VITAMIN D ORAL) Take 50,000 Units by mouth once each week. 2000 units daily No current facility-administered medications on file prior to visit. ALLERGIES Allergen Reactions - Bactrim [Sulfametho* Hives - Ceclor [Cefaclor] Hives - Penicillins Unknown OBJECTIVE/PHYSICAL EXAMINATION: BP 120/72 Pulse 72 Resp 16 Ht 148.6 cm (4' 10.5) Wt 105.7 kg (233 lb) BMI 47.87 kg/m? General appearance: Well appearing, alert, in no acute distress, well-hydrated, well nourished, typical down syndrome facies with communication difficulty Skin: Skin color, texture, turgor normal, no suspicious rashes or lesions Head: Normocephalic, no masses, lesions, tenderness or abnormalities Eyes: Anicteric sclera. Pupils are equally round and reactive to light. Extraocular movements are intact. Ears: External ears normal, canals clear, TM's normal Nose/Sinuses: Nares normal, septum midline, mucosa normal, no drainage or sinus tenderness Oropharynx: Lips, mucosa, and tongue normal, teeth and gums normal, oropharynx normal Neck: Supple, no adenopathy; thyroid symmetric, normal size, no bruits Back: Normal exam Lungs: Lungs clear to auscultation. No wheezing, rhonchi, rales Heart: Regular rate and rythm without murmur, normal S1 and S2 Breasts: deferred Abdomen: Normal abdominal exam, Abdomen soft, non-tender. Bowel sounds normal. No masses, organomegaly Extremities: No deformities, edema, skin discoloration, clubbing or cyanosis. Good capillary refill. Musculoskeletal: Spine range of motion normal. Muscular strength intact, No joint swelling, deformity, or tenderness Peripheral pulses: Normal Neuro:Awake, alert and oriented x 3, Cranial nerves II-XII grossly intact, Reflexes symmetrical, Normal gait and No involuntary motions. Pelvic: Deferred ASSESSMENT/PLAN: 1. Encounter for wellness examination in adult - ICD9: V70.0, ICD10: Z00.00 (primary diagnosis) - Follow up for annual exam in one year. - Forms completed 2. Immunity status testing - ICD9: V72.61, ICD10: Z01.84 - MUMPS IGG AB - RUBEOLA (MEASLES)IGG - RUBELLA IGG AB Enriqueta Felipe APRN.CNP Referring Provider: TRENT HOROWITZ [[id number]] Allergies As of Date: 10/13/2017 Noted Allergy Reaction BACTRIM (SULFAMETHOXAZOLE) 09/26/2010 4 - Hives CECLOR (CEFACLOR) 09/26/2010 4 - Hives PENICILLINS 05/25/2013 16 - Unknown Date Reviewed: 10/13/2017 Reviewed by: Enriqueta Allison (Assigner) Bev - Fully Assessed Reason for Visit: Camp Physical [18] Primary Visit Diagnosis:Encounter for wellness examination in adult [Z00.00] Other Visit Diagnosis:Immunity status testing [Z01.84] Order(s):MUMPS IGG AB [SQMUMPSG] Order #: [id number] FUTURE RUBEOLA (MEASLES)IGG [SQMEASLG] Order #: [id number] FUTURE RUBELLA IGG AB [SQRUBQNT] Order #: [id number] FUTURE COMPOUNDED PRESCRIPTION1 Device one time only for 1 dose. Wheeled walker, with seat.Disp: 1 DeviceRfl: 0 Prescriptions as of 10/13/2017 Sig: METOPROLOL TARTRATE 25 MG TAB* Take 1.5 tablets by mouth twi* TRAMADOL 50 MG TABLET take 1 tablet by mouth every * OMEPRAZOLE 20 MG CAPSULE,CARO* take 1 capsule by mouth once * TAB-A-AMADEO TABLET take 1 tablet by mouth once d* LEVOTHYROXINE 137 MCG TABLET take 1 tablet by mouth once d* UREA 40 % LOTION Apply 1 application to affect* INSULIN SYRINGE WITH SAFETY N* 1 Syringe once each week. To * CITALOPRAM 20 MG TABLET Take 1 tablet by mouth once d* ONDANSETRON 4 MG DISINTEGRATI* Take 1 tablet by mouth every * FOLIC ACID 1 MG TABLET Take 1 tablet by mouth once d* CHOLECALCIFEROL (VITAMIN D3) * Take 1 capsule by mouth once * FLUTICASONE 50 MCG/ACTUATION * Use 2 Sprays in each nostril * LORATADINE 10 MG TABLET Take 1 tablet by mouth once d* ALBUTEROL INHALATION Inhale as instructed. COMPOUNDED PRESCRIPTION 1 Device one time only for 1 * METHOTREXATE SODIUM (PF) 25 M* 0.8cc SC once/week VITAMIN D2 ORAL Take 50,000 Units by mouth on* Problem List As Of Date 10/13/2017 Noted Resolved DOWN'S SYNDROME [Q90.9] INVALID FOR* SURGERY FOLLOW-UP [V67.0] INVALID FOR* Abdominal pain, left upper quadrant [R10.12] INVALID FOR* Anxiety [F41.9] INVALID FOR* YVETTE on CPAP [G47.33, Z99.89] INVALID FOR* Allergic rhinitis [J30.9] INVALID FOR* Hypothyroidism [E03.9] INVALID FOR* Vitamin D deficiency [E55.9] INVALID FOR* Rash and nonspecific skin eruption [R21] INVALID FOR* Obesity, morbid, BMI 50 or higher (HCC) [E66.01]INVALID FOR* 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 Wheeled walker, with seat. Medications Discontinued During This Encounter metoprolol tartrate, short acting, 2* 0 06/15/2013 10/13/2017 Class: Med Update Route: ORAL Sig: Take 1 tablet by mouth twice daily. Disc: Reason for discontinue is not on file. benzonatate (TESSALON PERLE) 100 mg * 30 c* 0 02/10/2017 10/13/2017 Route: ORAL Sig: Take 1 capsule by mouth three times daily as needed. Disc: Reason for discontinue is not on file. pseudoephedrine-guaiFENesin (MUCINEX* 20 t* 0 02/10/2017 10/13/2017 Route: ORAL Sig: Take 1 tablet by mouth every 12 hours as needed for Cold/Allergy Symptoms. Disc: Reason for discontinue is not on file. doxycycline monohydrate 100 mg tablet 20 t* 0 03/21/2017 10/13/2017 Route: ORAL Sig: Take 1 tablet by mouth twice daily. Disc: Reason for discontinue is not on file. Encounter Status:Closed by ENRIQUETA FELIPE CNP on 10/13/17 PROGRESS Observed: 09/24/2017 Status: COMPLETED Source: [facility] 11:02 AM CLINIC OTHER CAMPUS REPOSITORY HNO ID: [id number] Author: Julian Mcmahan Service: (none) Author Type: Physician Type: Progress Notes Filed: 09/24/2017 11:32 AM Note Text: Subjective History of Present Illness: General HPI: Danni is here for followup diffuse arthralgias, severe hip OA, neck fusion/pain, ankle pain, vitamin D deficiency., worsening gait. pain. 07/22/2012: Danni continues to have pain over most joints, specially her right ankle,R hip, R troch area, her neck. Numerous updates since last seen. Was found in spring to have a fracture in her cervical spine fusion! Not clear from the mother what was the plan when this was found. Apparently the physician has left the practice. Seen another physician, NO intervention/surgery needed it seems... Also for her right hip, severe changes found on the x-ray I got in 2007, unfortunately no orthopedic surgeon would operates and help her hip!!!! mod-severe pain over the lateral aspect of her hip, worse w/movement (++LIMPING) despite wearing the shoe lift ... Significant pain in the right ankle. Continues to wear her left over right shoes. Intermittent tingling numbness in her hands specially the right. no labs in a while. 02/03/13: As detailed above, continues to have pain in her right ankle, hip and low back, slightly better when taking tramadol, taking it twice a day. Occasional pain in her hands with numbness. Wearing new shoes with her same lift. Per mom there not the best fit. Still having hard time. Having hard time with her athletics foot. Her skin is red and peeling off slowly better with the cream. Continues limping. Slightly better in general. Trying tramadol twice a day which seems to help her pain she's complaining less. Reporting epigastric pain.? Given beta blockers recently. Causing some fatigue. Significant weight gain 07/22/2013: Per mother has been doing really well in general. She believes she's hurting a lot less, improved pain in her hands, improved pain in her legs and sides. Continues to hurt in both ankles specially her right ankle but tramadol seems to be helping a lot. She takes twice daily. No more numbness in her hands. Continues wearing shoes with lift, needs new ones. Having hard time with her weight. Wondering about her thyroid. Reviewed labs together, was checked February and it was okay. 03/29/14: has not been doing too well.. per mom and patient herself, she seems to be having slightly more pain in general. Mostly in both legs, her right hip around the groin and the outside, laterally, more pain with ambulation. She has been limping a lot more, and probably walking different per mom. She also has been having pain in both hands but admits to using her hands a lot to write and color. Continues tramadol for pain. Not sure if it's helping her pain or not. Taking about 2 daily. Denies anything new otherwise rashes skin lesions, stable heart status. Taking her thyroid supplement. Vitamin D. 08/29/2015: NOT seen in one and half year. Since last seen she seems to be doing better than last time. Per mom, she continues to have significant amount of pain, and her left hip and low back and sides, not as bad as a year ago. Continues to have stable discrepancy, finally got her new shoes, with her lift... it helps a lot. Walking a lot better with improved became aches. Intermittent worsening of her pain, sometimes pretty bad, even gave her some Vicodin to help her severe pain. Stable skin lesions, stable heart. Taking her thyroid and vitamin D supplements. No labs in a while. 05/23/16: Slightly more difficult visit than before. Patient herself denying any significant amount of hip and knee pain, although she seems to be reporting limiting pain to her mom on a daily basis. She does seem to have significant discomfort and pain over her left knee and left hip, a lot worse with ambulation in certain movements. She's also having trouble walking around, she's walking very different and has to lift her entire leg when trying to get around. Her limping also seem to be worse. We updated her shoe lift for the right shoe. She has not had any recent therapy or gait training. Mom would like to update that. She has stable cardiac status, and another conditions. We reviewed all of her available labs and serologies. Noted her TSH relatively higher than her baseline which she is to be 0.5, most recent was above 2.5. Has been having significant amount of weight gain, up to 234!! Also noted elevated sedimentation rate CRP September 2015. Mom is worried if Danni could have inflammatory arthritis as she does. Would like to have her labs repeated but Danni was incredibly worried about getting labs done Also reviewed previous hip x-rays. Has not seen orthopedics in a while. 08/27/16: Prolonged visit with numerous updates reviewing symptoms, plans, reassuring, extensive counseling. Reviewing with patient herself, and her mom mostly. Continues to have significant pain, mother confirms Danni always mention widespread pain stiffness throbbing burning, joint aching, some days worse than others. Seem to have symptoms over her hands MCP PIP DIP wrists, generally in her muscles and tendons, low back and sides her hips, both legs. Continues to have very abnormal walk, stable discrepancy. Has not seen orthopedics since last visit. Has been doing water therapy and she likes it a lot. And regular therapy. Continues to have high inflammatory markers. Reviewed her previous sedimentation rate CRP. Continues to have weight gain, gained even more since last visit. Seem to consume high amount of sugar and carbs. 01/29/17: Since last seen mom reviewed all updates. Danni also confirmed feeling overall better. She started subcutaneous methotrexate, using 0.8 cc weekly without any apparent side effects, problems or toxicities. No problems with GI side effects etc. Seem to be using 0.8 cc weekly without interruption. Folic acid daily. She feels overall better with less aching, less stiffness, less widespread throbbing burning pain. She doesn't seem to be complaining as much to her mom. Continues to have trouble the most in both feet, significant throbbing pain and burning, deformities. Continues to struggle with her shoes and lift, discrepancy in her legs. Continues to consume high amount of sugar and carbs, has not been able to cut back much. Stable weight. 09/24/17: Danni comes in today with her father, we did not have the usual visit as always since her mom was not present, but she called me the day before and filled me in with all the details, knees, updates, etc. Danni visits with her father over the weekends, he usually doesn't know a lot of details are in depth of her meds etc. Seem to have been doing pretty decent, stable, if not overall slightly improved, she herself believe she has a lot less aching, stiffness pain and limiting symptoms in her joints compared to before, she seems to have less visible swelling over her MCP PIP wrists and hands in general, less aching and stiffness in her neck shoulders, less burning pain, tolerable pain in her hips knees ankles and feet despite very severe deformities and advanced involvements, and abnormal gait and mechanics. Continues to have severe left foot and ankle pes planus when walking, limping has been stable, continues to wear right foot shoe lift, stable discrepancy. Apparently had several upper respiratory infections, her methotrexate subcutaneous was on hold briefly, her mom was wondering if we could resume when she called yesterday. Danni did not seem to have today any ongoing symptoms or concerns for infection. Trying her best to cut back on excessive sugar intake but her dad doesn't believe she is doing much with that. Stable weight, minimal fluctuation not much. Persistent BMI of 47.2 Noted labs through PCP, June 2017, for CBC lipids A1c see below. Missing CMP and CRP. Review of Systems Constitutional: Weight gain - unable to lose weight or follow healthy diet, unable to have any weight loss, stable Fatigue, No weakness, No fever, Patient reports falls, ++ increased risk of falling Eyes (R,L): No eye pain, No eye redness, No reduced vision, No diplopia, No blurred vision, No dryness, No feeling of something in eye(s), No eye itching Ears (R,L): No tinnitus, No hearing loss Nose, Throat: No epistaxis, No loss of smell, No dryness in nose, No runny nose, No sore tongue, No bleeding gums, No sores in mouth, No loss of taste, No dryness of mouth, No frequent sore throats, No hoarseness, No dysphagia Cardiovascular: No chest pain, Arrhythmia, No palpitations, High blood pressure, No heart murmurs Respiratory: No shortness of breath, No nocturnal dyspnea, No swollen legs, No swollen feet, No cough, No dyspnea, No hemoptysis, No wheezing Gastrointestinal: No nausea, No vomiting of blood or coffee ground material, Stomach pain relieved by food or milk, No jaundice, No constipation, No diarrhea, No blood in stool, No black stools, No heartburn Genitourinary, Female: No dysuria, No hematuria, No increased frequency of urination, No nocturia, No urinary incontinence, No kidney stone, No pelvic pain Menstrual History: No bleeding after menopause Hematologic, Lymphatic: No swollen glands, No lymph node tenderness, No anemia, Does not bleed easily Musculoskeletal: Morning stiffness, Stiffness overall improved with subcutaneous methotrexate, Joint pain, No muscle weakness, Muscle tenderness, Joint swelling, Joints affected in the last 6 months: More pain lately, Back pain Skin: No Changes in the skin, No redness, Does not bruise easily, No pruritus, No skin rash, No hives, No sun sensitivity, No tightness, No nodules/bumps, No hair loss, No skin lesion, No ulcerations, No color changes of hands or feet in the cold Neurologic: No headache, No dizziness, No syncope, No muscle spasms, No tingling, No loss of consciousness, No sensitivity or pain of hands and/or feet, No memory loss, No night sweats Psychiatric: Excessive worries, Feeling anxious, Not easily losing temper, Not feeling depressed, Feeling agitated, No difficulty falling asleep, No difficulty staying asleep Endocrine: No polydipsia, Not intolerant of cold, Not intolerant of heat Allergic, Immunologic: No frequent sneezing, No susceptibility to infections Other review of system reviewed and updated where needed Physical Exam BP 132/80 (BP Site: Right Arm, BP Position: Sitting) Temp 36.8 ?C (98.3 ?F) Ht 149.9 cm (4' 11) Wt 106.1 kg (234 lb) BMI 47.26 kg/m? Constitutional: Appears in no acute distress, Appearance consistent with age Down syndrome Mental Status: Alert, Oriented, Cooperative, Affect normal Eyes (R,L): No conjunctival injection, Eyelid normal, Sclera normal, No ciliary flush, Pupil size and shape normal, Fundoscopy normal Down's syndrome features Ears (R,L): External ear normal, Ear canal normal Nose, Throat: External nose normal, No nasal ulcer, No oral ulcer, Throat examination normal Neck: Neck symmetrical, Trachea midline, No neck mass, No thyromegaly Respiratory: Breath sounds normal, No rales, No rhonchi, No wheezing, No pleural friction rub Cardiac: Heart rate normal, Heart rhythm normal, Heart sounds normal, No heart murmur, No pericardial friction rub Vascular: Peripheral pulses normal, Temporal pulse present, No temporal artery tenderness, Carotid pulse normal, No carotid bruit, No varicose veins, No upper extremity edema, No leg edema, No pedal edema Gastrointestinal: Abdomen soft, No hepatomegaly, No splenomegaly, No abdominal tenderness, No abdominal mass Lymphatic: No cervical lymphadenopathy Musculoskeletal: Joint tenderness present, Joint swelling present, Decreased ROM in joints present, Muscle strength normal, No spinal tenderness present, No SI joint tenderness present, No tender points present Bilateral hands with generally improved significant swelling or tenderness over MCP PIP joints, Down syndrome features, discomfort over the right hip, pain with flexion, Swelling in the right ankle, tenderness to touch over both shins, tender points - improved tender points compared to before Continues to have very abnormal gait, limping, lifting her left leg more when walking around, left leg with external rotation, severe pes planus Skin: No alopecia, No skin rash, No skin lesion, No skin ulcer, No Pits, No Thickening, No Color changes, No telangiectasias, No Nail ridging, No Nail pitting, No Onycholysis Neurologic: Motor and sensory exam WNL, No tremor, Cranial nerves II to XII intact, Biceps reflex normal, Triceps reflex normal, Knee reflex normal, Ankle reflex normal, Negative Phalens test, Negative Tinels sign of wrist PAST MEDICAL HISTORY Diagnosis Date - Abdominal pain, epigastric - Abdominal pain, left upper quadrant - Abscess - Allergic rhinitis, cause unspecified - Anxiety - Asthma mild intermittent, 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 - Congestive heart failure, unspecified - CRP elevated - Down's syndrome - Fatty liver - Hip pain - Hypercholesteremia 06/2013 - Hypothyroidism - Inflammatory polyarthritis (HCC) - Juvenile osteochondrosis of hip and pelvis - Knee pain - Methicillin resistant Staphylococcus aureus in conditions classified elsewhere and of unspecified site - Mitral valve disorders - Obstructive sleep apnea (adult) (pediatric) - YVETTE on CPAP - Osteoarthrosis, unspecified whether generalized or localized, lower leg - Other candidiasis of other specified sites - Other ventral hernia without mention of obstruction or gangrene - Unspecified congenital anomaly of heart - Vitamin D deficiency PAST SURGICAL HISTORY Procedure Laterality Date - EGD W/O OR W/BRUSH/WASH 08/14/2011 EGD - PAST SURGICAL HISTORY OF neck fused - PAST SURGICAL HISTORY OF pelvicoscopy - PAST SURGICAL HISTORY OF right hip plate and leg surgeries - PAST SURGICAL HISTORY OF tubes in bilat ears. Health Maintenance Procedures PAP EVERY 5 YEARS due on 2014 HPV EVERY 5 YEARS due on 2014 Discussed health maintenance, including regular aerobic exercise, low fat diet, and periodic exams. Health Maintenance Immunizations Given Immunizations: Immunization History Administered Date(s) Administered Influenza Seasonal Inj Age 3+ 03/10/2017 Influenza Seasonal Inj Quadrivalent Age 3+ 03/15/2015 03/15/2016 Tdap (Age 7+) 02/28/2011 Current Outpatient Prescriptions: traMADol (ULTRAM) 50 mg tablet Take 1 tablet by mouth every 6 hours as needed for up to 30 days. levothyroxine (SYNTHROID) 137 mcg tablet take 1 tablet by mouth once daily omeprazole (PRILOSEC) 20 mg capsule TAKE 1 CAPSULE BY MOUTH 1/2 HOUR BEFORE BREAKFAST DAILY citalopram (CELEXA) 20 mg tablet Take 1 tablet by mouth once daily. cholecalciferol, Vitamin D3, (VITAMIN D3) 50,000 unit cap capsule Take 1 capsule by mouth once each week. metoprolol tartrate, short acting, 25 mg tablet Take 1 tablet by mouth twice daily. loratadine (CLARITIN) 10 mg tablet Take 1 tablet by mouth once daily. TAB-A-AMADEO tablet take 1 tablet by mouth once daily at bedtime urea (CARMOL) 40 % lotn Apply 1 application to affected area once daily. insulin syringe,safetyneedle (ASSURE ID INSULIN SAFETY) 1 mL 29 gauge x 1/2 syrg 1 Syringe once each week. To use with SC MTX once/week ondansetron orally disintegrating (ZOFRAN ODT) 4 mg disintegrating tablet Take 1 tablet by mouth every 6 hours as needed for Nausea/Vomiting for up to 4 doses. doxycycline monohydrate 100 mg tablet Take 1 tablet by mouth twice daily. pseudoephedrine-guaiFENesin (MUCINEX D) 60-600 mg per tablet Take 1 tablet by mouth every 12 hours as needed for Cold/Allergy Symptoms. benzonatate (TESSALON PERLE) 100 mg capsule Take 1 capsule by mouth three times daily as needed. methotrexate, PF, 25 mg/mL soln 0.8cc SC once/week folic acid 1 mg tablet Take 1 tablet by mouth once daily. fluticasone (FLONASE) 50 mcg/actuation nasal spray Use 2 Sprays in each nostril once daily. ERGOCALCIFEROL, VITAMIN D2, (VITAMIN D ORAL) Take 50,000 Units by mouth once each week. 2000 units daily ALBUTEROL INHALATION Inhale as instructed. No current facility-administered medications for this visit. ALLERGIES Allergen Reactions - Bactrim [Sulfametho* Hives - Ceclor [Cefaclor] Hives - Penicillins Unknown FAMILY HISTORY Problem Relation Age of Onset - Colon Cancer Paternal Grandfather Social History Marital status: Single Spouse name: Years of education: Number of children: Social History Main Topics Smoking status: Never Smoker Smokeless tobacco: Never Used Alcohol use: No Drug use: No Sexual activity: Not Currently Social History Narrative Mother Kalpana Villagran History review: I have reviewed and modified as needed, ALL the following during the visit: Review of system, physical exam, entire assessment and plan, allergies, past medical history, past surgical history, past family history, and past social history. All changes made if different from prior visits. Lab Results: Glucose 83 03/20/2016 ALT 12 03/20/2016 WBC 5.04 03/20/2016 Hemoglobin 14.8 03/20/2016 Platelet Count 282 03/20/2016 Sed Rate, Velmaren 24 09/06/2015 CRP 1.5 09/06/2015 Component Latest Ref Rng 09/06/2015 09/06/2015 03/20/2016 3:46 PM 3:58 PM WBC 3.70 - 11.00 k/uL 5.50 5.04 RBC 3.90 - 5.20 m/uL 4.11 4.35 Hemoglobin 11.5 - 15.5 g/dL 13.8 14.8 Hematocrit 36.0 - 46.0 % 42.0 44.9 MCV 80.0 - 100.0 fL 102.2 (H) 103.2 (H) MCH 26.0 - 34.0 pG 33.6 34.0 MCHC 30.5 - 36.0 g/dL 32.9 33.0 RDW-CV 11.5 - 15.0 % 13.6 12.9 Platelet Count 150 - 400 k/uL 279 282 MPV 9.0 - 12.7 fL 10.3 10.2 Neut% % 62.5 Abs Neut (ANC) 1.45 - 7.50 k/uL 3.44 Lymph% % 24.2 Abs Lymph 1.00 - 4.00 k/uL 1.33 Pickett% % 10.9 Abs Pickett 0.00 - 0.86 k/uL 0.60 Eosin% % 0.9 Abs Eosin 0.00 - 0.45 k/uL 0.05 Baso% % 1.5 Abs Baso 0.00 - 0.10 k/uL 0.08 Diff Type Auto Diff Protein, Total 6.3 - 8.0 g/dL 7.8 7.6 Albumin 3.9 - 4.9 g/dL 4.1 4.0 Calcium 8.6 - 10.0 mg/dL 9.2 9.3 Bilirubin, Total 0.2 - 1.3 mg/dL 0.3 0.5 Alkaline Phosphatase 32 - 117 U/L 76 78 AST 13 - 35 U/L 19 16 Glucose 74 - 99 mg/dL 88 83 BUN 7 - 21 mg/dL 12 13 Creatinine 0.58 - 0.96 mg/dL 0.73 0.81 Sodium 136 - 144 mmol/L 138 138 Potassium 3.7 - 5.1 mmol/L 4.2 4.6 Chloride 97 - 105 mmol/L 99 99 CO2 22 - 30 mmol/L 20 (L) 26 Anion Gap 9 - 18 mmol/L 19 (H) 13 ALT 7 - 38 U/L 19 12 eGFR- >60 >60 eGFR-All Other Races . >60 >60 Hemoglobin A1C 4.3 - 5.6 % 5.2 Estimated Average Glucose mg/dL 103 Vitamin D 25 Hydroxy 31.0 - 80.0 ng/mL 39.3 38.2 37.2 TSH 0.400 - 5.500 uU/mL 0.515 0.535 2.320 CRP 0.0 - 1.0 mg/dL 1.5 (H) WSR 0 - 15 mm/hr 24 (H) Component Latest Ref Rng AND Units 03/31/2017 07/02/2017 WBC 3.70 - 11.00 k/uL 6.51 6.03 RBC 3.90 - 5.20 m/uL 4.57 4.45 Hemoglobin 11.5 - 15.5 g/dL 15.9 (H) 15.0 Hematocrit 36.0 - 46.0 % 49.8 (H) 45.4 MCV 80.0 - 100.0 fL 109.0 (H) 102.0 (H) MCH 26.0 - 34.0 pG 34.8 (H) 33.7 MCHC 30.5 - 36.0 g/dL 31.9 33.0 RDW-CV 11.5 - 15.0 % 13.4 13.8 Platelet Count 150 - 400 k/uL 384 346 MPV 9.0 - 12.7 fL 10.1 10.0 Neut% % 74.8 Abs Neut (ANC) 1.45 - 7.50 k/uL 4.87 Lymph% % 17.1 Abs Lymph 1.00 - 4.00 k/uL 1.11 Pickett% % 6.1 Abs Pickett <0.87 k/uL 0.40 Eosin% % 0.6 Abs Eosin <0.46 k/uL 0.04 Baso% % 1.4 Abs Baso <0.11 k/uL 0.09 Nucleated Reds 0 /100 WBC 0.0 Absolute nRBC <0.01 k/uL <0.01 <0.01 Diff Type Auto Diff Protein, Total 6.3 - 8.0 g/dL 8.6 (H) Albumin 3.9 - 4.9 g/dL 4.5 Calcium 8.5 - 10.2 mg/dL 9.5 Bilirubin, Total 0.2 - 1.3 mg/dL 0.3 Alkaline Phosphatase 32 - 117 U/L 80 AST 13 - 35 U/L 31 Glucose 74 - 99 mg/dL 106 (H) BUN 7 - 21 mg/dL 9 Creatinine 0.58 - 0.96 mg/dL 0.82 Sodium 136 - 144 mmol/L 140 Potassium 3.7 - 5.1 mmol/L 4.5 Chloride 97 - 105 mmol/L 100 CO2 22 - 30 mmol/L 23 Anion Gap 9 - 18 mmol/L 17 ALT 7 - 38 U/L 20 eGFR- >60 eGFR-All Other Races . >60 Cholesterol, Total <200 mg/dL 244 (H) Triglyceride <150 mg/dL 162 (H) HDL Cholesterol >39 mg/dL 54 LDL Cholesterol <100 mg/dL 158 (H) Non HDL Cholesterol <130 mg/dL 190 (H) Fasting Time hrs 2 VLDL Cholesterol <30 mg/dL 32 (H) TC:HDL Ratio <5.10 4.52 LDL:HDL Ratio <2.54 2.93 (H) Hemoglobin A1C 4.3 - 5.6 % 4.8 Estimated Average Glucose mg/dL 91 CRP <0.9 mg/dL 1.3 (H) WSR 0 - 20 mm/hr 19 TSH 0.400 - 5.500 uU/mL 2.970 Vitamin D 25 Hydroxy 31.0 - 80.0 ng/mL 47.9 Assessment (M06.4) Inflammatory polyarthritis (HCC) (primary encounter diagnosis) (R79.82) CRP elevated (M91.92) Juvenile osteochondrosis of left hip or pelvis (M25.551, M25.552) Pain of both hip joints (M25.561, M25.562, G89.29) Chronic pain of both knees (E03.9) Hypothyroidism, unspecified type (E55.9) Vitamin D deficiency (Q90.9) Down's syndrome Plan Office Visit on 09/24/17 -C-REACTIVE PROTEIN (CRP) -SED RATE WESTERGREN -COMP METABOLIC PANEL -CBC + DIFF Patient Education: Patient Education was given today. Impression and Plan: Entire assessment and plan reviewed, noted, and read. Any interval changes, updates, were made appropriately where needed between visits. 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 no intervention. Concerning finding of cervical spine fracture over her previous fusion. Concerning radiculopathy. Definitely needs to f/u w/neurosurgery. problems with her hip OA and secondary mechanical problems, ankle swelling and pain. ++TROCHANTERIC BURSITIS Significant overall over the years weight gain, fatigue. Severe chronic hip problems - seem to be worsening with time Hip OA Previous fractures Trochanteric bursitis Abnormal gait - relatively worse compared to before Stable left leg external rotation, concerning for new hip process stable pes planus Worsening overall pain Most likely +underlying inflammatory etiology as well for her increasing pain Elevated sedimentation rate CRP, strong family history. Was reasonable to consider starting therapy. High sugar and carbs intake - continues. Long discussion with mother and Danni herself, regarding her conditions and appropriate management. Overall improvement on subcutaneous methotrexate Persistent bilateral foot symptoms - generally improved with therapy Brief interruption of subcutaneous methotrexate with URI Persistent overweight BMI 47.2 Persistent abnormal mechanics Plan: Cervical spine fusion fracture, referred to neurosurgery for evaluation Stable watching over time Advanced right hip OA, failed previous attempts to have her see orthopedic Refer once again given abnormal gait - has not been seen in a while Consider updating the referral Sero- inflammatory poly-arthritis - symptomatic Was reasonable to proceed with DMARD therapy. Best was subcutaneous methotrexate for better absorption and efficacy. Reviewed in great details all possible side effects and toxicities, the need for regular labs. Brief interruption, may resume 0.8 cc weekly Folic acid daily Try to update labs coordinate with PCP Hypothyroidism, - stable Rechecked labs Vitamin D deficiency - continue supplements Repatcher patient and reassure Right ankle pain - no surgery needed. R troch bursitis - tried flector patches (CANNOT tolerate PO NSAID) May continue TRAMADOL for pain - seems to be helping minimally Review with patient and mother other choices for pain control,? Vicodin, I'd rather trying not to give her stronger narcotics. Consider pain management - she prefers not to. Weight loss encouraged ! Unable to do much. Review once again in depth Reviewed healthier food choices and diets - very high sugar/carbs intake Followup in 4 months CNOV Observed: 09/24/2017 Status: COMPLETED Source: [facility] 10:30 AM [facility] OTHER [facility] REPOSITORY Office Visit ([facility]) DANNI EVANS ([id number]) 1985 F [place]TONIO Date Time Provider Department 09/24/17 10:30 AM JULIAN MCMAHAN During your visit today, we recorded the following information about you: Temperature Blood pressure Weight Height 98.3 degrees 132/80 106.1 kg 1.499 m Julian Mcmahan MD 09/24/2017 11:32 AM Signed Subjective History of Present Illness: General HPI: Danni is here for followup diffuse arthralgias, severe hip OA, neck fusion/pain, ankle pain, vitamin D deficiency., worsening gait. pain. 07/22/2012: Danni continues to have pain over most joints, specially her right ankle,R hip, R troch area, her neck. Numerous updates since last seen. Was found in spring to have a fracture in her cervical spine fusion! Not clear from the mother what was the plan when this was found. Apparently the physician has left the practice. Seen another physician, NO intervention/surgery needed it seems... Also for her right hip, severe changes found on the x-ray I got in 2007, unfortunately no orthopedic surgeon would operates and help her hip!!!! mod-severe pain over the lateral aspect of her hip, worse w/movement (++LIMPING) despite wearing the shoe lift ... Significant pain in the right ankle. Continues to wear her left over right shoes. Intermittent tingling numbness in her hands specially the right. no labs in a while. 02/03/13: As detailed above, continues to have pain in her right ankle, hip and low back, slightly better when taking tramadol, taking it twice a day. Occasional pain in her hands with numbness. Wearing new shoes with her same lift. Per mom there not the best fit. Still having hard time. Having hard time with her athletics foot. Her skin is red and peeling off slowly better with the cream. Continues limping. Slightly better in general. Trying tramadol twice a day which seems to help her pain she's complaining less. Reporting epigastric pain.? Given beta blockers recently. Causing some fatigue. Significant weight gain 07/22/2013: Per mother has been doing really well in general. She believes she's hurting a lot less, improved pain in her hands, improved pain in her legs and sides. Continues to hurt in both ankles specially her right ankle but tramadol seems to be helping a lot. She takes twice daily. No more numbness in her hands. Continues wearing shoes with lift, needs new ones. Having hard time with her weight. Wondering about her thyroid. Reviewed labs together, was checked February and it was okay. 03/29/14: has not been doing too well.. per mom and patient herself, she seems to be having slightly more pain in general. Mostly in both legs, her right hip around the groin and the outside, laterally, more pain with ambulation. She has been limping a lot more, and probably walking different per mom. She also has been having pain in both hands but admits to using her hands a lot to write and color. Continues tramadol for pain. Not sure if it's helping her pain or not. Taking about 2 daily. Denies anything new otherwise rashes skin lesions, stable heart status. Taking her thyroid supplement. Vitamin D. 08/29/2015: NOT seen in one and half year. Since last seen she seems to be doing better than last time. Per mom, she continues to have significant amount of pain, and her left hip and low back and sides, not as bad as a year ago. Continues to have stable discrepancy, finally got her new shoes, with her lift... it helps a lot. Walking a lot better with improved became aches. Intermittent worsening of her pain, sometimes pretty bad, even gave her some Vicodin to help her severe pain. Stable skin lesions, stable heart. Taking her thyroid and vitamin D supplements. No labs in a while. 05/23/16: Slightly more difficult visit than before. Patient herself denying any significant amount of hip and knee pain, although she seems to be reporting limiting pain to her mom on a daily basis. She does seem to have significant discomfort and pain over her left knee and left hip, a lot worse with ambulation in certain movements. She's also having trouble walking around, she's walking very different and has to lift her entire leg when trying to get around. Her limping also seem to be worse. We updated her shoe lift for the right shoe. She has not had any recent therapy or gait training. Mom would like to update that. She has stable cardiac status, and another conditions. We reviewed all of her available labs and serologies. Noted her TSH relatively higher than her baseline which she is to be 0.5, most recent was above 2.5. Has been having significant amount of weight gain, up to 234!! Also noted elevated sedimentation rate CRP September 2015. Mom is worried if Danni could have inflammatory arthritis as she does. Would like to have her labs repeated but Danni was incredibly worried about getting labs done Also reviewed previous hip x-rays. Has not seen orthopedics in a while. 08/27/16: Prolonged visit with numerous updates reviewing symptoms, plans, reassuring, extensive counseling. Reviewing with patient herself, and her mom mostly. Continues to have significant pain, mother confirms Danni always mention widespread pain stiffness throbbing burning, joint aching, some days worse than others. Seem to have symptoms over her hands MCP PIP DIP wrists, generally in her muscles and tendons, low back and sides her hips, both legs. Continues to have very abnormal walk, stable discrepancy. Has not seen orthopedics since last visit. Has been doing water therapy and she likes it a lot. And regular therapy. Continues to have high inflammatory markers. Reviewed her previous sedimentation rate CRP. Continues to have weight gain, gained even more since last visit. Seem to consume high amount of sugar and carbs. 01/29/17: Since last seen mom reviewed all updates. Danni also confirmed feeling overall better. She started subcutaneous methotrexate, using 0.8 cc weekly without any apparent side effects, problems or toxicities. No problems with GI side effects etc. Seem to be using 0.8 cc weekly without interruption. Folic acid daily. She feels overall better with less aching, less stiffness, less widespread throbbing burning pain. She doesn't seem to be complaining as much to her mom. Continues to have trouble the most in both feet, significant throbbing pain and burning, deformities. Continues to struggle with her shoes and lift, discrepancy in her legs. Continues to consume high amount of sugar and carbs, has not been able to cut back much. Stable weight. 09/24/17: Danni comes in today with her father, we did not have the usual visit as always since her mom was not present, but she called me the day before and filled me in with all the details, knees, updates, etc. Danni visits with her father over the weekends, he usually doesn't know a lot of details are in depth of her meds etc. Seem to have been doing pretty decent, stable, if not overall slightly improved, she herself believe she has a lot less aching, stiffness pain and limiting symptoms in her joints compared to before, she seems to have less visible swelling over her MCP PIP wrists and hands in general, less aching and stiffness in her neck shoulders, less burning pain, tolerable pain in her hips knees ankles and feet despite very severe deformities and advanced involvements, and abnormal gait and mechanics. Continues to have severe left foot and ankle pes planus when walking, limping has been stable, continues to wear right foot shoe lift, stable discrepancy. Apparently had several upper respiratory infections, her methotrexate subcutaneous was on hold briefly, her mom was wondering if we could resume when she called yesterday. aDnni did not seem to have today any ongoing symptoms or concerns for infection. Trying her best to cut back on excessive sugar intake but her dad doesn't believe she is doing much with that. Stable weight, minimal fluctuation not much. Persistent BMI of 47.2 Noted labs through PCP, June 2017, for CBC lipids A1c see below. Missing CMP and CRP. Review of Systems Constitutional: Weight gain - unable to lose weight or follow healthy diet, unable to have any weight loss, stable Fatigue, No weakness, No fever, Patient reports falls, ++ increased risk of falling Eyes (R,L): No eye pain, No eye redness, No reduced vision, No diplopia, No blurred vision, No dryness, No feeling of something in eye(s), No eye itching Ears (R,L): No tinnitus, No hearing loss Nose, Throat: No epistaxis, No loss of smell, No dryness in nose, No runny nose, No sore tongue, No bleeding gums, No sores in mouth, No loss of taste, No dryness of mouth, No frequent sore throats, No hoarseness, No dysphagia Cardiovascular: No chest pain, Arrhythmia, No palpitations, High blood pressure, No heart murmurs Respiratory: No shortness of breath, No nocturnal dyspnea, No swollen legs, No swollen feet, No cough, No dyspnea, No hemoptysis, No wheezing Gastrointestinal: No nausea, No vomiting of blood or coffee ground material, Stomach pain relieved by food or milk, No jaundice, No constipation, No diarrhea, No blood in stool, No black stools, No heartburn Genitourinary, Female: No dysuria, No hematuria, No increased frequency of urination, No nocturia, No urinary incontinence, No kidney stone, No pelvic pain Menstrual History: No bleeding after menopause Hematologic, Lymphatic: No swollen glands, No lymph node tenderness, No anemia, Does not bleed easily Musculoskeletal: Morning stiffness, Stiffness overall improved with subcutaneous methotrexate, Joint pain, No muscle weakness, Muscle tenderness, Joint swelling, Joints affected in the last 6 months: More pain lately, Back pain Skin: No Changes in the skin, No redness, Does not bruise easily, No pruritus, No skin rash, No hives, No sun sensitivity, No tightness, No nodules/bumps, No hair loss, No skin lesion, No ulcerations, No color changes of hands or feet in the cold Neurologic: No headache, No dizziness, No syncope, No muscle spasms, No tingling, No loss of consciousness, No sensitivity or pain of hands and/or feet, No memory loss, No night sweats Psychiatric: Excessive worries, Feeling anxious, Not easily losing temper, Not feeling depressed, Feeling agitated, No difficulty falling asleep, No difficulty staying asleep Endocrine: No polydipsia, Not intolerant of cold, Not intolerant of heat Allergic, Immunologic: No frequent sneezing, No susceptibility to infections Other review of system reviewed and updated where needed Physical Exam BP 132/80 (BP Site: Right Arm, BP Position: Sitting) Temp 36.8 ?C (98.3 ?F) Ht 149.9 cm (4' 11) Wt 106.1 kg (234 lb) BMI 47.26 kg/m? Constitutional: Appears in no acute distress, Appearance consistent with age Down syndrome Mental Status: Alert, Oriented, Cooperative, Affect normal Eyes (R,L): No conjunctival injection, Eyelid normal, Sclera normal, No ciliary flush, Pupil size and shape normal, Fundoscopy normal Down's syndrome features Ears (R,L): External ear normal, Ear canal normal Nose, Throat: External nose normal, No nasal ulcer, No oral ulcer, Throat examination normal Neck: Neck symmetrical, Trachea midline, No neck mass, No thyromegaly Respiratory: Breath sounds normal, No rales, No rhonchi, No wheezing, No pleural friction rub Cardiac: Heart rate normal, Heart rhythm normal, Heart sounds normal, No heart murmur, No pericardial friction rub Vascular: Peripheral pulses normal, Temporal pulse present, No temporal artery tenderness, Carotid pulse normal, No carotid bruit, No varicose veins, No upper extremity edema, No leg edema, No pedal edema Gastrointestinal: Abdomen soft, No hepatomegaly, No splenomegaly, No abdominal tenderness, No abdominal mass Lymphatic: No cervical lymphadenopathy Musculoskeletal: Joint tenderness present, Joint swelling present, Decreased ROM in joints present, Muscle strength normal, No spinal tenderness present, No SI joint tenderness present, No tender points present Bilateral hands with generally improved significant swelling or tenderness over MCP PIP joints, Down syndrome features, discomfort over the right hip, pain with flexion, Swelling in the right ankle, tenderness to touch over both shins, tender points - improved tender points compared to before Continues to have very abnormal gait, limping, lifting her left leg more when walking around, left leg with external rotation, severe pes planus Skin: No alopecia, No skin rash, No skin lesion, No skin ulcer, No Pits, No Thickening, No Color changes, No telangiectasias, No Nail ridging, No Nail pitting, No Onycholysis Neurologic: Motor and sensory exam WNL, No tremor, Cranial nerves II to XII intact, Biceps reflex normal, Triceps reflex normal, Knee reflex normal, Ankle reflex normal, Negative Phalens test, Negative Tinels sign of wrist PAST MEDICAL HISTORY Diagnosis Date - Abdominal pain, epigastric - Abdominal pain, left upper quadrant - Abscess - Allergic rhinitis, cause unspecified - Anxiety - Asthma mild intermittent, 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 - Congestive heart failure, unspecified - CRP elevated - Down's syndrome - Fatty liver - Hip pain - Hypercholesteremia 06/2013 - Hypothyroidism - Inflammatory polyarthritis (HCC) - Juvenile osteochondrosis of hip and pelvis - Knee pain - Methicillin resistant Staphylococcus aureus in conditions classified elsewhere and of unspecified site - Mitral valve disorders - Obstructive sleep apnea (adult) (pediatric) - YVETTE on CPAP - Osteoarthrosis, unspecified whether generalized or localized, lower leg - Other candidiasis of other specified sites - Other ventral hernia without mention of obstruction or gangrene - Unspecified congenital anomaly of heart - Vitamin D deficiency PAST SURGICAL HISTORY Procedure Laterality Date - EGD W/O OR W/BRUSH/WASH 08/14/2011 EGD - PAST SURGICAL HISTORY OF neck fused - PAST SURGICAL HISTORY OF pelvicoscopy - PAST SURGICAL HISTORY OF right hip plate and leg surgeries - PAST SURGICAL HISTORY OF tubes in bilat ears. Health Maintenance Procedures PAP EVERY 5 YEARS due on 2014 HPV EVERY 5 YEARS due on 2014 Discussed health maintenance, including regular aerobic exercise, low fat diet, and periodic exams. Health Maintenance Immunizations Given Immunizations: Immunization History Administered Date(s) Administered Influenza Seasonal Inj Age 3+ 03/10/2017 Influenza Seasonal Inj Quadrivalent Age 3+ 03/15/2015 03/15/2016 Tdap (Age 7+) 02/28/2011 Current Outpatient Prescriptions: traMADol (ULTRAM) 50 mg tablet Take 1 tablet by mouth every 6 hours as needed for up to 30 days. levothyroxine (SYNTHROID) 137 mcg tablet take 1 tablet by mouth once daily omeprazole (PRILOSEC) 20 mg capsule TAKE 1 CAPSULE BY MOUTH 1/2 HOUR BEFORE BREAKFAST DAILY citalopram (CELEXA) 20 mg tablet Take 1 tablet by mouth once daily. cholecalciferol, Vitamin D3, (VITAMIN D3) 50,000 unit cap capsule Take 1 capsule by mouth once each week. metoprolol tartrate, short acting, 25 mg tablet Take 1 tablet by mouth twice daily. loratadine (CLARITIN) 10 mg tablet Take 1 tablet by mouth once daily. TAB-A-AMADEO tablet take 1 tablet by mouth once daily at bedtime urea (CARMOL) 40 % lotn Apply 1 application to affected area once daily. insulin syringe,safetyneedle (ASSURE ID INSULIN SAFETY) 1 mL 29 gauge x 1/2 syrg 1 Syringe once each week. To use with SC MTX once/week ondansetron orally disintegrating (ZOFRAN ODT) 4 mg disintegrating tablet Take 1 tablet by mouth every 6 hours as needed for Nausea/Vomiting for up to 4 doses. doxycycline monohydrate 100 mg tablet Take 1 tablet by mouth twice daily. pseudoephedrine-guaiFENesin (MUCINEX D) 60-600 mg per tablet Take 1 tablet by mouth every 12 hours as needed for Cold/Allergy Symptoms. benzonatate (TESSALON PERLE) 100 mg capsule Take 1 capsule by mouth three times daily as needed. methotrexate, PF, 25 mg/mL soln 0.8cc SC once/week folic acid 1 mg tablet Take 1 tablet by mouth once daily. fluticasone (FLONASE) 50 mcg/actuation nasal spray Use 2 Sprays in each nostril once daily. ERGOCALCIFEROL, VITAMIN D2, (VITAMIN D ORAL) Take 50,000 Units by mouth once each week. 2000 units daily ALBUTEROL INHALATION Inhale as instructed. No current facility-administered medications for this visit. ALLERGIES Allergen Reactions - Bactrim [Sulfametho* Hives - Ceclor [Cefaclor] Hives - Penicillins Unknown FAMILY HISTORY Problem Relation Age of Onset - Colon Cancer Paternal Grandfather Social History Marital status: Single Spouse name: Years of education: Number of children: Social History Main Topics Smoking status: Never Smoker Smokeless tobacco: Never Used Alcohol use: No Drug use: No Sexual activity: Not Currently Social History Narrative Mother Kalpana Villagran History review: I have reviewed and modified as needed, ALL the following during the visit: Review of system, physical exam, entire assessment and plan, allergies, past medical history, past surgical history, past family history, and past social history. All changes made if different from prior visits. Lab Results: Glucose 83 03/20/2016 ALT 12 03/20/2016 WBC 5.04 03/20/2016 Hemoglobin 14.8 03/20/2016 Platelet Count 282 03/20/2016 Sed Rate, Diana 24 09/06/2015 CRP 1.5 09/06/2015 Component Latest Ref Rng 09/06/2015 09/06/2015 03/20/2016 3:46 PM 3:58 PM WBC 3.70 - 11.00 k/uL 5.50 5.04 RBC 3.90 - 5.20 m/uL 4.11 4.35 Hemoglobin 11.5 - 15.5 g/dL 13.8 14.8 Hematocrit 36.0 - 46.0 % 42.0 44.9 MCV 80.0 - 100.0 fL 102.2 (H) 103.2 (H) MCH 26.0 - 34.0 pG 33.6 34.0 MCHC 30.5 - 36.0 g/dL 32.9 33.0 RDW-CV 11.5 - 15.0 % 13.6 12.9 Platelet Count 150 - 400 k/uL 279 282 MPV 9.0 - 12.7 fL 10.3 10.2 Neut% % 62.5 Abs Neut (ANC) 1.45 - 7.50 k/uL 3.44 Lymph% % 24.2 Abs Lymph 1.00 - 4.00 k/uL 1.33 Pickett% % 10.9 Abs Pickett 0.00 - 0.86 k/uL 0.60 Eosin% % 0.9 Abs Eosin 0.00 - 0.45 k/uL 0.05 Baso% % 1.5 Abs Baso 0.00 - 0.10 k/uL 0.08 Diff Type Auto Diff Protein, Total 6.3 - 8.0 g/dL 7.8 7.6 Albumin 3.9 - 4.9 g/dL 4.1 4.0 Calcium 8.6 - 10.0 mg/dL 9.2 9.3 Bilirubin, Total 0.2 - 1.3 mg/dL 0.3 0.5 Alkaline Phosphatase 32 - 117 U/L 76 78 AST 13 - 35 U/L 19 16 Glucose 74 - 99 mg/dL 88 83 BUN 7 - 21 mg/dL 12 13 Creatinine 0.58 - 0.96 mg/dL 0.73 0.81 Sodium 136 - 144 mmol/L 138 138 Potassium 3.7 - 5.1 mmol/L 4.2 4.6 Chloride 97 - 105 mmol/L 99 99 CO2 22 - 30 mmol/L 20 (L) 26 Anion Gap 9 - 18 mmol/L 19 (H) 13 ALT 7 - 38 U/L 19 12 eGFR- >60 >60 eGFR-All Other Races . >60 >60 Hemoglobin A1C 4.3 - 5.6 % 5.2 Estimated Average Glucose mg/dL 103 Vitamin D 25 Hydroxy 31.0 - 80.0 ng/mL 39.3 38.2 37.2 TSH 0.400 - 5.500 uU/mL 0.515 0.535 2.320 CRP 0.0 - 1.0 mg/dL 1.5 (H) WSR 0 - 15 mm/hr 24 (H) Component Latest Ref Rng AND Units 03/31/2017 07/02/2017 WBC 3.70 - 11.00 k/uL 6.51 6.03 RBC 3.90 - 5.20 m/uL 4.57 4.45 Hemoglobin 11.5 - 15.5 g/dL 15.9 (H) 15.0 Hematocrit 36.0 - 46.0 % 49.8 (H) 45.4 MCV 80.0 - 100.0 fL 109.0 (H) 102.0 (H) MCH 26.0 - 34.0 pG 34.8 (H) 33.7 MCHC 30.5 - 36.0 g/dL 31.9 33.0 RDW-CV 11.5 - 15.0 % 13.4 13.8 Platelet Count 150 - 400 k/uL 384 346 MPV 9.0 - 12.7 fL 10.1 10.0 Neut% % 74.8 Abs Neut (ANC) 1.45 - 7.50 k/uL 4.87 Lymph% % 17.1 Abs Lymph 1.00 - 4.00 k/uL 1.11 Pickett% % 6.1 Abs Pickett <0.87 k/uL 0.40 Eosin% % 0.6 Abs Eosin <0.46 k/uL 0.04 Baso% % 1.4 Abs Baso <0.11 k/uL 0.09 Nucleated Reds 0 /100 WBC 0.0 Absolute nRBC <0.01 k/uL <0.01 <0.01 Diff Type Auto Diff Protein, Total 6.3 - 8.0 g/dL 8.6 (H) Albumin 3.9 - 4.9 g/dL 4.5 Calcium 8.5 - 10.2 mg/dL 9.5 Bilirubin, Total 0.2 - 1.3 mg/dL 0.3 Alkaline Phosphatase 32 - 117 U/L 80 AST 13 - 35 U/L 31 Glucose 74 - 99 mg/dL 106 (H) BUN 7 - 21 mg/dL 9 Creatinine 0.58 - 0.96 mg/dL 0.82 Sodium 136 - 144 mmol/L 140 Potassium 3.7 - 5.1 mmol/L 4.5 Chloride 97 - 105 mmol/L 100 CO2 22 - 30 mmol/L 23 Anion Gap 9 - 18 mmol/L 17 ALT 7 - 38 U/L 20 eGFR- >60 eGFR-All Other Races . >60 Cholesterol, Total <200 mg/dL 244 (H) Triglyceride <150 mg/dL 162 (H) HDL Cholesterol >39 mg/dL 54 LDL Cholesterol <100 mg/dL 158 (H) Non HDL Cholesterol <130 mg/dL 190 (H) Fasting Time hrs 2 VLDL Cholesterol <30 mg/dL 32 (H) TC:HDL Ratio <5.10 4.52 LDL:HDL Ratio <2.54 2.93 (H) Hemoglobin A1C 4.3 - 5.6 % 4.8 Estimated Average Glucose mg/dL 91 CRP <0.9 mg/dL 1.3 (H) WSR 0 - 20 mm/hr 19 TSH 0.400 - 5.500 uU/mL 2.970 Vitamin D 25 Hydroxy 31.0 - 80.0 ng/mL 47.9 Assessment (M06.4) Inflammatory polyarthritis (HCC) (primary encounter diagnosis) (R79.82) CRP elevated (M91.92) Juvenile osteochondrosis of left hip or pelvis (M25.551, M25.552) Pain of both hip joints (M25.561, M25.562, G89.29) Chronic pain of both knees (E03.9) Hypothyroidism, unspecified type (E55.9) Vitamin D deficiency (Q90.9) Down's syndrome Plan Office Visit on 09/24/17 -C-REACTIVE PROTEIN (CRP) -SED RATE WESTERGREN -COMP METABOLIC PANEL -CBC + DIFF Patient Education: Patient Education was given today. Impression and Plan: Entire assessment and plan reviewed, noted, and read. Any interval changes, updates, were made appropriately where needed between visits. 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 no intervention. Concerning finding of cervical spine fracture over her previous fusion. Concerning radiculopathy. Definitely needs to f/u w/neurosurgery. problems with her hip OA and secondary mechanical problems, ankle swelling and pain. ++TROCHANTERIC BURSITIS Significant overall over the years weight gain, fatigue. Severe chronic hip problems - seem to be worsening with time Hip OA Previous fractures Trochanteric bursitis Abnormal gait - relatively worse compared to before Stable left leg external rotation, concerning for new hip process stable pes planus Worsening overall pain Most likely +underlying inflammatory etiology as well for her increasing pain Elevated sedimentation rate CRP, strong family history. Was reasonable to consider starting therapy. High sugar and carbs intake - continues. Long discussion with mother and Danni herself, regarding her conditions and appropriate management. Overall improvement on subcutaneous methotrexate Persistent bilateral foot symptoms - generally improved with therapy Brief interruption of subcutaneous methotrexate with URI Persistent overweight BMI 47.2 Persistent abnormal mechanics Plan: Cervical spine fusion fracture, referred to neurosurgery for evaluation Stable watching over time Advanced right hip OA, failed previous attempts to have her see orthopedic Refer once again given abnormal gait - has not been seen in a while Consider updating the referral Sero- inflammatory poly-arthritis - symptomatic Was reasonable to proceed with DMARD therapy. Best was subcutaneous methotrexate for better absorption and efficacy. Reviewed in great details all possible side effects and toxicities, the need for regular labs. Brief interruption, may resume 0.8 cc weekly Folic acid daily Try to update labs coordinate with PCP Hypothyroidism, - stable Rechecked labs Vitamin D deficiency - continue supplements Repatcher patient and reassure Right ankle pain - no surgery needed. R troch bursitis - tried flector patches (CANNOT tolerate PO NSAID) May continue TRAMADOL for pain - seems to be helping minimally Review with patient and mother other choices for pain control,? Vicodin, I'd rather trying not to give her stronger narcotics. Consider pain management - she prefers not to. Weight loss encouraged ! Unable to do much. 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] Pain of both hip joints [M25.551, M25.552] Chronic pain of both knees [M25.561, M25.562, G89.29] Hypothyroidism, unspecified type [E03.9] Vitamin D deficiency [E55.9] Down's syndrome [Q90.9] Order(s):C-REACTIVE PROTEIN (CRP) [SQCRP] Order #: [id number] FUTURE SED RATE WESTERGREN [SQWSR] Order #: [id number] FUTURE COMP METABOLIC PANEL [SQCMP] Order #: [id number] FUTURE CBC + DIFF [SQCBCDIF] Order #: [id number] FUTURE Prescriptions as of 09/24/2017 Sig: TRAMADOL 50 MG TABLET Take 1 tablet by mouth every * LEVOTHYROXINE 137 MCG TABLET take 1 tablet by mouth once d* OMEPRAZOLE 20 MG CAPSULE,CARO* TAKE 1 CAPSULE BY MOUTH 1/2 H* CITALOPRAM 20 MG TABLET Take 1 tablet by mouth once d* CHOLECALCIFEROL (VITAMIN D3) * Take 1 capsule by mouth once * METOPROLOL TARTRATE 25 MG TAB* Take 1 tablet by mouth twice * LORATADINE 10 MG TABLET Take 1 tablet by mouth once d* TAB-A-AMADEO TABLET take 1 tablet by mouth once d* UREA 40 % LOTION Apply 1 application to affect* INSULIN SYRINGE WITH SAFETY N* 1 Syringe once each week. To * ONDANSETRON 4 MG DISINTEGRATI* Take 1 tablet by mouth every * DOXYCYCLINE MONOHYDRATE 100 M* Take 1 tablet by mouth twice * PSEUDOEPHEDRINE-GUAIFENESIN E* Take 1 tablet by mouth every * BENZONATATE 100 MG CAPSULE Take 1 capsule by mouth three* METHOTREXATE SODIUM (PF) 25 M* 0.8cc SC once/week FOLIC ACID 1 MG TABLET Take 1 tablet by mouth once d* FLUTICASONE 50 MCG/ACTUATION * Use 2 Sprays in each nostril * VITAMIN D2 ORAL Take 50,000 Units by mouth on* ALBUTEROL INHALATION Inhale as instructed. 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 Follow-up and Disposition History Recorded Questionnaire: RUSS IGLESIAS YEARLY ADL ASSESSMENT Toileting -> Minimal Assist Bathing -> Minimal Assist Upper Body Dressing -> Minimal Assist Lower Body Dressing -> Minimal Assist Grooming/Hygiene -> Minimal Assist Self Feeding -> Minimal Assist Home Management (laundry/cleaning/chores/simple meal prep) -> Minimal Assist Encounter Status:Closed by JULIAN MCMAHAN MD on 09/24/17 ISA Observed: 09/23/2017 Status: COMPLETED Source: [facility] 12:00 AM CLINIC OTHER CAMPUS REPOSITORY Telephone ([place]HW[place]) DANNI EVANS ([id number]) 1985 [facility] Date Time Provider Department 09/23/17 JULIAN MCMAHAN During your visit today, we recorded the following information about you: Bartolo Olivas SOLUTIONS SPECIALIST 09/23/2017 2:43 PM Signed Patient has been identified by name and date of : Yes . Patient's last appointment in the office was: 01/29/17 Patient's next appointment in the office is: 09/24/2017 Patient calling for :appointment . Kalpana called, she had to cancel her own appointment tomorrow, but Danni's dad, José Nathan, is going to bring her in. She has had 3 different upper respiratory infections this winter, so has been off MTX for some time - Kalpana didn't want to restart her without your okay. She has not had any recent lab work done, so order what you need. Kalpana has to be in [place] tomorrow and can be reached by cell phone if needed. She'll also need to get scheduled back sooner if possible. fyi. Pharmacy has been updated: No . Return call needed: No further follow-up is needed.. Patient can be reached at : [phone] (home) Bartolo Olivas SOLUTIONS SPECIALIST Bartolo Olivas [facility] 10/01/2017 9:40 AM Signed Left message to call. Bartolo Olivas [place] Allergies As of Date: 09/23/2017 Noted Allergy Reaction BACTRIM (SULFAMETHOXAZOLE) 09/26/2010 4 - Hives CECLOR (CEFACLOR) 09/26/2010 4 - Hives PENICILLINS 05/25/2013 16 - Unknown Date Reviewed: 08/06/2017 Reviewed by: Shona Avitia Ma - Fully Assessed Reason for Visit: Appointment [[id number]] Cmt: Kalpana called Prescriptions as of 09/23/2017 Sig: TAB-A-AMADEO TABLET take 1 tablet by mouth once d* TRAMADOL 50 MG TABLET Take 1 tablet by mouth every * LEVOTHYROXINE 137 MCG TABLET take 1 tablet by mouth once d* OMEPRAZOLE 20 MG CAPSULE,CARO* TAKE 1 CAPSULE BY MOUTH 1/2 H* UREA 40 % LOTION Apply 1 application to affect* INSULIN SYRINGE WITH SAFETY N* 1 Syringe once each week. To * CITALOPRAM 20 MG TABLET Take 1 tablet by mouth once d* ONDANSETRON 4 MG DISINTEGRATI* Take 1 tablet by mouth every * DOXYCYCLINE MONOHYDRATE 100 M* Take 1 tablet by mouth twice * PSEUDOEPHEDRINE-GUAIFENESIN E* Take 1 tablet by mouth every * BENZONATATE 100 MG CAPSULE Take 1 capsule by mouth three* METHOTREXATE SODIUM (PF) 25 M* 0.8cc SC once/week FOLIC ACID 1 MG TABLET Take 1 tablet by mouth once d* CHOLECALCIFEROL (VITAMIN D3) * Take 1 capsule by mouth once * FLUTICASONE 50 MCG/ACTUATION * Use 2 Sprays in each nostril * METOPROLOL TARTRATE 25 MG TAB* Take 1 tablet by mouth twice * LORATADINE 10 MG TABLET Take 1 tablet by mouth once d* VITAMIN D2 ORAL Take 50,000 Units by mouth on* ALBUTEROL INHALATION Inhale as instructed. 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* Hip pain [M25.559] Knee pain [M25.569] CRP elevated [R79.82] Inflammatory polyarthritis (HCC) [M06.4] Acute non-recurrent maxillary sinusitis [J01.00]INVALID FOR* Hair pulling [F63.3] INVALID FOR* Encounter Status:Closed by PATY HARRISARYBARTOLO on 09/23/17 PROGRESS Observed: 08/06/2017 Status: COMPLETED Source: [facility] 11:41 AM [facility] REPOSITORY HNO ID: [id number] Author: Vincent Carson Service: (none) Author Type: Physician Type: Progress Notes Filed: 08/06/2017 11:44 AM Note Text: Follow up podiatric office visit for: Chief Complaint: This 31 year old who presents for follow up:painful callus to left heel and left 1st metatarsal. She has been using carmol 40 and she feels that is helping. She does complain of painful toenails of b/l feet and requesting debridement. She has no other complaints. PAIN EVALUATION No data found. 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 - Congestive heart failure, unspecified - CRP elevated - Down's syndrome - Fatty liver - Hip pain - Hypercholesteremia 06/2013 - Hypothyroidism - Inflammatory polyarthritis (HCC) - Juvenile osteochondrosis of hip and pelvis - Knee pain - Methicillin resistant Staphylococcus aureus in conditions classified elsewhere and of unspecified site - Mitral valve disorders - Obstructive sleep apnea (adult) (pediatric) - YVETTE on CPAP - Osteoarthrosis, unspecified whether generalized or localized, lower leg - Other candidiasis of other specified sites - Other ventral hernia without mention of obstruction or gangrene - Unspecified congenital anomaly of heart - Vitamin D deficiency Current Outpatient Prescriptions: urea (CARMOL) 40 % crea Apply 1 application to affected area as needed. traMADol (ULTRAM) 50 mg tablet Take 1 tablet by mouth every 6 hours as needed for up to 30 days. omeprazole (PRILOSEC) 20 mg capsule take 1 capsule by mouth once daily 1/2 HOUR BEFORE BREAKFAST insulin syringe,safetyneedle (ASSURE ID INSULIN SAFETY) 1 mL 29 gauge x 1/2 syrg 1 Syringe once each week. To use with SC MTX once/week citalopram (CELEXA) 20 mg tablet Take 1 tablet by mouth once daily. ondansetron orally disintegrating (ZOFRAN ODT) 4 mg disintegrating tablet Take 1 tablet by mouth every 6 hours as needed for Nausea/Vomiting for up to 4 doses. multivitamin tablet Take 1 tablet by mouth daily at bedtime. doxycycline monohydrate 100 mg tablet Take 1 tablet by mouth twice daily. pseudoephedrine-guaiFENesin (MUCINEX D) 60-600 mg per tablet Take 1 tablet by mouth every 12 hours as needed for Cold/Allergy Symptoms. benzonatate (TESSALON PERLE) 100 mg capsule Take 1 capsule by mouth three times daily as needed. methotrexate, PF, 25 mg/mL soln 0.8cc SC once/week folic acid 1 mg tablet Take 1 tablet by mouth once daily. cholecalciferol, Vitamin D3, (VITAMIN D3) 50,000 unit cap capsule Take 1 capsule by mouth once each week. levothyroxine (SYNTHROID) 137 mcg tablet Take 1 tablet by mouth once daily. fluticasone (FLONASE) 50 mcg/actuation nasal spray Use 2 Sprays in each nostril once daily. metoprolol tartrate, short acting, 25 mg tablet Take 1 tablet by mouth twice daily. loratadine (CLARITIN) 10 mg tablet Take 1 tablet by mouth once daily. ERGOCALCIFEROL, VITAMIN D2, (VITAMIN D ORAL) Take 50,000 Units by mouth once each week. 2000 units daily ALBUTEROL INHALATION Inhale as instructed. No current facility-administered medications for this visit. ALLERGIES Allergen Reactions - Bactrim [Sulfametho* Hives - Ceclor [Cefaclor] Hives - Penicillins Unknown PAST SURGICAL HISTORY Procedure Laterality Date - EGD W/O OR W/BRUSH/WASH 08/14/2011 EGD - PAST SURGICAL HISTORY OF neck fused - PAST SURGICAL HISTORY OF pelvicoscopy - PAST SURGICAL HISTORY OF right hip plate and leg surgeries - PAST SURGICAL HISTORY OF tubes in bilat ears. Physical Exam: Constitutional: Pt is a well developed 31 year old female who is alert, oriented, cooperative and in no apparent distress. OBJECTIVE: NVSI unchanged from previous visit. Dermatological: Nails 1-5 b/l are thick, dystrophic and painful. Webspaces dry 1-4 right and appear irritated and slightly moist on left 2-4. Callus present to left 1st metatarsal and left heel. No ulceration noted. Musculoskeletal/Orthopaedic: Patient has pain to palpation of toenails of b/l feet and callus of left foot Moderate bunion is present b/l. ASSESSMENT: (L85.9) Hyperkeratosis (primary encounter diagnosis) (M20.12) Acquired hallux valgus of left foot (B35.1) Onychomycosis (M79.675) Pain in toe of left foot (M79.674) Pain in toe of right foot PLAN: 1. History and physical examination completed today. 2. Toenails 1-5 b/l debrided in length and thickness 3. Callus debrided to left foot with sanding disk as courtesy. Continue with carmol 40. This was refilled. 4. She was recommended to dry between her toes to prevent maceration. 5. F/u in one month for callus MABEL Pacheco Observed: 08/06/2017 Status: COMPLETED Source: [facility] 9:55 AM CLINIC MAIN [facility]AMP[facility] REPOSITORY Office Visit (PODIWS) DANNI EVANS ([id number]) 1985 [facility] Date Time Provider Department 08/06/17 9:55 AM VINCENT CARSON PODIWS During your visit today, we recorded the following information about you: Shona Avitia Ma 08/06/2017 10:18 AM Signed Urea cream refilled. Follow up in 5 weeks for callus and 3 months for toenail trimming Vincent Carson DPM 08/06/2017 11:44 AM Signed Follow up podiatric office visit for: Chief Complaint: This 31 year old who presents for follow up:painful callus to left heel and left 1st metatarsal. She has been using carmol 40 and she feels that is helping. She does complain of painful toenails of b/l feet and requesting debridement. She has no other complaints. PAIN EVALUATION No data found. Hemoglobin A1C Date Value Ref Range Status 07/02/2017 4.8 4.3 - 5.6 % Final PCP: Trent Horowitz, PAST MEDICAL HISTORY Diagnosis Date - Abdominal pain, epigastric - Abdominal pain, left upper quadrant - Abscess - Allergic rhinitis, cause unspecified - Anxiety - Asthma mild intermittent, 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 - Congestive heart failure, unspecified - CRP elevated - Down's syndrome - Fatty liver - Hip pain - Hypercholesteremia 06/2013 - Hypothyroidism - Inflammatory polyarthritis (HCC) - Juvenile osteochondrosis of hip and pelvis - Knee pain - Methicillin resistant Staphylococcus aureus in conditions classified elsewhere and of unspecified site - Mitral valve disorders - Obstructive sleep apnea (adult) (pediatric) - YVETTE on CPAP - Osteoarthrosis, unspecified whether generalized or localized, lower leg - Other candidiasis of other specified sites - Other ventral hernia without mention of obstruction or gangrene - Unspecified congenital anomaly of heart - Vitamin D deficiency Current Outpatient Prescriptions: urea (CARMOL) 40 % crea Apply 1 application to affected area as needed. traMADol (ULTRAM) 50 mg tablet Take 1 tablet by mouth every 6 hours as needed for up to 30 days. omeprazole (PRILOSEC) 20 mg capsule take 1 capsule by mouth once daily 1/2 HOUR BEFORE BREAKFAST insulin syringe,safetyneedle (ASSURE ID INSULIN SAFETY) 1 mL 29 gauge x 1/2ANDquot; syrg 1 Syringe once each week. To use with SC MTX once/week citalopram (CELEXA) 20 mg tablet Take 1 tablet by mouth once daily. ondansetron orally disintegrating (ZOFRAN ODT) 4 mg disintegrating tablet Take 1 tablet by mouth every 6 hours as needed for Nausea/Vomiting for up to 4 doses. multivitamin tablet Take 1 tablet by mouth daily at bedtime. doxycycline monohydrate 100 mg tablet Take 1 tablet by mouth twice daily. pseudoephedrine-guaiFENesin (MUCINEX D) 60-600 mg per tablet Take 1 tablet by mouth every 12 hours as needed for Cold/Allergy Symptoms. benzonatate (TESSALON PERLE) 100 mg capsule Take 1 capsule by mouth three times daily as needed. methotrexate, PF, 25 mg/mL soln 0.8cc SC once/week folic acid 1 mg tablet Take 1 tablet by mouth once daily. cholecalciferol, Vitamin D3, (VITAMIN D3) 50,000 unit cap capsule Take 1 capsule by mouth once each week. levothyroxine (SYNTHROID) 137 mcg tablet Take 1 tablet by mouth once daily. fluticasone (FLONASE) 50 mcg/actuation nasal spray Use 2 Sprays in each nostril once daily. metoprolol tartrate, short acting, 25 mg tablet Take 1 tablet by mouth twice daily. loratadine (CLARITIN) 10 mg tablet Take 1 tablet by mouth once daily. ERGOCALCIFEROL, VITAMIN D2, (VITAMIN D ORAL) Take 50,000 Units by mouth once each week. 2000 units daily ALBUTEROL INHALATION Inhale as instructed. No current facility-administered medications for this visit. ALLERGIES Allergen Reactions - Bactrim [Sulfametho* Hives - Ceclor [Cefaclor] Hives - Penicillins Unknown PAST SURGICAL HISTORY Procedure Laterality Date - EGD W/O OR W/BRUSH/WASH 08/14/2011 EGD - PAST SURGICAL HISTORY OF neck fused - PAST SURGICAL HISTORY OF pelvicoscopy - PAST SURGICAL HISTORY OF right hip plate and leg surgeries - PAST SURGICAL HISTORY OF tubes in bilat ears. Physical Exam: Constitutional: Pt is a well developed 31 year old female who is alert, oriented, cooperative and in no apparent distress. OBJECTIVE: NVSI unchanged from previous visit. Dermatological: Nails 1-5 b/l are thick, dystrophic and painful. Webspaces dry 1-4 right and appear irritated and slightly moist on left 2-4. Callus present to left 1st metatarsal and left heel. No ulceration noted. Musculoskeletal/Orthopaedic: Patient has pain to palpation of toenails of b/l feet and callus of left foot Moderate bunion is present b/l. ASSESSMENT: (L85.9) Hyperkeratosis (primary encounter diagnosis) (M20.12) Acquired hallux valgus of left foot (B35.1) Onychomycosis (M79.675) Pain in toe of left foot (M79.674) Pain in toe of right foot PLAN: 1. History and physical examination completed today. 2. Toenails 1-5 b/l debrided in length and thickness 3. Callus debrided to left foot with sanding disk as courtesy. Continue with carmol 40. This was refilled. 4. She was recommended to dry between her toes to prevent maceration. 5. F/u in one month for callus Vincent Carson DPM Referring Provider: VINCENT CARSON [[id number]] Allergies As of Date: 08/06/2017 Noted Allergy Reaction BACTRIM (SULFAMETHOXAZOLE) 09/26/2010 4 - Hives CECLOR (CEFACLOR) 09/26/2010 4 - Hives PENICILLINS 05/25/2013 16 - Unknown Date Reviewed: 08/06/2017 Reviewed by: Shona Avitia Ma - Fully Assessed Reason for Visit: Follow Up [171] Primary Visit Diagnosis:Hyperkeratosis [L85.9] Other Visit Diagnoses:Acquired hallux valgus of left foot [M20.12] Onychomycosis [B35.1] Pain in toe of left foot [M79.675] Pain in toe of right foot [M79.674] Order(s):urea (CARMOL) 40 % creaApply 1 application to affected area as needed.Disp: 200 gRfl: 5 Prescriptions as of 08/06/2017 Sig: UREA 40 % TOPICAL CREAM Apply 1 application to affect* TRAMADOL 50 MG TABLET Take 1 tablet by mouth every * OMEPRAZOLE 20 MG CAPSULE,CARO* take 1 capsule by mouth once * INSULIN SYRINGE WITH SAFETY N* 1 Syringe once each week. To * CITALOPRAM 20 MG TABLET Take 1 tablet by mouth once d* ONDANSETRON 4 MG DISINTEGRATI* Take 1 tablet by mouth every * MULTIVITAMIN TABLET Take 1 tablet by mouth daily * DOXYCYCLINE MONOHYDRATE 100 M* Take 1 tablet by mouth twice * PSEUDOEPHEDRINE-GUAIFENESIN E* Take 1 tablet by mouth every * BENZONATATE 100 MG CAPSULE Take 1 capsule by mouth three* METHOTREXATE SODIUM (PF) 25 M* 0.8cc SC once/week FOLIC ACID 1 MG TABLET Take 1 tablet by mouth once d* CHOLECALCIFEROL (VITAMIN D3) * Take 1 capsule by mouth once * LEVOTHYROXINE 137 MCG TABLET Take 1 tablet by mouth once d* FLUTICASONE 50 MCG/ACTUATION * Use 2 Sprays in each nostril * METOPROLOL TARTRATE 25 MG TAB* Take 1 tablet by mouth twice * LORATADINE 10 MG TABLET Take 1 tablet by mouth once d* VITAMIN D2 ORAL Take 50,000 Units by mouth on* ALBUTEROL INHALATION Inhale as instructed. Problem List As Of Date 08/06/2017 Noted Resolved DOWN'S SYNDROME [Q90.9] INVALID FOR* SURGERY FOLLOW-UP [V67.0] INVALID FOR* Abdominal pain, left upper quadrant [R10.12] INVALID FOR* Anxiety [F41.9] INVALID FOR* YVETTE on CPAP [G47.33, Z99.89] INVALID FOR* Allergic rhinitis [J30.9] INVALID FOR* Hypothyroidism [E03.9] INVALID FOR* Vitamin D deficiency [E55.9] INVALID FOR* Rash and nonspecific skin eruption [R21] INVALID FOR* Obesity, morbid, BMI 50 or higher (HCC) [E66.01]INVALID FOR* 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* Hip pain [M25.559] Knee pain [M25.569] CRP elevated [R79.82] Inflammatory polyarthritis (HCC) [M06.4] Acute non-recurrent maxillary sinusitis [J01.00]INVALID FOR* Hair pulling [F63.3] INVALID FOR* Other instructions from your clinician: Urea cream refilled. Follow up in 5 weeks for callus and 3 months for toenail trimming Prescriptions ordered this encounter Disp Refills Start End UREA 40 % TOPICAL CREAM 200 g 5 08/06/2017 Route: TOPICAL Sig: Apply 1 application to affected area as needed. Follow-up and Disposition History Recorded Encounter Status:Closed by VINCENT CARSON DPM on 08/06/17 CNPN Observed: 08/06/2017 Status: COMPLETED Source: [facility] 12:00 AM [facility] [facility] REPOSITORY Telephone (PODIWS) DANNI EVANS ([id number]) 1985 F [facility] Date Time Provider Department 08/06/17 VINCENT CARSON During your visit today, we recorded the following information about you: Shona Avitia Ma 08/06/2017 11:35 AM Signed Fax received from [email or web address]. [facility] requires prior authorization for Urea 40% cream that was prescribed today. If medication changed to Urea 40% lotion, no prior auth required. Dr. Carson, OK to use Urea 40% lotion instead of cream? Shona Carson DPM 08/06/2017 12:26 PM Signed I went and prescribed the lotion. Thanks Vincent Carson DPM Allergies As of Date: 08/06/2017 Noted Allergy Reaction BACTRIM (SULFAMETHOXAZOLE) 09/26/2010 4 - Hives CECLOR (CEFACLOR) 09/26/2010 4 - Hives PENICILLINS 05/25/2013 16 - Unknown Date Reviewed: 08/06/2017 Reviewed by: Shona Avitia Ma - Fully Assessed Reason for Visit: Medication Question [7505] Order(s):urea (CARMOL) 40 % lotnApply 1 application to affected area once daily.Disp: 226.8 mLRfl: 5 Prescriptions as of 08/06/2017 Sig: UREA 40 % LOTION Apply 1 application to affect* TRAMADOL 50 MG TABLET Take 1 tablet by mouth every * OMEPRAZOLE 20 MG CAPSULE,CARO* take 1 capsule by mouth once * INSULIN SYRINGE WITH SAFETY N* 1 Syringe once each week. To * CITALOPRAM 20 MG TABLET Take 1 tablet by mouth once d* ONDANSETRON 4 MG DISINTEGRATI* Take 1 tablet by mouth every * MULTIVITAMIN TABLET Take 1 tablet by mouth daily * DOXYCYCLINE MONOHYDRATE 100 M* Take 1 tablet by mouth twice * PSEUDOEPHEDRINE-GUAIFENESIN E* Take 1 tablet by mouth every * BENZONATATE 100 MG CAPSULE Take 1 capsule by mouth three* METHOTREXATE SODIUM (PF) 25 M* 0.8cc SC once/week FOLIC ACID 1 MG TABLET Take 1 tablet by mouth once d* CHOLECALCIFEROL (VITAMIN D3) * Take 1 capsule by mouth once * LEVOTHYROXINE 137 MCG TABLET Take 1 tablet by mouth once d* FLUTICASONE 50 MCG/ACTUATION * Use 2 Sprays in each nostril * METOPROLOL TARTRATE 25 MG TAB* Take 1 tablet by mouth twice * LORATADINE 10 MG TABLET Take 1 tablet by mouth once d* VITAMIN D2 ORAL Take 50,000 Units by mouth on* ALBUTEROL INHALATION Inhale as instructed. 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 Medications Discontinued During This Encounter urea (CARMOL) 40 % crea 200 g 5 08/06/2017 08/06/2017 Route: TOPICAL Sig: Apply 1 application to affected area as needed. Disc: Dosage adjustment Encounter Status:Closed by VINCENT CARSON DPM on 08/06/17 ECHOCARDIOGRAM COMPLETE Observed: 08/01/2017 Status: F Source: [place] 5:18 PM [facility] REPOSITORY [facility] Cardiovascular Services [address] [place] [id number] Echo Complete W/ Contrast 08/01/17 1410 MR#: [id number] Acct: [id number] Name: DANNI EVANS Rep #: [id number] : 1985 31 From: Esequiel Perez MD Attending Dr: OUT OF TOWN DOCTOR Status: REG CLI Ordering Dr: LIUDMILA BRANDON Date: 08/01/17 Location: [facility] Sex: F C Admitted: Reason For Study: MVP Procedure This was a 2D Doppler, Color Flow transthoracic echocardiogram. The study was technically difficult. Contrast injection was performed. Exam performed in department. Left Ventricle Normal LV size. Left ventricular systolic function is normal. The estimated ejection fraction is 55 %. No evidence for diastolic dysfunction. No regional wall motion abnormalities noted. Right Ventricle Normal RV size. Normal systolic function. Atria Normal left atrium. Normal right atrium. Mitral Valve Normal mitral valve. Tricuspid Valve Normal tricuspid valve. Mild (1+) tricuspid valve insufficiency. Pulmonary artery systolic pressure is 36 mmHg. Aortic Valve The aortic valve is not well visualized. Pulmonic Valve Normal pulmonic valve. Great Vessels Normal aortic root. The pulmonary artery is normal size. Normal inferior vena cava. Pericardium/Pleural No pericardial effusion. Medication 22 gauge I.V. with prn adaptor inserted into right arm. Diluted definity 2ml given slow IV push to enhance endocardial definition. MMode/2D Measurements AND Calculations LVIDd: 4.6 cm IVSd: 0.76 cm Ao root diam: 2.7 cm LVIDs: 3.4 cm LVPWd: 0.90 cm LA dimension: 3.3 cm RVDd: 2.9 cm FS: 25.7 % LAV(MOD-bp): 37.8 ml LVAd ap4: 31.4 cm2 SV(MOD-sp4): 54.6 ml LAV(MOD-bp) Indexed: 19.0 ml/m2 EDV(MOD-sp4): 104.6 ml LAV(MOD-sp2): 32.9 ml EDV(sp4-el): 106.9 ml LAV(MOD-sp4): 40.8 ml LVAs ap4: 20.1 cm2 ESV(MOD-sp4): 50.0 ml ESV(sp4-el): 49.9 ml EF(MOD-sp4): 52.2 % EF(sp4-el): 53.3 % SV(sp4-el): 57.0 ml LA A4 area: 16.4 cm2 RA A4 area: 11.7 cm2 Doppler Measurements AND Calculations MV E max nilesh: 138.2 cm/sec Ao V2 max: 163.5 cm/sec LV V1 max: 120.2 cm/sec MV A max nilesh: 70.2 cm/sec Ao max P.7 mmHg LV V1 max P.8 mmHg MV E/A: 2.0 TR max nilesh: 283.4 cm/sec TR max P.1 mmHg Interpretation Summary Normal LV size. Left ventricular systolic function is normal. The estimated ejection fraction is 55 %. No evidence for diastolic dysfunction. Mild (1+) tricuspid valve insufficiency. Pulmonary artery systolic pressure is 36 mmHg. Contrast injection was performed. Ordering Physician: LIUDMILA BRANDON Referring Physician: TRENT HOROWITZ Performed By: Kanika Cook, MICHAELLE, RVT 08/01/171717 Date Esequiel Perez MD CC: Trent Giang DO; OUT OF TOWN DOCTOR; LIUDMILA BRANDON Date Dictated: 08/01/17 1410 Date Transcribed: 08/01/171717 Beverage Manager: Signed OBSOLETE Observed: 07/28/2017 Status: COMPLETED Source: [place] 12:00 AM [facility] RE[facility] Refill ([place]) DANNI EVANS ([id number]) 1985 F [facility] Date Time Provider Department 07/28/17 TONY ALFARO (PA) During your visit today, we recorded the following information about you: Dariel Oropeza CMA 07/28/2017 2:59 PM Signed Please refuse refill. Rx being reviewed in different encounter. Allergies As of Date: 07/28/2017 Noted Allergy Reaction BACTRIM (SULFAMETHOXAZOLE) 09/26/2010 4 - Hives CECLOR (CEFACLOR) 09/26/2010 4 - Hives PENICILLINS 05/25/2013 16 - Unknown Date Reviewed: 07/02/2017 Reviewed by: Pippa Phillips LPN - Fully Assessed Reason for Visit: Refill Request [94] Prescriptions as of 07/28/2017 Sig: OMEPRAZOLE 20 MG CAPSULE,CARO* take 1 capsule by mouth once * INSULIN SYRINGE WITH SAFETY N* 1 Syringe once each week. To * CITALOPRAM 20 MG TABLET Take 1 tablet by mouth once d* TRAMADOL 50 MG TABLET Take 1 tablet by mouth every * ONDANSETRON 4 MG DISINTEGRATI* Take 1 tablet by mouth every * MULTIVITAMIN TABLET Take 1 tablet by mouth daily * DOXYCYCLINE MONOHYDRATE 100 M* Take 1 tablet by mouth twice * PSEUDOEPHEDRINE-GUAIFENESIN E* Take 1 tablet by mouth every * BENZONATATE 100 MG CAPSULE Take 1 capsule by mouth three* METHOTREXATE SODIUM (PF) 25 M* 0.8cc SC once/week FOLIC ACID 1 MG TABLET Take 1 tablet by mouth once d* CHOLECALCIFEROL (VITAMIN D3) * Take 1 capsule by mouth once * LEVOTHYROXINE 137 MCG TABLET Take 1 tablet by mouth once d* FLUTICASONE 50 MCG/ACTUATION * Use 2 Sprays in each nostril * METOPROLOL TARTRATE 25 MG TAB* Take 1 tablet by mouth twice * LORATADINE 10 MG TABLET Take 1 tablet by mouth once d* VITAMIN D2 ORAL Take 50,000 Units by mouth on* ALBUTEROL INHALATION Inhale as instructed. 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* Hip pain [M25.559] Knee pain [M25.569] CRP elevated [R79.82] Inflammatory polyarthritis (HCC) [M06.4] Acute non-recurrent maxillary sinusitis [J01.00]INVALID FOR* Hair pulling [F63.3] INVALID FOR* Encounter Status:Closed by DARIEL OROPEZA CMA on 07/28/17 OBSOLETE Observed: 07/25/2017 Status: COMPLETED Source: [place] 12:00 AM [facility] REPOSITORY Refill ([place]) DANNI EVANS ([id number]) 1985 F [facility] Date Time Provider Department 07/25/17 TONY ALFARO) [place] During your visit today, we recorded the following information about you: Dariel Oropeza CMA 07/28/2017 10:40 AM Signed Patient hasn't been seen since 2016 and cancelled several times for appts. She does not currently have an appt on schedule. Refuse refill? Otherwise, please advise. Thank you. Pharmacy faxed requesting the following refill. Pending Prescriptions Disp Refills TRAMADOL 50 MG TABLET 90 tablet 0 Sig: TAKE ONE TABLET BY MOUTH EVERY 6 HOURS DO Class: C-IV ASH: Yes Patient last appointment: 01/29/2017 Next Appointment: Visit date not found Patient Phone numbers: [phone] (home) Request is for script(s) to be called in to pharmacy. YANA Ford PA 07/28/2017 1:09 PM Signed Please notify patient that she needs to be seen regularly for us to continue filling her medications, especially pain medication. I don't mind refilling her Tramadol with the understanding that she keeps her next appointment. She should also be on the cancellation list to be seen sooner if something opens up. We cannot keep filling her medications if she continues to cancel her appointments. Thank you! ROMY Hess CMA 07/28/2017 1:33 PM Signed I called patient and spoke with patient's mother. She asked if she can switch her appt in August with the patient's appt in November so patient can come in sooner for an appt, but I told patient's mother that we shouldn't switch the appts since she needs to be seen by Dr. Mcmahan at her scheduled appt also. She also suggested to switch the patient's appt with one of her other daughter's appt (Angela Gibbs - New patient appt) in Sep, 2017 but I told patient's mother this can't be done since her other daughter's appt is a New Patient appt and we can replace that as an Established patient's appt without Dr. Mcmahan's acknowledgement and permission. At this time, patient's mother stated that she can bring the patient with her to her next appt and see if Dr. Mcmahan can see both of them or just one of them. Otherwise, patient's mother stated that she's okay to add patient to the waiting list for any openings. Okay to refill then? It seems both patient and patient's mother are finding difficulty in making an appt and keeping it. Please advise if needed. I told patient's mother we can refill the patient's Tramadol for 1 month only, until patient is seen. Patient's mother is aware. LANI Hess 07/28/2017 3:45 PM Signed Noted - thank you for talking to her and gathering all of this information! I am OK with refilling her Tramadol for one more month. It's up to Dr. Mcmahan how she wants to see both Danni and her mom in follow-up. I will leave this decision up to her when she returns. OARRS website checked and validated. All prescriptions have been APPROPRIATELY filled. No suspicious activity was identified. - 07/28/2017 by LANI Hess Patient's script for Tramadol has been approved and is ready to be called in. LANI Hess-Nubia Oropeza CMA 07/28/2017 4:10 PM Signed The following prescriptions have been called to [facility] pharmacy 07/28/2017 at 4:10 PM by Dariel Oropeza CMA. I spoke with in the pharmacy. Signed Prescriptions Disp Refills traMADol (ULTRAM) 50 mg tablet 90 tablet 0 Sig: Take 1 tablet by mouth every 6 hours as needed for up to 30 days. DO Class: C-IV ASH: No Authorizing Provider: TONY ALFARO (LANI) Allergies As of Date: 07/25/2017 Noted Allergy Reaction BACTRIM (SULFAMETHOXAZOLE) 09/26/2010 4 - Hives CECLOR (CEFACLOR) 09/26/2010 4 - Hives PENICILLINS 05/25/2013 16 - Unknown Date Reviewed: 07/02/2017 Reviewed by: Pippa Phillips LPN - Fully Assessed Reason for Visit: Refill Request [94] Primary Visit Diagnosis:Chronic pain syndrome [G89.4] Order(s):traMADol (ULTRAM) 50 mg tabletTake 1 tablet by mouth every 6 hours as needed for up to 30 days.Disp: 90 tabletRfl: 0 Prescriptions as of 07/25/2017 Sig: TRAMADOL 50 MG TABLET Take 1 tablet by mouth every * OMEPRAZOLE 20 MG CAPSULE,CARO* take 1 capsule by mouth once * INSULIN SYRINGE WITH SAFETY N* 1 Syringe once each week. To * CITALOPRAM 20 MG TABLET Take 1 tablet by mouth once d* ONDANSETRON 4 MG DISINTEGRATI* Take 1 tablet by mouth every * MULTIVITAMIN TABLET Take 1 tablet by mouth daily * DOXYCYCLINE MONOHYDRATE 100 M* Take 1 tablet by mouth twice * PSEUDOEPHEDRINE-GUAIFENESIN E* Take 1 tablet by mouth every * BENZONATATE 100 MG CAPSULE Take 1 capsule by mouth three* METHOTREXATE SODIUM (PF) 25 M* 0.8cc SC once/week FOLIC ACID 1 MG TABLET Take 1 tablet by mouth once d* CHOLECALCIFEROL (VITAMIN D3) * Take 1 capsule by mouth once * LEVOTHYROXINE 137 MCG TABLET Take 1 tablet by mouth once d* FLUTICASONE 50 MCG/ACTUATION * Use 2 Sprays in each nostril * METOPROLOL TARTRATE 25 MG TAB* Take 1 tablet by mouth twice * LORATADINE 10 MG TABLET Take 1 tablet by mouth once d* VITAMIN D2 ORAL Take 50,000 Units by mouth on* ALBUTEROL INHALATION Inhale as instructed. 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 Medications Discontinued During This Encounter traMADol (ULTRAM) 50 mg tablet 90 t* 1 05/02/2017 07/28/2017 Class: Call Rx Route: ORAL Sig: Take 1 tablet by mouth every 6 hours as needed for up to 30 days. Disc: Reason for discontinue is not on file. Encounter Status:Closed by DARIEL OROPEZA CMA on 07/28/17 OBSOLETE Observed: 07/07/2017 Status: COMPLETED Source: [place] 12:00 AM [facility] REPOSITORY Refill ([place]) DANNI EVANS ([id number]) 1985 F [facility] Date Time Provider Department 07/07/17September [place] During your visit today, we recorded the following information about you: China Mascorro CMA 07/07/2017 4:04 PM Signed Pharmacy faxed requesting the following refill. Pending Prescriptions Disp Refills INSULIN SYRINGE WITH SAFETY NEEDLE 1 ML 29 GAUGE X 1/2ANDquot; 12 Syringe 2 Si Syringe once each week. To use with SC MTX once/week ASH: No Patient last appointment: 01/29/2017 Next Appointment: 07/09/2017 Patient Phone numbers: [phone] (home) Request is for script(s) to be escript to pharmacy. China Mascorro CMA Allergies As of Date: 07/07/2017 Noted Allergy Reaction BACTRIM (SULFAMETHOXAZOLE) 09/26/2010 4 - Hives CECLOR (CEFACLOR) 09/26/2010 4 - Hives PENICILLINS 05/25/2013 16 - Unknown Date Reviewed: 07/02/2017 Reviewed by: Pippa Phillips LPN - Fully Assessed Reason for Visit: Refill Request [94] Order(s):insulin syringe,safetyneedle (ASSURE ID INSULIN SAFETY) 1 mL 29 gauge x 1/2 syrg1 Syringe once each week. To use with SC MTX once/weekDisp: 12 SyringeRfl: 2 Prescriptions as of 07/07/2017 Sig: INSULIN SYRINGE WITH SAFETY N* 1 Syringe once each week. To * CITALOPRAM 20 MG TABLET Take 1 tablet by mouth once d* UREA 40 % TOPICAL CREAM Apply 1 application to affect* OMEPRAZOLE 20 MG CAPSULE,CARO* take 1 capsule by mouth once * TRAMADOL 50 MG TABLET Take 1 tablet by mouth every * ONDANSETRON 4 MG DISINTEGRATI* Take 1 tablet by mouth every * MULTIVITAMIN TABLET Take 1 tablet by mouth daily * DOXYCYCLINE MONOHYDRATE 100 M* Take 1 tablet by mouth twice * PSEUDOEPHEDRINE-GUAIFENESIN E* Take 1 tablet by mouth every * BENZONATATE 100 MG CAPSULE Take 1 capsule by mouth three* METHOTREXATE SODIUM (PF) 25 M* 0.8cc SC once/week FOLIC ACID 1 MG TABLET Take 1 tablet by mouth once d* CHOLECALCIFEROL (VITAMIN D3) * Take 1 capsule by mouth once * LEVOTHYROXINE 137 MCG TABLET Take 1 tablet by mouth once d* FLUTICASONE 50 MCG/ACTUATION * Use 2 Sprays in each nostril * METOPROLOL TARTRATE 25 MG TAB* Take 1 tablet by mouth twice * LORATADINE 10 MG TABLET Take 1 tablet by mouth once d* VITAMIN D2 ORAL Take 50,000 Units by mouth on* ALBUTEROL INHALATION Inhale as instructed. 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 To use with SC MTX once/week Medications Discontinued During This Encounter insulin syringe,safetyneedle (ASSURE* 12 S* 2 01/29/2017 07/07/2017 Route: Miscell. (Med.Supl.;Non-Drugs) Si Syringe once each week. To use with SC MTX once/week Disc: Reason for discontinue is not on file. Encounter Status:Closed by MARTIR SHERWOODSeptember on 07/07/17 CBC Collected: 07/02/2017 Status: F Source: [place] 9:40 AM [facility] REPOSITORY TYPE CODE TESTS RESULT OUT OF RANGE REFERENCE UNITS LAB WBC 3.70-11.00 k/uL WBC 6.03 Result Comment: Less than optimal volume of specimen received and tested. LAB RBC 3.90-5.20 m/uL RBC 4.45 LAB HGB 11.5-15.5 g/dL Hemoglobin 15.0 LAB HCT 36.0-46.0 % Hematocrit 45.4 LAB MCV 80.0-100.0 fL MCV High 102.0 LAB MCH 26.0-34.0 pG MCH 33.7 LAB MCHC 30.5-36.0 g/dL MCHC 33.0 LAB RDWCV 11.5-15.0 % RDW-CV 13.8 LAB PLTCT 150-400 k/uL Platelet Count 346 LAB MPV 9.0-12.7 fL MPV 10.0 LAB ABSNUC <0.01 k/uL Absolute nRBC <0.01 Performed By: #### CBC, TSH, HBA1C, VITD #### [facility] [address] [place] [id number] TSH Collected: 07/02/2017 Status: F Source: [place] 9:40 AM [facility] REPOSITORY TYPE CODE TESTS RESULT OUT OF RANGE REFERENCE UNITS LAB TSH 0.400-5.500 uU/mL TSH 2.970 Result Comment: If the patient is , TSH reference range varies by gestational period: First Trimester 0.100-2.500 uU/mL Second Trimester 0.200-3.000 uU/mL Third Trimester 0.300-3.000 uU/mL References: 1. Kaplan, Tana M, Keven GARCIA, et al. Management of Thyroid Dysfunction during and : An Endocrine Society Clinical Practice Guideline. J Clin Endocrinol Metab, 2012:97:5027-9028. 2. Liam ZIMMER. Overview of thyroid disease in . UpToDate. 2016. Accessed on October 20, 2015. Performed By: #### CBC, TSH, HBA1C, VITD #### [facility] [employer] [address] [place], [place] [address] HEMOGLOBIN A1C Collected: 07/02/2017 Status: F Source: [place] 9:40 AM [facility] REPOSITORY TYPE CODE TESTS RESULT OUT OF REFERENCE UNITS RANGE LAB HGBA1C 4.3-5.6 % Hemoglobin A1c 4.8 LAB HBA0 mg/dL Est. Average Glucose 91 Result Comment: eAG: (Estimated average glucose) is a calculated value from HgbA1c and is off premise service representative of the average blood glucose level in the last 2-3 month period. Performed By: #### CBC, TSH, HBA1C, VITD #### [facility] [employer] [address] [place], [place] [address] VITAMIN D 25 HYDROXY Collected: 07/02/2017 Status: F Source: [place] 9:40 AM [facility] REPOSITORY TYPE CODE TESTS RESULT OUT OF REFERENCE UNITS RANGE LAB VITD 31.0-80.0 ng/mL Vitamin D 25 47.9 Hydroxy Result Comment: Classification of 25 [place] Vitamin D status: Insufficiency/Moderate Deficiency: < or = 30 ng/mL Sufficiency/Optimal Levels: 31 to 80 ng/mL Toxicity: > 100 ng/mL Test performed by chemiluminescent immunoassay. Performed By: #### CBC, TSH, HBA1C, VITD #### [facility] [employer] [address] [place], [place] [address] LIPID PANEL, BASIC Collected: 07/02/2017 Status: F Source: [place] 9:40 AM [facility] REPOSITORY TYPE CODE TESTS RESULT OUT OF REFERENCE UNITS RANGE LAB CHOL <200 mg/dL Cholesterol High 244 Result Comment: <200 mg/dL, Desirable 200-239 mg/dL, Borderline high >239 mg/dL, High LAB TRIGLY <150 mg/dL Triglyceride High 162 Result Comment: <150 mg/dL, Normal 150-199 mg/dL, Borderline high 200-499 mg/dL, High >499 mg/dL, Very high LAB HDL >39 mg/dL HDL-Cholesterol 54 Result Comment: 40-59 mg/dL, Acceptable >59 mg/dL, High: Negative risk factor for coronary heart disease <40 mg/dL, Low: Positive risk factor for coronary heart disease LAB LDL <100 mg/dL LDL-Cholesterol High 158 Result Comment: <100 mg/dL, Optimal 100-129 mg/dL, Near optimal/above optimal 130-159 mg/dL, Borderline high 160-189 mg/dL, High >189 mg/dL, Very high Secondary prevention optimal LDL Cholesterol levels are recommended to be < 70 mg/dL LAB NONHDL <130 mg/dL Non HDL High Cholesterol 190 Result Comment: <130 mg/dL, Optimal 130-159 mg/dL, Near optimal/above optimal 160-189 mg/dL, Borderline high 190-219 mg/dL, High >219 mg/dL, Very high Secondary prevention optimal non HDL Cholesterol levels are recommended to be < 100 mg/dL LAB FT hrs Fasting Time 2 LAB VLDL <30 mg/dL High VLDL Cholesterol 32 LAB TCHDL <5.10 TC:HDL Ratio 4.52 LAB LDLHDL <2.54 High LDL:HDL Ratio 2.93 Result Comment: Reference: 1. National Cholesterol Education Program ATP III Guideline At-A-Glance Quick Desk Reference: National Heart, Lung, and Blood [place]. National Institutes of Health. 2001: NIH Publication No. 01-3305. 2. An International Atherosclerosis Society position paper: global recommendations for the management of dyslipidemia: executive summary, Atherosclerosis. 2014: 232(2):410-413. Performed By: #### LIPB #### [facility] [address] [place], [place] [address] PROGRESS Observed: 07/02/2017 Status: COMPLETED Source: [place] 8:39 AM [facility] REPOSITORY O ID: [id number] Author: Trent Horowitz Service: (none) Author Type: Physician Type: Progress Notes Filed: 07/02/2017 9:43 AM Note Text: CC: Danni Evans is a 31 year old female who presents to the office for 6 months follow up HPI: Saw in office 3 months ago Cold symptoms, present for the last few days, fever yesterday, b/l ear pain, nasal congestion and PND symptoms, + sick contacts per mother at her job ?? Anxiety and depressed mood, hair pulling recently per mother, stressed appearing, has to do with situation with mother's other son living with them- he will be moving out of their home soon. No SI or HI. She is well supported by mother. Not any any current medications. ? Asthma, no recent flare ups, no wheezing or cough, using inhalers as prescribed ? Inflammatory polyarthritis, seeing Sas Architect still, has upcoming labs and appt She was started on Zoloft Currently Per mother she is still irritable and hair pulling/picking as well as cursing at me. No aggression. No SI or HI. Still able to be working at the [employer]. Seeing [employer] Dr. Flores for congenital heart disease hx. Seeing Sas Architect for chronic inflammatory joint changes. 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 - Congestive heart failure, unspecified - CRP elevated - Down's syndrome - Fatty liver - Hip pain - Hypercholesteremia 06/2013 - Hypothyroidism - Inflammatory polyarthritis (HCC) - Juvenile osteochondrosis of hip and pelvis - Knee pain - Methicillin resistant Staphylococcus aureus in conditions classified elsewhere and of unspecified site - Mitral valve disorders - Obstructive sleep apnea (adult) (pediatric) - YVETTE on CPAP - Osteoarthrosis, unspecified whether generalized or localized, lower leg - Other candidiasis of other specified sites - Other ventral hernia without mention of obstruction or gangrene - Unspecified congenital anomaly of heart - Vitamin D deficiency PAST SURGICAL HISTORY Procedure Laterality Date - EGD W/O OR W/BRUSH/WASH 08/14/2011 EGD - PAST SURGICAL HISTORY OF neck fused - PAST SURGICAL HISTORY OF pelvicoscopy - PAST SURGICAL HISTORY OF right hip plate and leg surgeries - PAST SURGICAL HISTORY OF tubes in bilat ears. Current Outpatient Prescriptions: urea (CARMOL) 40 % crea Apply 1 application to affected area as needed. omeprazole (PRILOSEC) 20 mg capsule take 1 capsule by mouth once daily 1/2 BEFORE BREAKFAST traMADol (ULTRAM) 50 mg tablet Take 1 tablet by mouth every 6 hours as needed for up to 30 days. ondansetron orally disintegrating (ZOFRAN ODT) 4 mg disintegrating tablet Take 1 tablet by mouth every 6 hours as needed for Nausea/Vomiting for up to 4 doses. sertraline (ZOLOFT) 25 mg tablet Take 1 tablet by mouth once daily. multivitamin tablet Take 1 tablet by mouth daily at bedtime. methotrexate, PF, 25 mg/mL soln 0.8cc SC once/week folic acid 1 mg tablet Take 1 tablet by mouth once daily. insulin syringe,safetyneedle (ASSURE ID INSULIN SAFETY) 1 mL 29 gauge x 1/2 syrg 1 Syringe once each week. To use with SC MTX once/week cholecalciferol, Vitamin D3, (VITAMIN D3) 50,000 unit cap capsule Take 1 capsule by mouth once each week. levothyroxine (SYNTHROID) 137 mcg tablet Take 1 tablet by mouth once daily. fluticasone (FLONASE) 50 mcg/actuation nasal spray Use 2 Sprays in each nostril once daily. metoprolol tartrate, short acting, 25 mg tablet Take 1 tablet by mouth twice daily. loratadine (CLARITIN) 10 mg tablet Take 1 tablet by mouth once daily. ERGOCALCIFEROL, VITAMIN D2, (VITAMIN D ORAL) Take 50,000 Units by mouth once each week. 2000 units daily ALBUTEROL INHALATION Inhale as instructed. doxycycline monohydrate 100 mg tablet Take 1 tablet by mouth twice daily. pseudoephedrine-guaiFENesin (MUCINEX D) 60-600 mg per tablet Take 1 tablet by mouth every 12 hours as needed for Cold/Allergy Symptoms. benzonatate (TESSALON PERLE) 100 mg capsule Take 1 capsule by mouth three times daily as needed. No current facility-administered medications for this visit. ALLERGIES Allergen Reactions - Bactrim [Sulfametho* Hives - Ceclor [Cefaclor] Hives - Penicillins Unknown Social History Marital status: Single Spouse name: Years of education: Number of children: Social History Main Topics Smoking status: Never Smoker Smokeless status: Never Used Alcohol use: No Drug use: No Sexual activity: Not Currently Social History Narrative Mother Kalpana Villagran ROS: See HPI PE: BP 100/70 Pulse 68 Temp (Src) 97.8 (Left Tympanic) Resp 20 Wt 241 lb (109.3kg) LMP 06/02/2017 Gen: AANDOX3, NAD, non-toxic appearing, pleasant, typical Down's facies and communication difficulty, no concerns, cooperative, smiling HEENT: PERRLA, EOMs intact b/l, nares with drainage, pharynx without erythema, exudate, lesions, + thick PND drainage. Uvula midline. MMM, right erythematous bulging TM without EAc involvement, normal left TM and EAC Neck: No LAD, no thyromegaly, no meningismus. CV: RRR, no murmur Lungs: CTA b/l, no wheezing Skin: No rashes, lesions, or wounds on exposed skin. No edema, normal pulses Many broken hairs on head, no skin rashes of scalp Deformity of hips and hands, antalgic gait ASSESSMENT/PLAN: 1. Hair pulling - ICD9: 307.9, ICD10: F63.3 (primary diagnosis) - d/c Zoloft, start on Celexa, f/u in office in 1-2 months - CITALOPRAM 20 MG TABLET 2. Situational stress - ICD9: V62.89, ICD10: F43.9 - see above - CITALOPRAM 20 MG TABLET 3. Elevated fasting blood sugar - ICD9: 790.21, ICD10: R73.01 - recheck labs - CBC - HGB A1C 4. Hypothyroidism, unspecified type - ICD9: 244.9, ICD10: E03.9 - Instructed patient on importance of taking on an empty stomach either first thing in the morning or at bedtime. - check TSH today - continue current dose of Synthroid - TSH BLD 5. Vitamin D deficiency - ICD9: 268.9, ICD10: E55.9 - continue supplement - VITAMIN D 25 HYDROXY 6. Down's syndrome - ICD9: 758.0, ICD10: Q90.9 7. Inflammatory polyarthritis (HCC) - ICD9: 714.9, ICD10: M06.4 - f/u with S[employer] Trent Horowitz DO Return if no improvement. Follow up with Trent Horowitz DO. Discussed risks, benefits, alternatives, and potential side effects of medications. Patient/Guardian expressed understanding and agreed with the plan. See patient instructions. Trent Horowitz DO [address] [place] [address] PROGRESS Observed: 06/24/2017 Status: COMPLETED Source: RINGLE 12:30 PM [facility] REPOSITORY HNO ID: [id number] Author: Vincent Carson Service: (none) Author Type: Physician Type: Progress Notes Filed: 06/24/2017 12:33 PM Note Text: Follow up podiatric office visit for: Chief Complaint: This 31 year old who presents for follow up:callus of b/l feet. Patient has been informed to use lotion but has not been very compliant with this. She does not complain of any pain. She has no other complaint. PAIN EVALUATION No data found. 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 - Congestive heart failure, unspecified - CRP elevated - Down's syndrome - Fatty liver - Hip pain - Hypercholesteremia 06/2013 - Hypothyroidism - Inflammatory polyarthritis (HCC) - Juvenile osteochondrosis of hip and pelvis - Knee pain - Methicillin resistant Staphylococcus aureus in conditions classified elsewhere and of unspecified site - Mitral valve disorders - Obstructive sleep apnea (adult) (pediatric) - YVETTE on CPAP - Osteoarthrosis, unspecified whether generalized or localized, lower leg - Other candidiasis of other specified sites - Other ventral hernia without mention of obstruction or gangrene - Unspecified congenital anomaly of heart - Vitamin D deficiency Current Outpatient Prescriptions: omeprazole (PRILOSEC) 20 mg capsule take 1 capsule by mouth once daily 1/2 BEFORE BREAKFAST ondansetron orally disintegrating (ZOFRAN ODT) 4 mg disintegrating tablet Take 1 tablet by mouth every 6 hours as needed for Nausea/Vomiting for up to 4 doses. sertraline (ZOLOFT) 25 mg tablet Take 1 tablet by mouth once daily. multivitamin tablet Take 1 tablet by mouth daily at bedtime. doxycycline monohydrate 100 mg tablet Take 1 tablet by mouth twice daily. methotrexate, PF, 25 mg/mL soln 0.8cc SC once/week folic acid 1 mg tablet Take 1 tablet by mouth once daily. insulin syringe,safetyneedle (ASSURE ID INSULIN SAFETY) 1 mL 29 gauge x 1/2 syrg 1 Syringe once each week. To use with SC MTX once/week cholecalciferol, Vitamin D3, (VITAMIN D3) 50,000 unit cap capsule Take 1 capsule by mouth once each week. levothyroxine (SYNTHROID) 137 mcg tablet Take 1 tablet by mouth once daily. fluticasone (FLONASE) 50 mcg/actuation nasal spray Use 2 Sprays in each nostril once daily. metoprolol tartrate, short acting, 25 mg tablet Take 1 tablet by mouth twice daily. loratadine (CLARITIN) 10 mg tablet Take 1 tablet by mouth once daily. ERGOCALCIFEROL, VITAMIN D2, (VITAMIN D ORAL) Take 50,000 Units by mouth once each week. 2000 units daily ALBUTEROL INHALATION Inhale as instructed. urea (CARMOL) 40 % crea Apply 1 application to affected area as needed. traMADol (ULTRAM) 50 mg tablet Take 1 tablet by mouth every 6 hours as needed for up to 30 days. pseudoephedrine-guaiFENesin (MUCINEX D) 60-600 mg per tablet Take 1 tablet by mouth every 12 hours as needed for Cold/Allergy Symptoms. benzonatate (TESSALON PERLE) 100 mg capsule Take 1 capsule by mouth three times daily as needed. No current facility-administered medications for this visit. ALLERGIES Allergen Reactions - Bactrim [Sulfametho* Hives - Ceclor [Cefaclor] Hives - Penicillins Unknown PAST SURGICAL HISTORY Procedure Laterality Date - EGD W/O OR W/BRUSH/WASH 08/14/2011 EGD - PAST SURGICAL HISTORY OF neck fused - PAST SURGICAL HISTORY OF pelvicoscopy - PAST SURGICAL HISTORY OF right hip plate and leg surgeries - PAST SURGICAL HISTORY OF tubes in bilat ears. Physical Exam: Constitutional: Pt is a well developed 31 year old female who is alert, oriented, cooperative and in no apparent distress. OBJECTIVE: NVSI unchanged from previous visit. Dermatological: Nails 1-5 b/l are dystrophic. Webspaces clean are macerated. Skin appears dry and scaly. good color, texture, turgor. No open lesions present. Callus present to left hallux, left heel and right forefoot Musculoskeletal/Orthopaedic: Patient has no pain to palpation of b/l feet ASSESSMENT: (L85.9) Hyperkeratosis (primary encounter diagnosis) (M20.12) Acquired hallux valgus of left foot PLAN: 1. History and physical examination completed today. 2. Patient was examined and informed of current findings. Discussed callus of b/l feet. Callus was debrided with sanding disk as courtesy. 3. carmol 40 prescribed 4. Recommend wider shoes for bunion 5. Discussed maceration of webspaces. Recommend use of betadine as needed for maceration 6. F/u in one month Vincent Carson DPM CNPTOUTRLIZ Observed: 06/17/2017 Status: COMPLETED Source: RINGLE 12:00 AM [facility] REPOSITORY Patient Outreach ([facility]) DANNI EVANS ([id number]) 1985 [facility] Date Time Provider Department 06/17/17 TRENT HOROWITZ [facility] During your visit today, we recorded the following information about you: Allergies As of Date: 06/17/2017 Noted Allergy Reaction BACTRIM (SULFAMETHOXAZOLE) 09/26/2010 4 - Hives CECLOR (CEFACLOR) 09/26/2010 4 - Hives PENICILLINS 05/25/2013 16 - Unknown Date Reviewed: 05/02/2017 Reviewed by: Luisa Kong LPN - Fully Assessed Visit Diagnosis:Medication management [Z79.899] Order(s):TSH BLD [SQTSH] Order #: [id number] FUTURE Prescriptions as of 06/17/2017 Sig: OMEPRAZOLE 20 MG CAPSULE,CARO* take 1 capsule by mouth once * ONDANSETRON 4 MG DISINTEGRATI* Take 1 tablet by mouth every * SERTRALINE 25 MG TABLET Take 1 tablet by mouth once d* MULTIVITAMIN TABLET Take 1 tablet by mouth daily * DOXYCYCLINE MONOHYDRATE 100 M* Take 1 tablet by mouth twice * PSEUDOEPHEDRINE-GUAIFENESIN E* Take 1 tablet by mouth every * BENZONATATE 100 MG CAPSULE Take 1 capsule by mouth three* METHOTREXATE SODIUM (PF) 25 M* 0.8cc SC once/week FOLIC ACID 1 MG TABLET Take 1 tablet by mouth once d* INSULIN SYRINGE WITH SAFETY N* 1 Syringe once each week. To * CHOLECALCIFEROL (VITAMIN D3) * Take 1 capsule by mouth once * LEVOTHYROXINE 137 MCG TABLET Take 1 tablet by mouth once d* FLUTICASONE 50 MCG/ACTUATION * Use 2 Sprays in each nostril * METOPROLOL TARTRATE 25 MG TAB* Take 1 tablet by mouth twice * LORATADINE 10 MG TABLET Take 1 tablet by mouth once d* VITAMIN D2 ORAL Take 50,000 Units by mouth on* ALBUTEROL INHALATION Inhale as instructed. Problem List As Of Date 06/17/2017 Noted Resolved DOWN'S SYNDROME [Q90.9] INVALID FOR* SURGERY FOLLOW-UP [V67.0] INVALID FOR* Abdominal pain, left upper quadrant [R10.12] INVALID FOR* Anxiety [F41.9] INVALID FOR* YVETTE on CPAP [G47.33, Z99.89] INVALID FOR* Allergic rhinitis [J30.9] INVALID FOR* Hypothyroidism [E03.9] INVALID FOR* Vitamin D deficiency [E55.9] INVALID FOR* Rash and nonspecific skin eruption [R21] INVALID FOR* Obesity, morbid, BMI 50 or higher (HCC) [E66.01]INVALID FOR* 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* Hip pain [M25.559] Knee pain [M25.569] CRP elevated [R79.82] Inflammatory polyarthritis (HCC) [M06.4] Acute non-recurrent maxillary sinusitis [J01.00]INVALID FOR* Hair pulling [F63.3] INVALID FOR* Encounter Status:Closed by EPIC, PRODUSER on 06/22/17 GROUP A STREP BY Collected: 05/03/2017 Status: F Source: RINGLE PCR 1:06 AM [facility] REPOSITORY TYPE CODE TESTS RESULT OUT OF REFERENCE UNITS RANGE LAB GASSRC Throat Swab GAS Specimen Source LAB PCRGAS Negative for Group A Strep Group A PCR Streptococcus by PCR. Result Comment: This test was developed and its performance characteristics determined by [facility] ([facility]). It has not been cleared or approved by the FDA. [facility] is regulated under CLIA as qualified to perform high-complexity testing. This test is used for clinical purposes. It should not be regarded as inv estigational or for research. Performed By: #### [facility] #### [facility] [address] [place], [place] [address] PROGRESS Observed: 05/02/2017 Status: COMPLETED Source: RINGLE 1:26 PM [facility] REPOSITORY HNO ID: [id number] Author: Izabel Hanley Service: (none) Author Type: Nurse Practitioner Type: Progress Notes Filed: 05/02/2017 1:29 PM Note Text: HPI Pt accompanied by mother. Mother states pt has had tactile fever, nausea x 2 days. Had several episodes of vomiting and diarrhea on day one but seems to have resolved. Pt has not been talking since she became sick d/t sore throat. Has not taken any OTC medications. Denies abdominal pain, UTI sx. Review of Systems Constitutional: Positive for fever. Negative for chills. HENT: Positive for sore throat. Negative for congestion and ear pain. Respiratory: Negative for cough. Gastrointestinal: Positive for diarrhea, nausea and vomiting. Negative for abdominal pain. Physical Exam Constitutional: She is oriented to person, place, and time and well-developed, well-nourished, and in no distress. No distress. HENT: Head: Normocephalic. Right Ear: Hearing, tympanic membrane, external ear and ear canal normal. Left Ear: Hearing, tympanic membrane, external ear and ear canal normal. Nose: Nose normal. Right sinus exhibits no maxillary sinus tenderness and no frontal sinus tenderness. Left sinus exhibits no maxillary sinus tenderness and no frontal sinus tenderness. Mouth/Throat: Uvula is midline, oropharynx is clear and moist and mucous membranes are normal. No oropharyngeal exudate, posterior oropharyngeal edema, posterior oropharyngeal erythema or tonsillar abscesses. Eyes: Conjunctivae are normal. Pupils are equal, round, and reactive to light. Right eye exhibits no discharge. Left eye exhibits no discharge. Neck: Neck supple. Cardiovascular: Normal rate, regular rhythm and normal heart sounds. Exam reveals no gallop and no friction rub. No murmur heard. Pulmonary/Chest: Effort normal and breath sounds normal. No respiratory distress. She has no wheezes. She has no rales. Abdominal: Normal appearance and bowel sounds are normal. There is no tenderness. There is no rigidity, no rebound, no guarding, no CVA tenderness, no tenderness at McBurney's point and negative Crocker's sign. Lymphadenopathy: She has no cervical adenopathy. Neurological: She is alert and oriented to person, place, and time. Skin: Skin is warm and dry. She is not diaphoretic. 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 - Congestive heart failure, unspecified - CRP elevated - Down's syndrome - Fatty liver - Hip pain - Hypercholesteremia 06/2013 - Hypothyroidism - Inflammatory polyarthritis (HCC) - Juvenile osteochondrosis of hip and pelvis - Knee pain - Methicillin resistant Staphylococcus aureus in conditions classified elsewhere and of unspecified site - Mitral valve disorders - Obstructive sleep apnea (adult) (pediatric) - YVETTE on CPAP - Osteoarthrosis, unspecified whether generalized or localized, lower leg - Other candidiasis of other specified sites - Other ventral hernia without mention of obstruction or gangrene - Unspecified congenital anomaly of heart - Vitamin D deficiency PAST SURGICAL HISTORY Procedure Laterality Date - EGD W/O OR W/BRUSH/WASH 08/14/2011 EGD - PAST SURGICAL HISTORY OF neck fused - PAST SURGICAL HISTORY OF pelvicoscopy - PAST SURGICAL HISTORY OF right hip plate and leg surgeries - PAST SURGICAL HISTORY OF tubes in bilat ears. ALLERGIES Bactrim [Sulfamethoxazole]; Ceclor [Cefaclor]; Penicillins MEDICATIONS traMADol (ULTRAM) 50 mg tablet Take 1 tablet by mouth every 6 hours as needed for up to 30 days. omeprazole (PRILOSEC) 20 mg capsule TAKE 1 CAPSULE BY MOUTH DAILY BEFORE BREAKFAST. 1/2 HR BEFORE MEAL. sertraline (ZOLOFT) 25 mg tablet Take 1 tablet by mouth once daily. multivitamin tablet Take 1 tablet by mouth daily at bedtime. doxycycline monohydrate 100 mg tablet Take 1 tablet by mouth twice daily. methotrexate, PF, 25 mg/mL soln 0.8cc SC once/week folic acid 1 mg tablet Take 1 tablet by mouth once daily. insulin syringe,safetyneedle (ASSURE ID INSULIN SAFETY) 1 mL 29 gauge x 1/2 syrg 1 Syringe once each week. To use with SC MTX once/week cholecalciferol, Vitamin D3, (VITAMIN D3) 50,000 unit cap capsule Take 1 capsule by mouth once each week. levothyroxine (SYNTHROID) 137 mcg tablet Take 1 tablet by mouth once daily. fluticasone (FLONASE) 50 mcg/actuation nasal spray Use 2 Sprays in each nostril once daily. metoprolol tartrate, short acting, 25 mg tablet Take 1 tablet by mouth twice daily. loratadine (CLARITIN) 10 mg tablet Take 1 tablet by mouth once daily. ERGOCALCIFEROL, VITAMIN D2, (VITAMIN D ORAL) Take 50,000 Units by mouth once each week. 2000 units daily ALBUTEROL INHALATION Inhale as instructed. ondansetron orally disintegrating (ZOFRAN ODT) 4 mg disintegrating tablet Take 1 tablet by mouth every 6 hours as needed for Nausea/Vomiting for up to 4 doses. pseudoephedrine-guaiFENesin (MUCINEX D) 60-600 mg per tablet Take 1 tablet by mouth every 12 hours as needed for Cold/Allergy Symptoms. benzonatate (TESSALON PERLE) 100 mg capsule Take 1 capsule by mouth three times daily as needed. FAMILY HISTORY Problem Relation Age of Onset - Colon Cancer Paternal Grandfather Social History Substance Use Topics - Smoking status: Never Smoker - Smokeless tobacco: Never Used - Alcohol use No ASSESSMENT/PLAN: 1. Nausea - ICD9: 787.02, ICD10: R11.0 (primary diagnosis) - ONDANSETRON 4 MG DISINTEGRATING TABLET 2. Sore throat - ICD9: 462, ICD10: J02.9 - Rapid Strep negative in the office today and Throat culture pending - Discussed supportive care treatment with fluids, rest and analgesia. - The patient should follow up in 3-5 days if symptoms persist or worsen - Call back if drooling, increased temperature, symptoms of dehydration and/or still sick in one week - RAPID STREP TEST B/O - GROUP A STREPTOCOCCUS BY PCR mother is instructed to return or seek emergency treatment if symptoms become worse or with any acute change in condition. Mother verbalizes understanding and is in agreement with plan of care. Izabel Hanley CNP CNOV Observed: 05/02/2017 Status: COMPLETED Source: RINGLE 12:00 PM [facility] REPOSITORY Office Visit (WSTR) DANNI EVANS ([id number]) 1985 F [place] Date Time Provider Department 05/02/17 12:00 PM IZABEL HANLEY [facility] [[email or web address]] During your visit today, we recorded the following information about you: Temperature Pulse Blood pressure Weight 99.4 degrees 92/minute 96/60 107.6 kg Izabel Hanley CNP 05/02/2017 1:29 PM Signed HPI Pt accompanied by mother. Mother states pt has had tactile fever, nausea x 2 days. Had several episodes of vomiting and diarrhea on day one but seems to have resolved. Pt has not been talking since she became sick d/t sore throat. Has not taken any OTC medications. Denies abdominal pain, UTI sx. Review of Systems Constitutional: Positive for fever. Negative for chills. HENT: Positive for sore throat. Negative for congestion and ear pain. Respiratory: Negative for cough. Gastrointestinal: Positive for diarrhea, nausea and vomiting. Negative for abdominal pain. Physical Exam Constitutional: She is oriented to person, place, and time and well-developed, well-nourished, and in no distress. No distress. HENT: Head: Normocephalic. Right Ear: Hearing, tympanic membrane, external ear and ear canal normal. Left Ear: Hearing, tympanic membrane, external ear and ear canal normal. Nose: Nose normal. Right sinus exhibits no maxillary sinus tenderness and no frontal sinus tenderness. Left sinus exhibits no maxillary sinus tenderness and no frontal sinus tenderness. Mouth/Throat: Uvula is midline, oropharynx is clear and moist and mucous membranes are normal. No oropharyngeal exudate, posterior oropharyngeal edema, posterior oropharyngeal erythema or tonsillar abscesses. Eyes: Conjunctivae are normal. Pupils are equal, round, and reactive to light. Right eye exhibits no discharge. Left eye exhibits no discharge. Neck: Neck supple. Cardiovascular: Normal rate, regular rhythm and normal heart sounds. Exam reveals no gallop and no friction rub. No murmur heard. Pulmonary/Chest: Effort normal and breath sounds normal. No respiratory distress. She has no wheezes. She has no rales. Abdominal: Normal appearance and bowel sounds are normal. There is no tenderness. There is no rigidity, no rebound, no guarding, no CVA tenderness, no tenderness at McBurney's point and negative Crocker's sign. Lymphadenopathy: She has no cervical adenopathy. Neurological: She is alert and oriented to person, place, and time. Skin: Skin is warm and dry. She is not diaphoretic. 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 - Congestive heart failure, unspecified - CRP elevated - Down's syndrome - Fatty liver - Hip pain - Hypercholesteremia 06/2013 - Hypothyroidism - Inflammatory polyarthritis (HCC) - Juvenile osteochondrosis of hip and pelvis - Knee pain - Methicillin resistant Staphylococcus aureus in conditions classified elsewhere and of unspecified site - Mitral valve disorders - Obstructive sleep apnea (adult) (pediatric) - YVETTE on CPAP - Osteoarthrosis, unspecified whether generalized or localized, lower leg - Other candidiasis of other specified sites - Other ventral hernia without mention of obstruction or gangrene - Unspecified congenital anomaly of heart - Vitamin D deficiency PAST SURGICAL HISTORY Procedure Laterality Date - EGD W/O OR W/BRUSH/WASH 08/14/2011 EGD - PAST SURGICAL HISTORY OF neck fused - PAST SURGICAL HISTORY OF pelvicoscopy - PAST SURGICAL HISTORY OF right hip plate and leg surgeries - PAST SURGICAL HISTORY OF tubes in bilat ears. ALLERGIES Bactrim [Sulfamethoxazole]; Ceclor [Cefaclor]; Penicillins MEDICATIONS traMADol (ULTRAM) 50 mg tablet Take 1 tablet by mouth every 6 hours as needed for up to 30 days. omeprazole (PRILOSEC) 20 mg capsule TAKE 1 CAPSULE BY MOUTH DAILY BEFORE BREAKFAST. 1/2 HR BEFORE MEAL. sertraline (ZOLOFT) 25 mg tablet Take 1 tablet by mouth once daily. multivitamin tablet Take 1 tablet by mouth daily at bedtime. doxycycline monohydrate 100 mg tablet Take 1 tablet by mouth twice daily. methotrexate, PF, 25 mg/mL soln 0.8cc SC once/week folic acid 1 mg tablet Take 1 tablet by mouth once daily. insulin syringe,safetyneedle (ASSURE ID INSULIN SAFETY) 1 mL 29 gauge x 1/2ANDquot; syrg 1 Syringe once each week. To use with SC MTX once/week cholecalciferol, Vitamin D3, (VITAMIN D3) 50,000 unit cap capsule Take 1 capsule by mouth once each week. levothyroxine (SYNTHROID) 137 mcg tablet Take 1 tablet by mouth once daily. fluticasone (FLONASE) 50 mcg/actuation nasal spray Use 2 Sprays in each nostril once daily. metoprolol tartrate, short acting, 25 mg tablet Take 1 tablet by mouth twice daily. loratadine (CLARITIN) 10 mg tablet Take 1 tablet by mouth once daily. ERGOCALCIFEROL, VITAMIN D2, (VITAMIN D ORAL) Take 50,000 Units by mouth once each week. 2000 units daily ALBUTEROL INHALATION Inhale as instructed. ondansetron orally disintegrating (ZOFRAN ODT) 4 mg disintegrating tablet Take 1 tablet by mouth every 6 hours as needed for Nausea/Vomiting for up to 4 doses. pseudoephedrine-guaiFENesin (MUCINEX D) 60-600 mg per tablet Take 1 tablet by mouth every 12 hours as needed for Cold/Allergy Symptoms. benzonatate (TESSALON PERLE) 100 mg capsule Take 1 capsule by mouth three times daily as needed. FAMILY HISTORY Problem Relation Age of Onset - Colon Cancer Paternal Grandfather Social History Substance Use Topics - Smoking status: Never Smoker - Smokeless tobacco: Never Used - Alcohol use No ASSESSMENT/PLAN: 1. Nausea - ICD9: 787.02, ICD10: R11.0 (primary diagnosis) - ONDANSETRON 4 MG DISINTEGRATING TABLET 2. Sore throat - ICD9: 462, ICD10: J02.9 - Rapid Strep negative in the office today and Throat culture pending - Discussed supportive care treatment with fluids, rest and analgesia. - The patient should follow up in 3-5 days if symptoms persist or worsen - Call back if drooling, increased temperature, symptoms of dehydration and/or still sick in one week - RAPID STREP TEST B/O - GROUP A STREPTOCOCCUS BY PCR mother is instructed to return or seek emergency treatment if symptoms become worse or with any acute change in condition. Mother verbalizes understanding and is in agreement with plan of care. Izabel Hanley CNP Referring Provider: SELF [[id number]] Allergies As of Date: 05/02/2017 Noted Allergy Reaction BACTRIM (SULFAMETHOXAZOLE) 09/26/2010 4 - Hives CECLOR (CEFACLOR) 09/26/2010 4 - Hives PENICILLINS 05/25/2013 16 - Unknown Date Reviewed: 05/02/2017 Reviewed by: Luisa Kong LPN - Fully Assessed Reason for Visit: fever, vomiting, cough and diarrhea [Other] Cmt: x 2 days Primary Visit Diagnosis:Nausea [R11.0] Other Visit Diagnosis:Sore throat [J02.9] Order(s):ondansetron orally disintegrating (ZOFRAN ODT) 4 mg disintegrating tabletTake 1 tablet by mouth every 6 hours as needed for Nausea/Vomiting for up to 4 doses.Disp: 4 tabletRfl: 0 RAPID STREP TEST B/O [[id number]] Order #: [id number] GROUP A STREPTOCOCCUS BY PCR [SQGASPCR] Order #: [id number] Prescriptions as of 05/02/2017 Sig: TRAMADOL 50 MG TABLET Take 1 tablet by mouth every * OMEPRAZOLE 20 MG CAPSULE,CARO* TAKE 1 CAPSULE BY MOUTH DAILY* SERTRALINE 25 MG TABLET Take 1 tablet by mouth once d* MULTIVITAMIN TABLET Take 1 tablet by mouth daily * DOXYCYCLINE MONOHYDRATE 100 M* Take 1 tablet by mouth twice * METHOTREXATE SODIUM (PF) 25 M* 0.8cc SC once/week FOLIC ACID 1 MG TABLET Take 1 tablet by mouth once d* INSULIN SYRINGE WITH SAFETY N* 1 Syringe once each week. To * CHOLECALCIFEROL (VITAMIN D3) * Take 1 capsule by mouth once * LEVOTHYROXINE 137 MCG TABLET Take 1 tablet by mouth once d* FLUTICASONE 50 MCG/ACTUATION * Use 2 Sprays in each nostril * METOPROLOL TARTRATE 25 MG TAB* Take 1 tablet by mouth twice * LORATADINE 10 MG TABLET Take 1 tablet by mouth once d* VITAMIN D2 ORAL Take 50,000 Units by mouth on* ALBUTEROL INHALATION Inhale as instructed. ONDANSETRON 4 MG DISINTEGRATI* Take 1 tablet by mouth every * PSEUDOEPHEDRINE-GUAIFENESIN E* Take 1 tablet by mouth every * BENZONATATE 100 MG CAPSULE Take 1 capsule by mouth three* Problem List As Of Date 05/02/2017 Noted Resolved DOWN'S SYNDROME [Q90.9] INVALID FOR* SURGERY FOLLOW-UP [V67.0] INVALID FOR* Abdominal pain, left upper quadrant [R10.12] INVALID FOR* Anxiety [F41.9] INVALID FOR* YVETTE on CPAP [G47.33, Z99.89] INVALID FOR* Allergic rhinitis [J30.9] INVALID FOR* Hypothyroidism [E03.9] INVALID FOR* Vitamin D deficiency [E55.9] INVALID FOR* Rash and nonspecific skin eruption [R21] INVALID FOR* Obesity, morbid, BMI 50 or higher (HCC) [E66.01]INVALID FOR* 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 Encounter Status:Closed by IZABEL HANLEY CNP on 05/02/17 OBSOLETE Observed: 05/02/2017 Status: COMPLETED Source: RINGLE 12:00 AM [facility] REPOSITORY Refill (AGRHEUHWN) DANNI EVANS ([id number]) 1985 [facility] Date Time Provider Department 05/02/17 UJLIAN MCMAHANUHWN During your visit today, we recorded the following information about you: Nano Blake MA 05/02/2017 8:28 AM Signed Patient called requesting the following refill. Pending Prescriptions Disp Refills TRAMADOL 50 MG TABLET 90 tablet 1 Sig: Take 1 tablet by mouth every 6 hours as needed. DO Class: C-IV ASH: No Patient last appointment: 01/29/2017 Next Appointment: 06/11/2017 Patient Phone numbers: [phone] (home) Request is for script(s) to be called in to pharmacy. MARILU Harper MA 05/02/2017 2:54 PM Signed The following prescriptions have been called to [facility] pharmacy 05/02/2017 at 2:53 PM by Nano Blake MA. I spoke with joseph in the pharmacy. Signed Prescriptions Disp Refills traMADol (ULTRAM) 50 mg tablet 90 tablet 1 Sig: Take 1 tablet by mouth every 6 hours as needed for up to 30 days. DO Class: C-IV ASH: No Authorizing Provider: TONY KOTHARI) Allergies As of Date: 05/02/2017 Noted Allergy Reaction BACTRIM (SULFAMETHOXAZOLE) 09/26/2010 4 - Hives CECLOR (CEFACLOR) 09/26/2010 4 - Hives PENICILLINS 05/25/2013 16 - Unknown Date Reviewed: 05/02/2017 Reviewed by: Luisa Kong LPN - Fully Assessed Reason for Visit: Refill Request [94] Primary Visit Diagnosis:Chronic pain syndrome [G89.4] Order(s):traMADol (ULTRAM) 50 mg tabletTake 1 tablet by mouth every 6 hours as needed for up to 30 days.Disp: 90 tabletRfl: 1 Prescriptions as of 05/02/2017 Sig: TRAMADOL 50 MG TABLET Take 1 tablet by mouth every * OMEPRAZOLE 20 MG CAPSULE,CARO* TAKE 1 CAPSULE BY MOUTH DAILY* SERTRALINE 25 MG TABLET Take 1 tablet by mouth once d* MULTIVITAMIN TABLET Take 1 tablet by mouth daily * DOXYCYCLINE MONOHYDRATE 100 M* Take 1 tablet by mouth twice * PSEUDOEPHEDRINE-GUAIFENESIN E* Take 1 tablet by mouth every * BENZONATATE 100 MG CAPSULE Take 1 capsule by mouth three* METHOTREXATE SODIUM (PF) 25 M* 0.8cc SC once/week FOLIC ACID 1 MG TABLET Take 1 tablet by mouth once d* INSULIN SYRINGE WITH SAFETY N* 1 Syringe once each week. To * CHOLECALCIFEROL (VITAMIN D3) * Take 1 capsule by mouth once * LEVOTHYROXINE 137 MCG TABLET Take 1 tablet by mouth once d* FLUTICASONE 50 MCG/ACTUATION * Use 2 Sprays in each nostril * METOPROLOL TARTRATE 25 MG TAB* Take 1 tablet by mouth twice * LORATADINE 10 MG TABLET Take 1 tablet by mouth once d* VITAMIN D2 ORAL Take 50,000 Units by mouth on* ALBUTEROL INHALATION Inhale as instructed. 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 Medications Discontinued During This Encounter traMADol (ULTRAM) 50 mg tablet 90 t* 1 01/13/2017 05/02/2017 Class: Call Rx Route: ORAL Sig: Take 1 tablet by mouth every 6 hours as needed. Disc: Reason for discontinue is not on file. Encounter Status:Closed by TONY ESPINAL on 05/02/17 OBSOLETE Observed: 05/01/2017 Status: COMPLETED Source: RINGLE 12:00 AM [facility] REPOSITORY Refill (FAMPWS) DANNI EVANS ([id number]) 1985 [facility] Date Time Provider Department 05/01/17 TRENT HOROWITZ FAMPWS During your visit today, we recorded the following information about you: Karen Watson RN, RN 05/01/2017 10:09 AM Signed Patient phones requesting refills as follows: Pending Prescriptions Disp Refills OMEPRAZOLE 20 MG CAPSULE,DELAYED RELEASE 90 capsule 3 Sig: TAKE 1 CAPSULE BY MOUTH DAILY BEFORE BREAKFAST. 1/2 HR BEFORE MEAL. ASH: No TRAMADOL 50 MG TABLET 90 tablet 1 Sig: Take 1 tablet by mouth every 6 hours as needed. DO Class: C-IV ASH: No Please review and advise. LAZARUS Gonsalves MD 05/01/2017 10:50 AM Signed [employer] website checked and validated. Previous prescriptions for tramadol filled outside this office. - 05/01/2017 by MD Kimberley Arias Ma 05/01/2017 11:09 AM Signed Mother notified. Allergies As of Date: 05/01/2017 Noted Allergy Reaction BACTRIM (SULFAMETHOXAZOLE) 09/26/2010 4 - Hives CECLOR (CEFACLOR) 09/26/2010 4 - Hives PENICILLINS 05/25/2013 16 - Unknown Date Reviewed: 04/30/2017 Reviewed by: Regina Devlin RN - Fully Assessed Reason for Visit: Refill Request [94] Primary Visit Diagnosis:Inflammatory polyarthritis (HCC) [M06.4] Order(s):omeprazole (PRILOSEC) 20 mg capsuleTAKE 1 CAPSULE BY MOUTH DAILY BEFORE BREAKFAST. 1/2 HR BEFORE MEAL.Disp: 30 capsuleRfl: 0 Prescriptions as of 05/01/2017 Sig: OMEPRAZOLE 20 MG CAPSULE,CARO* TAKE 1 CAPSULE BY MOUTH DAILY* SERTRALINE 25 MG TABLET Take 1 tablet by mouth once d* MULTIVITAMIN TABLET Take 1 tablet by mouth daily * DOXYCYCLINE MONOHYDRATE 100 M* Take 1 tablet by mouth twice * PSEUDOEPHEDRINE-GUAIFENESIN E* Take 1 tablet by mouth every * BENZONATATE 100 MG CAPSULE Take 1 capsule by mouth three* METHOTREXATE SODIUM (PF) 25 M* 0.8cc SC once/week FOLIC ACID 1 MG TABLET Take 1 tablet by mouth once d* INSULIN SYRINGE WITH SAFETY N* 1 Syringe once each week. To * TRAMADOL 50 MG TABLET Take 1 tablet by mouth every * CHOLECALCIFEROL (VITAMIN D3) * Take 1 capsule by mouth once * LEVOTHYROXINE 137 MCG TABLET Take 1 tablet by mouth once d* FLUTICASONE 50 MCG/ACTUATION * Use 2 Sprays in each nostril * METOPROLOL TARTRATE 25 MG TAB* Take 1 tablet by mouth twice * LORATADINE 10 MG TABLET Take 1 tablet by mouth once d* VITAMIN D2 ORAL Take 50,000 Units by mouth on* ALBUTEROL INHALATION Inhale as instructed. 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 1/2 HR BEFORE MEAL. Medications Discontinued During This Encounter omeprazole (PRILOSEC) 20 mg capsule 90 c* 4 04/03/2016 05/01/2017 Sig: TAKE 1 CAPSULE BY MOUTH DAILY BEFORE BREAKFAST. 1/2 HR BEFORE MEAL. Disc: Reason for discontinue is not on file. Encounter Status:Closed by KIMBERLEY YUN MA on 05/01/17 PROGRESS Observed: 04/30/2017 Status: COMPLETED Source: RINGLE 8:37 AM [facility] [place] REPOSITORY O ID: [id number] Author: Vincent Carson Service: (none) Author Type: Physician Type: Progress Notes Filed: 04/30/2017 9:05 AM Note Text: Consultation requested by Dr. Malhotra for an opinion regarding possible bunion of b/l foot. My final recommendations will be communicated back to the requesting physician by way of shared Medical record or letter to requesting physician via US mail. Initial Podiatric Office Visit: Chief Complaint: This 31 year old female who presents with chief complaint:bunion of left foot HPI Patient presents to clinic for evaluation of b/l feet but primarily of left foot. She has large bunion of left foot that causes her difficulty walking. She also has large callus of left foot that causes her pain. She has been seen by another antique furniture repairer in the past who has treated her with toenail and callus debridement. She has not had her nails cut in some time and they are starting to cause her pain. She denies being diabetic. PAIN EVALUATION No data found. Hemoglobin A1C (%) Date Value 03/20/2016 5.2 10/11/2014 5.2 06/15/2013 5.2 PCP: Trent Horowitz, PAST MEDICAL HISTORY Diagnosis Date - Abdominal pain, epigastric - Abdominal pain, left upper quadrant - Abscess - Allergic rhinitis, cause unspecified - Anxiety - Asthma mild intermittent, 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 - Congestive heart failure, unspecified - CRP elevated - Down's syndrome - Fatty liver - Hip pain - Hypercholesteremia 06/2013 - Hypothyroidism - Inflammatory polyarthritis (HCC) - Juvenile osteochondrosis of hip and pelvis - Knee pain - Methicillin resistant Staphylococcus aureus in conditions classified elsewhere and of unspecified site - Mitral valve disorders - Obstructive sleep apnea (adult) (pediatric) - YVETTE on CPAP - Osteoarthrosis, unspecified whether generalized or localized, lower leg - Other candidiasis of other specified sites - Other ventral hernia without mention of obstruction or gangrene - Unspecified congenital anomaly of heart - Vitamin D deficiency Current Outpatient Prescriptions: sertraline (ZOLOFT) 25 mg tablet Take 1 tablet by mouth once daily. multivitamin tablet Take 1 tablet by mouth daily at bedtime. doxycycline monohydrate 100 mg tablet Take 1 tablet by mouth twice daily. methotrexate, PF, 25 mg/mL soln 0.8cc SC once/week folic acid 1 mg tablet Take 1 tablet by mouth once daily. insulin syringe,safetyneedle (ASSURE ID INSULIN SAFETY) 1 mL 29 gauge x 1/2 syrg 1 Syringe once each week. To use with SC MTX once/week traMADol (ULTRAM) 50 mg tablet Take 1 tablet by mouth every 6 hours as needed. cholecalciferol, Vitamin D3, (VITAMIN D3) 50,000 unit cap capsule Take 1 capsule by mouth once each week. levothyroxine (SYNTHROID) 137 mcg tablet Take 1 tablet by mouth once daily. omeprazole (PRILOSEC) 20 mg capsule TAKE 1 CAPSULE BY MOUTH DAILY BEFORE BREAKFAST. 1/2 HR BEFORE MEAL. fluticasone (FLONASE) 50 mcg/actuation nasal spray Use 2 Sprays in each nostril once daily. metoprolol tartrate, short acting, 25 mg tablet Take 1 tablet by mouth twice daily. loratadine (CLARITIN) 10 mg tablet Take 1 tablet by mouth once daily. ERGOCALCIFEROL, VITAMIN D2, (VITAMIN D ORAL) Take 50,000 Units by mouth once each week. 2000 units daily ALBUTEROL INHALATION Inhale as instructed. pseudoephedrine-guaiFENesin (MUCINEX D) 60-600 mg per tablet Take 1 tablet by mouth every 12 hours as needed for Cold/Allergy Symptoms. benzonatate (TESSALON PERLE) 100 mg capsule Take 1 capsule by mouth three times daily as needed. No current facility-administered medications for this visit. ALLERGIES Allergen Reactions - Bactrim [Sulfametho* Hives - Ceclor [Cefaclor] Hives - Penicillins Unknown PAST SURGICAL HISTORY Procedure Laterality Date - EGD W/O OR W/BRUSH/WASH 08/14/2011 EGD - PAST SURGICAL HISTORY OF neck fused - PAST SURGICAL HISTORY OF pelvicoscopy - PAST SURGICAL HISTORY OF right hip plate and leg surgeries - PAST SURGICAL HISTORY OF tubes in bilat ears. FAMILY HISTORY Problem Relation Age of Onset - Colon Cancer Paternal Grandfather Social History Marital status: Single Spouse name: Years of education: Number of children: Social History Main Topics Smoking status: Never Smoker Smokeless status: Never Used Alcohol use: No Drug use: No Sexual activity: Not Currently Social History Narrative Mother Kalpana Villagran REVIEW OF SYSTEMS GENERAL: Negative for Malaise, significant weight loss, fever RESPIRATORY: Negative for cough, wheezing and shortness of breath CARDIOVASCULAR: Negative for chest pain, leg swelling and palpitations GI: Negative for abdominal discomfort, blood in stools or black stools and change in bowel habits : Negative for dysuria, frequency and incontinence MUSCULOSKELETAL: Negative for joint pain or swelling, back pain, and muscle pain. SKIN: Negative for lesions, rash, and itching. HEMATOLOGY/LYMPHOLOGY Negative for prolonged bleeding, bruising easily, and swollen nodes. ENDOCRINE: Negative for cold or heat intolerance, polyuria, polydipsia and goiter. NEURO: negative Physical Exam: Constitutional: Pt is a well developed 31 year old female who is alert, oriented and cooperative Eyes: Following during examination. No redness or drainage. Respiratory: RR normal and nonlabored. Even breathing. No evidence of distress or shortness of breath. Psychology: Patient is engaged during conversation. Normal affect and mood. Does not appear depressed or anxious during encounter. Vascular: Dorsalis pedis and posterior tibial pulses palpable as b/l Capillary Fill time < 5 seconds to digits 1-5 b/l Skin temperature warm to warm proximal to distal b/l Hair growth present to digits Neurological: intact light touch/epicritic sensation Vibratory sensation intact to hallux b/l intact protective sensation no significant neurological deficits Dermatological: Nails 1-5 b/l appear thick, discolored, painful. Webspaces clean and dry 1-4 b/l. Skin appears dry and scaly. good color, texture, turgor. No open lesions present. Callus present to left 1st metatarsal Musculoskeletal/Orthopaedic: Patient has pain to palpation of left medial eminence, 1st ray Large bunion is noted of left foot Foot type is pronated structurally AJ ROM is full with knee extended and flexed 1st MPJ is decreased when loaded and no pain or crepitus are noted with ROM. MTJ, STJ are full and free of pain and crepitus. +5/5 muscle strength dorsiflexion, plantarflexion, inversion, eversion b/l Radiographs: 3 views left great toe reviewed. Moderate bunion is noted of left foot. ASSESSMENT: (B35.1) Onychomycosis (primary encounter diagnosis) (M79.675) Pain in toe of left foot (M.674) Pain in toe of right foot (L85.9) Hyperkeratosis (M20.12) Acquired hallux valgus of left foot PLAN: 1. History and physical examination performed. 2. XR reviewed with patient and interpreted today 3. Callus of left foot debrided with sanding disk as courtesy. 4. Toenails 1-5 b/l debrided in length and thickness 5. Discussed conservative vs surgical options for bunion. Recommend wider shoes and bunion padding. 6. Patient to apply lotion to feet daily. 7. F/u in 6 weeks. MABEL Pacheco Observed: 04/30/2017 Status: COMPLETED Source: RINGLE 8:10 AM [facility] REPOSITORY Office Visit (PODIWS) DANNI EVANS ([id number]) 1985 [place] Date Time Provider Department 04/30/17 8:10 AM VINCENT CARSON During your visit today, we recorded the following information about you: Vincent MABEL Carson 04/30/2017 9:05 AM Signed Consultation requested by Dr. Malhotra for an opinion regarding possible bunion of b/l foot. My final recommendations will be communicated back to the requesting physician by way of shared Medical record or letter to requesting physician via US mail. Initial Podiatric Office Visit: Chief Complaint: This 31 year old female who presents with chief complaint:bunion of left foot HPI Patient presents to clinic for evaluation of b/l feet but primarily of left foot. She has large bunion of left foot that causes her difficulty walking. She also has large callus of left foot that causes her pain. She has been seen by another antique furniture repairer in the past who has treated her with toenail and callus debridement. She has not had her nails cut in some time and they are starting to cause her pain. She denies being diabetic. PAIN EVALUATION No data found. Hemoglobin A1C (%) Date Value 03/20/2016 5.2 10/11/2014 5.2 06/15/2013 5.2 PCP: Trent Horowitz, PAST MEDICAL HISTORY Diagnosis Date - Abdominal pain, epigastric - Abdominal pain, left upper quadrant - Abscess - Allergic rhinitis, cause unspecified - Anxiety - Asthma mild intermittent, 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 - Congestive heart failure, unspecified - CRP elevated - Down's syndrome - Fatty liver - Hip pain - Hypercholesteremia 06/2013 - Hypothyroidism - Inflammatory polyarthritis (HCC) - Juvenile osteochondrosis of hip and pelvis - Knee pain - Methicillin resistant Staphylococcus aureus in conditions classified elsewhere and of unspecified site - Mitral valve disorders - Obstructive sleep apnea (adult) (pediatric) - YVETTE on CPAP - Osteoarthrosis, unspecified whether generalized or localized, lower leg - Other candidiasis of other specified sites - Other ventral hernia without mention of obstruction or gangrene - Unspecified congenital anomaly of heart - Vitamin D deficiency Current Outpatient Prescriptions: sertraline (ZOLOFT) 25 mg tablet Take 1 tablet by mouth once daily. multivitamin tablet Take 1 tablet by mouth daily at bedtime. doxycycline monohydrate 100 mg tablet Take 1 tablet by mouth twice daily. methotrexate, PF, 25 mg/mL soln 0.8cc SC once/week folic acid 1 mg tablet Take 1 tablet by mouth once daily. insulin syringe,safetyneedle (ASSURE ID INSULIN SAFETY) 1 mL 29 gauge x 1/2ANDquot; syrg 1 Syringe once each week. To use with SC MTX once/week traMADol (ULTRAM) 50 mg tablet Take 1 tablet by mouth every 6 hours as needed. cholecalciferol, Vitamin D3, (VITAMIN D3) 50,000 unit cap capsule Take 1 capsule by mouth once each week. levothyroxine (SYNTHROID) 137 mcg tablet Take 1 tablet by mouth once daily. omeprazole (PRILOSEC) 20 mg capsule TAKE 1 CAPSULE BY MOUTH DAILY BEFORE BREAKFAST. 1/2 HR BEFORE MEAL. fluticasone (FLONASE) 50 mcg/actuation nasal spray Use 2 Sprays in each nostril once daily. metoprolol tartrate, short acting, 25 mg tablet Take 1 tablet by mouth twice daily. loratadine (CLARITIN) 10 mg tablet Take 1 tablet by mouth once daily. ERGOCALCIFEROL, VITAMIN D2, (VITAMIN D ORAL) Take 50,000 Units by mouth once each week. 2000 units daily ALBUTEROL INHALATION Inhale as instructed. pseudoephedrine-guaiFENesin (MUCINEX D) 60-600 mg per tablet Take 1 tablet by mouth every 12 hours as needed for Cold/Allergy Symptoms. benzonatate (TESSALON PERLE) 100 mg capsule Take 1 capsule by mouth three times daily as needed. No current facility-administered medications for this visit. ALLERGIES Allergen Reactions - Bactrim [Sulfametho* Hives - Ceclor [Cefaclor] Hives - Penicillins Unknown PAST SURGICAL HISTORY Procedure Laterality Date - EGD W/O OR W/BRUSH/WASH 08/14/2011 EGD - PAST SURGICAL HISTORY OF neck fused - PAST SURGICAL HISTORY OF pelvicoscopy - PAST SURGICAL HISTORY OF right hip plate and leg surgeries - PAST SURGICAL HISTORY OF tubes in bilat ears. FAMILY HISTORY Problem Relation Age of Onset - Colon Cancer Paternal Grandfather Social History Marital status: Single Spouse name: Years of education: Number of children: Social History Main Topics Smoking status: Never Smoker Smokeless status: Never Used Alcohol use: No Drug use: No Sexual activity: Not Currently Social History Narrative Mother Kalpana Villagran REVIEW OF SYSTEMS GENERAL: Negative for Malaise, significant weight loss, fever RESPIRATORY: Negative for cough, wheezing and shortness of breath CARDIOVASCULAR: Negative for chest pain, leg swelling and palpitations GI: Negative for abdominal discomfort, blood in stools or black stools and change in bowel habits : Negative for dysuria, frequency and incontinence MUSCULOSKELETAL: Negative for joint pain or swelling, back pain, and muscle pain. SKIN: Negative for lesions, rash, and itching. HEMATOLOGY/LYMPHOLOGY Negative for prolonged bleeding, bruising easily, and swollen nodes. ENDOCRINE: Negative for cold or heat intolerance, polyuria, polydipsia and goiter. NEURO: negative Physical Exam: Constitutional: Pt is a well developed 31 year old female who is alert, oriented and cooperative Eyes: Following during examination. No redness or drainage. Respiratory: RR normal and nonlabored. Even breathing. No evidence of distress or shortness of breath. Psychology: Patient is engaged during conversation. Normal affect and mood. Does not appear depressed or anxious during encounter. Vascular: Dorsalis pedis and posterior tibial pulses palpable as b/l Capillary Fill time ANDlt; 5 seconds to digits 1-5 b/l Skin temperature warm to warm proximal to distal b/l Hair growth present to digits Neurological: intact light touch/epicritic sensation Vibratory sensation intact to hallux b/l intact protective sensation no significant neurological deficits Dermatological: Nails 1-5 b/l appear thick, discolored, painful. Webspaces clean and dry 1-4 b/l. Skin appears dry and scaly. good color, texture, turgor. No open lesions present. Callus present to left 1st metatarsal Musculoskeletal/Orthopaedic: Patient has pain to palpation of left medial eminence, 1st ray Large bunion is noted of left foot Foot type is pronated structurally AJ ROM is full with knee extended and flexed 1st MPJ is decreased when loaded and no pain or crepitus are noted with ROM. MTJ, STJ are full and free of pain and crepitus. +5/5 muscle strength dorsiflexion, plantarflexion, inversion, eversion b/l Radiographs: 3 views left great toe reviewed. Moderate bunion is noted of left foot. ASSESSMENT: (B35.1) Onychomycosis (primary encounter diagnosis) (M79.675) Pain in toe of left foot (M.674) Pain in toe of right foot (L85.9) Hyperkeratosis (M20.12) Acquired hallux valgus of left foot PLAN: 1. History and physical examination performed. 2. XR reviewed with patient and interpreted today 3. Callus of left foot debrided with sanding disk as courtesy. 4. Toenails 1-5 b/l debrided in length and thickness 5. Discussed conservative vs surgical options for bunion. Recommend wider shoes and bunion padding. 6. Patient to apply lotion to feet daily. 7. F/u in 6 weeks. Vincent Carson DPM Referring Provider: THOMPSON MALHOTRA ([facility]) [[id number]] Allergies As of Date: 04/30/2017 Noted Allergy Reaction BACTRIM (SULFAMETHOXAZOLE) 09/26/2010 4 - Hives CECLOR (CEFACLOR) 09/26/2010 4 - Hives PENICILLINS 05/25/2013 16 - Unknown Date Reviewed: 04/30/2017 Reviewed by: Regina Devlin RN - Fully Assessed Reason for Visit: New Patient [172] Primary Visit Diagnosis:Onychomycosis [B35.1] Other Visit Diagnoses:Pain in toe of left foot [M79.675] Pain in toe of right foot [M79.674] Hyperkeratosis [L85.9] Acquired hallux valgus of left foot [M20.12] Prescriptions as of 04/30/2017 Sig: SERTRALINE 25 MG TABLET Take 1 tablet by mouth once d* MULTIVITAMIN TABLET Take 1 tablet by mouth daily * DOXYCYCLINE MONOHYDRATE 100 M* Take 1 tablet by mouth twice * METHOTREXATE SODIUM (PF) 25 M* 0.8cc SC once/week FOLIC ACID 1 MG TABLET Take 1 tablet by mouth once d* INSULIN SYRINGE WITH SAFETY N* 1 Syringe once each week. To * TRAMADOL 50 MG TABLET Take 1 tablet by mouth every * CHOLECALCIFEROL (VITAMIN D3) * Take 1 capsule by mouth once * LEVOTHYROXINE 137 MCG TABLET Take 1 tablet by mouth once d* OMEPRAZOLE 20 MG CAPSULE,CARO* TAKE 1 CAPSULE BY MOUTH DAILY* FLUTICASONE 50 MCG/ACTUATION * Use 2 Sprays in each nostril * METOPROLOL TARTRATE 25 MG TAB* Take 1 tablet by mouth twice * LORATADINE 10 MG TABLET Take 1 tablet by mouth once d* VITAMIN D2 ORAL Take 50,000 Units by mouth on* ALBUTEROL INHALATION Inhale as instructed. 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] INVALID FOR* SURGERY FOLLOW-UP [V67.0] INVALID FOR* Abdominal pain, left upper quadrant [R10.12] INVALID FOR* Anxiety [F41.9] INVALID FOR* YVETTE on CPAP [G47.33, Z99.89] INVALID FOR* Allergic rhinitis [J30.9] INVALID FOR* Hypothyroidism [E03.9] INVALID FOR* Vitamin D deficiency [E55.9] INVALID FOR* Rash and nonspecific skin eruption [R21] INVALID FOR* Obesity, morbid, BMI 50 or higher (HCC) [E66.01]INVALID FOR* 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* Hip pain [M25.559] Knee pain [M25.569] CRP elevated [R79.82] Inflammatory polyarthritis (HCC) [M06.4] Acute non-recurrent maxillary sinusitis [J01.00]INVALID FOR* Hair pulling [F63.3] INVALID FOR* Encounter Status:Closed by VINCENT CARSON DPM on 04/30/17 ALLERGIES ALLERGIES DATE TYPE / NAME / CODE REACTION SEVERITY SOURCE CODE 03/24/2018 Drug cefaclor/[id number](RX Hives Unknown [place] Allergy/41 NORM) [facility] [id number]([facility]) Repository 03/24/2018 Drug sulfamethoxazole/F0060 Upset Stomach Unknown [place] Allergy/41 34124(RXNORM) Community 1991354([facility] O[facility]) Repository 03/24/2018 Drug trimethoprim/[id number] Upset Stomach Unknown [place] Allergy/41 3(RXNORM) Community 8913666([facility] OME [facility]) Repository 05/25/2013 Drug PENICILLINS UNKNOWN [place] Class/4195 Clinic Other 11995([facility] [place] [facility]) Repository 06/28/2011 DRUG SULFASALAZINE UNKNOWN [place] INGREDI/41 Clinic Main 7831589([facility] OMED [facility]) Repository 09/26/2010 DRUG SULFAMETHOXAZOLE [facility] Other 4554448([facility] OME [facility]) Repository 09/26/2010 DRUG CE[facility]ACLOR [facility] Other 0282544([facility] OMED [facility]) Repository NG/2426617 SULFAMETHOXAZOLE [facility] Repository NG/1344819 CEFACLOR [facility] Repository NG/3864141 PENICILLINS [facility] Repository ENCOUNTERS ENCOUNTERS ADMIT/DISCHARGE ACCOUNT NUMBER ADMITTING ENCOUNTER LOCATION SOURCE CLASS 04/16/2018/04/16/20 [id number] Ambulatory [address] Repository 04/14/2018/04/15/20 [id number] Ambulatory [address] Repository 04/07/2018 [id number] Ambulatory [facility] ding:NS Repository 04/06/2018 [id number] Ambulatory BMSBuilding: [place] BMS.CF.[facility] Repository 04/06/2018 [id number] Ambulatory [facility] ding:WC Repository 04/03/2018/04/06/20 [id number] Ambulatory [address] Repository 03/31/2018 [id number] Ambulatory BMSBuilding: [place] BMS.CF.[facility] Repository 03/31/2018/04/03/20 [id number] Ambulatory [address] ding:WC Repository 03/24/2018/03/24/20 [id number] [facility] Repository 03/23/2018/03/24/20 [id number] Ambulatory [address] Main [place] Repository 03/17/2018/04/03/20 [id number] Ambulatory [place] [facility] ding:NS Repository 03/14/2018/03/23/20 [id number] Ambulatory [address] Main [place] Repository 03/03/2018/03/04/20 [id number] Ambulatory [place] [facility] ding:NS Repository 02/11/2018 [id number] Ambulatory [facility] MEDICAL Repository CENTERBuildi ng:AGRHEUHWN 01/13/2018/02/02/20 [id number] Ambulatory [place] [facility] ding:NS Repository 12/31/2017/01/01/20 [id number] Ambulatory [address] Main [place] Repository 12/31/2017/01/02/20 [id number] Ambulatory [address] Main [place] Repository 12/15/2017/01/03/20 [id number] Ambulatory [place] [facility] ding:NS Repository 12/01/2017/12/03/19 [id number] Ambulatory [place] [facility] ding:NS Repository 11/21/2017/11/25/19 [id number] Ambulatory [address] Main [place] Repository 11/06/2017/11/12/19 [id number] Ambulatory [address] Main [place] Repository 10/27/2017/11/02/19 [id number] Ambulatory [place] [facility] ding:NS Repository 10/16/2017/10/24/19 [id number] Ambulatory [address] Main [place] Repository 10/13/2017 [id number] Ambulatory [facility] Main [place] Repository 10/13/2017/10/15/19 [id number] Ambulatory [address] Main [place] Repository 09/24/2017 [id number] Ambulatory [facility] Other [place] Repository 09/24/2017/09/25/19 [id number] Ambulatory [address] MEDICAL Repository CENTERBuildi ng:AKLBS 09/24/2017/05/23 [id number] Ambulatory [address] Other [place] Repository 09/24/2017/09/25/19 [id number] Ambulatory [address] MEDICAL Repository CENTERBuildi ng:AGRHEUHWN 09/01/2017/09/02/19 [id number] Ambulatory [place] ding:NS Repository 08/06/2017/08/08/19 [id number] Ambulatory [address] Main [place] Repository 08/01/2017 [id number] Ambulatory [facility] ding:CVS Repository 08/01/2017 [id number] Ambulatory BMSBuilding: [facility] Repository 07/02/2017/07/02/19 [id number] Ambulatory [address] Main [place] Repository 07/02/2017/07/05/19 [id number] Ambulatory [address] Main [place] Repository 06/24/2017/06/24/19 [id number] Ambulatory [address] Main [place] Repository 05/02/2017/05/02/20 [id number] Ambulatory [address] Main [place] Repository 04/30/2017/05/02/20 [id number] Ambulatory [address] Main [place] Repository PAYERS PAYERS ENCOUNTER GUARANTOR PAYER SUBSCRIBER SOURCE 04/07/2018 DANNI Velasco Primary Insurance:[facility]NI [id number] [place] Number: [id number] Hospital [address]Wda: [phone] [id number] Repository [phone] () Date:7318-37-35HJ[address] [address]WX: 04/07/2018 Secondary NOT GIVENUNK [place] Insurance:SELF PAY [facility] Number: Effective Repository Date:2018-04-04 04/06/2018 DANNI Velasco Primary Insurance:[facility] DANNI Pat[facility]Roger [facility] [id number] [facility] [place] Number: [id number] Hospital [address]Rsg: [phone]) [id number] Repository [phone] () Date:5815-87-43QE [address] [address]QE: 04/06/2018 Secondary NOT GIVENUNK [place] Insurance:SELF PAY [facility] Number: Effective Repository Date:2018-04-06 04/06/2018 DANNI A Primary Insurance:[facility] DANNI A [place] [id number] [facility] PLANPolicy LOWEDOB: [facility] [place] Number: [id number] Hospital [address]Bzp: 330 [id number] Repository [phone] () Date:5326-18-28TY [address] [address]UO: 04/06/2018 Secondary NOT GIVENUNK [place] Insurance:SELF PAY [facility] Number: Effective Repository Date:2018-04-04 03/31/2018 DANNI A Primary Insurance:[facility] DANNI A [place] [id number] [facility] PLANPolicy LOWEDOB: [facility] [place] Number: [id number] Hospital [address]Dgk: (323) [id number] Repository [phone] () Date:9935-35-74OD[address] [address]LB: 03/31/2018 Secondary NOT GIVENUNK [place] Insurance:SELF PAY [facility] Number: Effective Repository Date:2018-03-31 03/31/2018 DANNI A Primary Insurance:[facility] DANNI A [place] [id number] [facility] PLANPolicy LOWEDOB: [facility] [place] Number: [id number] Hospital [address]Hxx: (141) [id number] Repository [phone] () Date:0447-25-73PK[address] [address]QP: 03/31/2018 Secondary NOT GIVENUNK [place] Insurance:SELF PAY [facility] Number: Effective Repository Date:2018-03-25 03/24/2018 DANIN A Primary Insurance:[facility] DANNI A [place] [id number] [facility] PLANPolic LOWEDOB: [facility] [place] Number: [id number] Hospital [address]Qoi: 330 [id number] Repository [phone] () Date:8585-61-86NP [address] [place] [address]RD: 03/24/2018 Secondary NOT GIVENUNK [place] Insurance:SELF PAY [facility] Number: Effective Repository Date:2018-03-24 03/17/2018 DANNI A Primary DANNI A [place] [id number] VALLEY Insurance:[facility] LOWEDOB: Community [facility] CARE [id number] Hospital [address]Dwy: (330) Number: Repository [phone] () [id number] Date:5521-25-16BA[address] [address]EK: 03/17/2018 Secondary NOT GIVENUNK [place] Insurance:SELF PAY [facility] Number: Effective Repository Date:2018-03-05 03/03/2018 DANNI A Primary DANNI A [place] [id number] [place] Insurance:[employer] LOWEDOB: Community [facility] CENTERJORD[place], [place] CARE [id number] Hospital [address]Pym: (330) Number: Repository [phone] () [id number] Date:6762-37-40BF[address] [address]FA: 03/03/2018 Secondary NOT GIVENUNK [place] Insurance:SELF PAY [facility] Number: Effective Repository Date:2018-02-02 02/11/2018 DANNI A Primary Insurance:[facility] DANNI A [facility] LOWEDOB: COMMUNITY PLAN LOWEDOB: Health System MEDICAIDPolicy [id number] Repository [place] Number: [place] [id number] [address]Awv: (330) Date: [phone] () 01/13/2018 DANNI A Primary DANNI A [place] [id number] VAL[place] Insurance:[employer] LOWEDOB: [place] CARE [id number] [id number] Hospital [address]Bmu: (330) Number: Repository [phone] () [id number] Date:7950-03-86XK [address] [address]GG: 01/13/2018 Secondary NOT GIVENUNK [place] Insurance:SELF PAY [facility] Number: Effective Repository Date:2018-01-03 12/15/2017 DANNI A Primary DANNI A [place] [id number] VAL[place] Insurance:[employer] LOWEDOB: [place] CARE [id number] [id number] Hospital [address]Ppy: (330) Number: Repository [phone] () [id number] Date:3783-88-89FB [address] [address]CS: 12/15/2017 Secondary NOT GIVENUNK [place] Insurance:SELF PAY [facility] Number: Effective Repository Date:2017-12-03 12/01/2017 DANNI A Primary DANNI A [place] [id number] [place] Insurance:[employer] LOWEDOB: [place] CARE [id number] [id number] Hospital [address]Bme: (330) Number: Repository [phone] () [id number] Date:1239-57-93LL [address] [address]GF: 12/01/2017 Secondary NOT GIVENUNK [place] Insurance:SELF PAY [facility] Number: Effective Repository Date:2017-11-02 10/27/2017 DANNI A Primary DANNI A [place] [id number] [place] Insurance:[employer] LOWEDOB: [facility] [place] C[place] [id number] [id number] Hospital [address]Def: (330) Number: Repository [phone] () [id number] Date:6485-41-99AF[address] [address]GK: 10/27/2017 Secondary NOT GIVENUNK [place] Insurance:SELF PAY [facility] Number: Effective Repository Date:2017-09-02 09/24/2017 DANNI A Primary Insurance:[facility] DANNI A [facility] LOWEDOB: COMMUNITY PLAN LOWEDOB: Health System MEDICAIDPolicy [id number] Repository [place] Number: [place] [id number] [address]Oeh: (330) Date: [phone] () 09/24/2017 DANNI A Primary Insurance:[facility] DANNI A [facility] LOWEDOB: COMMUNITY PLAN LOWEDOB: Health System MEDICAIDPolicy [id number] Repository [place] Number: [place] [id number] [address]Lzd: (330) Date: [phone] () 09/01/2017 DANNI A Primary DANNI A [place] [id number] [place] Insurance:[employer] LOWEDOB: Community [facility] [place] CARE [id number] Hospital [address]Mmr: (330) Number: Repository [phone] () [id number] Date:2491-72-38NQ[address] [address]RJ: 09/01/2017 Secondary NOT GIVENUNK [place] Insurance:SELF PAY [facility] Number: Effective Repository Date:2017-07-29 08/01/2017 DANNI A Primary DANNI A [place] [id number] [place] Insurance:[employer] LOWEDOB: [facility] C[place] [id number] Hospital [address]Hui: (330) Number: Repository [phone] () [id number] Date:9924-70-54[id number] [place] [address]RB: 08/01/2017 Secondary DANNI A [place] Insurance:[facility] LOWEDOB: Community [facility] Centericy [id number] Hospital Number: Repository [id number] Date:0214-59-27XU[address] [address]TG: 08/01/2017 Tertiary NOT GIVENUNK [place] Insurance:SELF PAY [facility] Number: Effective Repository Date:2017-07-15 08/01/2017 DANNI A Primary Insurance:[facility] DANNI Velasco [place] [id number] [facility] LOWEDOB: [facility] HospitalWM[facility] [place] Number: [id number] Hospital [address]Mcp: ([phone]) [id number] Repository [phone] () Date:6752-58-19OR[address] [address]HA: 08/01/2017 Secondary NOT GIVENUNK [place] Insurance:SELF PAY [facility] Number: Effective Repository Date:2017-08-01
== END 2018-04-03 23:59 ==
LOC: WC 13:02
PROVIDERS: Family Provider Student in an Organized Health Care Education/Training Program; PCP Student in an Organized Health Care Education/Training Program; Visit Provider Nurse Practitioner Family
DX: L98.491 Non-pressure chronic ulcer of skin of other sites limited to breakdown of skin (principal); Q90.9 Down syndrome, unspecified
CPT/HCPCS: 11042; 99212; G0463

== ENCOUNTER 2018-04-06 08:31 | Outpatient (RCR) | payer MEDICAID, SELFPAY ==
[2018-04-04 02:10] VITALS: BP 114/77; PULSE 80; RESP 16; TEMP 35.9
[2018-04-06 10:32] VITALS: BP 133/62; PULSE 68; RESP 18; TEMP 36; BMI 48.6
--- NOTE | 2018-04-06 11:47 | PCM.WC.PN ---
(1) Skin ulcer of nose Status: Acute Current Visit: Yes Code(s): L98.499 - Non-pressure chronic ulcer of skin of other sites with unspecified severity (2) History of Down syndrome Status: Chronic Current Visit: No Code(s): Q90.9 - Down syndrome, unspecified Type of Wound Date of Service: 04/06/18 Chief Complaint: Sore on left side of nose that most likely was caused by sleeping with her glasses on. History of Wound: Sore on left side of nose occurred about a month ago. Noemy has Down Syndrome and her mother believes Noemy fell asleep with her eye glasses on about a month ago. They have not been able to get the sore to heal using bactroban ointment. With the constant pressure from wearing her glasses and Noemy picking at the sore has also prevented it from healing. She has been placed on Keflex by her PCP. Started on Collegen hydrogel 03/31/18. - Physical Exam Vital Signs Temp Pulse Resp BP 96.8 F L 68 18 133/62 H 04/06/18 10:32 04/06/18 10:32 04/06/18 10:32 04/06/18 10:32 General: Alert, Cooperative HEENT: Atraumatic Oral: Moist Mucosa Skin: Ulcer/ Wound - Left side of nose Wound Measurements and Assessment WC - Nurse 1 - General Ulcer Measurement Start: 04/06/18 10:32 Freq: Status: Active Protocol: Activity Type Activity Date Activity User E-Sign Co-Sign Detail Recorded Client Recorded Date Recorded By Document 04/06/18 10:32 [id number] 04/06/18 10:34 04/06/18 10:32 Wound Center Nurse 1 [Ulcer Assessment] #1 Left Bridge of Nose -Combined with other wound No -Current Size (cm) - Length 0.1 -Current Size (cm) - Width 0.1 -Current Size (cm) - Depth 0.1 -Total Square Cm 0.01 -Photo Taken No -Epithelialization Large 67-100% -Tunneling No -Undermining/Tunneling No -Circular Undermining No -Classification - Thickness Partial Thickness -Exudate Amt None Present (0 %) -Wound Margin Distinct, Outline Attached -Granulation Amt Large (67-100%) -Granulation Quality [place] -Slough/Fibrin Yes -Necrosis Amt Small (1-33%) -Necrotic Tissue Type Adherent Slough -Structure Exposed None/Limited to Skin Breakdown -Texture (Suzette-wound Skin Appearance) Assessed Scarring -Moisture (Suzette-wound Skin Appearance No Abnormality ) Assessed -Color (Suzette-wound Skin Appearance) No Abnormality Assessed -Temperature (Suzette-wound Skin No Abnormality Appearance) (Pt Warm) -Tenderness on Palpation (Suzette-wound No Skin Appearance) -Ulcer Cleansing Rinsed/ Irrigated with Saline -Foul Odor after Cleansing No -Anesthetic Used 4% Lidocaine Solution [Edema Assessment] -Lower Limb Edema Present No WC - Nurse 2 - General Ulcer CM Notes Start: 04/06/18 10:32 Freq: Status: Active Protocol: Activity Type Activity Date Activity User E-Sign Co-Sign Detail Recorded Client Recorded Date Recorded By Document 04/06/18 11:02 [id number] 04/06/18 11:03 04/06/18 11:02 Wound Center Nurse 2 [Procedure/Treatment] #1 Left Bridge of Nose -Correct Patient No -Correct Side, Site, Position No -Correct Procedure No -Procedure Performed No -Post Debridement Size (cm) - Length 0 -Post Debridement Size (cm) - Width 0 -Post Debridement Size (cm) - Depth 0 -Total Square Cm 0 -Wound/Ulcer Outcome Healed- Epithelialized [See Physician Procedure note for Specifics] Pain Scale: 0-10 Numeric [Pain] -Is Patient Pain Free? Yes Musculoskeletal: No Tenderness to Palpation of Joints or Extremities Neurological: Neuro grossly intact Psych/Mental Status: Normal Affect, Appropriate Debridement Note Post-Debridement Measurements/Treatment - Nurse 2 - General Ulcer CM Notes Start: 04/06/18 10:32 Freq: Status: Active Protocol: Activity Type Activity Date Activity User E-Sign Co-Sign Detail Recorded Client Recorded Date Recorded By Document 04/06/18 11:02 [email or web address] [email or web address] 04/06/18 11:03 04/06/18 11:02 Wound Center Nurse 2 #1 Left Bridge of Nose -Correct Patient No -Correct Side, Site, Position No -Correct Procedure No -Procedure Performed No -Post Debridement Size (cm) - Length 0 -Post Debridement Size (cm) - Width 0 -Post Debridement Size (cm) - Depth 0 -Total Square Cm 0 -Wound/Ulcer Outcome Healed- Epithelialized Pain Scale: 0-10 Numeric Is Patient Pain Free? Yes No debridement was completed today Assessment/Plan Active Problems Skin ulcer of nose (Acute) Assessment: 1. Skin Ulcer of Left Nose. 2. History of Down Syndrome Plan: The patient was seen and examined at the wound center today. She and her mother and were updated on the plan of care. No debridement was performed today. Patient's wound is healed. Stopcollagen hydrogel. Continue to place guaze dressing and secured with silicone tape for another week to help strenghthen tissue and prevent pressure on ulcer. With this padding the patient should be able to wear her glasses. Will discharge her from the wound center today. Follow up if wound reoccurs. Code Visit Office Visits / Consults: [id number] OV L3 Est
--- OUTSIDE RECORDS SUMMARY | 2018-05-30 09:01 | XMS RPT_ITS ---
:1985 Author Organization OHIP Support Name Relationship Address Phone KALPANA VILLAGRAN Unavailable [address] + [place] [address] D Unavailable Unavailable Unavailable LOWE, JOSÉ Unavailable [address] + [place] [address] TYSHAWN KALPANA Unavailable [address] + [place] [address] D Unavailable Unavailable Unavailable LOWE, JOSÉ Unavailable [address] + [place] [address] TYSHAWN KALPANA Unavailable [address] + [place] [address] D Unavailable Unavailable Unavailable LOWE, JOSÉ Unavailable [address] + [place] [address] TYSHAWN KALPANA Unavailable [address] + [place] [address] D Unavailable Unavailable Unavailable LOWE, JOSÉ Unavailable [address] + [place] [address] KARTIK VILLAGRANINA Unavailable [address] + [place] [address] D Unavailable Unavailable Unavailable LOWE, JOSÉ Unavailable [address] + [place] [address] TYSHAWN KALPANA Unavailable [address] + [place] [address] D Unavailable Unavailable Unavailable LOWE, JOSÉ Unavailable [address] + [place] [address] TYSHAWN KALPANA Unavailable [address] + [place] [address] D Unavailable Unavailable Unavailable LOWE, JOSÉ Unavailable [address] + [place] [address] TYSHAWN KALPANA Unavailable [address] + [place] [address] D Unavailable Unavailable Unavailable LOWE, JOSÉ Unavailable [address] + [place] [address] TYSHAWN KALPANA Unavailable [address] + [place] [address] D Unavailable Unavailable Unavailable LOWE, JOSÉ Unavailable [address] + [place] [address] TYSHAWN KALPANA Unavailable [address] + [place] [address] D Unavailable Unavailable Unavailable LOWE, JOSÉ Unavailable [address] + [place] [address] TYSHAWN KALPANA Unavailable [address] + [place] [address] D Unavailable Unavailable Unavailable LOWE, JOSÉ Unavailable [address] + [place] [address] TYSHAWN KALPANA Unavailable [address] + [place] [address] D Unavailable Unavailable Unavailable LOWE, JOSÉ Unavailable [address] + [place] [address] TYSHAWN KALPANA Unavailable [address] + [place] [address] D Unavailable Unavailable Unavailable LOWE, JOSÉ Unavailable [address] + [place] [address] TYSHAWN KALPANA Unavailable [address] + [place] [address] D Unavailable Unavailable Unavailable LOWE, JOSÉ Unavailable [address] + [place] [address] TYSHAWN KALPANA Unavailable [address] + [place] [address] D Unavailable Unavailable Unavailable LOWE, JOSÉ Unavailable [address] + [place] [address] Care Team Providers Name Role Phone Trent Horowitz Primary Care Unavailable Tam Liudmila Attending Unavailable Tam, Liudmila Referring Unavailable Trent Horwoitz Attending Unavailable Trent Horowitz Primary Care Unavailable [...] Consulting Unavailable Juan Roca Referring Unavailable AZEM, SEPTEMBER Attending Unavailable MARTIR, SEPTEMBER Referring Unavailable MARTIR, SEPTEMBER Referring Unavailable TESTVINCENT GELLER Attending Unavailable THOMPSON MALHOTRA ([facility]) Referring Unavailable TESTRAKEVINCENT Attending Unavailable TESTRAKE, VINCENT Referring Unavailable HOROWITZ, TRENT L Attending Unavailable HOROWITZ, TRENT L Referring Unavailable HOROWITZ, TRENT L Referring Unavailable TESTRAKEVINCENT Attending Unavailable TESTRAKE, VINCENT Referring Unavailable CORNIELLO, ENRIQUETA L ([facility]) Attending Unavailable HOROWITZ, TRENT L Referring Unavailable CORNIELLO, ENRIQUETA L ([facility]) Referring Unavailable CORNIELLO, ENRIQUETA Allison ([facility]) Referring Unavailable TESTRAKEVINCENT Attending Unavailable TESTRAKE, VINCENT Referring Unavailable CORNIELLO, ENRIQUETA L ([facility]) Referring Unavailable HOROWITZ, TRENT L Attending Unavailable HOROWITZ, TRENT L Referring Unavailable HOROWITZ, TRENT L Referring Unavailable HOROWITZ, TRENT L Attending Unavailable TESTRAKEVINCENT Attending Unavailable TESTRAKE, VINCENT Referring Unavailable HOROWITZ, TRENT L Referring Unavailable Marcin MCMAHAN SEPTEMBER Attending Unavailable Marcin MCMAHAN SEPTEMBER Referring Unavailable HOROWITZ, TRENT L Primary Care Unavailable Marcin MCMAHAN SEPTEMBER Attending Unavailable Marcin MCMAHAN SEPTEMBER Referring Unavailable HOROWITZ, TRENT L Primary Care Unavailable Marcin MCMAHAN SEPTEMBER Referring Unavailable HOROWITZ, TRENT L Primary Care Unavailable PROBLEMS PROBLEMS DATE TYPE CONDITION / CODE ATTENDING STATUS SOURCE 04/16/2018 Active Abnormal findings on NA Active [facility] Main of other parts of [place] musculoskeletal Repository system / R93.7(ICD-10) 04/16/2018 Active Arthrodesis status / NA Active [facility] Z98.1(ICD-10) Clinic Main [place] Repository 04/16/2018 Active Personal history of NA Active [facility] (healed) traumatic Clinic Main fracture / [place] Z87.81(ICD-10) Repository 04/04/2018 Unknown E66.01 - Morbid Horowitz, Active [place] (severe) obesity due [facility] to excess calories / Hospital E66.01(ICD-10) Repository 03/05/2018 Unknown Z68.30 - Body mass Horowitz, Active [place] index (BMI) [facility] 30.0-30.9, adult / Hospital Z68.30(ICD-10) Repository 12/31/2017 Active Cervicalgia / NA Active [facility] M54.2(ICD-10) Clinic Main [place] Repository 10/13/2017 Active Encounter for NA Active [facility] antibody response Clinic Main examination / [place] Z01.84(ICD-10) Repository 08/27/2016 Active 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 / Clinic Other M06.4(ICD-10) [place] Repository 08/27/2016 Active Elevated C-reactive AZEM, MAY Active [facility] protein (CRP) / Clinic Other R79.82(ICD-10) [place] Repository 05/23/2016 Active Pain in right knee / AZEM, MAY Active [facility] M25.561(ICD-10) Clinic Other [place] Repository 05/23/2016 Active Pain in left knee / AZEM, MAY Active [facility] M25.562(ICD-10) Clinic Other [place] Repository 05/23/2016 Active Other chronic pain / AZEM, MAY Active [facility] G89.29(ICD-10) Clinic Other [place] Repository 05/23/2016 Active Pain in right hip / AZEM, MAY Active [facility] M25.551(ICD-10) Clinic Other [place] Repository 05/23/2016 Active Pain in left hip / AZEM, MAY Active [facility] M25.552(ICD-10) Clinic Other [place] Repository 05/23/2016 Active Juvenile AZEM, 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, [place] unspecified, left Repository leg / M91.92(ICD-10) 06/15/2013 Active Vitamin D September Active [place] deficiency, [facility] Other unspecified / [place] E55.9(ICD-10) Repository 06/15/2013 Active Hypothyroidism, , SEPTEMBER Active [facility] unspecified / Clinic Other E03.9(ICD-10) [place] Repository 03/24/2002 Active Down syndrome, , SEPTEMBER Active [facility] unspecified / Clinic Other Q90.9(ICD-10) [place] Repository 08/27/2016 Admitting Unknown / Marcin MCMAHAN SEPTEMBER Active [facility] UNK(Unknown) [facility] System Repository 08/06/2017 Active Unknown / TESTRAKE, Active [place] UNK(Unknown) [facility] Repository 01/01/2018 Unknown I34.1 - Nonrheumatic Fish, Liudmila Active [place] mitral (valve) Community prolapse / Hospital I34.1(ICD-10) Repository 07/02/2017 Active 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 0505 - CT CERVICAL SPINE WO IVCON [...] vertebrae with counting from the craniocervical junction. Hoop Maker Helper Machine: JENI Transcribe Date/Time: Apr 16 2018 12:58P Dictated by : SONDRA GUADALUPE MD This examination was interpreted and the report reviewed and electronically signed by: SONDRA GUADALUPE MD on Apr 16 2018 1:03PM EST [id number] PROGRESS Observed: 04/16/2018 Status: COMPLETED Source: [place] 11:56 AM [facility] REPOSITORY HNO ID: [id number] Author: Anabel Mi Service: (none) Author Type: [...] AM PROGRESS Observed: 04/14/2018 Status: COMPLETED Source: [place] 8:34 AM [facility] REPOSITORY HNO ID: [id number] Author: Vincent Carson Service: (none) Author Type: [...] 04/14/2018 Status: COMPLETED Source: [place] 8:10 AM [facility] REPOSITORY Office Visit (PODIWS) DANNI EVANS ([id number]) [address] [facility] Date Time Provider Department 04/14/18 [...] Vincent Carson DPM Referring Provider: VINCENT CARSON [[id number]] Allergies As of Date: 04/14/2018 Noted Allergy [...] 04/14/18 PROGRESS Observed: 04/03/2018 Status: COMPLETED Source: [place] 3:46 PM [facility] [place] REPOSITORY O ID: [id number] Author: Trent Horowitz Service: (none) Author Type: Physician Type: Progress Notes Filed: 04/03/2018 4:33 PM Note Text: YESSICA Evans is a 32 year old female [...] inhalers as prescribed ? Inflammatory polyarthritis, seeing Director Career Services still, has upcoming labs and appt ? She was started on Zoloft ? At last OFFICE VISIT 6 months ago Per mother she is still irritable and hair pulling/picking as well as cursing at me. ?No aggression. ??No SI or HI. ?Still able to be working at the [employer]. ? Seeing Car [facility] Dr. Flores for congenital heart disease hx. ? Seeing Director Career Services for chronic inflammatory joint changes. ? At [...] that time ? Still continuing to see Car Hiker Currently Neck pain, hasn't had CT neck completed yet, appt has to be rescheduled, having it completed at [facility] then will see Spine Surgeon Dr. Harper Inflammatory joint disease, seeing Dr. Mcmahan Director Career Services, taking Tramadol as prescribed up to 3 [...] forearm - Congenital heart disease Dr. Kong Car Hiker - Congestive heart failure, unspecified - CRP [...] Trent Horowitz DO [address] [place] [address] PROGRESS Observed: 04/03/2018 Status: COMPLETED Source: [place] 2:48 PM [facility] [place] REPOSITORY HNO ID: [id number] Author: Annelise Charles ([place]) CHIOMA Putnam Service: (none) Author Type: LICENSED NURSE Type: Progress Notes Filed: 04/03/2018 4:33 PM Note Text: 32 year old female here for INACTIVATED INFLUENZA VACCINE. 7756-0788 Season Patient is identified by name and date of : Yes [] CONTRAINDICATIONS color enhanced section Age less than 6 months? No Allergy to eggs, chicken, chicken feathers, or chicken dander? No Allergy to thimerosal (a preservative) or formaldehyde, gelatin? No History of severe reaction to any vaccine component or a previous dose of influenza vaccination? 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 Yes See immunization activity in [facility] for details of immunizations adminstered today. Patient age: [age] year old For The 4929-3895 Flu Season 6-35 months old: Fluzone 0.25 [...] time. CNOV Observed: 04/03/2018 Status: COMPLETED Source: [place] 2:40 PM [facility] REPOSITORY Office Visit (FAMPWS) DANNI EVANS ([id number]) 1985 F [facility] Date Time Provider Department 04/03/18 2:40 PM [facility] today, we recorded the [...] dose of influenza vaccination? 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 Yes See immunization activity in [facility] for details of immunizations adminstered today. Patient age: [age] year old For The 4274-0117 Flu Season 6-35 months old: Fluzone 0.25 [...] in one months time. Annelise Putnam LPN, PACKING ROOM SUPERVISOR 04/03/2018 2:52 PM Signed Pt c/o neck [...] inhalers as prescribed ? Inflammatory polyarthritis, seeing Director Career Services still, has upcoming labs and appt ? She was started on Zoloft ? At last OFFICE VISIT 6 months ago Per mother she is still irritable and hair pulling/picking as well as cursing at me. ?No aggression. ??No SI or HI. ?Still able to be working at the [employer]. ? Seeing Car [employer] Dr. Flores for congenital heart disease hx. ? Seeing Director Career Services for chronic inflammatory joint changes. ? At [...] that time ? Still continuing to see Car Hiker Currently Neck pain, hasn't had CT neck completed yet, appt has to be rescheduled, having it completed at [facility] then will see Spine Surgeon Dr. Harper Inflammatory joint disease, seeing Dr. Mcmahan Director Career Services, taking Tramadol as prescribed up to 3 [...] forearm - Congenital heart disease Dr. Kong Car Hiker - Congestive heart failure, unspecified - CRP [...] plan. See patient instructions. Trent Horowitz DO [address] [place] [address] Annelise Putnam LPN, CHIOMA 04/03/2018 4:04 PM [...] QUADRIVALENT AGE 3 YRS PLUS + IM [[id number]] Order #: [id number] traMADol (ULTRAM) 50 mg tablettake 1 tablet [...] F Source: [place] AND PHYSICAL 4:11 PM [facility] REPOSITORY [facility] W[facility] [address] [place] [id number] Wound Ctr History AND Physical 03/31/18 1429 MR#: [id number] Acct: [id number] Name: DANNI EVANS Rep #: [id number] : 1985 32 From: Glendy DUC PCP: [...] Date Recorded By Document 03/31/18 13:46 CS [id number] 03/31/18 14:06 Wound Center Nurse 1 WC - Nurse 2 - General Ulcer CM Notes Start: 03/31/18 13:45 Freq: Status: Active Protocol: Activity Type Activity Date Activity User E-Sign Co-Sign Detail Recorded Client Recorded Date Recorded By Document 03/31/18 14:14 ELOISA [id number] 03/31/18 14:21 ELOISA Musculoskeletal: No Tenderness to Palpation of Joints or Extremities Neurological: Neuro grossly intact Psych/Mental Status: Normal Affect, Appropriate Debridement Note Post-Debridement Measurements/Treatment WC - Nurse 2 - General Ulcer CM Notes Start: 03/31/18 13:45 Freq: Status: Active Protocol: Activity Type Activity Date Activity User E-Sign Co-Sign Detail Recorded Client Recorded Date Recorded By Document 03/31/18 14:14 [id number] 03/31/18 14:21 Wound Center Nurse 2 #1 [...] week. Code Visit Office Visits / Consults: 54005 OV L3 New 111xxx-113xx: 42886 Ivana subq tissue 20 sq cm/< - 25 modifier 04/01/18 1611 <Electronically signed by Glendy GARDUNO> Date Glendy Nowak NP-C CC: Signed EMERGENCY DEPARTMENT Observed: 03/25/2018 Status: F Source: [place] SUMMARY 1:43 AM [facility] REPOSITORY [facility] Medical Records Department [address] [place] [address] Emergency Department Summary 03/24/18 1716 MR#: [id number] Acct: [id number] Name: DANNI EVANS Rep #: [id number] : 1985 32 From: Elayne Shah MD PCP: Trent Giang DO Status: DEP ER - ER Visit Summary Date of Service: 03/24/18 Chief Complaint: Nasal wound History of Present Illness: The patient is a 32 F with a history of Down's. She is brought in by staff from her shelter. She developed left nasal bridge wound from [...] nasal bridge This note was generated with SIMI dictation software. It may contain incorrect words, [...] your Primary Care Provider. Call [facility] ([phone]) or report to the closest Emergency Room. Call 911 if necessary. 03/25/18 0143 <Electronically signed by Elayne Shah MD> Date Elayne Shah MD Cosigner Signature (If Indicated): Date CC: Trent Giang DO DISCHARGE INSTRUCTION Observed: 03/24/2018 Status: F Source: [place] 5:23 PM [facility] REPOSITORY [facility] Medical Records Department [address] [place] [address] Discharge Instruction 03/24/18 1718 MR#: [id number] Acct: [id number] Name: DANNI EVANS Rep #: [id number] : 1985 32 From: Elayne Shah MD [...] - Additional Instructions: Follow-up with Wound Center [phone] What to do if you have Problems For any increased pain, shortness of breath, bleeding, nausea or vomiting, chest pain, or any unexpected problems, contact your Primary Care Provider. Call [facility] ([phone]) or report to the closest Emergency Room. Call 911 if necessary. 03/24/18 1723 <Electronically signed by Elayne Shah MD> Date Elayne Shah MD Cosigner Signature (If Indicated): Date CC: Trent Giang, PROGRESS Observed: 03/23/2018 Status: COMPLETED Source: [place] 6:13 PM [facility] [place] REPOSITORY HNO ID: [id number] Author: Izabel Hanley Service: (none) Author Type: Nurse Practitioner Type: Progress Notes Filed: 03/23/2018 6:20 PM Note Text: Subjective HPI Pt presents with c/o persistent cough, post nasal drip and sore on nose x 2 weeks. Was evaluated and treated here at [facility] on 03/14. Dx viral uri and BAOM, [...] forearm - Congenital heart disease Dr. Kong Car Hiker - Congestive heart failure, unspecified - CRP [...] CNP CNOV Observed: 03/23/2018 Status: COMPLETED Source: [place] 5:00 PM [facility] REPOSITORY Office Visit (WSTR) DANNI EVANS ([id number]) [address] [facility] Date Time Provider Department 03/23/18 5:00 PM IZABEL HANLEY [facility] During your visit today, we recorded the following information about you: Temperature Pulse Respiration Blood pressure 98.2 degrees 73/minute 18/minute 104/70 Weight 106.4 kg Izabel Hanley APRN.CNP 03/23/2018 6:20 PM Signed Subjective HPI Pt presents with c/o persistent cough, post nasal drip and sore on nose x 2 weeks. Was evaluated and treated here at [facility] on 03/14. Dx viral uri and BAOM, [...] forearm - Congenital heart disease Dr. Kong Car Hiker - Congestive heart failure, unspecified - CRP [...] 0 CONSULT TO DERMATOLOGY [9006] Order #: [id number]: 1 Prescriptions as of 03/23/2018 Sig: MUPIROCIN [...] Text Izabel Hanley APRN.CNP Urgent Care [address] [facility] [address] Dept: [phone] 03/23/[address] [facility] [address] To Whom it May Concern: This is to certify that Danni Evans was seen at our office for medical care. Danni may return to work on 03/25/2018. If you have any questions please feel free to call. Sincerely: Izabel Hanley APRN.CNP Encounter Status:Closed by IZABEL HANLEY CNP on 03/23/18 PROGRESS Observed: 03/20/2018 Status: COMPLETED Source: [place] 6:11 PM [facility] REPOSITORY HNO ID: [id number] Author: Scarlett Mahoney (Shagufta) Dev Service: (none) [...] forearm - Congenital heart disease Dr. Kong Car Hiker - Congestive heart failure, unspecified - CRP [...] units daily ALBUTEROL INHALATION Inhale as instructed. Wrtwxqauylyydud-Mgxnactqa-FC (BROMFED DM) 2-30-10 mg/5 mL syrup Take [...] Patient agreeable to treatment plan. Scarlett Méndez APRN.COLLATERAL ANALYST PROGRESS Observed: 03/14/2018 Status: COMPLETED Source: [place] 1:18 PM [facility] REPOSITORY HNO ID: [id number] Author: Kimberley Garcia Ma Service: (none) Author Type: (none) Type: Progress Notes Filed: 03/20/2018 6:13 PM Note Text: 32 year old female here for INACTIVATED INFLUENZA VACCINE. 8774-7395 Season Patient is identified by name and date of : Yes [] CONTRAINDICATIONS color enhanced section Age less than 6 months? No Allergy to eggs, chicken, chicken feathers, or chicken dander? No Allergy to thimerosal (a preservative) or formaldehyde, gelatin? No History of severe reaction to any vaccine component or a previous dose of influenza vaccination? 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 Yes See immunization activity in [facility] for details of immunizations adminstered today. Patient age: [age] year old For The 0357-9308 Flu Season 6-35 months old: Fluzone 0.25 [...] time. CNOV Observed: 03/14/2018 Status: COMPLETED Source: [place] 1:15 PM [facility] REPOSITORY [facility] D[facility] EV[facility] ([id number]) 1985 F [facility] Date Time Provider Department 03/14/18 1:15 PM SCARLETT MÉNDEZ (ENROLLMENT SERVICES DEAN) [facility] During your visit today, we recorded [...] dose of influenza vaccination? 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 Yes See immunization activity in [facility] for details of immunizations adminstered today. Patient age: [age] year old For The 1912-0018 Flu Season 6-35 months old: Fluzone 0.25 [...] dose in one months time. Scarlett Méndez APRN.COLLATERAL ANALYST 03/20/2018 6:13 PM Signed Subjective HPI Patient [...] forearm - Congenital heart disease Dr. Kong Car Hiker - Congestive heart failure, unspecified - CRP [...] units daily ALBUTEROL INHALATION Inhale as instructed. Rbhwhpsvpmexcga-Nlkctumcf-VA (BROMFED DM) 2-30-10 mg/5 mL syrup Take [...] Patient agreeable to treatment plan. Scarlett Méndez APRN.COLLATERAL ANALYST Referring Provider: SELF [200] Allergies As of Date: 03/14/2018 Noted Allergy Reaction BACTRIM (SULFAMETHOXAZOLE) 09/26/2010 4 - Hives CECLOR (CEFACLOR) 09/26/2010 4 - Hives PENICILLINS 05/25/2013 16 - Unknown SULFASALAZINE 06/28/2011 16 - Unknown Date Reviewed: 03/14/2018 Reviewed by: Scarlett Mahoney (Microfilm Processor) Dev - Fully Assessed Reason for Visit: URI [115] Imm/Inj [58] Cmt: Flu Vaccine Reason For Visit History Recorded Primary Visit Diagnosis:Viral URI with cough [J06.9, B97.89] Other Visit Diagnoses:Acute suppurative otitis media of both ears without spontaneous rupture of tympanic membranes, recurrence not specified [H66.003] Infection of skin and subcutaneous tissue [L08.9] Order(s):Mucbetllfdndoot-Grptalkjm-HQ (BROMFED DM) 2-30-10 mg/5 mL syrupTake 10 [...] ordered this encounter Disp Refills Start End SYRFUKDTDZBESMQ-YOJTLQCFWBLFWBD-KJ 2* 240 * 0 03/14/2018 03/21/2018 Route: [...] 4V AP/PA/LAT/MERCH Observed: 12/31/2017 Status: F Source: [facility] 10:25 AM [facility] REPOSITORY * * *Final Report* * * [...] of the left medial tibiofemoral joint compartment. [place] views demonstrate mild symmetric narrowing of the patellofemoral joint compartment on the left. Right patellofemoral joint space appears grossly preserved, views are somewhat underpenetrated due to patient body habitus. There is no significant joint fluid. The soft tissues are unremarkable. IMPRESSION: Degenerative changes as detailed in report. Hoop Maker Helper Machine: PSCB Transcribe Date/Time: Dec 31 2017 4:03P Dictated by : OMID LUONG MD This examination was interpreted and the report reviewed and electronically signed by: OMID LUONG MD on Dec 31 2017 4:54PM EST [id number] XR CERVICAL 4V Observed: 12/31/2017 Status: F Source: [place] AP/LAT/OBL 10:23 AM [facility] REPOSITORY * * *Final Report* * * [...] cerclage wire is noted at C1-2 posteriorly. Hoop Maker Helper Machine: PSCKiki Transcribe Date/Time: Jan 01 2018 8:49A Dictated by : ANGELA LOWE MD This examination was interpreted and the report reviewed and electronically signed by: ANGELA LOWE MD on Jan 01 2018 9:00AM EST [id number] PROGRESS Observed: 12/31/2017 Status: COMPLETED Source: [place] 9:58 AM [facility] REPOSITORY HNO ID: [id number] Author: Shari Allison (Rt) Aurelio Schuler Service: (none) Author Type: Paleology Professor Type: Progress Notes Filed: 12/31/2017 10:26 AM [...] AM PROGRESS Observed: 12/31/2017 Status: COMPLETED Source: [place] 9:57 AM [facility] REPOSITORY HNO ID: [id number] Author: Trent Horowitz Service: (none) Author Type: [...] inhalers as prescribed ? Inflammatory polyarthritis, seeing Director Career Services still, has upcoming labs and appt ? She was started on Zoloft ? At last OFFICE VISIT 6 months ago Per mother she is still irritable and hair pulling/picking as well as cursing at me. No aggression. No SI or HI. Still able to be working at the [employer]. ? Seeing Car Hiker Dr. Flores for congenital heart disease hx. ? Seeing Director Career Services for chronic inflammatory joint changes. ? 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 Marley - Cellulitis and abscess of upper arm and forearm - Congenital heart disease Dr. Kong Car Hiker - Congestive heart failure, unspecified - CRP [...] plan. See patient instructions. Trent Horowitz DO [address] [place] [address] CNOV Observed: 12/31/2017 Status: COMPLETED Source: [place] 9:20 AM [facility] REPOSITORY Office Visit (FAMPWS) DANNI EVANS ([id number]) 1985 [facility] Date Time Provider Department 12/31/17 9:20 AM [...] inhalers as prescribed ? Inflammatory polyarthritis, seeing Director Career Services still, has upcoming labs and appt ? She was started on Zoloft ? At last OFFICE VISIT 6 months ago Per mother she is still irritable and hair pulling/picking as well as cursing at me. No aggression. No SI or HI. Still able to be working at the [employer]. ? Seeing Car Hiker Dr. Flores for congenital heart disease hx. ? Seeing Director Career Services for chronic inflammatory joint changes. ? 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 Marley - Cellulitis and abscess of upper arm and forearm - Congenital heart disease Dr. Kong Car Hiker - Congestive heart failure, unspecified - CRP [...] plan. See patient instructions. Trent Horowitz DO [address] [place] [address] Referring Provider: TRENT HOROWITZ [[id number]] Allergies As of Date: 12/31/2017 Noted Allergy [...] KNEE GENERAL 4V AP BOTH/PA BOTH/LAT/MERC BILAT [[id number]] Order #: [id number] FUTURE XR CERV OTHER 4V AP/LAT/OBL [[id number]] Order #: [id number] FUTURE Prescriptions as of 12/31/2017 Sig: TRAMADOL [...] 12/31/17 PROGRESS Observed: 11/21/2017 Status: COMPLETED Source: [place] 9:33 AM [facility] [place] REPOSITORY HNO ID: [id number] Author: Angela Hagan LPN Service: (none) Author Type: (none) Type: Progress Notes Filed: 11/21/2017 9:34 AM Note Text: Patient presents for MMR vaccine. Denies any problems at this time. Tolerated injection well. Angela Hagan LPN CNNURSE Observed: 11/21/2017 Status: COMPLETED Source: [place] 9:30 AM [facility] REPOSITORY Nurse Visit (FAMPWS) DANNI EVANS ([id number]) 1985 [facility] Date Time Provider Department 11/21/17 9:30 AM [place] [facility] During your visit today, we recorded the following information about you: Angela Hagan LPN 11/21/2017 9:34 AM Signed Patient presents for MMR vaccine. Denies any problems at this time. Tolerated injection well. Angela Hagan LPN Referring Provider: ENRIQUETA FELIPE ([facility]) [[id number]] Allergies As of Date: 11/21/2017 Noted Allergy [...] 11/21/17 PROGRESS Observed: 11/06/2017 Status: COMPLETED Source: [place] 3:33 PM [facility] RE[facility] HNO ID: [id number] Author: Vincent Carson Service: (none) Author Type: [...] MABEL Pacheco Observed: 11/06/2017 Status: COMPLETED Source: [place] 3:00 PM [facility] REPOSITORY Office Visit (PODIWS) DANNI EVANS ([id number]) 1985 F [facility] Date Time Provider [...] Vincent Carson DPM Referring Provider: VINCENT CARSON [[id number]] Allergies As of Date: 11/06/2017 Noted Allergy [...] 10/23/2017 Status: F Source: [place] 12:21 PM [facility] REPOSITORY [facility] Medical Records Department [address] [place] [address] Downtime Report MR#: [id number] Acct: [id number] Name: DANNI EVANS Rep #: [id number] : 1985 31 From: Chino Fernandez PCP: Trent Giang DO Status: REG RCR This patient was seen during an EMR downtime October 06, 2017 - October 13, 2017. This patient may have a combination of paper and electronic documentation or all paper documentation. All documentation is viewable within the e-chart portion of [facility] for each patient visit. PROGRESS Observed: 10/16/2017 Status: COMPLETED Source: [place] 2:12 PM [facility] HNO ID: [id number] Author: Angela Hagan LPN Service: (none) Author Type: (none) Type: Progress Notes Filed: 10/16/2017 2:14 PM Note Text: Patient presents for MMR vaccine. Denies any problems at this time. Tolerated injection well. Angela Hagan LPN CNNURSE Observed: 10/16/2017 Status: COMPLETED Source: [place] 2:00 PM [facility] REPOSITORY Nurse Visit (FAMPWS) DANNI EVANS ([id number]) 1985 [facility] Date Time Provider Department 10/16/17 2:00 PM [place] NURSE FAMPWS During your visit today, we recorded the following information about you: Angela Hagan LPN 10/16/2017 2:14 PM Signed Patient presents for MMR vaccine. Denies any problems at this time. Tolerated injection well. Angela Hagan LPN Referring Provider: ENRIQUETA FELIPE ([facility]) [[id number]] Allergies As of Date: 10/16/2017 Noted Allergy Reaction BACTRIM (SULFAMETHOXAZOLE) 09/26/2010 4 - Hives CECLOR (CEFACLOR) 09/26/2010 4 - Hives PENICILLINS 05/25/2013 16 - Unknown Date Reviewed: 10/13/2017 Reviewed by: Enriqueta Allison ([facility]) Bev - Fully Assessed Reason for [...] 10/16/17 PROGRESS Observed: 10/13/2017 Status: COMPLETED Source: [place] 4:02 PM [facility] [place] REPOSITORY HNO ID: [id number] Author: Enriqueta Allison (Stress Analyst) [facility] Service: (none) Author Type: Nurse Practitioner Type: [...] forearm - Congenital heart disease Dr. Kong Car Hiker - Congestive heart failure, unspecified - CRP [...] - RUBEOLA (MEASLES)IGG - RUBELLA IGG AB nEriqueta Felipe, TIARA.COLLATERAL ANALYST SED RATE WESTERGREN Collected: 10/13/2017 Status: F Source: [place] 2:40 PM [facility] REPOSITORY TYPE CODE TESTS RESULT OUT OF REFERENCE UNITS RANGE LAB WSR 0-20 mm/hr Sed Rate High Westergren 21 Performed By: #### WSR, CBCDIF, CMP, CRP #### [facility] [address] [place], [place] [address] CBC AND DIFFERENTIAL Collected: 10/13/2017 Status: F Source: [place] 2:40 PM [facility] REPOSITORY TYPE CODE TESTS RESULT OUT [...] k/uL Abs Lymph 1.01 LAB AMONO % Bulloch% 8.2 LAB AAMONO <0.87 k/uL Abs Bulloch 0.44 LAB AEOS % Eosin% 0.9 LAB AAEOS <0.46 k/uL Abs Eosin 0.05 LAB ABASO % Baso% 1.3 LAB AABASO <0.11 k/uL Abs Baso 0.07 LAB AUNRBC 0 /100 WBC NRBCs 0.0 LAB ABNRBC <0.01 k/uL Absolute nRBC <0.01 LAB DTYP DTYPE Auto Diff Performed By: #### WSR, CBCDIF, CMP, CRP #### [facility] [address] [place], [place] [address] COMP METABOLIC PANEL Collected: 10/13/2017 Status: F Source: [place] 2:40 PM [facility] REPOSITORY TYPE [...] mg/dL Glucose High 102 Result Comment: The [place] Diabetes Association (ADA) provides guidance for cutoff [...] Standards of Medical Care in Diabetes 2016, [place] Diabetes Association. Diabetes Care. 2016.39(Suppl 1). LAB [...] has been calibrated to be traceable to IDMA. An eGFR <60 mL/min/1.73m2 for >3 months is consistent with chronic kidney disease. Refer to KDOQI guidelines for clinical interpretation. In patients with unstable renal function, e.g. those with acute kidney injury, the eGFR may not accurately reflect actual GFR. Performed By: #### WSR, CBCDIF, CMP, CRP #### [facility] [address] [address] C-REACTIVE PROTEIN Collected: 10/13/2017 Status: F Source: [place] 2:40 PM [facility] REPOSITORY TYPE CODE TESTS RESULT OUT OF REFERENCE UNITS RANGE LAB CRP <0.9 mg/dL High C-Reactive 1.2 Protein Performed By: #### WSR, CBCDIF, CMP, CRP #### [facility] [address] [address] RUBELLA IGG ANTIBODY Collected: 10/13/2017 Status: F Source: [place] 2:40 [facility] REPOSITORY TYPE CODE TESTS RESULT OUT OF [...] Performed By: #### RUBIGG, MEASLG, MUMPSG #### [facility] [address] [address] MEASLES IGG ANTIBODY Collected: 10/13/2017 Status: F Source: [place] 2:40 [facility] REPOSITORY TYPE CODE TESTS RESULT OUT OF [...] Performed By: #### JERED HEALY, MUMPSG #### [facility] [address] [place], [place] [address] MUMPS IGG AB Collected: 10/13/2017 Status: F Source: [place] 2:40 PM [facility] REPOSITORY TYPE CODE TESTS RESULT OUT [...] Performed By: #### JERED HEALY, MUMPSG #### [facility] [address], [place] [address] CNOV Observed: 10/13/2017 Status: COMPLETED Source: [place] 1:20 PM [facility] REPOSITORY Office Visit (FAMPWS) DANNI EVANS ([id number]) [address] [facility] Date Time Provider Department 10/13/17 1:20 PM ENRIQUETA FELIPE ([facility]) FAMPWS During your visit today, we recorded the following information about you: Pulse Respiration Blood pressure Weight 72/minute 16/minute 120/72 105.7 kg Height 1.486 m Enriqueta Felipe, TIARA.COLLATERAL ANALYST 10/13/2017 4:06 PM Signed HPI/CC: Danni Evans [...] forearm - Congenital heart disease Dr. Kong Car Hiker - Congestive heart failure, unspecified - CRP [...] Enriqueta Felipe APRN.CNP Referring Provider: TRENT HOROWITZ [[id number]] Allergies As of Date: 10/13/2017 Noted Allergy Reaction BACTRIM (SULFAMETHOXAZOLE) 09/26/2010 4 - Hives CECLOR (CEFACLOR) 09/26/2010 4 - Hives PENICILLINS 05/25/2013 16 - Unknown Date Reviewed: 10/13/2017 Reviewed by: Enriqueta Allison (Stress Analyst) Bev - Fully Assessed Reason for Visit: Camp Physical [18] Primary Visit Diagnosis:Encounter for wellness examination in adult [Z00.00] Other Visit Diagnosis:Immunity status testing [Z01.84] Order(s):MUMPS IGG AB [SQMUMPSG] Order #: [id number] FUTURE RUBEOLA (MEASLES)IGG [SQMEASLG] Order #: [id number] FUTURE RUBELLA IGG AB [SQRUBQNT] Order #: [id number] FUTURE COMPOUNDED PRESCRIPTION1 Device one time only [...] 10/13/17 PROGRESS Observed: 09/24/2017 Status: COMPLETED Source: [place] 11:02 AM [facility] REPOSITORY HNO ID: [id number] Author: Julian Mcmahan Service: (none) Author Type: [...] forearm - Congenital heart disease Dr. Kong Car Hiker - Congestive heart failure, unspecified - CRP [...] Abs Lymph 1.00 - 4.00 k/uL 1.33 Bulloch% % 10.9 Abs Bulloch 0.00 - 0.86 k/uL 0.60 Eosin% % [...] Abs Lymph 1.00 - 4.00 k/uL 1.11 Bulloch% % 6.1 Abs Bulloch <0.87 k/uL 0.40 Eosin% % 0.6 Abs [...] labs Vitamin D deficiency - continue supplements Last Cleaner patient and reassure Right ankle pain - [...] months CNOV Observed: 09/24/2017 Status: COMPLETED Source: [place] 10:30 AM [facility] REPOSITORY Office Visit (AGRHEUHWN) DANNI EVANS ([id number]) 1985 F [facility] Date Time Provider [...] forearm - Congenital heart disease Dr. Kong Car Hiker - Congestive heart failure, unspecified - CRP [...] Abs Lymph 1.00 - 4.00 k/uL 1.33 Bulloch% % 10.9 Abs Bulloch 0.00 - 0.86 k/uL 0.60 Eosin% % [...] Abs Lymph 1.00 - 4.00 k/uL 1.11 Bulloch% % 6.1 Abs Bulloch <0.87 k/uL 0.40 Eosin% % 0.6 Abs [...] labs Vitamin D deficiency - continue supplements Last Cleaner patient and reassure Right ankle pain - [...] [Q90.9] Order(s):C-REACTIVE PROTEIN (CRP) [SQCRP] Order #: [id number] FUTURE SED RATE WESTERGREN [SQWSR] Order #: [id number] FUTURE COMP METABOLIC PANEL [SQCMP] Order #: [id number] FUTURE CBC + DIFF [SQCBCDIF] Order #: [id number] FUTURE Prescriptions as of 09/24/2017 Sig: TRAMADOL [...] 09/24/17 ISA Observed: 09/23/2017 Status: COMPLETED Source: [place] 12:00 AM [facility] REPOSITORY Telephone (AGRHEUHWN) DANNI EVANS ([id number]) 1985 [facility] Date Time Provider Department 09/23/17 JULIAN MCMAHAN During your visit today, we recorded the following information about you: Bartolo Olivas SEWER PIPE SORTER 09/23/2017 2:43 PM Signed Patient has been [...] work done, so order what you need. Kalpnaa has to be in [place] tomorrow and can be reached by cell phone if needed. She'll also need to get scheduled back sooner if possible. fyi. Pharmacy has been updated: No . Return call needed: No further follow-up is needed.. Patient can be reached at : [phone] (home) Bartolo Olivas SEWER PIPE SORTER Bartolo Olivas Steam Engineer 10/01/2017 9:40 AM Signed Left message to call. Bartolo Olivas [place] Allergies As of Date: 09/23/2017 Noted Allergy [...] 09/23/17 PROGRESS Observed: 08/06/2017 Status: COMPLETED Source: [place] 11:41 AM [facility] REPOSITORY HNO ID: [id number] Author: Vincent Carson Service: (none) Author Type: [...] forearm - Congenital heart disease Dr. Kong Car Hiker - Congestive heart failure, unspecified - CRP [...] MABEL Pacheco Observed: 08/06/2017 Status: COMPLETED Source: [place] 9:55 AM [facility] RE[facility]ORY Office Visit (PODIWS) DANNI EVANS ([id number]) 1985 F [facility] Date Time Provider [...] forearm - Congenital heart disease Dr. Kong Car Hiker - Congestive heart failure, unspecified - CRP [...] Vincent Carson DPM Referring Provider: VINCENT CARSON [[id number]] Allergies As of Date: 08/06/2017 Noted Allergy [...] 08/06/17 CNPN Observed: 08/06/2017 Status: COMPLETED Source: [place] 12:00 AM [facility] REPOSITORY Telephone (PODIWS) DANNI EVANS ([id number]) [address] [facility] Date Time Provider Department 08/06/17 VINCENT CARSON During your visit today, we recorded the following information about you: Shona Avitia Ma 08/06/2017 11:35 AM Signed Fax received from [employer]. [facility] requires prior authorization for Urea 40% cream that was prescribed today. If medication changed to Urea 40% lotion, no prior auth required. Dr. Carson, OK to use Urea 40% lotion instead of cream? Shona Crason DPM 08/06/2017 12:26 PM Signed I went and prescribed the lotion. Thanks Vincent Carson DPM Allergies As of Date: 08/06/2017 Noted Allergy Reaction BACTRIM (SULFAMETHOXAZOLE) 09/26/2010 4 - Hives CECLOR (CEFACLOR) 09/26/2010 4 - Hives PENICILLINS 05/25/2013 16 - Unknown Date Reviewed: 08/06/2017 Reviewed by: Shona Avitia Ma - Fully Assessed Reason for Visit: Medication Question [2733] Order(s):urea (CARMOL) 40 % lotnApply 1 application [...] ECHOCARDIOGRAM COMPLETE Observed: 08/01/2017 Status: F Source: [place] 5:18 PM [facility] REPOSITORY [facility] Cardiovascular Services [address] [place] [address] Echo Complete W/ Contrast 08/01/17 1410 MR#: [id number] Acct: [id number] Name: DANNI EVANS Rep #: [id number] : 1985 31 From: Esequiel Perez MD Attending Dr: OUT OF TOWN DOCTOR Status: REG CLI Ordering Dr: LIUDMILA BRANDON Date: 08/01/17 Location: [facility] Sex: F C Admitted: Reason For Study: [...] Date Dictated: 08/01/17 1410 Date Transcribed: 08/01/171717 Hoop Maker Helper Machine: Signed OBSOLETE Observed: 07/28/2017 Status: COMPLETED Source: [place] 12:00 AM [facility] REPOSITORY Refill (AGRHEUHWN) DANNI EVANS ([id number]) 1985 F [facility] Date Time Provider [...] 07/28/17 OBSOLETE Observed: 07/25/2017 Status: COMPLETED Source: [place] 12:00 AM [facility] REPOSITORY Refill (KAITLIN) DANNI EVANS ([id number]) 1985 F [facility] Date Time Provider [...] Visit date not found Patient Phone numbers: [phone] (home) Request is for script(s) to be [...] The following prescriptions have been called to [facility] pharmacy 07/28/2017 at 4:10 PM by Dariel [...] 07/28/17 OBSOLETE Observed: 07/07/2017 Status: COMPLETED Source: [place] 12:00 AM [facility] REPOSITORY Refill (AGRHEUHWN) DANNI EVANS ([id number]) [address] [facility] Date Time Provider Department 07/07/17September [...] 01/29/2017 Next Appointment: 07/09/2017 Patient Phone numbers: [phone] (home) Request is for script(s) to be [...] 07/07/17 CBC Collected: 07/02/2017 Status: F Source: [place] 9:40 AM [facility] REPOSITORY TYPE CODE TESTS RESULT OUT [...] By: #### CBC, TSH, HBA1C, VITD #### [facility] [address] [place] [id number] TSH Collected: 07/02/2017 Status: F Source: [place] 9:40 AM [facility] REPOSITORY TYPE CODE TESTS RESULT OUT [...] Clinical Practice Guideline. J Clin Endocrinol Metab, 2012:97:5410-5477. 2. Liam ZIMMER. Overview of thyroid disease in . UpToDate. 2016. Accessed on October 20, 2015. Performed By: #### CBC, TSH, HBA1C, VITD #### [facility] [address] [place], [place] [address] HEMOGLOBIN A1C Collected: 07/02/2017 Status: F Source: [place] 9:40 AM [facility] REPOSITORY TYPE CODE TESTS RESULT OUT OF REFERENCE UNITS RANGE LAB HGBA1C 4.3-5.6 % Hemoglobin A1c 4.8 LAB HBA0 mg/dL Est. Average Glucose 91 Result Comment: eAG: (Estimated average glucose) is a calculated value from HgbA1c and is senior customer service representative of the average blood glucose level in the last 2-3 month period. Performed By: #### CBC, TSH, HBA1C, VITD #### [facility] [address] [place], [place] [address] VITAMIN D 25 HYDROXY Collected: 07/02/2017 Status: F Source: [place] 9:40 AM [facility] REPOSITORY TYPE CODE TESTS RESULT OUT OF REFERENCE UNITS RANGE LAB VITD 31.0-80.0 ng/mL Vitamin D 25 47.9 Hydroxy Result Comment: Classification of 25 [place] Vitamin D status: Insufficiency/Moderate Deficiency: < or = 30 ng/mL Sufficiency/Optimal Levels: 31 to 80 ng/mL Toxicity: > 100 ng/mL Test performed by chemiluminescent immunoassay. Performed By: #### CBC, TSH, HBA1C, VITD #### [facility] [address] [place], [place] [address] LIPID PANEL, BASIC Collected: 07/02/2017 Status: F Source: [place] 9:40 AM [facility] REPOSITORY TYPE CODE TESTS RESULT OUT [...] Desk Reference: National Heart, Lung, and Blood Call. National Institutes of Health. 2001: NIH Publication No. 01-3305. 2. An International Atherosclerosis Society position paper: global recommendations for the management of dyslipidemia: executive summary, Atherosclerosis. 2014: 232(2):410-413. Performed By: #### LIPB #### [facility] [address] [place], [place] [address] PROGRESS Observed: 07/02/2017 Status: COMPLETED Source: [place] 8:39 AM [facility] REPOSITORY O ID: [id number] Author: Trent Horowitz Service: (none) Author Type: [...] inhalers as prescribed ? Inflammatory polyarthritis, seeing Director Career Services still, has upcoming labs and appt She was started on Zoloft Currently Per mother she is still irritable and hair pulling/picking as well as cursing at me. No aggression. No SI or HI. Still able to be working at the [employer]. Seeing Car Hiker Dr. Flores for congenital heart disease hx. Seeing Director Career Services for chronic inflammatory joint changes. 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 Marley - Cellulitis and abscess of upper arm and forearm - Congenital heart disease Dr. Kong Car Hiker - Congestive heart failure, unspecified - CRP [...] ICD9: 714.9, ICD10: M06.4 - f/u with Director Career Services Trent Horowitz DO Return if no improvement. Follow up with Trent Horowitz DO. Discussed risks, benefits, alternatives, and potential side effects of medications. Patient/Guardian expressed understanding and agreed with the plan. See patient instructions. Trent Horowitz DO [address] [place] [address] PROGRESS Observed: 06/24/2017 Status: COMPLETED Source: [place] 12:30 PM [facility] REPOSITORY HNO ID: [id number] Author: Vincent Carson Service: (none) Author Type: [...] forearm - Congenital heart disease Dr. Kong Car Hiker - Congestive heart failure, unspecified - CRP [...] DPM CNPTOUTRLIZ Observed: 06/17/2017 Status: COMPLETED Source: [place] 12:00 AM [facility] REPOSITORY Patient Outreach (INTMWH) DANNI EVANS ([id number]) 1985 [facility] Date Time Provider Department 06/17/17 TRENT HOROWITZ [facility] During your visit today, we recorded the following information about you: Allergies As of Date: 06/17/2017 Noted Allergy Reaction BACTRIM (SULFAMETHOXAZOLE) 09/26/2010 4 - Hives CECLOR (CEFACLOR) 09/26/2010 4 - Hives PENICILLINS 05/25/2013 16 - Unknown Date Reviewed: 05/02/2017 Reviewed by: Luisa Kong LPN - Fully Assessed Visit Diagnosis:Medication management [Z79.899] Order(s):TSH BLD [SQTSH] Order #: [id number] FUTURE Prescriptions as of 06/17/2017 Sig: OMEPRAZOLE [...] STREP BY Collected: 05/03/2017 Status: F Source: [place] PCR 1:06 AM [facility] REPOSITORY TYPE CODE TESTS RESULT OUT OF REFERENCE UNITS RANGE LAB GASSRC Throat Swab GAS Specimen Source LAB PCRGAS Negative for Group A Strep Group A PCR Streptococcus by PCR. Result Comment: This test was developed and its performance characteristics determined by [facility]'s [facility] ([facility]). It has not been cleared or approved by the FDA. [facility] is regulated under CLIA as qualified to perform high-complexity testing. This test is used for clinical purposes. It should not be regarded as inv estigational or for research. Performed By: #### GASPCR #### [facility] [address] [place], [place] [address] PROGRESS Observed: 05/02/2017 Status: COMPLETED Source: [place] 1:26 PM [facility] REPOSITORY HNO ID: [id number] Author: Izabel Hanley Service: (none) Author Type: [...] forearm - Congenital heart disease Dr. Kong Car Hiker - Congestive heart failure, unspecified - CRP [...] CNP CNOV Observed: 05/02/2017 Status: COMPLETED Source: [place] 12:00 PM [facility] REPOSITORY Office Visit (WSTR) DANNI EVANS ([id number]) 1985 F [facility] Date Time Provider Department 05/02/17 12:00 PM IZABEL HANLEY [facility] During your visit today, we recorded the [...] forearm - Congenital heart disease Dr. Kong Car Hiker - Congestive heart failure, unspecified - CRP [...] 4 tabletRfl: 0 RAPID STREP TEST B/O [[id number]] Order #: [id number] GROUP A STREPTOCOCCUS BY PCR [SQGASPCR] Order #: [id number] Prescriptions as of 05/02/2017 Sig: TRAMADOL 50 [...] 05/02/17 OBSOLETE Observed: 05/02/2017 Status: COMPLETED Source: [place] 12:00 AM [facility] OTHER [facility] REPOSITORY Refill (AGRHEUHWN) DANNI EVANS ([id number]) 1985 [facility] Date Time Provider Department 05/02/17 JULIAN MCMAHANUHWN During your visit today, we recorded the following information about you: Nano Blake MA 05/02/2017 8:28 AM Signed Patient called requesting the following refill. Pending Prescriptions Disp Refills TRAMADOL 50 MG TABLET 90 tablet 1 Sig: Take 1 tablet by mouth every 6 hours as needed. DO Class: C-IV ASH: No Patient last appointment: 01/29/2017 Next Appointment: 06/11/2017 Patient Phone numbers: [phone] (home) Request is for script(s) to be called in to pharmacy. MARILU Harper MA 05/02/2017 2:54 PM Signed The following prescriptions have been called to [facility] pharmacy 05/02/2017 at 2:53 PM by Nano [...] 05/02/17 OBSOLETE Observed: 05/01/2017 Status: COMPLETED Source: [place] 12:00 AM [facility] REPOSITORY Refill (FAMPWS) DANNI EVANS ([id number]) 1985 [facility] Date Time Provider Department 05/01/17 TRENT HOROWITZ [...] LAZARUS Gonsalves MD 05/01/2017 10:50 AM Signed [employer] website checked and validated. Previous prescriptions for [...] 05/01/17 PROGRESS Observed: 04/30/2017 Status: COMPLETED Source: [place] 8:37 AM [facility] [place] REPOSITORY O ID: [id number] Author: Vincent Carson Service: (none) Author Type: [...] pain. She has been seen by another futures trader in the past who has treated her [...] forearm - Congenital heart disease Dr. Kong Car Hiker - Congestive heart failure, unspecified - CRP [...] MABEL Pacheco Observed: 04/30/2017 Status: COMPLETED Source: [place] 8:10 AM [facility] REPOSITORY Office Visit (PODIWS) DANNI EVANS ([id number]) 1985 F LUIS ANTONIO Date Time Provider [...] pain. She has been seen by another futures trader in the past who has treated her [...] forearm - Congenital heart disease Dr. Kong Car Hiker - Congestive heart failure, unspecified - CRP [...] Vincent Carson DPM Referring Provider: THOMPSON MALHOTRA ([facility]) [[id number]] Allergies As of Date: 04/30/2017 Noted Allergy [...] CODE REACTION SEVERITY SOURCE CODE 03/24/2018 Drug cefaclor/[id number](RX Hives Unknown [place] Allergy/41 NORM) [facility] [id number][facility] Repository 03/24/2018 Drug sulfamethoxazole/F0060 Upset Stomach Unknown [place] Allergy/41 19730(RXNORM) Community 2838978([facility] OMED CT) Repository 03/24/2018 Drug trimethoprim/[id number] Upset Stomach Unknown [place] Allergy/41 3(RXNORM) Community 9822450([facility] OME CT) Repository 05/25/2013 Drug PENICILLINS UNKNOWN [place] Class/4195 Clinic Other 55783([facility] [place] [facility]) Repository 06/28/2011 DRUG SULFASALAZINE UNKNOWN [place] INGREDI/41 Clinic Main 4234201([facility] OMED CT) Repository 09/26/2010 DRUG [facility]OLE [facility] [id number]([facility] OME CT) Repository 09/26/2010 DRUG CEFACLOR [facility] Other 4728362([facility] OMED CT) Repository NG/[id number] SULFAMETHOXAZOLE [facility] 06([facility] Repository NG/0980315 CEFACLOR [facility] 06([facility]) Repository NG/6527081 PENICILLINS [facility] 06([facility]) Repository ENCOUNTERS ENCOUNTERS ADMIT/DISCHARGE ACCOUNT NUMBER ADMITTING ENCOUNTER LOCATION SOURCE CLASS 04/16/2018/04/16/20 [id number] Ambulatory [address] Repository 04/14/2018/04/15/20 [id number] Ambulatory [address] Repository 04/07/2018 [id number] [facility] ding:NS Repository 04/06/2018 [id number] Ambulatory BMSBuilding: [place] BMS.[facility] Repository 04/06/2018 [id number] [facility] ding:WC Repository 04/03/2018/04/06/20 [id number] Ambulatory [address] Repository 03/31/2018 [id number] Ambulatory BMSBuilding: [place] BMS.[facility] Repository 03/31/2018/04/03/20 [id number] Ambulatory [address] ding:WC Repository 03/24/2018/03/24/20 [id number] [facility] Repository 03/23/2018/03/24/20 [id number] Ambulatory [address] Main [place] Repository 03/17/2018/04/03/20 [id number] Ambulatory [place] 18 [facility] ding:NS Repository 03/14/2018/03/23/20 [id number] Ambulatory [address] Main [place] Repository 03/03/2018/03/04/20 [id number] Ambulatory [place] 18 [facility] ding:NS Repository 02/11/2018 [id number] Ambulatory [facility] MEDICAL Repository CENTERBuildi ng:AGRHEUHWN 01/13/2018/02/02/20 [id number] Ambulatory [place] 18 [facility] ding:NS Repository 12/31/2017/01/01/20 [id number] Ambulatory [address] Main [place] Repository 12/31/2017/01/02/20 [id number] Ambulatory [address] Main [place] Repository 12/15/2017/01/03/20 [id number] Ambulatory [place] 18 [facility] ding:NS Repository 12/01/2017/12/03/19 [id number] Ambulatory [place] 18 [facility] ding:NS Repository 11/21/2017/11/25/19 [id number] Ambulatory [address] Main [place] Repository 11/06/2017/11/12/19 [id number] Ambulatory [address] Main [place] Repository 10/27/2017/11/02/19 [id number] Ambulatory [place] 18 [facility] ding:NS Repository 10/16/2017/10/24/19 [id number] Ambulatory [address] Main [place] Repository 10/13/2017 [id number] Ambulatory [facility] Main [place] Repository 10/13/2017/10/15/19 [id number] Ambulatory [address] Main [place] Repository 09/24/2017 [id number] Ambulatory [facility] Other [place] Repository 09/24/2017/09/25/19 [id number] Ambulatory [address] MEDICAL Repository CENTERBuildi ng:AKLBS 09/24/2017/05/23 [id number] Ambulatory [address] Other [place] Repository 09/24/2017/09/25/19 [id number] Ambulatory [address] MEDICAL Repository CENTERBuildi ng:AGRHEUHWN 09/01/2017/09/02/19 [id number] Ambulatory [place] ding:NS Repository 08/06/2017/08/08/19 [id number] Ambulatory [address] Main [place] Repository 08/01/2017 [id number] [facility] ding:[facility] Repository 08/01/2017 [id number] Ambulatory BMSBuilding: [facility] Repository 07/02/2017/07/02/19 [id number] Ambulatory [address] Main [place] Repository 07/02/2017/07/05/19 [id number] Ambulatory [address] Main [place] Repository 06/24/2017/06/24/19 [id number] Ambulatory [address] Main [place] Repository 05/02/2017/05/02/20 [id number] Ambulatory [address] Main [place] Repository 04/30/2017/05/02/20 [id number] Ambulatory [address] Main [place] Repository PAYERS PAYERS ENCOUNTER GUARANTOR PAYER SUBSCRIBER SOURCE 04/07/2018 DANNI Velasco Primary [facility] [place] [place] Number: [id number] Hospital [address]Zre: ([phone]) [id number] Repository [phone] () Date:[id number] [address]AT: 04/07/2018 Secondary NOT GIVENUNK [place] Insurance:SELF PAY [facility] Number: Effective Repository Date:2018-04-04 04/06/2018 DANNI Velasco Primary [facility] [place] Number: [id number] Hospital 35[address]Eld: (284) [id number] Repository [phone] () Date:6751-20-05HH [address] [address]QX: 04/06/2018 Secondary NOT GIVENUNK [place] Insurance:SELF PAY [facility] Number: Effective Repository Date:2018-04-06 04/06/2018 DANNI A Primary Insurance:[facility] D[facility]NI A [place] [id number] [facility] PLANPolicy LOWEDOB: [facility] [place] Number: [id number] Hospital [address]Trd: 330 [id number] Repository [phone] () Date:4180-75-63CB [address] [address]VD: 04/06/2018 Secondary NOT GIVENUNK [place] Insurance:SELF PAY [facility] Number: Effective Repository Date:2018-04-04 03/31/2018 DANNI A Primary Insurance:[facility] [place] [id number] [facility] PLANPolicy LOWEDOB: [facility] [place] Number: [id number] Hospital [address]Jvy: (122) [id number] Repository [phone] () Date:1765-91-75OZ[address] [address]JO: 03/31/2018 Secondary NOT GIVENUNK [place] Insurance:SELF PAY [facility] Number: Effective Repository Date:2018-03-31 03/31/2018 DANNI A Primary Insurance:[facility] [place] [id number] [facility] PLANPolicy LOWEDOB: [facility] [place] Number: [id number] Hospital [address]Nwv: ([phone]) [id number] Repository [phone] () Date:6347-50-96CU[address] [address]NZ: 03/31/2018 Secondary NOT GIVENUNK [place] Insurance:SELF PAY [facility] Number: Effective Repository Date:2018-03-25 03/24/2018 DANNI A Primary Insurance:[facility] A [place] [id number] [facility] PLANPolic LOWEDOB: [facility] [place] Number: [id number] Hospital [address]99[address]Pms: 330 [id number] Repository [phone] () Date:3595-89-02OD [address] [place] [address]JG: 03/24/2018 Secondary NOT GIVENUNK [place] Insurance:SELF PAY [facility] Number: Effective Repository Date:2018-03-24 03/17/2018 DANNI A Primary DANNI A [place] [id number] VALLEY Insurance:UNITED HLTH LOWEDOB: Community [facility] CARE [id number] Hospital [address]Lka: (330) Number: Repository [phone] () [id number] Date:1985-13-31SL[address] [address]BO: 03/17/2018 Secondary NOT GIVENUNK [place] Insurance:SELF PAY [facility] Hospital Number: Effective Repository Date:2018-03-05 03/03/2018 DANNI A Primary DANNI A [place] [id number] [place] Insurance:[facility] HL[employer] LOWEDOB: Community [facility] [place] CARE [id number] Hospital [address]Ubp: (330) Number: Repository [phone] () [id number] Date:0190-91-38PC[address] [address]QR: 03/03/2018 Secondary NOT GIVENUNK [place] Insurance:SELF PAY [facility] Hospital Number: Effective Repository Date:2018-02-02 02/11/2018 DANNI A Primary Insurance:[facility] LOWEDOB: COMMUNITY PLAN LOWEDOB: Health System MEDICAIDPolicy [id number] Repository [place]: [place] [id number]: (330) Date: [phone] () 01/13/2018 DANNI A Primary DANNI A [place] [id number] [place] Insurance:[employer] LOWEDOB: [place] CARE [id number] [id number] Hospital [address]Qas: (330) Number: Repository [phone] () [id number] Date:8470-19-89PL [address] [address]XS: 01/13/2018 Secondary NOT GIVENUNK [place] Insurance:SELF PAY [facility] Number: Effective Repository Date:2018-01-03 12/15/2017 DANNI A Primary DANNI A [place] [id number] [place] Insurance:[employer] HL[employer] LOWEDOB: [place] CARE [id number] Hospital [address]13[address]Skz: (330) Number: Repository [phone] () [id number] Date:8902-38-40HF [address] [address]JP: 12/15/2017 Secondary NOT GIVENUNK [place] Insurance:SELF PAY [facility] Number: Effective Repository Date:2017-12-03 12/01/2017 DANNI A Primary DANNI A [place] [id number] [place] Insurance:[employer] HL[employer] LOWEDOB: [place] CARE [id number] Hospital [address]96[address]Crx: (330) Number: Repository [phone] () [id number] Date:6667-93-65OH [address] [address]TH: 12/01/2017 Secondary NOT GIVENUNK [place] Insurance:SELF PAY [facility] Number: Effective Repository Date:2017-11-02 10/27/2017 DANNI A Primary DANNI A [place] [id number] [place] Insurance:[employer] LOWEDOB: [facility] [place] CARE [id number] [id number] Hospital 227[address]Zdh: (330) Number: Repository [phone] () [id number] Date:5627-17-26GD[address] [address]AL: 10/27/2017 Secondary NOT GIVENUNK [place] Insurance:SELF PAY [facility] Number: Effective Repository Date:2017-09-02 09/24/2017 DANNI A Primary Insurance:[facility] LOWEDOB: COMMUNITY PLAN LOWEDOB: Health System MEDICAIDPolicy [id number] Repository [place] Number: [place] [id number]: (330) Date: [phone] () 09/24/2017 DANNI A Primary Insurance:[facility] LOWEDOB: COMMUNITY PLAN LOWEDOB: Health System MEDICAIDPolicy [id number] Repository [place] Number: [place] [id number]: (330) Date: [phone] () 09/01/2017 DANNI A Primary DANNI A [place] [id number] [place] Insurance:[employer] HL[employer] LOWEDOB: Community [facility] [place] CARE [id number] [id number] Hospital [address]Uem: (330) Number: Repository [phone] () [id number] Date:2224-21-01KS[address] [address]PQ: 09/01/2017 Secondary NOT GIVENUNK [place] Insurance:SELF PAY [facility] Number: Effective Repository Date:2017-07-29 08/01/2017 DANNI A Primary DANNI A [place] [id number] [place] Insurance:UNITED HL[employer] LOWEDOB: [facility] [place] CARE [id number] Hospital [address]Fpe: (330) Number: Repository [phone] () [id number] Date:5936-91-12[id number] [place] [address]UJ: 08/01/2017 Secondary DANNI A [place] [facility] LOWEDOB: Community [facility] [id number] Hospital Number: Repository [id number] Date:3348-52-97NA[address] [address]ZH: 08/01/2017 Tertiary NOT GIVENUNK [place] Insurance:SELF PAY [facility] Number: Effective Repository Date:2017-07-15 08/01/2017 DANNI A Primary Insurance:[facility] Velasco [place] [id number] [facility] LOWEDOB: [facility] [place] Number: [id number] Hospital [address]Mii: [phone] [id number] Repository [phone] () Date:6311-55-25HP[address] [address]UE: 08/01/2017 Secondary NOT GIVENUNK [place] Insurance:SELF PAY [facility] Number: Effective Repository Date:2017-08-01
== END 2018-05-04 23:59 ==
LOC: WC 08:31
PROVIDERS: Family Provider Student in an Organized Health Care Education/Training Program; PCP Student in an Organized Health Care Education/Training Program; Visit Provider Nurse Practitioner Family
DX: Z09 Encounter for follow-up examination after completed treatment for conditions other than malignant neoplasm (principal); Q90.9 Down syndrome, unspecified
CPT/HCPCS: 99213; G0463

== ENCOUNTER → 2018-07-28 10:13 | Outpatient (CLI) | payer MEDICAID, SELFPAY ==
[2018-07-28 10:07] VITALS: BMI 48.6
--- NOTE | 2018-07-28 10:14 | RAD_ITS ---
HISTORY: Back Pain. EXAM/TECHNIQUE: XR Spine Lumbar Min 4 Views: COMPARISON: None. FINDINGS: # of images incl. paperwork: 4 No apparent acute fracture or osseous destruction. Sagittal alignment anatomic including with flexion and extension. Mild loss of height of L1 likely chronic. Marked left scoliosis centered at L2. Prominent disc and facet degeneration mid lumbar spine at the level of the scoliosis. Chronic postoperative changes right hemipelvis partially visible with orthopedic screws and pins and marked degeneration of the right hip joint. RAD/L/S Spine Min 4 Views IMPRESSION: No acute findings. Marked left scoliosis centered at L2. Prominent disc and facet degeneration mid lumbar spine at the level of the scoliosis. at 1040 Reported and signed by: Ashok Rosario MD Electronically Signed: Ashok Rosario, at 10:39 EDT Tel , Service support ,
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
== END ==
PROVIDERS: Family Provider Student in an Organized Health Care Education/Training Program; PCP Student in an Organized Health Care Education/Training Program; Referring Provider Orthopaedic Surgery; Visit Provider Orthopaedic Surgery
DX: M54.9 Dorsalgia, unspecified (principal)
CPT/HCPCS: 72050; 72110

== ENCOUNTER → 2018-08-07 06:33 | Outpatient (CLI) | payer MEDICAID, SELFPAY ==
[2018-07-28 10:07] VITALS: BMI 48.6
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
== END ==
PROVIDERS: Family Provider Student in an Organized Health Care Education/Training Program; PCP Student in an Organized Health Care Education/Training Program; Referring Provider Orthopaedic Surgery; Visit Provider Orthopaedic Surgery
DX: S13.120A Subluxation of C1/C2 cervical vertebrae, initial encounter (principal)
CPT/HCPCS: 72141

== ENCOUNTER 2018-08-11 13:08 | Outpatient (RCR) | payer MEDICAID, SELFPAY ==
[2018-07-28 10:07] VITALS: BMI 48.6
== END 2018-09-01 23:59 ==
LOC: NS 13:08
PROVIDERS: Family Provider Student in an Organized Health Care Education/Training Program; PCP Student in an Organized Health Care Education/Training Program; Visit Provider Nurse Practitioner Family
DX: E66.9 Obesity, unspecified (principal)
CPT/HCPCS: 97802

== ENCOUNTER 2018-09-30 14:04 | Outpatient (RCR) | payer MEDICAID, SELFPAY ==
[2018-07-28 10:07] VITALS: BMI 48.6
== END 2018-10-02 23:59 ==
LOC: NS 14:04
PROVIDERS: Family Provider Student in an Organized Health Care Education/Training Program; PCP Student in an Organized Health Care Education/Training Program; Visit Provider Nurse Practitioner Family
DX: E66.9 Obesity, unspecified (principal); Z68.43 Body mass index [BMI] 50.0-59.9, adult; Z71.3 Dietary counseling and surveillance
CPT/HCPCS: 97803

== ENCOUNTER 2018-10-12 14:22 | Outpatient (RCR) | payer MEDICAID, SELFPAY ==
[2018-07-28 10:07] VITALS: BMI 48.6
== END 2018-11-01 23:59 ==
LOC: NS 14:22
PROVIDERS: Family Provider Student in an Organized Health Care Education/Training Program; PCP Student in an Organized Health Care Education/Training Program; Visit Provider Nurse Practitioner Family
DX: E66.9 Obesity, unspecified (principal); Z68.43 Body mass index [BMI] 50.0-59.9, adult; Z71.3 Dietary counseling and surveillance
CPT/HCPCS: 97803

== ENCOUNTER 2018-11-11 14:30 | Outpatient (RCR) | payer MEDICAID, SELFPAY ==
[2018-07-28 10:07] VITALS: BMI 48.6
--- NOTE | 2018-09-03 16:48 | HP.PTEVAL_ITS ---
Patient's Visit Information DANNI GENAO is a 32 year old F referred to Physical Therapy by Izabel Harper MD with a diagnosis of LBP. Date of Evaluation: 09/03/18 Physical Therapist: Juan Luna PT, Cert MDT, OCS - Visit Plan Frequency: 2x /Week Duration: 8WEEKS Plan: MERRY TO GET IN WATER WITH PATIENT. AQUATIC INTERVENTIONS WITH ROM/STRENGTH BLE,POSTURE,DLS - Subjective Findings: Thuis 32 y/o female presents to physical therapy with LBP who has downs syndome. Patient has h/o cervical fusion due to subluxation of C1-2. when patient was younger. Patient has back few months possible from falling. Patient symmtrical LBP , Aggraveting factors extended walking and standing. If patient symptoms get bad has to use walker. Patient has occassional parathesia/tingling. Coughing/sneezing-. Bowel/bladder good. Symptoms worse with bending/lifting. Patient symptoms affect function and ADLS'. Patient back pain affects QOL and function. Other comorbities 2 hip surgery leg perthesis as young child,downs sydrome. SOCAIL: lives with mother. VOCATION: [employer] - Pain Left Back Pain Intensity (Out of 10): 7 Pain Intensity Range: 10 - Objective POSTURE: foward posture ,hips flexed knee hyperextension MARY JANE hips right more extreme. ALGNMENT: patient has leg length discrepeny right about 2 shorter,as symtries. GAIT: ambulates with antalgic gait MARY JANE hip deacrease stance slow batsheva more pronounced due to leg length. MMT: quads/hams right 3+/5,left 4- /5,hip flexion right 3/5,left 3+/5 ankle 4-/5,hip abd 3-/5. LUMBAR ROM: flexion mod limited decrease curve reversal,extension mod/severe mod loss,side glides mods decrease segemental motion. FLEXABLITY: hams mod tight - Goals Goal 1:: Independant with Aquatic PT Goal Time Frame: 4-6 Weeks Goal 2:: Patient reports 40- 50% improved with less pain to improve function walking Goal Time Frame: 4-6 Weeks Goal 3:: Patient increae strength BLE by 1/2 grade quads/hams/hip to impove function Goal 4:: Patient improve ADL's and work demands with les pain Goal Time Frame: 4-6 Weeks Goal 5:: Patient to improve back owestry score by 5 points to improve QOL. Goal Time Frame: 4-6 Weeks - Rehabilitation Potential Physical Therapy Diagnosis: This patient has multiple comorbities along with LBP which impairs function with walking standing and working at [employer]. Patient also has down syndrome. Rehabilitation Potential: Fair - Anticipated Interventions Patient/Client Instruction: Educate patient on: Condition, Plan of Care For the Purpose of:: To decrease pain, To improve muscle performance and motor function, To improve ability to perform ADL's, To increase tolerance to activity/condition/position, To improve performance and independence with ADL's, To improve ability of physical actions for home/community/work/leisure, To improve gait and locomotor functions, To increase flexibility/ROM, To improve endurance, To improve balance, To improve safety with gait, To assume or resume ADL's Therapeutic Exercise to Include: Strength training, Endurance training, Balance training, Postural training, Gait and locomotor training, In an aquatic setting For the Purpose of:: To decrease pain, To increase ROM, To improve muscle performance and motor function, To increase tolerance to activity/condition/position, To improve performance and independence with ADL's, To improve ability of physical actions for home/community/work/leisure, To increase flexibility/ROM, To assume or resume ADL's, To improve ability to perform tasks related to life management Thank you for the opportunity to evaluate your patient. For Medicare and Medicare HMO plans, please review the plan of care and approve it. It will need to be FAXED BACK to us at [phone] for Medicare purposes. For Medicare only, by signing this I certify the plan of care. Please let me know if there are questions or concerns regarding this plan of care. Physician Signature: Date:
--- NOTE | 2018-11-11 15:16 | HP.PTDCSUM ---
HP - PT D/C Summary It has been my pleasure to treat DANNI GENAO under orders from Izabel Harper MD, for the diagnosis of LBP for a total of 16 visit(s). Discharge Date: 11/11/18 Please see the following information for a summary of their discharge status. - Subjective Subjective: Doing better.. patient uses rollator with gait. Water ex's help. - Pain Left Back Pain Intensity (Out of 10): Unrated R knee Pain Intensity (Out of 10): Unrated L knee Pain Intensity (Out of 10): Unrated - Overall Improvement % Improvement: 50 - Objective Objective/Function: POSTURE: foward posture ER right leg ,leg length shorter on righ. GAIT: ambulates with antalgic gait right hip shorter ,ER right slow cadebce ,lateral trunk sway. MMT: quads/hams 4-/5,hip flexion 3+/5,ankle - Goals Goal 1:: Independant with Aquatic PT Goal Progress: Goal Met Goal 2:: Patient reports 40- 50% improved with less pain to improve function walking Goal Progress: Goal Met Goal 3:: Patient increae strength BLE by 1/2 grade quads/hams/hip to impove function Goal Progress: Goal Met Goal 4:: Patient improve ADL's and work demands with les pain Goal Progress: Goal Met Goal 5:: Patient to improve back owestry score by 5 points to improve QOL. Goal Progress: Goal Met - Plan Plan: D/C to Aquatic Exercises with mother assist - D/C Information If there are questions or concerns regarding this patient's physical therapy, please feel free to call me at [phone]. Thank you for the referral of this patient. Sincerely, Juan Luna, PT, Cert MDT, OCS
== END 2018-11-11 16:20 | disposition home or self-care (01) ==
LOC: PT 14:30
PROVIDERS: Family Provider Student in an Organized Health Care Education/Training Program; PCP Student in an Organized Health Care Education/Training Program; Referring Provider Orthopaedic Surgery; Visit Provider Orthopaedic Surgery
DX: M54.5 Low back pain (principal); Q90.9 Down syndrome, unspecified
CPT/HCPCS: 97113; 97163; 97530

== ENCOUNTER 2018-11-13 16:56 | Emergency (ER) | payer MEDICAID, SELFPAY ==
[2018-07-28 10:07] VITALS: BMI 48.6
[2018-11-13 16:57] VITALS: BP 139/71; PULSE 90; RESP 18; TEMP 36.7; O2SAT 100; BMI 46.0
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
== END 2018-11-13 20:16 | disposition home or self-care (01) ==
LOC: ED 17:58
PROVIDERS: Emergency Provider Emergency Medicine; Family Provider Student in an Organized Health Care Education/Training Program; PCP Student in an Organized Health Care Education/Training Program
DX: S16.1XXA Strain of muscle, fascia and tendon at neck level, initial encounter (principal); S39.012A Strain of muscle, fascia and tendon of lower back, initial encounter; S20.212A Contusion of left front wall of thorax, initial encounter; V89.2XXA Person injured in unspecified motor-vehicle accident, traffic, initial encounter; Y93.9 Activity, unspecified; Y92.9 Unspecified place or not applicable; Q90.9 Down syndrome, unspecified; Z98.1 Arthrodesis status
CPT/HCPCS: 71250; 72100; 72125; 99282

== ENCOUNTER 2018-12-01 09:30 | Outpatient (RCR) | payer MEDICAID, SELFPAY ==
[2018-07-28 10:07] VITALS: BMI 48.6
== END 2018-12-02 23:59 ==
LOC: NS 09:30
PROVIDERS: Family Provider Student in an Organized Health Care Education/Training Program; PCP Student in an Organized Health Care Education/Training Program; Visit Provider Nurse Practitioner Family
DX: E66.9 Obesity, unspecified (principal); Z68.43 Body mass index [BMI] 50.0-59.9, adult; Z71.3 Dietary counseling and surveillance
CPT/HCPCS: 97803

== ENCOUNTER 2018-12-15 09:04 | Outpatient (RCR) | payer MEDICAID, SELFPAY | END 2019-01-02 23:59 | LOC: NS 09:04 | PROVIDERS: Family Provider Student in an Organized Health Care Education/Training Program; PCP Student in an Organized Health Care Education/Training Program; Visit Provider Nurse Practitioner Family | DX: E66.9 Obesity, unspecified (principal); Z68.43 Body mass index [BMI] 50.0-59.9, adult; Z71.3 Dietary counseling and surveillance | CPT/HCPCS: 97803 ==

== ENCOUNTER 2019-01-28 18:51 | Inpatient (IN) | payer MEDICAID, SELFPAY ==
[2019-01-28 18:52] VITALS: BP 119/72; PULSE 118; RESP 17; TEMP 37.8; O2SAT 93; BMI 47.6
--- NOTE | 2019-01-28 19:20 | CT_ITS ---
We are attempting to reach an attending provider to discuss findings. An addendum with communication details will be sent when the communication is complete. STUDY: CT ABDOMEN AND PELVIS WITH CONTRAST REASON FOR EXAM: Female, 33 years old. Abdominal pain with elevated white blood cell count. RADIATION DOSAGE (If Supplied By Facility): CTDIvol = ( 18.74 ) mGy, DLP = ( 1208.68 ) mGycm TECHNIQUE: Transaxial images were obtained from the dome of the diaphragm to the symphysis pubis without oral contrast. Oral and amp; IV Gastrografin and amp; 100mL Isovue-300 100ML was administered. Sagittal and coronal images were reconstructed. Individualized dose optimization techniques were used for this CT. COMPARISON: None. FINDINGS: The visualized lung bases are unremarkable. The visualized portions of the heart are within normal limits. Normal liver. Normal gallbladder and extrahepatic biliary system. Normal spleen. Normal pancreas. Normal bilateral adrenal glands. Normal right kidney. Normal left kidney. Normal visualized stomach. Normal small intestine. There is inflammatory changes of the sigmoid colon which lies in close proximity to the right inflammatory quadrant, however the inflammation does not appear to arise from the sigmoid. There is a air-filled thin tubular structure emanating from the cecum (series 2 image 70) which likely represents the appendix lying in close proximity to the right quadrant inflammatory stranding. Normal abdominal aorta. Normal inferior vena cava. Normal retroperitoneum. Normal urinary bladder. Normal abdominal wall. Severe right hip arthrosis is present likely surrounding granulomatous tissue is present. CT/Abdomen/Pelvis WITH Contrast IMPRESSION: There is right adnexal inflammatory process and close proximity to the expected location of the appendix though thin tubular structure within the region representing appendix may be a present. Differential includes right adnexal/ovarian infection/PID, less likely appendicitis given likely visualized appendix on second review (series 2 image 78) with underlying right ovarian torsion also not excluded. Recommend general surgery consultation for further assessment management. Electronically Signed: Jeremie Henry DO at 21:37 EDT , Service support ,
[2019-01-28 19:28] LABS: Absolute Lymphocyte Count 0.92 X10^3/uL (0.83-4.51); Basophil# 0.07 X10^3/uL; Basophil% 0.4 % (0-1); Hematocrit 40.9 % (37-47); Hemoglobin 13.6 g/dL (12.0-15.0); Lymphocyte # 0.92 X10^3/ul (4.0); Lymphocyte % 5.9 % (19-41); Mean Corp Hgb Conc 33.3 g/dL (32-36); Mean Corpuscular Hgb 34.2 pg (27.0-32.0); Mean Corpuscular Volume 102.8 fL (81-99); Mean Platelet Vol. 9.4 fl (6.2-12.0); Monocyte# 0.56 X10^3/uL; Monocyte% 3.6 % (0-10); NRBC Flagged by Analyzer 0 % (0-5); Neutrophil # 14.01 X10^3/uL (2.7-7.7); Neutrophil % 89.6 % (47-70); Platelet Count 284 K/mm3 (150-450); RBC Distribution Width CV 13.4 % (11.6-14.6); RBC Distribution Width SD 51.4 fl (35.1-43.9); Red Blood Count 3.98 M/mm3 (4.2-5.4); White Blood Count 15.6 K/mm3 (4.4-11.0)
[2019-01-28 19:46] LABS: Internal QC Validated? YES +Cl - CLEAR BKGD; Pregnancy, Serum, hCG Quali. NEGATIVE Negative
[2019-01-28 19:49] LABS: AST(SGOT) 13 U/L (15-37); Alanine Aminotransfer ALT/SGPT 19 U/L (13-56); Albumin, Serum 3.4 g/dL (3.2-5.0); Alkaline Phosphatase 85 U/L (45-117); Anion Gap 5 (5-15); BUN 8 mg/dL (7-18); BUN/Creat Ratio 9.2 RATIO (10-20); Bilirubin, Direct 0.19 mg/dL (0.00-0.30); Calcium,Total 8.5 mg/dL (8.5-10.1); Chloride 103 mmol/L (98-107); Creatinine, Serum 0.87 mg/dL (0.55-1.02); EST Glomerular Filtration Rate 79 mL/min (>60); Est Glom Filt Rate - Afr Amer 96 mL/min (>60); Estimated Creatinine Clearance 153.98 ml/min; Globulin 4.6 g/dL (2.2-4.2); Glucose 124 mg/dL (74-106); Lipase 52 U/L (73-393); Potassium 3.6 mmol/L (3.5-5.1); Sodium Level 136 mmol/L (136-145)
[2019-01-28] MEDS: 0.9% Normal Saline 1,000 ML 125 ML IV (19:55)
[2019-01-28 20:04] LABS: Bacteria 0 SEEN /hpf (None Seen); Mucous, Urine 0 SEEN /hpf (<or=2+)
[2019-01-28 20:09] LABS: Color, Urine Red (Yellow); Glucose, Dipstick Normal (Normal); Ketone-Dipstick 5 mg/dl (Negative); Leukocyte Esterase-Dipstick 100 /ul (Negative); Nitrite-Dipstick Negative (Negative); Occult Blood-Urine 250 /ul (Negative); Protein-Dipstick 100 mg/dl (Negative); Urine Bilirubin Dipstick Negative (Negative); Urine Clarity Cloudy (Clear); Urine Urobilinogen Normal (Normal); Urine pH 6.5 (5.0 - 8.0)
[2019-01-28 20:26] LABS: Red Blood Cells-Urine > 100 SEEN /hpf (0-5); Squamous Epithelial Cells - UA 0-5 SEEN /hpf (5-10); White Blood Cells 5-10 SEEN /hpf (0-5)
[2019-01-28 20:27] LABS: Amorphous Sediment 1+ URATE
--- NOTE | 2019-01-28 22:18 | HP.PCM_ITS ---
Problem List (1) RLQ abdominal pain Status: Acute History of Present Illness Date of Admission: 01/28/19 The patient is a 33 year old F who presented with right lower quadrant and mid abdominal pain. Patient reports the pain started this morning. No nausea or vomiting. No chills. Past Medical History Past Medical History (Chronic Problems): Chronic Problems History of Down syndrome (Chronic) Allergies cefaclor [From Ceclor] Allergy (Verified 01/28/19 18:51) Hives Penicillins Allergy (Verified 01/28/19 18:51) unknown sulfamethoxazole [From Bactrim] Allergy (Verified 01/28/19 18:51) Upset Stomach trimethoprim [From Bactrim] Allergy (Verified 01/28/19 18:51) Upset Stomach Home Medications: Ambulatory Orders Medication Instructions Recorded Cholecalciferol (Vitamin D3) 50,000 unit PO QWEEK 03/31/18 [Vitamin D] Citalopram [Celexa] 20 mg PO DAILY 03/31/18 Fluticasone 0.05% [Flonase Nasal 2 spray NASAL DAILY 03/31/18 [place]] Levothyroxine [Synthroid] 137 mcg PO DAILY 03/31/18 Loratadine [Claritin] 10 mg PO DAILY 03/31/18 Multivitamin [Daily Multiple 1 ea PO DAILY 03/31/18 Vitamin] Omeprazole [Prilosec] 20 mg PO DAILY 03/31/18 tramadol 50 mg tablet 50 mg PO Q6H PRN 07/28/18 Surgical History: - - Pelvic repairs and neck fusion Lives: With Family Smoking Status: Never smoker - *Family History Maternal History Items: Cancer Review of Systems Constitutional: Denies: Chills HEENT: Denies: Difficulty Hearing Cardiovascular: Denies: Chest Pain Respiratory: Denies: Cough, Shortness of Breath Gastrointestinal: Reports: Abdominal Pain. Denies: Nausea, Vomiting Genitourinary: Denies: Dysuria Musculoskeletal: Denies: Joint stiffness Skin: Denies: Dryness Neurological: Denies: Blurred vision Psychiatric: Reports: Anxiety Hematologic/ Lymphatic: Denies: Anemia VTE Information - Inpt Only VTE Present on Admission: No VTE Mechan Device Prophylaxis: SCD's Patient Problems: Active and Suspected Problems RLQ abdominal pain (Acute) - Physical Exam General: Alert, Oriented x3 HEENT: Atraumatic Lungs: Normal air movement Cardiovascular: Tachycardic Abdomen: Soft, Non-Distended, Tender - Tender in the umbilical region Extremities: No clubbing Skin: No rashes Musculoskeletal: No Muscle Wasting Neurological: Cranial nerves II-XII grossly intact Psych/Mental Status: Normal Affect Vital Signs Temp Pulse Resp BP Pulse Ox 100.1 F H 118 H 17 119/72 93 01/28/19 18:52 01/28/19 18:52 01/28/19 18:52 01/28/19 18:52 01/28/19 18:52 Oxygen Delivery Method Room Air Weight: 236 lb Body Mass Index (BMI) 47.6 Laboratory Tests Past 24 Hrs 01/28/19 01/28/19 01/28/19 19:14 19:14 19:14 WBC 15.6 H RBC 3.98 L Hgb 13.6 Hct 40.9 MCV 102.8 H MCH 34.2 H MCHC 33.3 RDW Std Deviation 51.4 H RDW Coeff of Dragan 13.4 Plt Count 284 MPV 9.4 Immature Gran % (Auto) 0.500 Neut % (Auto) 89.6 H Lymph % (Auto) 5.9 L Terry % (Auto) 3.6 Eos % (Auto) 0.0 Baso % (Auto) 0.4 Absolute Neuts (auto) 14.0 H Absolute Lymphs (auto) 0.92 Nucleated RBC % 0 Sodium 136 Potassium 3.6 Chloride 103 Carbon Dioxide 28.0 Anion Gap 5 BUN 8 Creatinine 0.87 Estim Creat Clear Calc 153.98 Est GFR (MDRD) Af Amer 96 Est GFR (MDRD) Non-Af 79 BUN/Creatinine Ratio 9.2 L Glucose 124 H Lactic Acid Calcium 8.5 Total Bilirubin 0.80 Direct Bilirubin 0.19 AST 13 L ALT 19 Alkaline Phosphatase 85 Total Protein 8.0 Albumin 3.4 Globulin 4.6 H Lipase 52 L Serum , Qual NEGATIVE Urine Color Urine Clarity Urine pH Ur Specific [place] Urine Protein Urine Glucose (UA) Urine Ketones Urine Occult Blood Urine Nitrite Urine Bilirubin Urine Urobilinogen Ur Leukocyte Esterase Urine RBC Urine WBC Ur Squamous Epith Cells Amorphous Sediment Urine Bacteria Urine Mucus 01/28/19 01/28/19 19:25 19:45 WBC RBC Hgb Hct MCV MCH MCHC RDW Std Deviation RDW Coeff of Dragan Plt Count MPV Immature Gran % (Auto) Neut % (Auto) Lymph % (Auto) Terry % (Auto) Eos % (Auto) Baso % (Auto) Absolute Neuts (auto) Absolute Lymphs (auto) Nucleated RBC % Sodium Potassium Chloride Carbon Dioxide Anion Gap BUN Creatinine Estim Creat Clear Calc Est GFR (MDRD) Af Amer Est GFR (MDRD) Non-Af BUN/Creatinine Ratio Glucose Lactic Acid 1.0 Calcium Total Bilirubin Direct Bilirubin AST ALT Alkaline Phosphatase Total Protein Albumin Globulin Lipase Serum , Qual Urine Color Red Urine Clarity Cloudy Urine pH 6.5 Ur Specific [place] 1.010 Urine Protein 100 H Urine Glucose (UA) Normal Urine Ketones 5 H Urine Occult Blood 250 H Urine Nitrite Negative Urine Bilirubin Negative Urine Urobilinogen Normal Ur Leukocyte Esterase 100 H Urine RBC > 100 SEEN Urine WBC 5-10 SEEN Ur Squamous Epith Cells 0-5 SEEN Amorphous Sediment 1+ URATE Urine Bacteria 0 SEEN Urine Mucus 0 SEEN Clinical Impression(s) from Imaging Studies Abdomen/Pelvis CT 01/28/19 19:20 IMPRESSION: There is right adnexal inflammatory process and close proximity to the expected location of the appendix though thin tubular structure within the region representing appendix may be a present. Differential includes right adnexal/ovarian infection/PID, less likely appendicitis given likely visualized appendix on second review (series 2 image 78) with underlying right ovarian torsion also not excluded. Recommend general surgery consultation for further assessment management. Electronically Signed: Jeremie Henry DO at 21:37 EDT , Service support , ADDENDUM: 01/28/19 2204 IMPRESSION: There is right adnexal inflammatory process and close proximity to the expected location of the appendix though thin tubular structure within the region representing appendix may be a present. Differential includes right adnexal/ovarian infection/PID, less likely appendicitis given likely visualized appendix on second review (series 2 image 78) with underlying right ovarian torsion also not excluded. Recommend general surgery consultation for further assessment management. N.B. : The above information has been verbally conveyed by Jeremie Henry DO to MD Yadira, on 01/28/2019 21:57:06 (ET). Electronically Signed: Jeremie Henry DO at 21:37 EDT , Service support , Assessment/Plan All Active Problems Skin ulcer of nose (Acute) RLQ abdominal pain (Acute) 33-year-old female with right lower quadrant pain 1. The patient has abdominal pain as well as leukocytosis with left shift. CT scan shows a lot of inflammation in the right lower quadrant. It is uncertain as to the origin of the inflammation. The CT scan suggest that this may be carmen endicitis or it may be from the right adnexal region. There is also question of ovarian torsion. I discussed this with the patient in detail. I also discussed this with the patient's mother and sister. I recommend exploratory laparoscopy with appendectomy. I also explained the possibility of performing ileocecectomy if there is necrotic appendicitis. I also contacted Dr. Davila to be on-call in case this was gynecological in nature. Patient is tachycardic and has a low-grade fever in the emergency room. I recommend surgery tonight. 2. I discussed the risks of surgery including but not limited to bleeding, infection, injury to surrounding organs such as the bladder, ureter, bowel. 3. Patient was given clindamycin and fluid bolus. Consented for surgery and will plan on admission afterwards. Krzysztof Pedromo MD Pager: [facility] [address] [place] [address] [address] [place] [address] Office:
--- NOTE | 2019-01-28 22:20 | ED.VISSUMM ---
- ER Visit Summary Date of Service: 01/28/19 Chief Complaint: [Abdominal pain] History of Present Illness: The patient is a 33 F [resents the emergency department with complaint of abdominal pain that started this morning. Patient also started her period a few days ago. Patient has had no vomiting. Patient complains of pain with moving. She is had no diarrhea. Patient has had a fever today. Patient had blood work done at her primary care physician's office 2 days ago that was routine and it was noted that she had an elevated white blood cell count. She has history of hypothyroidism as well as Down syndrome and congenital heart disease. Patient has had prior cervical fusion.] Physical Examination: [HEENT-PERRLA, EOMI. Cranial nerves II through XII grossly intact. TMs clear. Mucous membranes moist. No adenopathy. Cardiovascular-regular rate and rhythm without murmur or ectopy Lungs-clear to auscultation, chest wall stable without crepitus or subcu emphysema Abdomen-normoactive bowel sounds, soft. Patient has tenderness palpation of the right lower quadrant with some guarding. There is no rebound, rigidity, or perineal signs. Extremities-intact ?4, normal range of motion, normal pulses, atraumatic] Test Results: [CBC with differential showed an elevated white blood cell count of 15.6, hemoglobin 13.9, hematocrit 41, platelets 284. Chemistries unremarkable. LFTs were normal. Urinalysis showed blood but no signs of infection. hCG was negative. CT scan of the abdomen pelvis initially was thought to show appendicitis by radiology however subsequently the radiologist thought that the inflammation may be coming from the right adnexa and could not rule out other causes as he suspected that subsequently he could see a look like normal appendix in the area of inflammation to the right lower quadrant.] Emergency Department Course and Treatment: [She was started on clindamycin 900 mill grams IV. Case was discussed with general surgeon on-call Dr. Perdomo. Patient was evaluated in the emergency department and will be taken to the OR.] Treatment Plan: [Admit for surgical intervention] Disposition: [Admit] Impression: [Abdominal pain Acute appendicitis] This note was generated with [employer] dictation software. It may contain incorrect words, spelling, and punctuation that were not noted in review of the chart prior to signing ED Disposition - Plan for ED Patient: Referrals: Trent Horowitz DO [Primary Care Provider] -
[2019-01-28 22:32] VITALS: BP 120/67; PULSE 100; RESP 18; TEMP 37.5; O2SAT 94; BMI 47.6
--- NOTE | 2019-01-28 22:50 | APP_PTH ---
PATIENT: DANNI GENAO LOC: MS3 U#:[id number] AGE/SX: 33/F ROOM: MS320 RE01/29/[address]: Dr. Krzysztof Perdomo MD : 1985 BED: 1 DIS: 01/31/2019 SPEC #: [id number] RECD: 01/29/19 08:26 STATUS: YESENIA RUIZ #: [id number] SLOAN: 01/28/19 22:[address]: Krzysztof Perdomo DEPT: SURGICAL PATHOLOGY RECD BY: Liborio Pratt ENTERED: 01/29/19 09:13 SP TYPE: APPENDIX OTHR DR: MD Dr. Trent Jarvis, Tissues: Appendix, NOS Procedures: Surgery Specimen Level III HEADER OPERATION: Laparoscopic, appendectomy PRE-OP DIAGNOSIS: Right lower quadrant pain TISSUE SUBMITTED: Appendix MICROSCOPIC DIAGNOSIS Appendix, appendectomy: Mild acute appendicitis and moderate to marked periappendicitis. See comment. ALISHA:kong 02/02/19 COMMENT Acute inflammation is more prominent in the periappendiceal adipose tissue as compared to the appendicular lumen and mucosa. The entire appendix is examined. Clinical correlation and appropriate follow up are necessary. MICROSCOPIC DESCRIPTION Slides are reviewed. GROSS DESCRIPTION Received is one container labeled with the patient's name and designated appendix. The specimen consists of a vermiform appendix measuring 4.8 cm in length and 1 cm in average diameter. No gross perforations are evident. Sections reveal a patent lumen. Greenish-viveros fibrinous material is adherent to the serosal surface. Aircraft Landing Gear Inspector sections are submitted in one cassette. / AM:kong 01/29/19 The rest of the specimen is submitted in cassettes 2 & 3. / SJ:kong 02/01/19 TC:2 CPT: 12776
[2019-01-29] VITALS (17 sets, daily range): BP systolic 88–120; BP diastolic 43–80; PULSE 84–112; RESP 16–24; TEMP 36.7–38.4; O2SAT 91–96; BMI 47.6; BMI 47.7
--- NOTE | 2019-01-29 00:53 | CON.PCM_ITS ---
- Consult Date of Consult: 01/29/19 - Reason for Consult PHOTOVOLTAIC TECHNICIAN CONSULT 33 yo female presented to ED with CC of RLQ pain, abdominal pain starting 01/28/19 am. No N/V. Neg chills. PMH: Down Syndrome Hypothyroidism Allergies Past Surgical Hx: Pelvic repair, R hip surgery Neck fusion Allergies: Ceclor PCN Bactrim Family: history of some cancer Meds: Celexa 20 mg pn daily Flonase 2 sprays q nostril daily Synthroid 137 mcg po daily Claritin 10 mg po daily Prilosec 20 mg po daily Tramadol 5o mg po q 6 hr prn pain Vit D LABS: CBC with WBCs of 15,600 with L shift. Hgb 13.6 LFTs WNL. UA: no bacteria. +blood (on menses) CT of Pelvis and abdomen: There is right adnexal inflammatory process and close proximity to the expected location of the appendix though thin tubular structure within the region representing appendix may be a present. Differential includes right adnexal/ovarian infection/PID, less likely appendicitis given likely visualized appendix on second review (series 2 image 78) with underlying right ovarian torsion also not excluded. Recommend general surgery consultation for further assessment management. Patient taken to OR by Dr Perdomo for diagnostic laparoscopic appendectomy performed. Diego pus in pelvis, with bilateral TOA noted. Ovaries WNL with dilated fallopian tubes. I was present in room and visualized pelvis during the case A/P: Tuboovarian abscess, bilateral. -- culture sent from pelvic fluid aspirated -- GC, chlamydia sent on urine specimen. -- recommend gentamicin 2 mg/kg loading dose, then may dose daily vs 1.5mg/kg q 8 hr AND Clindamycin 900 mg IV q 8 hrs. (Pt with penicillin, cephalosporin allergies). -- serial CBCs. will continue to follow.
--- NOTE | 2019-01-29 01:16 | OP.PCM_ITS ---
Problem List (1) RLQ abdominal pain Status: Acute Report of Operation Date of Procedure: 01/29/19 Pre-Operative Diagnosis: Right lower quadrant pain Post-Operative Diagnosis: Pelvic abscess Surgery/Procedure Performed:: Laparoscopic appendectomy Specimen's removed: 1. Fluid culture of the peritoneal fluid. 2. Appendix Description of Procedure: The patient was brought to the operating room and general anesthesia was induced. Liu catheter was placed. The abdomen was prepped and draped in usual sterile fashion. A small incision was made in the right lower quadrant and a 5 mm Visiport technique was employed to enter the abdomen. The abdomen was insufflated to 15 mmHg. The abdomen was inspected for injuries and there were none. Under direct visualization a 10 mm port was placed superior to the umbilicus. A 5 mm port was placed in the suprapubic space. There appeared to be adhesions and a purulent fluid collection in the pelvis. The abdominal contents were teased free from the anterior abdominal wall and the contents were suctioned and cultured. The colon appeared inflamed from contact but there was no stool or sign of perforation from the sigmoid colon. The cecum was noninflamed. The appendix was mildly inflamed there is no sign of perforation from the appendix. The right tube was inflamed but the ovary appeared normal. was present in the room to inspect the ovarian tubes. It appeared that the patient either had a pelvic abscess from the appendicitis or a tubo- ovarian abscess was also inflaming the appendix and sigmoid colon. The appendix was elevated and the mesoappendix was taken down using the Enseal. The base the appendix was stapled using a 45 mm laparoscopic stapler. It was placed into a bag and removed through the umbilical port. The pelvis was irrigated and suctioned. The staple line was intact and the mesoappendix was hemostatic. Next the GraNee needle was used to pass 3 interrupted 0 Vicryl sutures laparoscopically in the supraumbilical fascia. Next the 5 mm ports were removed and the abdomen was allowed to desufflate. The skin incisions were irrigated and suctioned and anesthetized with lidocaine and closed with interrupted 4-0 Monocryl sutures as well as Steri-Strips and bandages. The Liu was removed at the end the case. Patient was taken to PACU in stable condition. - Admit VTE Documentation VTE Mechan Device Prophylaxis: SCD's
[2019-01-29] MEDS: 0.9% Normal Saline 1,000 ML 125 ML IV ×3 (03:02→20:37)
[2019-01-29 03:04] LABS: Chlamydia Trachomatis by PCR Negative (Negative); Neisserai gonorrhoeae by PCR Negative (Negative); Probe Check PASS; Sample Adequacy Control PASS; Specimen Processing Control PASS
[2019-01-29 06:41] LABS: Absolute Lymphocyte Count 0.72 X10^3/uL (0.83-4.51); Absolute Neutrophil Count 10.8 X10^3/uL (2.0-7.7); Basophil# 0.04 X10^3/uL; Basophil% 0.3 % (0-1); Hematocrit 36.6 % (37-47); Lymphocyte # 0.72 X10^3/ul (4.0); Mean Corp Hgb Conc 32.8 g/dL (32-36); Mean Corpuscular Hgb 34.3 pg (27.0-32.0); Mean Corpuscular Volume 104.6 fL (81-99); Mean Platelet Vol. 9.5 fl (6.2-12.0); Monocyte# 0.38 X10^3/uL; Monocyte% 3.2 % (0-10); NRBC Flagged by Analyzer 0 % (0-5); Neutrophil # 10.84 X10^3/uL (2.7-7.7); Neutrophil % 90.2 % (47-70); Platelet Count 243 K/mm3 (150-450); RBC Distribution Width CV 13.8 % (11.6-14.6); RBC Distribution Width SD 52.8 fl (35.1-43.9)
[2019-01-29 06:56] LABS: Anion Gap 5 (5-15); BUN 7 mg/dL (7-18); BUN/Creat Ratio 10.6 RATIO (10-20); Calcium,Total 7.7 mg/dL (8.5-10.1); Chloride 103 mmol/L (98-107); Creatinine, Serum 0.66 mg/dL (0.55-1.02); EST Glomerular Filtration Rate 108 mL/min (>60); Est Glom Filt Rate - Afr Amer 131 mL/min (>60); Estimated Creatinine Clearance 202.97 ml/min; Glucose 107 mg/dL (74-106); Potassium 3.6 mmol/L (3.5-5.1); Sodium Level 136 mmol/L (136-145)
--- NOTE | 2019-01-29 07:35 | PCM.PN.SRG ---
Patient Problems: Active and Suspected Problems RLQ abdominal pain (Acute) Subjective: Patient has no complaints this morning and she is comfortably sleeping. - Physical Exam General: Alert, Oriented x3, Cooperative Cardiovascular: Regular rate, Regular Rhythm Abdomen: Soft, Non-Distended Extremities: No clubbing Musculoskeletal: No Muscle Wasting Vital Signs Temp Pulse Resp BP Pulse Ox 99.7 F H 96 18 102/44 L 96 01/29/19 06:31 01/29/19 06:31 01/29/19 06:31 01/29/19 06:31 01/29/19 06:31 Oxygen Flow Rate (L/min) 2 Oxygen Delivery Method Nasal Cannula Weight: 236 lb Body Mass Index (BMI) 47.6 Intake and Output for Last 24 Hours 01/27/19 01/28/19 01/29/19 23:59 23:59 23:59 Intake Total 1519.08 / 1519.08 Output Total 300 / 300 Balance 1219.08 / 1219.08 Laboratory Tests Past 24 Hrs 01/28/19 01/28/19 01/28/19 19:14 19:14 19:14 WBC 15.6 H RBC 3.98 L Hgb 13.6 Hct 40.9 MCV 102.8 H MCH 34.2 H MCHC 33.3 RDW Std Deviation 51.4 H RDW Coeff of Dragan 13.4 Plt Count 284 MPV 9.4 Immature Gran % (Auto) 0.500 Neut % (Auto) 89.6 H Lymph % (Auto) 5.9 L [place] % (Auto) 3.6 Eos % (Auto) 0.0 Baso % (Auto) 0.4 Absolute Neuts (auto) 14.0 H Absolute Lymphs (auto) 0.92 Nucleated RBC % 0 Sodium 136 Potassium 3.6 Chloride 103 Carbon Dioxide 28.0 Anion Gap 5 BUN 8 Creatinine 0.87 Estim Creat Clear Calc 153.98 Est GFR (MDRD) Af Amer 96 Est GFR (MDRD) Non-Af 79 BUN/Creatinine Ratio 9.2 L Glucose 124 H Lactic Acid Calcium 8.5 Total Bilirubin 0.80 Direct Bilirubin 0.19 AST 13 L ALT 19 Alkaline Phosphatase 85 Total Protein 8.0 Albumin 3.4 Globulin 4.6 H Lipase 52 L Serum , Qual NEGATIVE Urine Color Urine Clarity Urine pH Ur Specific [place] Urine Protein Urine Glucose (UA) Urine Ketones Urine Occult Blood Urine Nitrite Urine Bilirubin Urine Urobilinogen Ur Leukocyte Esterase Urine RBC Urine WBC Ur Squamous Epith Cells Amorphous Sediment Urine Bacteria Urine Mucus Chlam trachomat DNA PCR N.gonorrhoeae DNA (PCR) 01/28/19 01/28/19 01/29/19 19:25 19:45 06:23 WBC 12.0 H RBC 3.50 L Hgb 12.0 Hct 36.6 L MCV 104.6 H MCH 34.3 H MCHC 32.8 RDW Std Deviation 52.8 H RDW Coeff of Dragan 13.8 Plt Count 243 MPV 9.5 Immature Gran % (Auto) 0.300 Neut % (Auto) 90.2 H Lymph % (Auto) 6.0 L [place] % (Auto) 3.2 Eos % (Auto) 0.0 Baso % (Auto) 0.3 Absolute Neuts (auto) 10.8 H Absolute Lymphs (auto) 0.72 L Nucleated RBC % 0 Sodium Potassium Chloride Carbon Dioxide Anion Gap BUN Creatinine Estim Creat Clear Calc Est GFR (MDRD) Af Amer Est GFR (MDRD) Non-Af BUN/Creatinine Ratio Glucose Lactic Acid 1.0 Calcium Total Bilirubin Direct Bilirubin AST ALT Alkaline Phosphatase Total Protein Albumin Globulin Lipase Serum , Qual Urine Color Red Urine Clarity Cloudy Urine pH 6.5 Ur Specific [place] 1.010 Urine Protein 100 H Urine Glucose (UA) Normal Urine Ketones 5 H Urine Occult Blood 250 H Urine Nitrite Negative Urine Bilirubin Negative Urine Urobilinogen Normal Ur Leukocyte Esterase 100 H Urine RBC > 100 SEEN Urine WBC 5-10 SEEN Ur Squamous Epith Cells 0-5 SEEN Amorphous Sediment 1+ URATE Urine Bacteria 0 SEEN Urine Mucus 0 SEEN Chlam trachomat DNA PCR N.gonorrhoeae DNA (PCR) 01/29/19 01/29/19 06:23 Unknown WBC RBC Hgb Hct MCV MCH MCHC RDW Std Deviation RDW Coeff of Dragan Plt Count MPV Immature Gran % (Auto) Neut % (Auto) Lymph % (Auto) [place] % (Auto) Eos % (Auto) Baso % (Auto) Absolute Neuts (auto) Absolute Lymphs (auto) Nucleated RBC % Sodium 136 Potassium 3.6 Chloride 103 Carbon Dioxide 28.0 Anion Gap 5 BUN 7 Creatinine 0.66 Estim Creat Clear Calc 202.97 Est GFR (MDRD) Af Amer 131 Est GFR (MDRD) Non-Af 108 BUN/Creatinine Ratio 10.6 Glucose 107 H Lactic Acid Calcium 7.7 L Total Bilirubin Direct Bilirubin AST ALT Alkaline Phosphatase Total Protein Albumin Globulin Lipase Serum , Qual Urine Color Urine Clarity Urine pH Ur Specific [place] Urine Protein Urine Glucose (UA) Urine Ketones Urine Occult Blood Urine Nitrite Urine Bilirubin Urine Urobilinogen Ur Leukocyte Esterase Urine RBC Urine WBC Ur Squamous Epith Cells Amorphous Sediment Urine Bacteria Urine Mucus Chlam trachomat DNA PCR Negative N.gonorrhoeae DNA (PCR) Negative Medical Necessity - Tobacco Use Smoking Status: Never smoker Assessment/Plan All Active Problems Skin ulcer of nose (Acute) RLQ abdominal pain (Acute) 33-year-old female with pelvic abscess status post laparoscopic appendectomy 1. Patient had pelvic abscess on laparoscopy. This was cultured and she was started on antibiotics. Laparoscopic appendectomy was performed but I am unsure if the appendix was source. is involved and started on Clinda and gent for possible tubo-ovarian abscess. 2. We will continue clear liquids today and see how she is doing. She is still requiring 2 L of O2. Encourage ambulation and incentive spirometer. SCDs and Lovenox. Krzysztof Perdomo MD Pager: [facility] [address] [place] [address], [address] [place] [address] Office:
--- NOTE | 2019-01-29 07:47 | PCM.PROGNOTE ---
Patient Problems: Active and Suspected Problems RLQ abdominal pain (Acute) Subjective: Feeling a little sore, smiling. Drowsy - Physical Exam General: Cooperative, No apparent distress HEENT: Atraumatic Oral: Moist Mucosa Abdomen: Soft - minimally tender c/w postop status (improved from yesterday) Skin: Incision - L/S incisions CDI Spot drainage on op sites at LLQ and at suprapubic skin Vital Signs Temp Pulse Resp BP Pulse Ox 99.7 F H 96 18 102/44 L 96 01/29/19 06:31 01/29/19 06:31 01/29/19 06:31 01/29/19 06:31 01/29/19 06:31 Oxygen Flow Rate (L/min) 2 Oxygen Delivery Method Nasal Cannula Weight: 107.048 kg Body Mass Index (BMI) 47.6 Intake and Output for Last 24 Hours 01/27/19 01/28/19 01/29/19 23:59 23:59 23:59 Intake Total 1519.08 / 1519.08 Output Total 300 / 300 Balance 1219.08 / 1219.08 Laboratory Tests Past 24 Hrs 01/28/19 01/28/19 01/28/19 19:14 19:14 19:14 WBC 15.6 H RBC 3.98 L Hgb 13.6 Hct 40.9 MCV 102.8 H MCH 34.2 H MCHC 33.3 RDW Std Deviation 51.4 H RDW Coeff of Dragan 13.4 Plt Count 284 MPV 9.4 Immature Gran % (Auto) 0.500 Neut % (Auto) 89.6 H Lymph % (Auto) 5.9 L [place] % (Auto) 3.6 Eos % (Auto) 0.0 Baso % (Auto) 0.4 Absolute Neuts (auto) 14.0 H Absolute Lymphs (auto) 0.92 Nucleated RBC % 0 Sodium 136 Potassium 3.6 Chloride 103 Carbon Dioxide 28.0 Anion Gap 5 BUN 8 Creatinine 0.87 Estim Creat Clear Calc 153.98 Est GFR (MDRD) Af Amer 96 Est GFR (MDRD) Non-Af 79 BUN/Creatinine Ratio 9.2 L Glucose 124 H Lactic Acid Calcium 8.5 Total Bilirubin 0.80 Direct Bilirubin 0.19 AST 13 L ALT 19 Alkaline Phosphatase 85 Total Protein 8.0 Albumin 3.4 Globulin 4.6 H Lipase 52 L Serum , Qual NEGATIVE Urine Color Urine Clarity Urine pH Ur Specific [place] Urine Protein Urine Glucose (UA) Urine Ketones Urine Occult Blood Urine Nitrite Urine Bilirubin Urine Urobilinogen Ur Leukocyte Esterase Urine RBC Urine WBC Ur Squamous Epith Cells Amorphous Sediment Urine Bacteria Urine Mucus Chlam trachomat DNA PCR N.gonorrhoeae DNA (PCR) 01/28/19 01/28/19 01/29/19 19:25 19:45 06:23 WBC 12.0 H RBC 3.50 L Hgb 12.0 Hct 36.6 L MCV 104.6 H MCH 34.3 H MCHC 32.8 RDW Std Deviation 52.8 H RDW Coeff of Dragan 13.8 Plt Count 243 MPV 9.5 Immature Gran % (Auto) 0.300 Neut % (Auto) 90.2 H Lymph % (Auto) 6.0 L [place] % (Auto) 3.2 Eos % (Auto) 0.0 Baso % (Auto) 0.3 Absolute Neuts (auto) 10.8 H Absolute Lymphs (auto) 0.72 L Nucleated RBC % 0 Sodium Potassium Chloride Carbon Dioxide Anion Gap BUN Creatinine Estim Creat Clear Calc Est GFR (MDRD) Af Amer Est GFR (MDRD) Non-Af BUN/Creatinine Ratio Glucose Lactic Acid 1.0 Calcium Total Bilirubin Direct Bilirubin AST ALT Alkaline Phosphatase Total Protein Albumin Globulin Lipase Serum , Qual Urine Color Red Urine Clarity Cloudy Urine pH 6.5 Ur Specific [place] 1.010 Urine Protein 100 H Urine Glucose (UA) Normal Urine Ketones 5 H Urine Occult Blood 250 H Urine Nitrite Negative Urine Bilirubin Negative Urine Urobilinogen Normal Ur Leukocyte Esterase 100 H Urine RBC > 100 SEEN Urine WBC 5-10 SEEN Ur Squamous Epith Cells 0-5 SEEN Amorphous Sediment 1+ URATE Urine Bacteria 0 SEEN Urine Mucus 0 SEEN Chlam trachomat DNA PCR N.gonorrhoeae DNA (PCR) 01/29/19 01/29/19 06:23 Unknown WBC RBC Hgb Hct MCV MCH MCHC RDW Std Deviation RDW Coeff of Dragan Plt Count MPV Immature Gran % (Auto) Neut % (Auto) Lymph % (Auto) [place] % (Auto) Eos % (Auto) Baso % (Auto) Absolute Neuts (auto) Absolute Lymphs (auto) Nucleated RBC % Sodium 136 Potassium 3.6 Chloride 103 Carbon Dioxide 28.0 Anion Gap 5 BUN 7 Creatinine 0.66 Estim Creat Clear Calc 202.97 Est GFR (MDRD) Af Amer 131 Est GFR (MDRD) Non-Af 108 BUN/Creatinine Ratio 10.6 Glucose 107 H Lactic Acid Calcium 7.7 L Total Bilirubin Direct Bilirubin AST ALT Alkaline Phosphatase Total Protein Albumin Globulin Lipase Serum , Qual Urine Color Urine Clarity Urine pH Ur Specific [place] Urine Protein Urine Glucose (UA) Urine Ketones Urine Occult Blood Urine Nitrite Urine Bilirubin Urine Urobilinogen Ur Leukocyte Esterase Urine RBC Urine WBC Ur Squamous Epith Cells Amorphous Sediment Urine Bacteria Urine Mucus Chlam trachomat DNA PCR Negative N.gonorrhoeae DNA (PCR) Negative Medical Necessity - Tobacco Use Smoking Status: Never smoker Assessment/Plan All Active Problems Skin ulcer of nose (Acute) RLQ abdominal pain (Acute) RLQ pain. Possible TOA vs appendicitis. POD#1 Laparoscopic appendectomy Clinical improvement noted. Pt's mother states no pain med given since prior to surgery. Pt's mother states pt is not sexually active Confirmed to mother that from [employer] standpoint PID involves polymicrobial infection and broad spectrum antibiotics to continue IV for now. GC and chlamydia NEG. Preg test neg . --Continue Clindamycin 900 mg IV q 8 hrs. Gentamicin daily dosing to start today via pharmacy --culture pelvic aspirate pending. appendix for path also. Diet and management per Dr. Perdomo. Will continue to follow
[2019-01-29] MEDS: Docusate Sodium 100 MG Capsule PO ×2 (09:11→20:37)
[2019-01-29] MEDS: Enoxaparin 40 MG/0.4 ML Syringe SC (09:14)
[2019-01-29] MEDS: Acetaminophen 325 MG Tablet 650 MG PO ×2 (09:21→18:51)
[2019-01-29] MEDS: traMADol 50 MG Tablet PO (11:10)
--- NOTE | 2019-01-29 14:52 | PCM.DC.SUM ---
<Aspen Holman - Last Filed: 01/31/19 11:46> Discharge Date and Diagnosis Date of Discharge: 01/31/19 - Primary Discharge Diagnosis Active and Suspected Problems RLQ abdominal pain (Acute) purulent fluid in pelvis unknown etiology - Secondary Discharge Diagnosis Chronic Problems History of Down syndrome (Chronic) Hospital Course and Treatment Operations: appendectomy - & removal of purulent fluid from pelvis unknown etiology Summary of Care Provided: The patient is a 33 year old F presented to ER w RLQ pain and CT a/p (see below). Due to fever and leukocytosis pt was taken for lap appy 01/28/19 early in AM, there was purulence in pelvis which was evacuated, didn't appear to be from appendix but appendix was removed, unsure source of purulence material--Dr. Davila was also present for the surgery. Fluid was cx- E.coli- got IV Abx clinda/gent while in hospital and d/c with omnicef 300 mg PO BID x 3 days. Pt did have fevers while in the hospital but they improved after pt was able to be weaned from O2, pt had +BM and tolerated regular diet and was able to d/c home with her mother. Clinical Impression(s) from Imaging Studies Abdomen/Pelvis CT 01/28/19 19:20 IMPRESSION: There is right adnexal inflammatory process and close proximity to the expected location of the appendix though thin tubular structure within the region representing appendix may be a present. Differential includes right adnexal/ovarian infection/PID, less likely appendicitis given likely visualized appendix on second review (series 2 image 78) with underlying right ovarian torsion also not excluded. Recommend general surgery consultation for further assessment management. Electronically Signed: Jeremie Henry DO at 21:37 EDT , Service support , ADDENDUM: 01/28/19 8031 IMPRESSION: There is right adnexal inflammatory process and close proximity to the expected location of the appendix though thin tubular structure within the region representing appendix may be a present. Differential includes right adnexal/ovarian infection/PID, less likely appendicitis given likely visualized appendix on second review (series 2 image 78) with underlying right ovarian torsion also not excluded. Recommend general surgery consultation for further assessment management. N.B. : The above information has been verbally conveyed by Jeremie Henry DO to MD Yadira, on 01/28/2019 21:57:06 (ET). Electronically Signed: Jeremie Henry DO at 21:37 EDT , Service support , Microbiology Past 72 Hours 01/29/19 Unknown Gram Stain - Final Aspirate - Other Wound Culture - Final Escherichia coli Laboratory Tests Past 24 Hrs 01/31/19 01/31/19 05:55 05:55 WBC 7.7 RBC 3.13 L Hgb 10.6 L Hct 33.5 L MCV 107.0 H MCH 33.9 H MCHC 31.6 L RDW Std Deviation 54.6 H RDW Coeff of Dragan 13.7 Plt Count 239 MPV 9.6 Immature Gran % (Auto) 0.800 Neut % (Auto) 83.2 H Lymph % (Auto) 9.5 L [place] % (Auto) 5.5 Eos % (Auto) 0.3 Baso % (Auto) 0.7 Absolute Neuts (auto) 6.4 Absolute Lymphs (auto) 0.73 L Nucleated RBC % 0 Sodium 141 Potassium 3.6 Chloride 108 H Carbon Dioxide 29.0 Anion Gap 4 L BUN 4 L Creatinine 0.70 Estim Creat Clear Calc 191.28 Est GFR (MDRD) Af Amer 122 Est GFR (MDRD) Non-Af 101 BUN/Creatinine Ratio 5.7 L Glucose 91 Calcium 8.3 L - Physical Exam General: Alert, Cooperative, No apparent distress Lungs: Normal air movement Cardiovascular: Regular rate Abdomen: Soft, Distended - mild, Tender - near incisions, c/d/i, no PS Vital Signs Temp Pulse Resp BP Pulse Ox 98.3 F 69 18 95/45 L 92 01/31/19 08:42 01/31/19 08:42 01/31/19 08:42 01/31/19 08:42 01/31/19 08:42 Oxygen Flow Rate (L/min) 2 Oxygen Delivery Method Room Air Weight: 235 lb 14.314 oz Body Mass Index (BMI) 47.6 Intake and Output for Last 24 Hours 01/29/19 01/30/19 01/31/19 23:59 23:59 23:59 Intake Total 4306.08 / 4756.08 4630.50 / 4630.50 1974.75 / 1974.75 Output Total 1200 / 1650 1275 / 1275 700 / 700 Balance 3106.08 / 3106.08 3355.50 / 3355.50 1274.75 / 1274.75 Microbiology Past 72 Hours 01/29/19 Unknown Gram Stain - Final Aspirate - Other Wound Culture - Final Escherichia coli Laboratory Tests Past 24 Hrs 01/31/19 01/31/19 05:55 05:55 WBC 7.7 RBC 3.13 L Hgb 10.6 L Hct 33.5 L MCV 107.0 H MCH 33.9 H MCHC 31.6 L RDW Std Deviation 54.6 H RDW Coeff of Dragan 13.7 Plt Count 239 MPV 9.6 Immature Gran % (Auto) 0.800 Neut % (Auto) 83.2 H Lymph % (Auto) 9.5 L [place] % (Auto) 5.5 Eos % (Auto) 0.3 Baso % (Auto) 0.7 Absolute Neuts (auto) 6.4 Absolute Lymphs (auto) 0.73 L Nucleated RBC % 0 Sodium 141 Potassium 3.6 Chloride 108 H Carbon Dioxide 29.0 Anion Gap 4 L BUN 4 L Creatinine 0.70 Estim Creat Clear Calc 191.28 Est GFR (MDRD) Af Amer 122 Est GFR (MDRD) Non-Af 101 BUN/Creatinine Ratio 5.7 L Glucose 91 Calcium 8.3 L Discharge Diet: No Restrictions Lifting Restrict to (lbs):: 20 - x 2 weeks Call your doctor if your incision/area has: Continuous Slow Oozing, Sudden Increased Bleeding, Increased Pain/ Swelling, Increased Redness, Foul Smelling Discharge, Swelling at the incision site Call your doctor if you observe: Fever of 101 or Higher Remove Dressing in (days):: 0 - ok to remove opsite Home Medications: Medications to take at Discharge Cholecalciferol (Vitamin D3) [Vitamin D] 50,000 unit PO QWEEK 03/31/18 Citalopram [Celexa] 20 mg PO QHS 03/31/18 Fluticasone 0.05% [Flonase Nasal [place]] 2 spray NASAL DAILY 03/31/18 Levothyroxine [Synthroid] 137 mcg PO DAILY 11/27/18 Loratadine [Claritin] 10 mg PO DAILY 03/31/18 Multivitamin [Daily Multiple Vitamin] 1 ea PO DAILY 03/31/18 Omeprazole [Prilosec] 20 mg PO DAILY 03/31/18 tramadol 50 mg tablet 50 mg PO Q6H PRN 07/28/18 Cefdinir 300 mg PO BID 3 Days #6 cap 01/31/19 traMADol [Ultram] 50 mg PO Q6H PRN PRN 4 Days #15 tab 01/31/19 Following Prescrptions Were Given to Patient: Cefdinir 300 mg PO BID 3 Days #6 cap Transmission Status: Received by OSMEL [id number] [facility] traMADol [Ultram] 50 mg PO Q6H PRN PRN 4 Days #15 tab PRN Reason: Pain Score 1-1010 Transmission Status: Received by OSMEL [id number] [facility] Primary Care Physician: Trent Horowitz DO [Primary Care Provider] - Please Follow Up With: Krzysztof Perdomo MD When: call office f/u in 1-2 wks Disposition: Home Minutes spent on discharge:: 15 Patient Condition:: Good Medical Necessity - Tobacco Use Smoking Status: Never smoker Meaningful Use Info Meaningful Use Diagnoses (Choose all that apply): None applicable <Krzysztof Perdomo - Last Filed: 02/03/19 09:11> Discharge Date and Diagnosis Date of Admission: 01/28/19 - Primary Discharge Diagnosis Active and Suspected Problems RLQ abdominal pain (Acute) - Secondary Discharge Diagnosis Chronic Problems History of Down syndrome (Chronic) Hospital Course and Treatment Summary of Care Provided: The patient is a 33 year old F [] - Physical Exam Vital Signs Temp Pulse Resp BP Pulse Ox 98.8 F 93 16 118/80 96 01/29/19 13:55 01/29/19 13:55 01/29/19 13:55 01/29/19 14:37 01/29/19 13:55 Oxygen Flow Rate (L/min) 3 Oxygen Delivery Method Nasal Cannula Weight: 236 lb Body Mass Index (BMI) 47.6 Intake and Output for Last 24 Hours 01/27/19 01/28/19 01/29/19 23:59 23:59 23:59 Intake Total 2612.58 / 2612.58 Output Total 400 / 400 Balance 2212.58 / 2212.58 Microbiology Past 72 Hours 01/29/19 Unknown Gram Stain - Final Aspirate - Other Laboratory Tests Past 24 Hrs 01/28/19 01/28/19 01/28/19 19:14 19:14 19:14 WBC 15.6 H RBC 3.98 L Hgb 13.6 Hct 40.9 MCV 102.8 H MCH 34.2 H MCHC 33.3 RDW Std Deviation 51.4 H RDW Coeff of Dragan 13.4 Plt Count 284 MPV 9.4 Immature Gran % (Auto) 0.500 Neut % (Auto) 89.6 H Lymph % (Auto) 5.9 L [place] % (Auto) 3.6 Eos % (Auto) 0.0 Baso % (Auto) 0.4 Absolute Neuts (auto) 14.0 H Absolute Lymphs (auto) 0.92 Nucleated RBC % 0 Sodium 136 Potassium 3.6 Chloride 103 Carbon Dioxide 28.0 Anion Gap 5 BUN 8 Creatinine 0.87 Estim Creat Clear Calc 153.98 Est GFR (MDRD) Af Amer 96 Est GFR (MDRD) Non-Af 79 BUN/Creatinine Ratio 9.2 L Glucose 124 H Lactic Acid Calcium 8.5 Total Bilirubin 0.80 Direct Bilirubin 0.19 AST 13 L ALT 19 Alkaline Phosphatase 85 Total Protein 8.0 Albumin 3.4 Globulin 4.6 H Lipase 52 L Serum , Qual NEGATIVE Urine Color Urine Clarity Urine pH Ur Specific [place] Urine Protein Urine Glucose (UA) Urine Ketones Urine Occult Blood Urine Nitrite Urine Bilirubin Urine Urobilinogen Ur Leukocyte Esterase Urine RBC Urine WBC Ur Squamous Epith Cells Amorphous Sediment Urine Bacteria Urine Mucus Chlam trachomat DNA PCR N.gonorrhoeae DNA (PCR) 01/28/19 01/28/19 01/29/19 19:25 19:45 06:23 WBC 12.0 H RBC 3.50 L Hgb 12.0 Hct 36.6 L MCV 104.6 H MCH 34.3 H MCHC 32.8 RDW Std Deviation 52.8 H RDW Coeff of Dragan 13.8 Plt Count 243 MPV 9.5 Immature Gran % (Auto) 0.300 Neut % (Auto) 90.2 H Lymph % (Auto) 6.0 L [place] % (Auto) 3.2 Eos % (Auto) 0.0 Baso % (Auto) 0.3 Absolute Neuts (auto) 10.8 H Absolute Lymphs (auto) 0.72 L Nucleated RBC % 0 Sodium Potassium Chloride Carbon Dioxide Anion Gap BUN Creatinine Estim Creat Clear Calc Est GFR (MDRD) Af Amer Est GFR (MDRD) Non-Af BUN/Creatinine Ratio Glucose Lactic Acid 1.0 Calcium Total Bilirubin Direct Bilirubin AST ALT Alkaline Phosphatase Total Protein Albumin Globulin Lipase Serum , Qual Urine Color Red Urine Clarity Cloudy Urine pH 6.5 Ur Specific [place] 1.010 Urine Protein 100 H Urine Glucose (UA) Normal Urine Ketones 5 H Urine Occult Blood 250 H Urine Nitrite Negative Urine Bilirubin Negative Urine Urobilinogen Normal Ur Leukocyte Esterase 100 H Urine RBC > 100 SEEN Urine WBC 5-10 SEEN Ur Squamous Epith Cells 0-5 SEEN Amorphous Sediment 1+ URATE Urine Bacteria 0 SEEN Urine Mucus 0 SEEN Chlam trachomat DNA PCR N.gonorrhoeae DNA (PCR) 01/29/19 01/29/19 06:23 Unknown WBC RBC Hgb Hct MCV MCH MCHC RDW Std Deviation RDW Coeff of Dragan Plt Count MPV Immature Gran % (Auto) Neut % (Auto) Lymph % (Auto) [place] % (Auto) Eos % (Auto) Baso % (Auto) Absolute Neuts (auto) Absolute Lymphs (auto) Nucleated RBC % Sodium 136 Potassium 3.6 Chloride 103 Carbon Dioxide 28.0 Anion Gap 5 BUN 7 Creatinine 0.66 Estim Creat Clear Calc 202.97 Est GFR (MDRD) Af Amer 131 Est GFR (MDRD) Non-Af 108 BUN/Creatinine Ratio 10.6 Glucose 107 H Lactic Acid Calcium 7.7 L Total Bilirubin Direct Bilirubin AST ALT Alkaline Phosphatase Total Protein Albumin Globulin Lipase Serum , Qual Urine Color Urine Clarity Urine pH Ur Specific [place] Urine Protein Urine Glucose (UA) Urine Ketones Urine Occult Blood Urine Nitrite Urine Bilirubin Urine Urobilinogen Ur Leukocyte Esterase Urine RBC Urine WBC Ur Squamous Epith Cells Amorphous Sediment Urine Bacteria Urine Mucus Chlam trachomat DNA PCR Negative N.gonorrhoeae DNA (PCR) Negative Medical Necessity - Tobacco Use Smoking Status: Never smoker
[2019-01-29] MEDS: Citalopram 20 MG Tablet PO (20:37)
[2019-01-29] MEDS: 0.9% NaCl Peripheral Flush Adult/Peds IV (20:44)
[2019-01-29] MEDS: Ondansetron 4 MG/2 ML Vial IV (20:44)
--- NOTE | 2019-01-29 20:53 | CPS ---
Pts. home PAP unit setup at bedside. Discussed with pt. and family member about what the CPAP does compared to the Nasal Cannula. Pt. said she would like to use just the NC with 3L of O2 tonight. Machine is setup at bedside if pt. changes her mind during the night. RN aware.
[2019-01-30] VITALS (12 sets, daily range): BP systolic 96–118; BP diastolic 60–89; PULSE 83–94; RESP 18–24; TEMP 37.2–37.8; O2SAT 92–98
[2019-01-30] MEDS: Acetaminophen 325 MG Tablet 650 MG PO ×3 (02:58→21:33)
[2019-01-30] MEDS: 0.9% Normal Saline 1,000 ML 125 ML IV ×2 (05:29→20:06)
[2019-01-30] MEDS: Levothyroxine 137 MCG Tablet PO (05:31)
--- NOTE | 2019-01-30 07:06 | PN.SURG_ITS ---
Patient Problems: Active and Suspected Problems RLQ abdominal pain (Acute) Subjective: Patient did have a fever of 101 at 6 PM yesterday also did get some Zofran last night as well. She did state that she had a small amount of flatus however the nurse cannot confirm this. - Physical Exam General: Alert, Cooperative, No apparent distress Lungs: Normal air movement Cardiovascular: Regular rate Abdomen: Soft, Distended - Mild to moderate, Tender - Right upper quadrant, incisions minimal sanguinous drainage dry and intact with Steri's Vital Signs Temp Pulse Resp BP Pulse Ox 99 F 91 20 H 111/89 H 96 01/30/19 02:45 01/30/19 02:45 01/30/19 02:45 01/30/19 02:45 01/30/19 02:45 Oxygen Flow Rate (L/min) 3 Oxygen Delivery Method Nasal Cannula Weight: 236 lb Body Mass Index (BMI) 47.6 Intake and Output for Last 24 Hours 01/28/19 01/29/19 01/30/19 23:59 23:59 23:59 Intake Total 4306.08 / 4756.08 1720.58 / 1720.58 Output Total 1200 / 1650 925 / 925 Balance 3106.08 / 3106.08 795.58 / 795.58 Microbiology Past 72 Hours 01/29/19 Unknown Gram Stain - Final Aspirate - Other Medical Necessity - Tobacco Use Smoking Status: Never smoker Assessment/Plan All Active Problems Skin ulcer of nose (Acute) RLQ abdominal pain (Acute) 33-year-old female with pelvic abscess?questionable etiology, status post laparoscopic appendectomy 1. Continue clears patient did have a fever of 101 yesterday as well as took some nausea medicine unsure if patient is really having bowel function or flatus. 2. Await labs, continue clindamycin and gentamicin IV 3. Encourage out of bed to chair and ambulation Aspen Holman M.D. Pager: [phone] [facility] [address] [place] [address], [facility], [address] [place] [id number] Office: [phone]
[2019-01-30 07:36] LABS: Absolute Lymphocyte Count 0.59 X10^3/uL (0.83-4.51); Absolute Neutrophil Count 10.9 X10^3/uL (2.0-7.7); Basophil# 0.04 X10^3/uL; Basophil% 0.3 % (0-1); Hematocrit 34.3 % (37-47); Lymphocyte # 0.59 X10^3/ul (4.0); Lymphocyte % 4.9 % (19-41); Mean Corp Hgb Conc 32.1 g/dL (32-36); Mean Corpuscular Hgb 33.8 pg (27.0-32.0); Mean Corpuscular Volume 105.5 fL (81-99); Mean Platelet Vol. 9.7 fl (6.2-12.0); Monocyte# 0.47 X10^3/uL; Monocyte% 3.9 % (0-10); NRBC Flagged by Analyzer 0 % (0-5); Neutrophil # 10.92 X10^3/uL (2.7-7.7); Neutrophil % 90.6 % (47-70); POSITIVE DIFFERENTIAL YES; Platelet Count 239 K/mm3 (150-450); RBC Distribution Width CV 13.7 % (11.6-14.6); RBC Distribution Width SD 53.9 fl (35.1-43.9); Red Blood Count 3.25 M/mm3 (4.2-5.4); White Blood Count 12.1 K/mm3 (4.4-11.0)
[2019-01-30 07:38] LABS: Differential Indicated SCAN CRITERIA MET
[2019-01-30 07:57] LABS: Anion Gap 4 (5-15); BUN 6 mg/dL (7-18); Calcium,Total 7.7 mg/dL (8.5-10.1); Chloride 106 mmol/L (98-107); Creatinine, Serum 0.75 mg/dL (0.55-1.02); EST Glomerular Filtration Rate 94 mL/min (>60); Est Glom Filt Rate - Afr Amer 114 mL/min (>60); Estimated Creatinine Clearance 178.61 ml/min; Glucose 97 mg/dL (74-106); Potassium 3.4 mmol/L (3.5-5.1); Sodium Level 139 mmol/L (136-145)
[2019-01-30 08:01] LABS: Differential Comment SCANNED
[2019-01-30] MEDS: Ipratropium/Albuterol Sulfate 3 ML AMPUL.NEB INHALATION (10:01)
[2019-01-30] MEDS: Loratadine 10 MG Tablet PO (11:16)
[2019-01-30] MEDS: Docusate Sodium 100 MG Capsule PO ×2 (11:17→21:33)
[2019-01-30] MEDS: Enoxaparin 40 MG/0.4 ML Syringe SC (11:17)
[2019-01-30] MEDS: Fluticasone 0.05% 1 SPRAY NASAL.SRY 2 SPRAY NASAL (11:18)
--- NOTE | 2019-01-30 16:56 | CM.UR ---
RN CM Assessment Introduced role of RN CM to patient. Patient is alert and able to participate in RN CM Assessment. Care providers, pharmacy, and demographics verified. Mother and sister at bedside. Presentation: abd pain Admit Dx: acute appendicitis Re-Admit: no Barriers/Issues: downs syndrome PCP: Dr. Horowitz Preferred Pharmacy: [facility] Insurance: [facility] Rx Benefit: yes, no copays. LNOK: Kalpana Lu LW/HPOA: None. Mother is her guardian. Living Arrangements: Lives with mother in a 1 story home. 4 steps into. Denies accessibility issues. ADL?s: Helps her get into and out of shower but she washes herself. Most ADLs need minimal assistance. Can depend upon mood as she can resist care at times. Transportation: Mom or siblings. DME: walker, shower chair, raised toilet seat. HHC: None SNF: [facility]--years ago before it was named that. Goal: home DC PLAN: Discussed home care and they are agreeable to home care. no preference on agency. Tomas Sheppard RN, CCM.
[2019-01-30] MEDS: traMADol 50 MG Tablet PO (17:49)
[2019-01-30] MEDS: Citalopram 20 MG Tablet PO (21:33)
--- NOTE | 2019-01-30 22:10 | CPS ---
Called by RN to assist pt/pts mother with placement of home pap mask. Upon arrival to pt room pt agrees to wear her pap mask. Once the mask was placed and readjusted mask was noted to be very large for pt. Explained to mother that pt needs smaller headgear for her mask. Pt with minimal leak but continues to be frustrated asking to take mask off and put oxygen on. Pt placed on 2L nasal cannula and HOB elevated. Pt tolerated well and remains comfortable at this time.
[2019-01-31] MEDS: 0.9% Normal Saline 1,000 ML 125 ML IV (03:33)
[2019-01-31 03:36] VITALS: BP 106/45; PULSE 90; RESP 18; TEMP 37.2; O2SAT 98
[2019-01-31] MEDS: Acetaminophen 325 MG Tablet 650 MG PO (05:29)
[2019-01-31] MEDS: Levothyroxine 137 MCG Tablet PO (05:29)
[2019-01-31 06:26] LABS: Absolute Lymphocyte Count 0.73 X10^3/uL (0.83-4.51); Absolute Neutrophil Count 6.4 X10^3/uL (2.0-7.7); Basophil# 0.05 X10^3/uL; Basophil% 0.7 % (0-1); Eosinophil# 0.02 X10^3/uL; Eosinophils% 0.3 % (0-5); Hematocrit 33.5 % (37-47); Hemoglobin 10.6 g/dL (12.0-15.0); Lymphocyte # 0.73 X10^3/ul (4.0); Lymphocyte % 9.5 % (19-41); Mean Corp Hgb Conc 31.6 g/dL (32-36); Mean Corpuscular Hgb 33.9 pg (27.0-32.0); Mean Platelet Vol. 9.6 fl (6.2-12.0); Monocyte# 0.42 X10^3/uL; Monocyte% 5.5 % (0-10); NRBC Flagged by Analyzer 0 % (0-5); Neutrophil % 83.2 % (47-70); Platelet Count 239 K/mm3 (150-450); RBC Distribution Width CV 13.7 % (11.6-14.6); RBC Distribution Width SD 54.6 fl (35.1-43.9); Red Blood Count 3.13 M/mm3 (4.2-5.4); White Blood Count 7.7 K/mm3 (4.4-11.0)
[2019-01-31 06:49] LABS: Anion Gap 4 (5-15); BUN 4 mg/dL (7-18); BUN/Creat Ratio 5.7 RATIO (10-20); Calcium,Total 8.3 mg/dL (8.5-10.1); Chloride 108 mmol/L (98-107); EST Glomerular Filtration Rate 101 mL/min (>60); Est Glom Filt Rate - Afr Amer 122 mL/min (>60); Estimated Creatinine Clearance 191.28 ml/min; Glucose 91 mg/dL (74-106); Potassium 3.6 mmol/L (3.5-5.1); Sodium Level 141 mmol/L (136-145)
--- NOTE | 2019-01-31 07:37 | PCM.PN.SRG ---
Patient Problems: Active and Suspected Problems RLQ abdominal pain (Acute) Subjective: Patient is to have a bowel movement yesterday advance to full's which she tolerated patient only had some temperatures of 99 or 100.1 when she was able to be weaned more from the O2 she was at half a liter yesterday initially started out at 3 L - Physical Exam General: Alert, Cooperative, No apparent distress Lungs: Normal air movement Abdomen: Soft, Non-Distended, Tender - Near incisions incisions clean dry and intact, no peritoneal signs Vital Signs Temp Pulse Resp BP Pulse Ox 98.9 F 90 18 106/45 L 98 01/31/19 03:36 01/31/19 03:36 01/31/19 03:36 01/31/19 03:36 01/31/19 03:36 Oxygen Flow Rate (L/min) 2 Oxygen Delivery Method Nasal Cannula Weight: 235 lb 14.314 oz Body Mass Index (BMI) 47.6 Intake and Output for Last 24 Hours 01/29/19 01/30/19 01/31/19 23:59 23:59 23:59 Intake Total 4306.08 / 4756.08 4630.50 / 4630.50 1737.25 / 1737.25 Output Total 1200 / 1650 1275 / 1275 700 / 700 Balance 3106.08 / 3106.08 3355.50 / 3355.50 1037.25 / 1037.25 Microbiology Past 72 Hours 01/29/19 Unknown Gram Stain - Final Aspirate - Other Wound Culture - Preliminary GNR lactose program attendant Laboratory Tests Past 24 Hrs 01/30/19 01/30/19 01/31/19 06:55 06:55 05:55 WBC 12.1 H 7.7 RBC 3.25 L 3.13 L Hgb 11.0 L 10.6 L Hct 34.3 L 33.5 L MCV 105.5 H 107.0 H MCH 33.8 H 33.9 H MCHC 32.1 31.6 L RDW Std Deviation 53.9 H 54.6 H RDW Coeff of Dragan 13.7 13.7 Plt Count 239 239 MPV 9.7 9.6 Immature Gran % (Auto) 0.300 0.800 Neut % (Auto) 90.6 H 83.2 H Lymph % (Auto) 4.9 L 9.5 L [place] % (Auto) 3.9 5.5 Eos % (Auto) 0.0 0.3 Baso % (Auto) 0.3 0.7 Absolute Neuts (auto) 10.9 H 6.4 Absolute Lymphs (auto) 0.59 L 0.73 L Nucleated RBC % 0 0 Differential Comment SCANNED Sodium 139 Potassium 3.4 L Chloride 106 Carbon Dioxide 29.0 Anion Gap 4 L BUN 6 L Creatinine 0.75 Estim Creat Clear Calc 178.61 Est GFR (MDRD) Af Amer 114 Est GFR (MDRD) Non-Af 94 BUN/Creatinine Ratio 8.0 L Glucose 97 Calcium 7.7 L 01/31/19 05:55 WBC RBC Hgb Hct MCV MCH MCHC RDW Std Deviation RDW Coeff of Dragan Plt Count MPV Immature Gran % (Auto) Neut % (Auto) Lymph % (Auto) [place] % (Auto) Eos % (Auto) Baso % (Auto) Absolute Neuts (auto) Absolute Lymphs (auto) Nucleated RBC % Differential Comment Sodium 141 Potassium 3.6 Chloride 108 H Carbon Dioxide 29.0 Anion Gap 4 L BUN 4 L Creatinine 0.70 Estim Creat Clear Calc 191.28 Est GFR (MDRD) Af Amer 122 Est GFR (MDRD) Non-Af 101 BUN/Creatinine Ratio 5.7 L Glucose 91 Calcium 8.3 L Medical Necessity - Tobacco Use Smoking Status: Never smoker Assessment/Plan All Active Problems Skin ulcer of nose (Acute) RLQ abdominal pain (Acute) 33-year-old female with pelvic abscess?questionable etiology, status post laparoscopic appendectomy 1. We will advance to regular diet 2. White blood cell count within normal limits, continue clindamycin and gentamicin IV transition to p.o. for discharge?currently growing in culture rare gram-negative rods 3. Encourage out of bed to chair and ambulation Possible DC home if patient is able to be weaned from O2 continues to not have any fevers, tolerates regular diet. Aspen Holman M.D. Pager: [phone] [facility] [address] [place] [address], Outpatient [facility], [address] [place] [id number] Office: [phone]
[2019-01-31 08:42] VITALS: BP 95/45; PULSE 69; RESP 18; TEMP 36.8; O2SAT 92
[2019-01-31] MEDS: Loratadine 10 MG Tablet PO (09:55)
[2019-01-31] MEDS: Docusate Sodium 100 MG Capsule PO (09:55)
[2019-01-31] MEDS: traMADol 50 MG Tablet PO (09:55)
[2019-01-31] MEDS: Enoxaparin 40 MG/0.4 ML Syringe SC (09:56)
[2019-01-31] MEDS: Fluticasone 0.05% 1 SPRAY NASAL.SRY 2 SPRAY NASAL (09:56)
--- NOTE | 2019-01-31 11:36 | PCM.DC.APPY ---
Discharge Diet: No Restrictions Discharge Activity: May Shower Lifting Restrictions: no lifting > 20 lbs x 2 weeks Call your doctor if your incision/area has: Continuous Slow Oozing, Sudden Increased Bleeding, Increased Pain/ Swelling, Increased Redness, Foul Smelling Discharge, Swelling at the incision site Call your doctor if you observe: Fever of 101 or Higher Remove Dressing in (days):: 0 - ok to remove opsites today, ok to remove steris if they don't fall off in 10 days from surgery Medications to take at Discharge Cholecalciferol (Vitamin D3) [Vitamin D] 50,000 unit PO QWEEK 03/31/18 Citalopram [Celexa] 20 mg PO QHS 03/31/18 Fluticasone 0.05% [Flonase Nasal [place]] 2 spray NASAL DAILY 03/31/18 Levothyroxine [Synthroid] 137 mcg PO DAILY 03/31/18 Loratadine [Claritin] 10 mg PO DAILY 03/31/18 Multivitamin [Daily Multiple Vitamin] 1 ea PO DAILY 03/31/18 Omeprazole [Prilosec] 20 mg PO DAILY 03/31/18 tramadol 50 mg tablet 50 mg PO Q6H PRN 07/28/18 Cefdinir 300 mg PO BID 3 Days #6 cap 01/31/19 traMADol [Ultram] 50 mg PO Q6H PRN PRN 4 Days #15 tablet 01/31/19 Allergies/Adverse Reactions: Allergies cefaclor [From Ceclor] Allergy (Verified 01/28/19 18:51) Hives Penicillins Allergy (Verified 01/28/19 18:51) unknown sulfamethoxazole [From Bactrim] Allergy (Verified 01/28/19 18:51) Upset Stomach trimethoprim [From Bactrim] Allergy (Verified 01/28/19 18:51) Upset Stomach Primary Care Physician: Trent Horowitz DO [Primary Care Provider] - Test Results: Test results from this visit will be discussed in further detail at your follow-up appointment, if applicable. Please Follow Up With: Krzysztof Perdomo MD When: call office f/u in 1-2 weeks Proposed Discharge Date: 01/31/19
[2019-01-31 12:03] VITALS: BP 100/58; PULSE 79; RESP 18; TEMP 36.9; O2SAT 95
--- NOTE | 2019-02-01 17:40 | CASEMGMT ---
RN SAMANTHA Discharge Follow-Up Phone Call. Lace:???11?? Strata: 3 Discharge Date:?01/31/19 Adm Dx:?Acute appendicitis, lap appy?? Attempted discharge follow-up phone call. No answer. Message left for pt to return call to [facility] RN SAMANTHA if she has any questions about the discharge instructions, medications, or follow-up appts. Phone number provided. Jennifer XIAO RN CM
== END 2019-01-31 13:15 | disposition home or self-care (01) | DRG 518 ==
LOC: ED 19:32 → SDC 22:30 → MS3 22:32 → SDC 01-29 01:33 → MS3 01-29 01:34
PROVIDERS: Obstetrics & Gynecology; Surgery; Admitting Provider Surgery; Emergency Provider Emergency Medicine; Family Provider Student in an Organized Health Care Education/Training Program; PCP Student in an Organized Health Care Education/Training Program; Visit Provider Surgery
PROC: 0DTJ4ZZ Resection of Appendix, Percutaneous Endoscopic Approach (ICD-10-PCS; CPT 44970; principal; 2019-01-28 22:30)
DX: N73.9 Female pelvic inflammatory disease, unspecified (principal); Q90.9 Down syndrome, unspecified
CPT/HCPCS: 36415; 74177; 80048; 80076; 81001; 83605; 83690; 84703; 85025; 87070; 87075; 87077; 87186; 87205; 87491; 87591; 88304; 94640; 94667; 99284; J7030; Q9967; A4216; C1760; J2405

== ENCOUNTER → 2019-02-08 15:25 | Outpatient (CLI) | payer MEDICAID, SELFPAY ==
[2019-02-01 09:41] VITALS: BMI 47.6
--- NOTE | 2019-02-08 15:27 | CT_ITS ---
STUDY: CT ABDOMEN AND PELVIS WITH CONTRAST REASON FOR EXAM: Female, 33 years old. Perforated appendicitis/abscess RADIATION DOSAGE (If Supplied By Facility): CTDIvol = ( 17.00 ) mGy, DLP = ( 1146.11 ) mGycm TECHNIQUE: CT images were obtained from the dome of the diaphragm to the symphysis pubis without oral contrast. Oral and amp; IV Readi-CAT and amp; 100mL Isovue-300 100 was administered. Sagittal and coronal images were reconstructed. Individualized dose optimization techniques were used for this CT. COMPARISON: 28 January 2019 FINDINGS: The visualized lung bases are unremarkable. The visualized portions of the heart are within normal limits. There is a small physiologic pericardial effusion. The liver is enlarged without focal lesions or biliary dilation. Gallbladder is normal. Spleen, adrenal glands, pancreas and kidneys are normal. There is no intestinal obstruction. There is ill-defined inflammatory change in the pelvis, possibly related to the appendicitis and/or surgery.. There is no abscess or fluid collection. There is a laparoscopic port in the supraumbilical midline. There is remote trauma and surgical repair of the right hemipelvis with chronic superior subluxation of the hip joint. Left hip is normal. CT/Abdomen/Pelvis WITH Contrast IMPRESSION: 1. Pelvic/right lower quadrant inflammatory changes, presumably postappendicitis. 2. No abscess. Electronically Signed: Melissa Vicente, at 16:36 EDT Tel , Service support ,
== END ==
PROVIDERS: Family Provider Student in an Organized Health Care Education/Training Program; PCP Student in an Organized Health Care Education/Training Program; Referring Provider Surgery; Visit Provider Surgery
DX: K35.32 Acute appendicitis with perforation, localized peritonitis, and gangrene, without abscess (principal)
CPT/HCPCS: 74177; Q9967

== ENCOUNTER 2019-03-23 11:00 | Outpatient (RCR) | payer MEDICAID, SELFPAY ==
[2019-02-01 09:41] VITALS: BMI 47.6
== END 2019-03-23 23:59 | disposition home or self-care (01) ==
LOC: NS 11:00
PROVIDERS: Family Provider Student in an Organized Health Care Education/Training Program; PCP Student in an Organized Health Care Education/Training Program; Visit Provider Nurse Practitioner Family
DX: Z71.3 Dietary counseling and surveillance (principal); E66.9 Obesity, unspecified; Z68.43 Body mass index [BMI] 50.0-59.9, adult
CPT/HCPCS: 97803

== ENCOUNTER → 2019-05-04 08:02 | Outpatient (CLI) | payer MEDICAID, SELFPAY ==
[2019-03-16 14:59] VITALS: BMI 47.6
--- NOTE | 2019-05-04 08:04 | RAD_ITS ---
Procedure: Fluoroscopically guided, dedicated esophagram with cine frontal and lateral views of the larynx/pharynx region. Multiple spot images were obtained during the course of the real-time evaluation. INDICATIONS: Dysphagia. Comment: The exam is technically limited secondary to patient body habitus and patient state. Limited evaluation. FINDINGS: Esophageal motility appears unremarkable. There is free reflux to the level of the mid thoracic esophagus with prompt spontaneous clearing. There is rapid transit of the barium pill. There is no esophageal stricture, web, diverticulum or hiatal hernias. The esophageal mucosal pattern appears unremarkable. There is no intrinsic or extrinsic esophageal mass or mass effect. There is symmetric transit of the contrast bolus through the hypopharynx. Small amount of pooling is identified within the vallecula and bilateral piriform sinuses. Vestibular penetration and a small quantity of kate aspiration is noted during the course of the real-time exam. The mucosal pattern appears unremarkable. RAD/Esophagus Only IMPRESSION: Free reflux to the level of the mid thoracic esophagus with prompt spontaneous clearing. No esophageal stricture, web, diverticulum or hiatal hernia. Rapid unrestricted transit of the barium pill into the stomach. Vestibular penetration and small quantity of kate aspiration. Fluoroscopy time 1.36 minutes. Electronically Signed: Anthony Tanner MD at 8:49 EST , Service support ,
== END ==
PROVIDERS: Family Provider Student in an Organized Health Care Education/Training Program; PCP Student in an Organized Health Care Education/Training Program; Referring Provider Student in an Organized Health Care Education/Training Program; Visit Provider Student in an Organized Health Care Education/Training Program
DX: R13.12 Dysphagia, oropharyngeal phase (principal)
CPT/HCPCS: 74220

== ENCOUNTER 2019-06-28 20:32 | Inpatient (IN) | payer MEDICAID, SELFPAY ==
[2019-03-16 14:59] VITALS: BMI 47.6
[2019-06-28 20:34] VITALS: BP 108/78; PULSE 115; RESP 16; TEMP 37.3; O2SAT 96; BMI 44.5
--- NOTE | 2019-06-28 21:59 | ED.DCSUM_ITS ---
- ER Visit Summary Date of Service: 06/28/19 Chief Complaint: Lower abdominal pain History of Present Illness: The patient is a 33 F history of prior appendectomy. Patient has a history of ovarian cyst on the left and Down syndrome. Reportedly she has had some intermittent abdominal pain last several days. Some diarrhea. Saw her primary care physician today. Had a urinalysis done and reportedly a CAT scan that may have shown abdominal abscess. This history is per the family. Patient herself is somewhat limited due to her Down syndrome. Physical Examination: Young female no acute distress vital signs are stable afebrile. H EENT exam unremarkable. Moist with membranes. Neck nontender no lymphadenopathy. Lungs clear to auscultation bilaterally. Heart regular rhythm no murmur. Rate about 110. Abdomen soft. Nondistended. Obese. Mildly tender left lower quadrant. No peritoneal signs. Both the right upper right lower quadrant unremarkable. No hernias or masses. No signs of obstruction. Patient is moving all 4 extremities. Back nontender. Neurologically she is awake and alert with no focal motor deficits. Test Results: CBC shows evaded white count of 15,800. Normal H&H. No bands. Chemistries unremarkable potassium of 3.1. Urinalysis normal. There is blood in the macro but no signs of infection in the micro nor any nitrites. Serum test negative. I spoke with Dr. Nixon on-call for the [facility]. He was told that the CAT scan from earlier today done at the [facility] is read as a right-sided intra-abdominal abscess. I do not have those results nor can I do the CAT scan. Emergency Department Course and Treatment: Patient treated with a liter of normal saline IV. IV Zofran and morphine. I have her primary care physician on page to try to get the CAT scan results she had done earlier today. Treatment Plan: Discussed with the hospitalist Dr. David Canseco. Patient will be admitted started on Cipro and Flagyl for a possible intra-abdominal abscess. That will still need to be proven. This may be an actual finding or may be an over read of an x-ray with prior surgery and postop changes. I discussed all this with the family. Disposition: admission Impression: Acute abdominal pain Rule Out intra-abdominal abscess Status post appendectomy This note was generated with [employer] software. It may contain incorrect words, spelling, and punctuation that were not noted in review of the chart prior to signing ED Disposition - Plan for ED Patient: Referrals: Trent Horowitz DO [Primary Care Provider] -
[2019-06-28 22:05] LABS: Bacteria 0 SEEN /hpf (None Seen); Mucous, Urine 0 SEEN /hpf (<or=2+)
[2019-06-28 22:07] LABS: Color, Urine Yellow (Yellow); Glucose, Dipstick Normal (Normal); Ketone-Dipstick Negative (Negative); Leukocyte Esterase-Dipstick 500 /ul (Negative); Nitrite-Dipstick Negative (Negative); Occult Blood-Urine 250 /ul (Negative); Protein-Dipstick 30 mg/dl (Negative); Specific Gravity, Urine 1.015 (1.002-1.030); Urine Bilirubin Dipstick Negative (Negative); Urine Clarity Clear (Clear); Urine Urobilinogen Normal (Normal)
[2019-06-28] MEDS: 0.9% Normal Saline 1,000 ML 1000 ML IV (22:08)
[2019-06-28] MEDS: Morphine 4 MG/ML Syringe IV (22:08)
[2019-06-28] MEDS: Ondansetron 4 MG/2 ML Vial IV (22:08)
[2019-06-28 22:12] LABS: Red Blood Cells-Urine 0-5 SEEN /hpf (0-5); Squamous Epithelial Cells - UA 0-5 SEEN /hpf (5-10); White Blood Cells 0-5 SEEN /hpf (0-5)
[2019-06-28 22:12] LABS: Absolute Neutrophil Count 13.7 X10^3/uL (2.0-7.7); Basophil# 0.05 X10^3/uL; Basophil% 0.3 % (0-1); Eosinophil# 0.02 X10^3/uL; Eosinophils% 0.1 % (0-5); Hematocrit 41.5 % (37-47); Hemoglobin 14.1 g/dL (12.0-15.0); Mean Corpuscular Hgb 34.2 pg (27.0-32.0); Mean Corpuscular Volume 100.7 fL (81-99); Mean Platelet Vol. 9.9 fl (6.2-12.0); Monocyte# 0.79 X10^3/uL; NRBC Flagged by Analyzer 0 % (0-5); Neutrophil # 13.67 X10^3/uL (2.7-7.7); Neutrophil % 86.7 % (47-70); Platelet Count 243 K/mm3 (150-450); RBC Distribution Width CV 13.5 % (11.6-14.6); RBC Distribution Width SD 50.2 fl (35.1-43.9); Red Blood Count 4.12 M/mm3 (4.2-5.4); White Blood Count 15.8 K/mm3 (4.4-11.0)
[2019-06-28 22:16] LABS: Internal QC Validated? YES +Cl - CLEAR BKGD; Pregnancy, Serum, hCG Quali. NEGATIVE Negative
[2019-06-28 22:19] LABS: Anion Gap 7 (5-15); BUN 9 mg/dL (7-18); BUN/Creat Ratio 10.9 RATIO (10-20); Calcium,Total 8.8 mg/dL (8.5-10.1); Chloride 103 mmol/L (98-107); Creatinine, Serum 0.83 mg/dL (0.55-1.02); EST Glomerular Filtration Rate 84 mL/min (>60); Est Glom Filt Rate - Afr Amer 101 mL/min (>60); Glucose 128 mg/dL (74-106); Potassium 3.1 mmol/L (3.5-5.1); Sodium Level 138 mmol/L (136-145)
[2019-06-28 23:30] VITALS: BP 107/71; PULSE 68; RESP 16; O2SAT 99
--- NOTE | 2019-06-28 23:36 | HP.PCM_ITS ---
Problem List (1) History of Down syndrome Status: Chronic (2) RLQ abdominal pain Status: Acute History of Present Illness Date of Admission: 06/28/19 Chief Complaint: abdominal pain The patient is a 33 year old female patient with a past medical history of Down syndrome presents the emergency room after seeing her primary care physician as an outpatient for right lower quadrant abdominal pain. She was apparently worked up as an outpatient a CT scan was performed and the on-call physician for the [facility] is able to confirm that she has a read on the report of having a right lower quadrant abscess. The patient is status post appendectomy in February [address] Perdomo and and his report of discharge at that time notes having evacuated purulent material and that area around the appendix and the patient did receive antibiotics. Today the patient was noted to become more uncomfortable and was having difficulty walking. She has a low-grade temperature of 99.2, laboratory studies are remarkable for an elevated white blood cell count of 15.8, hemoglobin 14.1, hematocrit 41.5, platelets 243, sodium 138, potassium 3.1, chloride 103, bicarb 28, BUN 9, creatinine 0.8, blood glucose 128, urinalysis negative. The patient is a questionable historian due to her Down syndrome. He will be admitted to general medical floor with surgical consult in the morning and repeat CT scan. Antibiotics will be initiated in the emergency room. Past Medical History Past Medical History (Chronic Problems): Chronic Problems History of Down syndrome (Chronic) Allergies cefaclor [From Ceclor] Allergy (Verified 06/28/19 20:37) Hives Penicillins Allergy (Verified 06/28/19 20:37) unknown sulfamethoxazole [From Bactrim] Allergy (Verified 06/28/19 20:37) Upset Stomach trimethoprim [From Bactrim] Allergy (Verified 06/28/19 20:37) Upset Stomach Home Medications: Ambulatory Orders Medication Instructions Recorded Cholecalciferol (Vitamin D3) 50,000 unit PO QWEEK 03/31/18 [Vitamin D] Citalopram [Celexa] 20 mg PO QHS 03/31/18 Fluticasone 0.05% [Flonase Nasal 2 spray NASAL DAILY 03/31/18 [place]] Levothyroxine [Synthroid] 137 mcg PO DAILY 03/31/18 Loratadine [Claritin] 10 mg PO DAILY 03/31/18 Multivitamin [Daily Multiple 1 ea PO DAILY 03/31/18 Vitamin] Omeprazole [Prilosec] 20 mg PO DAILY 03/31/18 tramadol 50 mg tablet 50 mg PO Q6H PRN 07/28/18 clindamycin HCl 150 mg capsule 150 mg PO TID #20 cap 02/05/19 Surgical History: - Smoking Status: Never smoker - *Family History Maternal History Items: Cancer Review of Systems Constitutional: Reports: Fever. Denies: Chills, Weight Change HEENT: Denies: Head Aches, Sinus Congestion, Sinus Drainage Cardiovascular: Denies: Chest Pain, Palpitations Respiratory: Denies: Cough, Shortness of breath at rest, Sputum production Gastrointestinal: Reports: Abdominal Pain. Denies: Nausea, Vomiting Genitourinary: Denies: Dysuria Musculoskeletal: Denies: Joint Pain, Joint Tenderness Skin: Denies: Rash, Wounds Neurological: Denies: Numbness, Tingling, Focal weakness Psychiatric: Reports: Anxiety. Denies: Depression, Homicidal Ideations, Suicidal Ideations Hematologic/ Lymphatic: Denies: Easy Bruising, Easy Bleeding VTE Information - Inpt Only VTE Present on Admission: No VTE Mechan Device Prophylaxis: None VTE Pharm Prophylaxis ordered?: Yes - Physical Exam Vitals/I&O's: Vital Signs Temp Pulse Resp BP Pulse Ox 99.2 F H 68 16 107/71 99 06/28/19 20:34 06/28/19 23:30 06/28/19 23:30 06/28/19 23:30 06/28/19 23:30 Oxygen Delivery Method Room Air Weight: 228 lb Body Mass Index (BMI) 44.5 Intake and Output for Last 24 Hours 06/26/19 06/27/19 06/28/19 23:59 23:59 23:59 Intake Total 1000 / 1000 Balance 1000 / 1000 General: Alert, Cooperative HEENT: Atraumatic, Normocephalic Neck: Supple Lungs: Clear to auscultation, Normal air movement Cardiovascular: Regular rate, Normal S1, Normal S2, No murmurs Abdomen: Bowel Sounds Present, Distended, Obese, Tender Extremities: No edema, Capillary Refill Less than 3 Seconds Skin: No rashes Musculoskeletal: No Tenderness to Palpation of Joints or Extremities Neurological: Neuro grossly intact Psych/Mental Status: Normal Affect, Appropriate Laboratory Results 06/28/19 21:40: Urine Color Yellow, Urine Clarity Clear, Urine pH 5.0, Ur Specific [place] 1.015, Urine Protein 30 H, Urine Glucose (UA) Normal, Urine Ketones Negative, Urine Occult Blood 250 H, Urine Nitrite Negative, Urine Bilirubin Negative, Urine Urobilinogen Normal, Ur Leukocyte Esterase 500 H, Urine RBC 0-5 SEEN, Urine WBC 0-5 SEEN, Ur Squamous Epith Cells 0-5 SEEN, Urine Bacteria 0 SEEN, Urine Mucus 0 SEEN 06/28/19 21:45: WBC 15.8 H, RBC 4.12 L, Hgb 14.1, Hct 41.5, MCV 100.7 H, MCH 34.2 H, MCHC 34.0, RDW Std Deviation 50.2 H, RDW Coeff of Dragan 13.5, Plt Count 243, MPV 9.9, Immature Gran % (Auto) 0.900, Neut % (Auto) 86.7 H, Lymph % (Auto) 7.0 L, [place] % (Auto) 5.0, Eos % (Auto) 0.1, Baso % (Auto) 0.3, Absolute Neuts (auto) 13.7 H, Absolute Lymphs (auto) 1.10, Nucleated RBC % 0 06/28/19 21:45: Sodium 138, Potassium 3.1 L, Chloride 103, Carbon Dioxide 28.0, Anion Gap 7, BUN 9, Creatinine 0.83, Estim Creat Clear Calc 68.60, Est GFR (MDRD) Af Amer 101, Est GFR (MDRD) Non-Af 84, BUN/Creatinine Ratio 10.9, Glucose 128 H, Calcium 8.8 06/28/19 21:45: Serum , Qual NEGATIVE Current Medications Ciprofloxacin (Cipro) 400 mg in 200 mls @ 200 mls/hr IV X1 ONE Stop: 06/29/19 00:28 Metronidazole (Flagyl) 500 mg in 100 mls @ 100 mls/hr IV X1 ONE Stop: 06/29/19 00:28 Assessment/Plan All Active Problems Skin ulcer of nose (Acute) RLQ abdominal pain (Acute) Chronic Problems History of Down syndrome (Chronic) 1. Right lower quadrant abdominal pain with presumed abscess?IV antibiotics initiated in the emergency room including ciprofloxacin and Flagyl, will consult Dr. Perdomo in the morning, repeat CBC CMP in the morning, morphine 1 mg every 2 hours as needed pain Zofran 4 mg IV every 8 hours as needed nausea, repeat CT scan abdomen pelvis with contrast in the morning. 2. Hypokalemia?replace with p.o. potassium chloride 3. DVT prophylaxis low molecular weight heparin Code Visit Inpatient E&M: 21215 Init Hosp L3
[2019-06-28] MEDS: metroNIDAZOLE 500 MG/100 ML BAG 100 MG IV (23:43)
[2019-06-29] VITALS (9 sets, daily range): BP systolic 100–128; BP diastolic 44–73; PULSE 82–101; RESP 16–36; TEMP 37.4–37.9; O2SAT 93–99; BMI 45.9; BMI 46.0
[2019-06-29] MEDS: Ciprofloxacin 400 MG/200 ML BAG 200 MG IV ×3 (00:44→22:01)
[2019-06-29] MEDS: 0.9% Normal Saline 1,000 ML 100 ML IV (00:44)
[2019-06-29] MEDS: 0.9% Saline Lock 10 ML Syringe IV ×4 (00:45→14:57)
[2019-06-29] MEDS: metroNIDAZOLE 500 MG/100 ML BAG 100 MG IV ×3 (05:39→23:07)
--- NOTE | 2019-06-29 05:55 | CT_ITS ---
STUDY: CT ABDOMEN AND PELVIS WITH CONTRAST REASON FOR EXAM: Female, 33 years old. RLQ PAIN. R/O ABSCESS. prior appendectomy, irving,hyster and gastroplasty RADIATION DOSAGE (If Supplied By Facility): CTDIvol = ( 15.08 ) mGy, DLP = ( 1180.71 ) mGycm COMPARISON: Previous CT scan obtained on 02/08/2019 TECHNIQUE: A CT scan of the abdomen and pelvis was performed with IV contrast contrast administration. Oral contrast was also administered. Coronal and sagittal reconstruction images were reviewed. This exam was performed according to our departmental dose-optimization program, which includes automated exposure control, adjustment of the mA and/or kV according to patient size and/or use of iterative reconstruction technique. FINDINGS: The lung bases and the base of the heart are normal. The liver is normal.The spleen is normal.The adrenal glands are normal.The head, body, and tail of the pancreas are normal. The right and left kidneys were examined and appear to be normal. Both ureters appear to be normal, and no obstructive uropathy is identified. The abdominal aortal is normal along its course and distribution. No paraortic lymphadenopathy is seen. No abdominal masses or lesions are seen. The CT scan of the pelvis was then reviewed. The common iliac vessels, external iliac vessels, and common femoral vessels are normal along their course and distribution a prominent 2.5 cm left ovarian cyst is identified. On the right side there appears to be a right ovarian cyst with an adjacent amorphous fluid collection adjacent to this right ovarian cyst possibly due to a recent ovulation. There is inflammatory reaction seen in the right lower quadrant with a surgical staple noted at the site of the previous appendectomy. Some of this may be due to post operative inflammatory reaction in the right lower quadrant from the previous appendectomy however some inflammatory reaction may be due to the recent ovulation currently no obvious formed abscess is seen. Bone scanning windows of the lumbar spine and pelvis show [id number] levoscoliosis of lumbar spine. The patient has right acetabular hip dysplasia with multiple screws in place in the acetabulum and deformity of the right femoral head and neck which is chronic. This case was discussed with Dr. David Canseco, at 8:30 AM on 06/29/2019, and most likely findings were discussed. CT/Abdomen/Pelvis WITH Contrast IMPRESSION: 1. Chronic right acetabular and hip dysplasia. 2.. Physiologic left ovarian cyst. 3. Status post relatively recent right appendectomy. At this time there appears to be a right ovarian cyst with adjacent fluid collection probably due to a recent ovulation. A developing abscess in the right lower quadrant is a less likely diagnostic consideration, and a follow-up CT scan in 2-3 days might be helpful to totally exclude this latter possibility. Electronically Signed: Freddie Dempsey, at 8:51 EST Tel , Service support ,
[2019-06-29 07:22] LABS: Absolute Lymphocyte Count 1.06 X10^3/uL (0.83-4.51); Absolute Neutrophil Count 9.5 X10^3/uL (2.0-7.7); Basophil# 0.03 X10^3/uL; Basophil% 0.3 % (0-1); Eosinophil# 0.03 X10^3/uL; Eosinophils% 0.3 % (0-5); Hematocrit 37.1 % (37-47); Hemoglobin 12.1 g/dL (12.0-15.0); Lymphocyte # 1.06 X10^3/ul (4.0); Lymphocyte % 9.3 % (19-41); Mean Corp Hgb Conc 32.6 g/dL (32-36); Mean Corpuscular Hgb 33.2 pg (27.0-32.0); Mean Corpuscular Volume 101.9 fL (81-99); Monocyte# 0.66 X10^3/uL; Monocyte% 5.8 % (0-10); NRBC Flagged by Analyzer 0 % (0-5); Neutrophil # 9.51 X10^3/uL (2.7-7.7); Neutrophil % 83.5 % (47-70); Platelet Count 230 K/mm3 (150-450); RBC Distribution Width CV 13.6 % (11.6-14.6); RBC Distribution Width SD 51.1 fl (35.1-43.9); Red Blood Count 3.64 M/mm3 (4.2-5.4); White Blood Count 11.4 K/mm3 (4.4-11.0)
--- NOTE | 2019-06-29 07:33 | PCM.PN.HOSP ---
Patient Problems: Active and Suspected Problems LLQ abdominal pain (Acute) Reason for Visit: Left lower quadrant abdominal pain. Objective: CT abdomen reviewed, left ovarian cyst about 2.5 cm. Amorphous fluid around right ovarian suggestive of possible recent ovulation in the right ovary. Inflammatory changes around the appendectomy site. Mild low-grade fever Low-grade fever, temperature 99.4. No tachycardia blood pressure on lower side, 107/49. Vitals/I&O's: Vital Signs Temp Pulse Resp BP Pulse Ox 99.4 F H 100 18 106/73 99 06/29/19 05:36 06/29/19 05:36 06/29/19 05:36 06/29/19 05:36 06/29/19 05:36 Oxygen Delivery Method Room Air Weight: 227 lb 8.273 oz Body Mass Index (BMI) 45.9 Intake and Output for Last 24 Hours 06/27/19 06/28/19 06/29/19 23:59 23:59 23:59 Intake Total 1023.33 / 1023.33 762.00 / 762.00 Balance 1023.33 / 1023.33 762.00 / 762.00 General: Alert, Oriented x3, Cooperative HEENT: Atraumatic, PERRLA, EOMI, Normocephalic Oral: No Gingival or Mucosal Lesions/ Ulcerations, Dry Mucosa Neck: Supple, No JVD, Negative Carotid Bruits Lungs: Clear to auscultation, No rhonchi, No wheeze, No rales, Diminished Cardiovascular: Regular rate, Regular Rhythm, Normal S1, Normal S2, No murmurs Abdomen: Bowel Sounds Present, Soft, Non-Distended, Tender - Mild tenderness in left lower quadrant Extremities: No edema, Capillary Refill Less than 3 Seconds Skin: No rashes, No breakdown Musculoskeletal: No Tenderness to Palpation of Joints or Extremities Neurological: Cranial nerves II-XII grossly intact, Deep Tendon Reflexes 2+/4 and Symmetrical, Neuro grossly intact Psych/Mental Status: Normal Affect, Appropriate Laboratory Results 06/28/19 21:40: Urine Color Yellow, Urine Clarity Clear, Urine pH 5.0, Ur Specific [place] 1.015, Urine Protein 30 H, Urine Glucose (UA) Normal, Urine Ketones Negative, Urine Occult Blood 250 H, Urine Nitrite Negative, Urine Bilirubin Negative, Urine Urobilinogen Normal, Ur Leukocyte Esterase 500 H, Urine RBC 0-5 SEEN, Urine WBC 0-5 SEEN, Ur Squamous Epith Cells 0-5 SEEN, Urine Bacteria 0 SEEN, Urine Mucus 0 SEEN 06/28/19 21:45: WBC 15.8 H, RBC 4.12 L, Hgb 14.1, Hct 41.5, MCV 100.7 H, MCH 34.2 H, MCHC 34.0, RDW Std Deviation 50.2 H, RDW Coeff of Dragan 13.5, Plt Count 243, MPV 9.9, Immature Gran % (Auto) 0.900, Neut % (Auto) 86.7 H, Lymph % (Auto) 7.0 L, [place] % (Auto) 5.0, Eos % (Auto) 0.1, Baso % (Auto) 0.3, Absolute Neuts (auto) 13.7 H, Absolute Lymphs (auto) 1.10, Nucleated RBC % 0 06/28/19 21:45: Sodium 138, Potassium 3.1 L, Chloride 103, Carbon Dioxide 28.0, Anion Gap 7, BUN 9, Creatinine 0.83, Estim Creat Clear Calc 68.60, Est GFR (MDRD) Af Amer 101, Est GFR (MDRD) Non-Af 84, BUN/Creatinine Ratio 10.9, Glucose 128 H, Calcium 8.8 06/28/19 21:45: Serum , Qual NEGATIVE 06/29/19 06:43: WBC 11.4 H, RBC 3.64 L, Hgb 12.1, Hct 37.1, MCV 101.9 H, MCH 33.2 H, MCHC 32.6, RDW Std Deviation 51.1 H, RDW Coeff of Dragan 13.6, Plt Count 230, MPV 10.0, Immature Gran % (Auto) 0.800, Neut % (Auto) 83.5 H, Lymph % (Auto) 9.3 L, [place] % (Auto) 5.8, Eos % (Auto) 0.3, Baso % (Auto) 0.3, Absolute Neuts (auto) 9.5 H, Absolute Lymphs (auto) 1.06, Nucleated RBC % 0 06/29/19 06:43: Sodium Pending, Potassium Pending, Chloride Pending, Carbon Dioxide Pending, Anion Gap Pending, BUN Pending, Creatinine Pending, Est GFR (MDRD) Af Amer Pending, Est GFR (MDRD) Non-Af Pending, BUN/Creatinine Ratio Pending, Glucose Pending, Calcium Pending, Total Bilirubin Pending, AST Pending, ALT Pending, Alkaline Phosphatase Pending, Total Protein Pending, Albumin Pending Current Medications Fluticasone Propionate (Flonase Nasal [place]) 2 spray NASAL DAILY PAR[facility] Ciprofloxacin (Cipro) 400 mg in 200 mls @ 200 mls/hr IV Q12 PARAM Last Infusion: 06/29/19 01:45 Dose: Infused Documented by: Metronidazole (Flagyl) 500 mg in 100 mls @ 100 mls/hr IV Q8 PARAM Last Infusion: 06/29/19 06:42 Dose: Infused Documented by: Sodium Chloride () 250 mls @ 15 mls/hr IV .[id number] PRN PRN Reason: Saline Flush Sodium Chloride () 250 mls @ 15 mls/hr IV .[id number] PRN PRN Reason: Additional IVPB Infusion Potassium Chloride/Sodium Chloride () 1,000 mls @ 100 mls/hr IV .Q10H PARAM Last Infusion: 06/29/19 06:42 Dose: 100 mls/hr Documented by: Morphine Sulfate () 1 mg IV Q3H PRN PRN PRN Reason: Pain Score 6-10/10 Ondansetron HCl (Zofran) 4 mg IV Q8H PRN PRN PRN Reason: NAUSEA/VOMITING Sodium Chloride () 10 - 40 ml IV UD PRN PRN Reason: SALINE FLUSH Last Admin: 06/29/19 00:45 Dose: 10 ml Documented by: STROKE Vital Signs/Narrative: Vital Signs Temp Pulse Resp BP Pulse Ox 06/29/19 05:36 99.4 F H 100 18 106/73 99 Medical Necessity - Tobacco Use Smoking Status: Never smoker Assessment/Plan All Active Problems Skin ulcer of nose (Acute) RLQ abdominal pain (Acute) LLQ abdominal pain (Acute) This 33-year-old female with history of mild Down syndrome was admitted with left lower quadrant abdominal pain. 1. Left lower quadrant abdominal pain probably related to complex ovarian cyst: Patient is being admitted in PCU. Patient had laparoscopic appendectomy for perforated appendicitis done in February 2019. After that patient was seen in [facility] for ovarian cyst. As per surgeon Dr. Perdomo's note, she had enlarged ovarian cyst, complex in nature a month ago and left lower quadrant. CT scan shows 2.5 cm left ovarian cyst cyst. Has postoperative changes of appendectomy and right lower quadrant. CT scan negative for any obvious abscess. On Cipro and Flagyl. I called aircraft armorer Dr. Magana and informed about her admission. Pelvic ultrasound ordered. UA is negative, WBC 0-5 cells. LE 500, nitrite negative. 2. Mild hypokalemia: Potassium is being replaced. Check magnesium and phosphorus. DVT prophylaxis: Lovenox 40 mg subcu daily. Total time of the visit including total time spent in counseling or coordination of care, (more than 50% of the total time, spent in obtaining medical information from nurses and other ancillary care providers), discussion with internal control consultant, surgeon and aircraft armorer, update to the patient's power of associate, her mother, review of labs and imaging is 30 minutes Laboratory Results 06/28/19 21:40: Urine Color Yellow, Urine Clarity Clear, Urine pH 5.0, Ur Specific [place] 1.015, Urine Protein 30 H, Urine Glucose (UA) Normal, Urine Ketones Negative, Urine Occult Blood 250 H, Urine Nitrite Negative, Urine Bilirubin Negative, Urine Urobilinogen Normal, Ur Leukocyte Esterase 500 H, Urine RBC 0-5 SEEN, Urine WBC 0-5 SEEN, Ur Squamous Epith Cells 0-5 SEEN, Urine Bacteria 0 SEEN, Urine Mucus 0 SEEN 06/28/19 21:45: WBC 15.8 H, RBC 4.12 L, Hgb 14.1, Hct 41.5, MCV 100.7 H, MCH 34.2 H, MCHC 34.0, RDW Std Deviation 50.2 H, RDW Coeff of Dragan 13.5, Plt Count 243, MPV 9.9, Immature Gran % (Auto) 0.900, Neut % (Auto) 86.7 H, Lymph % (Auto) 7.0 L, [place] % (Auto) 5.0, Eos % (Auto) 0.1, Baso % (Auto) 0.3, Absolute Neuts (auto) 13.7 H, Absolute Lymphs (auto) 1.10, Nucleated RBC % 0 06/28/19 21:45: Sodium 138, Potassium 3.1 L, Chloride 103, Carbon Dioxide 28.0, Anion Gap 7, BUN 9, Creatinine 0.83, Estim Creat Clear Calc 68.60, Est GFR (MDRD) Af Amer 101, Est GFR (MDRD) Non-Af 84, BUN/Creatinine Ratio 10.9, Glucose 128 H, Calcium 8.8 06/28/19 21:45: Serum , Qual NEGATIVE 06/29/19 06:43: WBC 11.4 H, RBC 3.64 L, Hgb 12.1, Hct 37.1, MCV 101.9 H, MCH 33.2 H, MCHC 32.6, RDW Std Deviation 51.1 H, RDW Coeff of Dragan 13.6, Plt Count 230, MPV 10.0, Immature Gran % (Auto) 0.800, Neut % (Auto) 83.5 H, Lymph % (Auto) 9.3 L, [place] % (Auto) 5.8, Eos % (Auto) 0.3, Baso % (Auto) 0.3, Absolute Neuts (auto) 9.5 H, Absolute Lymphs (auto) 1.06, Nucleated RBC % 0 06/29/19 06:43: Sodium 138, Potassium 3.2 L, Chloride 107, Carbon Dioxide 25.0, Anion Gap 6, BUN 6 L, Creatinine 0.74, Estim Creat Clear Calc 174.52, Est GFR (MDRD) Af Amer 115, Est GFR (MDRD) Non-Af 95, BUN/Creatinine Ratio 8.1 L, Glucose 92, Calcium 8.0 L, Total Bilirubin 0.80, AST 14 L, ALT 19, Alkaline Phosphatase 99, Total Protein 7.2, Albumin 2.5 L, Globulin 4.7 H, Albumin/Globulin Ratio 0.5 L Code Visit Inpatient E&M: 20682 Subs Hosp L3
[2019-06-29 07:47] LABS: ALB/GLOB Ratio 0.5 RATIO (0.9-2.4); AST(SGOT) 14 U/L (15-37); Alanine Aminotransfer ALT/SGPT 19 U/L (13-56); Albumin, Serum 2.5 g/dL (3.2-5.0); Alkaline Phosphatase 99 U/L (45-117); Anion Gap 6 (5-15); BUN 6 mg/dL (7-18); BUN/Creat Ratio 8.1 RATIO (10-20); Chloride 107 mmol/L (98-107); Creatinine, Serum 0.74 mg/dL (0.55-1.02); EST Glomerular Filtration Rate 95 mL/min (>60); Est Glom Filt Rate - Afr Amer 115 mL/min (>60); Estimated Creatinine Clearance 174.52 ml/min; Globulin 4.7 g/dL (2.2-4.2); Glucose 92 mg/dL (74-106); Potassium 3.2 mmol/L (3.5-5.1); Protein, Total 7.2 g/dL (6.4-8.2); Sodium Level 138 mmol/L (136-145)
--- NOTE | 2019-06-29 08:46 | PCM.CONS.GEN ---
Problem List (1) LLQ abdominal pain Status: Acute Reason for Consult Date of Consultation: 06/29/19 History of Present Illness: The patient is a 33 year old F who presents with left lower quadrant pain as well as some nausea and vomiting. The patient reports this is been going on for about 2 weeks. She does not report any right upper quadrant right lower quadrant or left upper quadrant pain. Patient is not having any diarrhea or blood in her stool. Past Medical History Past Medical History (Chronic Problems): Chronic Problems History of Down syndrome (Chronic) Allergies cefaclor [From Ceclor] Allergy (Verified 06/29/19 00:19) Hives Penicillins Allergy (Verified 06/29/19 00:19) unknown sulfamethoxazole [From Bactrim] Allergy (Verified 06/29/19 00:19) Upset Stomach trimethoprim [From Bactrim] Allergy (Verified 06/29/19 00:19) Upset Stomach Home Medications: Ambulatory Orders Medication Instructions Recorded Cholecalciferol (Vitamin D3) 50,000 unit PO QWEEK 03/31/18 [Vitamin D] Citalopram [Celexa] 20 mg PO QHS 03/31/18 Fluticasone 0.05% [Flonase Nasal 2 spray NASAL DAILY 03/31/18 [place]] Levothyroxine [Synthroid] 137 mcg PO DAILY 03/31/18 Loratadine [Claritin] 10 mg PO DAILY 03/31/18 Multivitamin [Daily Multiple 1 ea PO QHS 03/31/18 Vitamin] Omeprazole [Prilosec] 20 mg PO DAILY 03/31/18 tramadol 50 mg tablet 50 mg PO Q6H PRN 07/28/18 clindamycin HCl 150 mg capsule 150 mg PO TID #20 cap 02/05/19 Ascorbic Acid [Vitamin C] 500 mg PO DAILY 06/29/19 Surgical History: - Smoking Status: Never smoker - *Family History Maternal History Items: Cancer Review of Systems Constitutional: Denies: Anorexia, Fever HEENT: Denies: Difficulty Swallowing Respiratory: Reports: Cough. Denies: Shortness of Breath Gastrointestinal: Reports: Abdominal Pain, Nausea, Vomiting. Denies: Constipation, Diarrhea Gynecological: Reports: - - History of ovarian cysts Neurological: Reports: Balance problems Patient Problems: Active and Suspected Problems LLQ abdominal pain (Acute) - Physical Exam Vitals/I&O's: Vital Signs Temp Pulse Resp BP Pulse Ox 99.4 F H 100 18 106/73 99 06/29/19 05:36 06/29/19 05:36 06/29/19 05:36 06/29/19 05:36 06/29/19 05:36 Oxygen Delivery Method Room Air Weight: 227 lb 8.273 oz Body Mass Index (BMI) 45.9 Intake and Output for Last 24 Hours 06/27/19 06/28/19 06/29/19 23:59 23:59 23:59 Intake Total 1023.33 / 1023.33 762.00 / 762.00 Balance 1023.33 / 1023.33 762.00 / 762.00 General: Alert, Oriented x3, No apparent distress HEENT: Atraumatic Neck: No JVD Lungs: Normal air movement Cardiovascular: Regular rate, Regular Rhythm Abdomen: Soft, Tender - Tender in the left lower quadrant with no guarding or rebound Laboratory Results 06/28/19 21:40: Urine Color Yellow, Urine Clarity Clear, Urine pH 5.0, Ur Specific [place] 1.015, Urine Protein 30 H, Urine Glucose (UA) Normal, Urine Ketones Negative, Urine Occult Blood 250 H, Urine Nitrite Negative, Urine Bilirubin Negative, Urine Urobilinogen Normal, Ur Leukocyte Esterase 500 H, Urine RBC 0-5 SEEN, Urine WBC 0-5 SEEN, Ur Squamous Epith Cells 0-5 SEEN, Urine Bacteria 0 SEEN, Urine Mucus 0 SEEN 06/28/19 21:45: WBC 15.8 H, RBC 4.12 L, Hgb 14.1, Hct 41.5, MCV 100.7 H, MCH 34.2 H, MCHC 34.0, RDW Std Deviation 50.2 H, RDW Coeff of Dragan 13.5, Plt Count 243, MPV 9.9, Immature Gran % (Auto) 0.900, Neut % (Auto) 86.7 H, Lymph % (Auto) 7.0 L, [place] % (Auto) 5.0, Eos % (Auto) 0.1, Baso % (Auto) 0.3, Absolute Neuts (auto) 13.7 H, Absolute Lymphs (auto) 1.10, Nucleated RBC % 0 06/28/19 21:45: Sodium 138, Potassium 3.1 L, Chloride 103, Carbon Dioxide 28.0, Anion Gap 7, BUN 9, Creatinine 0.83, Estim Creat Clear Calc 68.60, Est GFR (MDRD) Af Amer 101, Est GFR (MDRD) Non-Af 84, BUN/Creatinine Ratio 10.9, Glucose 128 H, Calcium 8.8 06/28/19 21:45: Serum , Qual NEGATIVE 06/29/19 06:43: WBC 11.4 H, RBC 3.64 L, Hgb 12.1, Hct 37.1, MCV 101.9 H, MCH 33.2 H, MCHC 32.6, RDW Std Deviation 51.1 H, RDW Coeff of Dragan 13.6, Plt Count 230, MPV 10.0, Immature Gran % (Auto) 0.800, Neut % (Auto) 83.5 H, Lymph % (Auto) 9.3 L, [place] % (Auto) 5.8, Eos % (Auto) 0.3, Baso % (Auto) 0.3, Absolute Neuts (auto) 9.5 H, Absolute Lymphs (auto) 1.06, Nucleated RBC % 0 06/29/19 06:43: Sodium 138, Potassium 3.2 L, Chloride 107, Carbon Dioxide 25.0, Anion Gap 6, BUN 6 L, Creatinine 0.74, Estim Creat Clear Calc 174.52, Est GFR (MDRD) Af Amer 115, Est GFR (MDRD) Non-Af 95, BUN/Creatinine Ratio 8.1 L, Glucose 92, Calcium 8.0 L, Total Bilirubin 0.80, AST 14 L, ALT 19, Alkaline Phosphatase 99, Total Protein 7.2, Albumin 2.5 L, Globulin 4.7 H, Albumin/Globulin Ratio 0.5 L Current Medications Fluticasone Propionate (Flonase Nasal [place]) 2 spray NASAL DAILY [facility] Ciprofloxacin (Cipro) 400 mg in 200 mls @ 200 mls/hr IV Q12 PARAM Last Infusion: 06/29/19 01:45 Dose: Infused Documented by: Metronidazole (Flagyl) 500 mg in 100 mls @ 100 mls/hr IV Q8 PARAM Last Infusion: 06/29/19 06:42 Dose: Infused Documented by: Sodium Chloride () 250 mls @ 15 mls/hr IV .[id number] PRN PRN Reason: Saline Flush Sodium Chloride () 250 mls @ 15 mls/hr IV .[id number] PRN PRN Reason: Additional IVPB Infusion Potassium Chloride/Sodium Chloride () 1,000 mls @ 100 mls/hr IV .Q10H PARAM Last Infusion: 06/29/19 06:42 Dose: 100 mls/hr Documented by: Morphine Sulfate () 1 mg IV Q3H PRN PRN PRN Reason: Pain Score 6-10/10 Ondansetron HCl (Zofran) 4 mg IV Q8H PRN PRN PRN Reason: NAUSEA/VOMITING Sodium Chloride () 10 - 40 ml IV UD PRN PRN Reason: SALINE FLUSH Last Admin: 06/29/19 00:45 Dose: 10 ml Documented by: Assessment/Plan All Active Problems Skin ulcer of nose (Acute) RLQ abdominal pain (Acute) LLQ abdominal pain (Acute) 33-year-old female with left lower quadrant pain 1. The patient had laparoscopic appendectomy for perforated appendicitis in February of last year. The patient has had the flu and several other issues since surgery. The patient does not report any fevers or chills in the following weeks to months after surgery. The patient had been followed by [facility] INORGANIC CHEMICAL TECHNICIAN's for ovarian cyst. She had an ultrasound of her pelvis which showed several enlarged ovarian cysts that were complex last month. Her pain is all in her left lower quadrant. There is no pain in her right lower quadrant or upper abdomen. She had a CT scan yesterday with no contrast that shows inflammation in the pelvic area and lower abdomen. She had a repeat CT scan today with IV contrast that does not show any obvious abscess. The CT does show inflammatory response in the pelvis and this may be associated with ruptured ovarian cysts. I would recommend continuing antibiotics and calling DEPUTY CLERK for their input. Her white count is improving and likely if she is doing well she can started on a diet and repeat CT in a week. 2. At this time there are no obvious signs of infection or extravasation at the area of appendectomy. The staple line is in place. There are no air-containing or rim-enhancing fluid collections to suggest abscess. Krzysztof Perdomo MD Pager: [facility] [address] [place] [address], [address] [place] [address] Office:
[2019-06-29] MEDS: Fluticasone 0.05% 1 SPRAY NASAL.SRY 2 SPRAY NASAL (09:16)
--- NOTE | 2019-06-29 11:56 | CASEMGMT ---
RN CM Assessment Introduced role of RN CM to patient, patient mother Kalpana, patient sister and patient nephew at bedside. Patient with h/o Downs Syndrome.? Patient is alert, oriented and able?to participate in RN CM Assessment. ?Information obtained from patient and family at bedside. Care providers, pharmacy, and demographics verified. Presentation: RLQ pain, seen by PCP and had outpatient CT scan- configuration analyst [facility] physician report-RLQ abscess. Had a Appendectomy done Feb [address] Pardo. Admit Dx: Abd Pain Re-Admit: No Barriers/Issues: None PCP: Trent Horowitz Specialists: Pulm- Dr Marley, Cardio- Kamille Turcios NP, Rheum- Dr Conner Justice Preferred Pharmacy: [facility] Insurance: [facility] Community Plan Rx Benefit:?Yes ?LNOK: Mother Kalpana Lu LW/HPOA: Per patient mother Kalpana, was just approved to cover getting legal guardianship and now just needs to get an mergers and acquisitions attorney- Mother in process of obtaining legal guardianship. Living Arrangements:? Lives with mother, sister and nephew sometime stays there. SSH with ramp. ADL?s: Ambulates independently but uses rollator sometimes. WC on occasion for long distances. Independent with ADLs except requires assistance with med management and sometimes wants help with bathing and dressing. Transportation: Family, no issues. DME: WW, Cpap-cannot recall with what agency, Shower Chair, Og WC, Nebulizer HHC: None SNF: Past at [facility] Goal: Home and does not think will have any needs. Denies any issues, concerns, needs, or questions with DC planning at this time. Aware CM remains available for any emerging needs. DC PLAN: Home with no anticipated needs identified at this time. LEEANN Martell
[2019-06-29] MEDS: Morphine 2 MG/ML Syringe 1 MG IV (13:19)
--- NOTE | 2019-06-29 13:27 | US_ITS ---
STUDY: ULTRASOUND OF THE FEMALE PELVIS - COMPLETE REASON FOR EXAM: Female, 33 years [address] LMP UNKNOWN OV CYST ON CT LMP: EXAM DESCRIPTION: Transabdominal pelvic ultrasound CLINICAL HISTORY: 33 years Female, ABNL CT LMP UNKNOWN OV CYST ON CT COMPARISON: Recent CT scan of the abdomen and pelvis obtained on 06/29/2019 FINDINGS: Serial longitudinal and transverse scans of the pelvis were obtained utilizing transabdominal pelvic ultrasound imaging. Uterus is identified and is anteverted but normal in appearance with the following measurements; 7.1 x 3.5 x 3.4 cm . The endometrial echo stripe measures 3.1 mm, and is smooth. No uterine leiomyomas are identified. The ovaries are well identified and has the following measurements: Right ovary: 5.3 x 3.9 x 4.9 cm . A solid slice cystic lesion probably representing a recently ruptured ovarian cyst is seen measuring 2.5 x 1.9 x 2.1 cm in size. Left ovary:: 3.0 x 3.1 x 2.8 cm with a physiologic cyst measuring 2.5 x 2 x 2.3 cm in size. No adnexal masses or lesions are seen. adnexal masses or lesions are seen. No fluid is noted in the cul-de-sac. US/Pelvic (Non ) IMPRESSION: Findings compatible with a recent right ovarian cystic ovulation. A physiologic cyst is seen in the left ovary. Electronically Signed: Freddie Dempsey, at 16:10 EST Tel , Service support ,
[2019-06-29 14:40] LABS: Magnesium 1.9 mg/dL (1.6-2.6); Phosphorus 2.4 mg/dL (2.5-4.9)
--- NOTE | 2019-06-29 18:36 | PCM.CONS.GEN ---
Reason for Consult Date of Consultation: 06/29/19 Reason for Consultation: Left Lower Quadrant Pain History of Present Illness: The patient is a 33 year old female 0 0 0 0 0, presented for: -- LLQ Pain -- LLQ Pain which began last Friday. It occurs all the time. It is located in the LLQ of the abdomen. Severity is mild and improving. Additional comment: has had LLQ pain for 2 weeks; became severe last Friday night; since then has been severe but improving; u/s today at [facility] shows essentially a normal pelvis. Presented to the ER last PM and is admitted to PCU. Past Medical History Past Medical History (Chronic Problems): Chronic Problems History of Down syndrome (Chronic) Allergies cefaclor [From Ceclor] Allergy (Verified 06/29/19 00:19) Hives Penicillins Allergy (Verified 06/29/19 00:19) unknown sulfamethoxazole [From Bactrim] Allergy (Verified 06/29/19 00:19) Upset Stomach trimethoprim [From Bactrim] Allergy (Verified 06/29/19 00:19) Upset Stomach Home Medications: Ambulatory Orders Medication Instructions Recorded Cholecalciferol (Vitamin D3) 50,000 unit PO QWEEK 03/31/18 [Vitamin D] Citalopram [Celexa] 20 mg PO QHS 03/31/18 Fluticasone 0.05% [Flonase Nasal 2 spray NASAL DAILY 03/31/18 [place]] Levothyroxine [Synthroid] 137 mcg PO DAILY 03/31/18 Loratadine [Claritin] 10 mg PO DAILY 03/31/18 Multivitamin [Daily Multiple 1 ea PO QHS 03/31/18 Vitamin] Omeprazole [Prilosec] 20 mg PO DAILY 03/31/18 tramadol 50 mg tablet 50 mg PO Q6H PRN 07/28/18 clindamycin HCl 150 mg capsule 150 mg PO TID #20 cap 02/05/19 Ascorbic Acid [Vitamin C] 500 mg PO DAILY 06/29/19 Surgical History: appendectomy, - Psychiatric History: - - Has Down's Syndrome Lives: With Family Smoking Status: Never smoker - *Family History Maternal History Items: Cancer Review of Systems Constitutional: Denies: Chills, Fever Gastrointestinal: Reports: Abdominal Pain. Denies: Diarrhea, Nausea, Vomiting Patient Problems: Active and Suspected Problems LLQ abdominal pain (Acute) - Physical Exam Vitals/I&O's: Vital Signs Temp Pulse Resp BP Pulse Ox 99.5 F H 94 16 100/44 L 94 06/29/19 15:00 06/29/19 15:00 06/29/19 15:00 06/29/19 15:00 06/29/19 15:00 Oxygen Delivery Method Room Air Weight: 227 lb 8.273 oz Body Mass Index (BMI) 45.9 Intake and Output for Last 24 Hours 06/27/19 06/28/19 06/29/19 23:59 23:59 23:59 Intake Total 1023.33 / 1023.33 1820.34 / 1820.34 Balance 1023.33 / 1023.33 1820.34 / 1820.34 General: Alert, Oriented x3, - - has Down's Syndrome Lungs: Clear to auscultation, Normal air movement Cardiovascular: Regular rate, Regular Rhythm Abdomen: Tender - mild tenderness LLQ but no rebound or guarding Psych/Mental Status: Appropriate Laboratory Results 06/28/19 21:40: Urine Color Yellow, Urine Clarity Clear, Urine pH 5.0, Ur Specific [place] 1.015, Urine Protein 30 H, Urine Glucose (UA) Normal, Urine Ketones Negative, Urine Occult Blood 250 H, Urine Nitrite Negative, Urine Bilirubin Negative, Urine Urobilinogen Normal, Ur Leukocyte Esterase 500 H, Urine RBC 0-5 SEEN, Urine WBC 0-5 SEEN, Ur Squamous Epith Cells 0-5 SEEN, Urine Bacteria 0 SEEN, Urine Mucus 0 SEEN 06/28/19 21:45: WBC 15.8 H, RBC 4.12 L, Hgb 14.1, Hct 41.5, MCV 100.7 H, MCH 34.2 H, MCHC 34.0, RDW Std Deviation 50.2 H, RDW Coeff of Dragan 13.5, Plt Count 243, MPV 9.9, Immature Gran % (Auto) 0.900, Neut % (Auto) 86.7 H, Lymph % (Auto) 7.0 L, [place] % (Auto) 5.0, Eos % (Auto) 0.1, Baso % (Auto) 0.3, Absolute Neuts (auto) 13.7 H, Absolute Lymphs (auto) 1.10, Nucleated RBC % 0 06/28/19 21:45: Sodium 138, Potassium 3.1 L, Chloride 103, Carbon Dioxide 28.0, Anion Gap 7, BUN 9, Creatinine 0.83, Estim Creat Clear Calc 68.60, Est GFR (MDRD) Af Amer 101, Est GFR (MDRD) Non-Af 84, BUN/Creatinine Ratio 10.9, Glucose 128 H, Calcium 8.8 06/28/19 21:45: Serum , Qual NEGATIVE 06/29/19 06:43: WBC 11.4 H, RBC 3.64 L, Hgb 12.1, Hct 37.1, MCV 101.9 H, MCH 33.2 H, MCHC 32.6, RDW Std Deviation 51.1 H, RDW Coeff of Dragan 13.6, Plt Count 230, MPV 10.0, Immature Gran % (Auto) 0.800, Neut % (Auto) 83.5 H, Lymph % (Auto) 9.3 L, [place] % (Auto) 5.8, Eos % (Auto) 0.3, Baso % (Auto) 0.3, Absolute Neuts (auto) 9.5 H, Absolute Lymphs (auto) 1.06, Nucleated RBC % 0 06/29/19 06:43: Sodium 138, Potassium 3.2 L, Chloride 107, Carbon Dioxide 25.0, Anion Gap 6, BUN 6 L, Creatinine 0.74, Estim Creat Clear Calc 174.52, Est GFR (MDRD) Af Amer 115, Est GFR (MDRD) Non-Af 95, BUN/Creatinine Ratio 8.1 L, Glucose 92, Calcium 8.0 L, Total Bilirubin 0.80, AST 14 L, ALT 19, Alkaline Phosphatase 99, Total Protein 7.2, Albumin 2.5 L, Globulin 4.7 H, Albumin/Globulin Ratio 0.5 L 06/29/19 06:43: Phosphorus 2.4 L, Magnesium 1.9 Current Medications Fluticasone Propionate (Flonase Nasal [place]) 2 spray NASAL DAILY [facility] Last Admin: 06/29/19 09:16 Dose: 2 spray Documented by: Ciprofloxacin (Cipro) 400 mg in 200 mls @ 200 mls/hr IV Q12 [facility] Last Infusion: 06/29/19 10:17 Dose: Infused Documented by: Metronidazole (Flagyl) 500 mg in 100 mls @ 100 mls/hr IV Q8 [facility] Last Infusion: 06/29/19 15:56 Dose: Infused Documented by: Sodium Chloride () 250 mls @ 15 mls/hr IV .[id number] PRN PRN Reason: Saline Flush Sodium Chloride () 250 mls @ 15 mls/hr IV .[id number] PRN PRN Reason: Additional IVPB Infusion Potassium Chloride/Sodium Chloride () 1,000 mls @ 100 mls/hr IV .Q10H [facility] Last Infusion: 06/29/19 17:14 Dose: 100 mls/hr Documented by: Morphine Sulfate () 1 mg IV Q3H PRN PRN PRN Reason: Pain Score 6-10/10 Last Admin: 06/29/19 13:19 Dose: 1 mg Documented by: Ondansetron HCl (Zofran) 4 mg IV Q8H PRN PRN PRN Reason: NAUSEA/VOMITING Sodium Chloride () 10 - 40 ml IV UD PRN PRN Reason: SALINE FLUSH Last Admin: 06/29/19 14:57 Dose: 10 ml Documented by: Assessment/Plan All Active Problems Skin ulcer of nose (Acute) RLQ abdominal pain (Acute) LLQ abdominal pain (Acute) Ovarian Cyst Ot/unspec Likely ruptured ovarian cyst by exam and history and u/s findings. Expect pain to resolve slowly over the next several days to week. Anticipate release to home tomorrow if good progress continues.
--- NOTE | 2019-06-29 19:43 | NURSING ---
MOM JUST INFORMED US DURING ROUNDING THAT PT HAS NOT BEEN RECEIVING ANY OF HER HOME MEDS. COMMUNICATION SENT TO [id number]
[2019-06-29] MEDS: Citalopram 20 MG Tablet PO (22:09)
[2019-06-29] MEDS: Multivitamins,Therapeutic Tablet 1 TABLET PO (22:09)
[2019-06-29] MEDS: traMADol 50 MG Tablet PO (22:13)
[2019-06-30 01:19] VITALS: PULSE 85; RESP 30; O2SAT 96
[2019-06-30 02:00] VITALS: BP 117/63; PULSE 91; RESP 18; TEMP 37; O2SAT 97
[2019-06-30 03:55] VITALS: PULSE 82; RESP 28; O2SAT 97
[2019-06-30] MEDS: metroNIDAZOLE 500 MG/100 ML BAG 100 MG IV (06:13)
[2019-06-30] MEDS: Levothyroxine 137 MCG Tablet PO (06:14)
[2019-06-30 06:52] LABS: Absolute Lymphocyte Count 0.94 X10^3/uL (0.83-4.51); Absolute Neutrophil Count 9.1 X10^3/uL (2.0-7.7); Basophil# 0.04 X10^3/uL; Basophil% 0.4 % (0-1); Eosinophil# 0.02 X10^3/uL; Eosinophils% 0.2 % (0-5); Hematocrit 35.4 % (37-47); Hemoglobin 11.4 g/dL (12.0-15.0); Lymphocyte # 0.94 X10^3/ul (4.0); Lymphocyte % 8.5 % (19-41); Mean Corp Hgb Conc 32.2 g/dL (32-36); Mean Corpuscular Hgb 33.5 pg (27.0-32.0); Mean Corpuscular Volume 104.1 fL (81-99); Mean Platelet Vol. 9.9 fl (6.2-12.0); Monocyte# 0.78 X10^3/uL; Monocyte% 7.1 % (0-10); NRBC Flagged by Analyzer 0 % (0-5); Neutrophil # 9.07 X10^3/uL (2.7-7.7); Neutrophil % 82.3 % (47-70); Platelet Count 260 K/mm3 (150-450); RBC Distribution Width CV 13.6 % (11.6-14.6); RBC Distribution Width SD 52.5 fl (35.1-43.9)
[2019-06-30 07:38] LABS: Anion Gap 5 (5-15); BUN 9 mg/dL (7-18); BUN/Creat Ratio 14.5 RATIO (10-20); Calcium,Total 8.2 mg/dL (8.5-10.1); Chloride 108 mmol/L (98-107); Creatinine, Serum 0.62 mg/dL (0.55-1.02); EST Glomerular Filtration Rate 116 mL/min (>60); Est Glom Filt Rate - Afr Amer 141 mL/min (>60); Glucose 98 mg/dL (74-106); Potassium 3.5 mmol/L (3.5-5.1); Sodium Level 141 mmol/L (136-145)
[2019-06-30 08:00] VITALS: BP 98/52; PULSE 85; RESP 20; TEMP 37.1; O2SAT 93
--- NOTE | 2019-06-30 08:08 | PN.SURG_ITS ---
Patient Problems: Active and Suspected Problems LLQ abdominal pain (Acute) Subjective: Patient reports she is doing much better this morning and tolerating a diet with no abdominal pain - Physical Exam Vitals/I&O's: Vital Signs Temp Pulse Resp BP Pulse Ox 98.6 F 82 28 H 117/63 97 06/30/19 02:00 06/30/19 03:55 06/30/19 03:55 06/30/19 02:00 06/30/19 03:55 Oxygen Delivery Method CPAP Weight: 227 lb 8.273 oz Body Mass Index (BMI) 45.9 Intake and Output for Last 24 Hours 06/28/19 06/29/19 06/30/19 23:59 23:59 23:59 Intake Total 1023.33 / 1023.33 2020.34 / 2470.34 1835.00 / 1835.00 Balance 1023.33 / 1023.33 2020.34 / 2470.34 1835. / 1835.00 General: Alert, Oriented x3 Cardiovascular: Regular rate, Regular Rhythm Abdomen: Soft, Non Tender, Non-Distended Laboratory Results 06/29/19 06:43: Phosphorus 2.4 L, Magnesium 1.9 06/30/19 06:10: WBC 11.0, RBC 3.40 L, Hgb 11.4 L, Hct 35.4 L, MCV 104.1 H, MCH 33.5 H, MCHC 32.2, RDW Std Deviation 52.5 H, RDW Coeff of Dragan 13.6, Plt Count 260, MPV 9.9, Immature Gran % (Auto) 1.500 H, Neut % (Auto) 82.3 H, Lymph % (Auto) 8.5 L, [place] % (Auto) 7.1, Eos % (Auto) 0.2, Baso % (Auto) 0.4, Absolute Neuts (auto) 9.1 H, Absolute Lymphs (auto) 0.94, Nucleated RBC % 0 06/30/19 06:10: Sodium Cancelled, Potassium Cancelled, Chloride Cancelled, Carbon Dioxide Cancelled, Anion Gap Cancelled, BUN Cancelled, Creatinine Cancelled, Estim Creat Clear Calc Cancelled, Est GFR (MDRD) Af Amer Cancelled, Est GFR (MDRD) Non-Af Cancelled, BUN/Creatinine Ratio Cancelled, Glucose Cancelled, Calcium Cancelled 06/30/19 07:20: Sodium 141, Potassium 3.5, Chloride 108 H, Carbon Dioxide 28.0, Anion Gap 5, BUN 9, Creatinine 0.62, Estim Creat Clear Calc 208.30, Est GFR (MDRD) Af Amer 141, Est GFR (MDRD) Non-Af 116, BUN/Creatinine Ratio 14.5, Glucose 98, Calcium 8.2 L Current Medications [facility]) [facility] Citalopram Hydrobromide (Celexa) 20 mg PO QHS [facility] Last Admin: 06/29/19 22:09 Dose: 20 mg Documented by: Ergocalciferol (Vitamin D) 50,000 unit PO Hernandez@1700 [facility] Fluticasone Propionate (Flonase Nasal [place]) 2 spray NASAL DAILY [facility] Last Admin: 06/29/19 09:16 Dose: 2 spray Documented by: Ciprofloxacin (Cipro) 400 mg in 200 mls @ 200 mls/hr IV Q12 [facility] Last Infusion: 06/29/19 23:01 Dose: Infused Documented by: Metronidazole (Flagyl) 500 mg in 100 mls @ 100 mls/hr IV Q8 [facility] Last Infusion: 06/30/19 07:13 Dose: Infused Documented by: Sodium Chloride () 250 mls @ 15 mls/hr IV .[id number] PRN PRN Reason: Saline Flush Sodium Chloride () 250 mls @ 15 mls/hr IV .[id number] PRN PRN Reason: Additional IVPB Infusion Potassium Chloride/Sodium Chloride () 1,000 mls @ 100 mls/hr IV .Q10H [facility] Last Infusion: 06/30/19 06:15 Dose: 0 mls/hr Documented by: Levothyroxine Sodium (Synthroid) 137 mcg PO DAILY@0600 [facility] Last Admin: 06/30/19 06:14 Dose: 137 mcg Documented by: Loratadine (Claritin) 10 mg PO DAILY [facility] Morphine Sulfate () 1 mg IV Q3H PRN PRN PRN Reason: Pain Score 6-10/10 Last Admin: 06/29/19 13:19 Dose: 1 mg Documented by: Multivitamins (Multivitamin) 1 tablet PO QHS [facility] Last Admin: 06/29/19 22:09 Dose: 1 tablet Documented by: Ondansetron HCl (Zofran) 4 mg IV Q8H PRN PRN PRN Reason: NAUSEA/VOMITING Pantoprazole Sodium (Protonix) 20 mg PO DAILY [facility] Sodium Chloride () 10 - 40 ml IV UD PRN PRN Reason: SALINE FLUSH Last Admin: 06/29/19 14:57 Dose: 10 ml Documented by: Tramadol HCl (Ultram) 50 mg PO Q6H PRN PRN Reason: pain Last Admin: 06/29/19 22:13 Dose: 50 mg Documented by: Medical Necessity - Tobacco Use Smoking Status: Never smoker Assessment/Plan All Active Problems Skin ulcer of nose (Acute) RLQ abdominal pain (Acute) LLQ abdominal pain (Acute) 33-year-old female with likely ruptured ovarian cyst 1. Patient is doing well today. Okay for discharge from my standpoint. Follow-up with her TOOL TENDER. Krzysztof Perdomo MD Pager: [facility] [address] [place] [address], [address] [place] [address] Office:
[2019-06-30] MEDS: Pantoprazole Sodium 20 MG Tablet PO (08:35)
[2019-06-30] MEDS: Loratadine 10 MG Tablet PO (08:35)
[2019-06-30] MEDS: Fluticasone 0.05% 1 SPRAY NASAL.SRY 2 SPRAY NASAL (08:36)
[2019-06-30] MEDS: Ascorbic Acid 500 MG Tablet PO (08:36)
--- NOTE | 2019-06-30 10:51 | DCINST_ITS ---
- Discharge Diagnoses Current Active Problems: Current Active and Chronic Problems LLQ abdominal pain (Acute) You will use the following diet at home:: Regular - low fibre diet for 1 month, avoid hard meat Your food should be the consistency of: Regular Discharge Activity: May Not Drive Weight Bearing Status: Weight bearing as tolerated Call your doctor if you observe: Fever of 101 or Higher, Coldness, Increased [place] n, Numbness or Tingling, Inability to urinate, Inability to have a bowel movement, Using more than one pad per hour, Shortness of breath, Dizziness, Fainting spells, Swelling in the ankles, Chest pain, Prolonged hiccoughing, Increased palpitations (irregular heartbeat), Calf discomfort, Uncontrolled pain Allergies/Adverse Reactions: Allergies cefaclor [From Ceclor] Allergy (Verified 06/29/19 00:19) Hives Penicillins Allergy (Verified 06/29/19 00:19) unknown sulfamethoxazole [From Bactrim] Allergy (Verified 06/29/19 00:19) Upset Stomach trimethoprim [From Bactrim] Allergy (Verified 06/29/19:19) Upset Stomach Medications to take at Discharge Cholecalciferol (Vitamin D3) [Vitamin D3] 50,000 unit PO QWEEK 03/31/18 Citalopram [Celexa] 20 mg PO QHS 03/31/18 Fluticasone 0.05% [Flonase Nasal [place]] 2 spray NASAL DAILY 03/31/18 Levothyroxine [Synthroid] 137 mcg PO DAILY 03/31/18 Loratadine [Claritin] 10 mg PO DAILY 03/31/18 Multivitamin [Daily Multiple Vitamin] 1 ea PO QHS 03/31/18 Omeprazole [Prilosec] 20 mg PO DAILY 03/31/18 tramadol 50 mg tablet 50 mg PO Q6H PRN 07/28/18 Ascorbic Acid [Vitamin C] 500 mg PO DAILY 06/29/19 Primary Care Physician: Trent Horowitz DO [Primary Care Provider] - Test Results: Test results from this visit will be discussed in further detail at your follow- up appointment, if applicable. Please Follow Up With: Trent Horowitz DO Please Follow Up With: Latanya Massey DO When: In 2 weeks
--- NOTE | 2019-06-30 11:00 | PHA.DC.MR ---
Pharmacy Service has performed discharge medication reconciliation for this patient. The patient's discharge medication list was reviewed for discrepancies and discrepancies were resolved. Home Medications Cholecalciferol (Vitamin D3) [Vitamin D3] 50,000 unit PO QWEEK 03/31/18 Citalopram [Celexa] 20 mg PO QHS 03/31/18 Fluticasone 0.05% [Flonase Nasal [place]] 2 spray NASAL DAILY 03/31/18 Levothyroxine [Synthroid] 137 mcg PO DAILY 03/31/18 Loratadine [Claritin] 10 mg PO DAILY 03/31/18 Multivitamin [Daily Multiple Vitamin] 1 ea PO QHS 03/31/18 Omeprazole [Prilosec] 20 mg PO DAILY 03/31/18 tramadol 50 mg tablet 50 mg PO Q6H PRN 07/28/18 Ascorbic Acid [Vitamin C] 500 mg PO DAILY 06/29/19
[2019-06-30] MEDS: Ciprofloxacin 400 MG/200 ML BAG 200 MG IV (11:07)
--- NOTE | 2019-06-30 11:33 | PCM.DC.SUM ---
Discharge Date and Diagnosis Date of Admission: 06/28/19 Date of Discharge: 06/30/19 - Primary Discharge Diagnosis Active and Suspected Problems LLQ abdominal pain (Acute) - Secondary Discharge Diagnosis Chronic Problems History of Down syndrome (Chronic) Hospital Course and Treatment Operations: appendectomy - & removal of purulent fluid from pelvis unknown etiology Summary of Care Provided: [] This 33-year-old female with history of mild Down syndrome was admitted with left lower quadrant abdominal pain. 1. Left lower quadrant abdominal pain probably related to complex ovarian cyst: Patient is being admitted in PCU. Patient had laparoscopic appendectomy for perforated appendicitis done in February 2019. After that patient was seen in [facility] for ovarian cyst. As per surgeon Dr. Perdomo's note, she had enlarged ovarian cyst, complex in nature a month ago and left lower quadrant. CT scan shows 2.5 cm left ovarian cyst cyst. Has postoperative changes of appendectomy and right lower quadrant. CT scan negative for any obvious abscess. On Cipro and Flagyl. The patient was seen by chief of safety and protection Dr. Magana and informed about her admission. Pelvic ultrasound was done and findings were consistent with physiologic cyst in the left ovary and recent right ovarian cystic ovulation. UA is negative, WBC 0-5 cells. LE 500, nitrite negative. 2. Mild hypokalemia: K3.5. phosphorus 2.4, magnesium 1.9. Electrolytes were replaced. DVT prophylaxis: Lovenox 40 mg subcu daily. Discharge medication reconciliation done. Discharge follow-up instructions completed. Discharge process discussed with the patient and all questions were answered to patient's satisfaction. Total time spent, exact 35 minutes on discharge meds reconciliation, examination, coordination of care with consultants, nurses and ancillary staff, review of imaging and blood test and discussion with the patient and patient's mother on follow-up instructions Clinical Impression(s) from Imaging Studies Abdomen/Pelvis CT 06/29/19 05:55 IMPRESSION: 1. Chronic right acetabular and hip dysplasia. 2.. Physiologic left ovarian cyst. 3. Status post relatively recent right appendectomy. At this time there appears to be a right ovarian cyst with adjacent fluid collection probably due to a recent ovulation. A developing abscess in the right lower quadrant is a less likely diagnostic consideration, and a follow-up CT scan in 2-3 days might be helpful to totally exclude this latter possibility. Electronically Signed: Freddie Dempsey, at 8:51 EST Tel , Service support , Pelvis Ultrasound 06/29/19 13:27 IMPRESSION: Findings compatible with a recent right ovarian cystic ovulation. A physiologic cyst is seen in the left ovary. Subjective: The patient was seen and examined in the morning rounds. Denies abdominal pain. Patient moved bowel. No GI bleed. Objective: General: Alert, Oriented x3, Cooperative HEENT: Atraumatic, PERRLA, EOMI, Normocephalic Oral: No Gingival or Mucosal Lesions/ Ulcerations, Dry Mucosa Neck: Supple, No JVD, Negative Carotid Bruits Lungs: Clear to auscultation, No rhonchi, No wheeze, No rales, Diminished Cardiovascular: Regular rate, Regular Rhythm, Normal S1, Normal S2, No murmurs Abdomen: Bowel Sounds Present, Soft, Non-Distended, no tenderness. No palpable mass. Extremities: No edema, Capillary Refill Less than 3 Seconds Skin: No rashes, No breakdown Musculoskeletal: No Tenderness to Palpation of Joints or Extremities Neurological: Cranial nerves II-XII grossly intact, Deep Tendon Reflexes 2+/4 and Symmetrical, Neuro grossly intact Psych/Mental Status: Normal Affect, Appropriate - Physical Exam Vitals/I&O's: Vital Signs Temp Pulse Resp BP Pulse Ox 98.7 F 85 20 H 98/52 L 93 06/30/19 08:00 06/30/19 08:00 06/30/19 08:00 06/30/19 08:00 06/30/19 08:00 Oxygen Delivery Method Room Air Weight: 227 lb 8.273 oz Body Mass Index (BMI) 45.9 Intake and Output for Last 24 Hours 06/28/19 06/29/19 06/30/19 23:59 23:59 23:59 Intake Total 1023.33 / 1023.33 2019.34 / 0.34 1835. / 1835.00 Balance 1023.33 / 1023.33 2019.34 / 0.34 1835. / 1835.00 Laboratory Results 06/29/19 06:43: Phosphorus 2.4 L, Magnesium 1.9 06/30/19 06:10: WBC 11.0, RBC 3.40 L, Hgb 11.4 L, Hct 35.4 L, MCV 104.1 H, MCH 33.5 H, MCHC 32.2, RDW Std Deviation 52.5 H, RDW Coeff of Dragan 13.6, Plt Count 260, MPV 9.9, Immature Gran % (Auto) 1.500 H, Neut % (Auto) 82.3 H, Lymph % (Auto) 8.5 L, [place] % (Auto) 7.1, Eos % (Auto) 0.2, Baso % (Auto) 0.4, Absolute Neuts (auto) 9.1 H, Absolute Lymphs (auto) 0.94, Nucleated RBC % 0 06/30/19 06:10: Sodium Cancelled, Potassium Cancelled, Chloride Cancelled, Carbon Dioxide Cancelled, Anion Gap Cancelled, BUN Cancelled, Creatinine Cancelled, Estim Creat Clear Calc Cancelled, Est GFR (MDRD) Af Amer Cancelled, Est GFR (MDRD) Non-Af Cancelled, BUN/Creatinine Ratio Cancelled, Glucose Cancelled, Calcium Cancelled 06/30/19 07:20: Sodium 141, Potassium 3.5, Chloride 108 H, Carbon Dioxide 28.0, Anion Gap 5, BUN 9, Creatinine 0.62, Estim Creat Clear Calc 208.30, Est GFR (MDRD) Af Amer 141, Est GFR (MDRD) Non-Af 116, BUN/Creatinine Ratio 14.5, Glucose 98, Calcium 8.2 L Current Medications Ascorbic Acid (Vitamin C) 500 mg PO DAILYCM [facility] Last Admin: 06/30/19 08:36 Dose: 500 mg Documented by: Citalopram Hydrobromide (Celexa) 20 mg PO QHS [facility] Last Admin: 06/29/19 22:09 Dose: 20 mg Documented by: Ergocalciferol (Vitamin D) 50,000 unit PO Hernandez@1700 [facility] Fluticasone Propionate (Flonase Nasal [place]) 2 spray NASAL DAILY [facility] Last Admin: 06/30/19 08:36 Dose: 2 spray Documented by: Ciprofloxacin (Cipro) 400 mg in 200 mls @ 200 mls/hr IV Q12 [facility] Last Admin: 06/30/19 11:07 Dose: 200 mls/hr Documented by: Metronidazole (Flagyl) 500 mg in 100 mls @ 100 mls/hr IV Q8 [facility] Last Infusion: 02/26/20 07:13 Dose: Infused Documented by: Sodium Chloride () 250 mls @ 15 mls/hr IV .[id number] PRN PRN Reason: Saline Flush Sodium Chloride () 250 mls @ 15 mls/hr IV .[id number] PRN PRN Reason: Additional IVPB Infusion Potassium Chloride/Sodium Chloride () 1,000 mls @ 100 mls/hr IV .Q10H [facility] Last Infusion: 06/30/19 08:25 Dose: 100 mls/hr Documented by: Levothyroxine Sodium (Synthroid) 137 mcg PO DAILY@0600 [facility] Last Admin: 06/30/19 06:14 Dose: 137 mcg Documented by: Loratadine (Claritin) 10 mg PO DAILY [facility] Last Admin: 06/30/19 08:35 Dose: 10 mg Documented by: Morphine Sulfate () 1 mg IV Q3H PRN PRN PRN Reason: Pain Score 6-10/10 Last Admin: 06/29/19 13:19 Dose: 1 mg Documented by: Multivitamins (Multivitamin) 1 tablet PO QHS [facility] Last Admin: 06/29/19 22:09 Dose: 1 tablet Documented by: Ondansetron HCl (Zofran) 4 mg IV Q8H PRN PRN PRN Reason: NAUSEA/VOMITING Pantoprazole Sodium (Protonix) 20 mg PO DAILY [facility] Last Admin: 06/30/19 08:35 Dose: 20 mg Documented by: Sodium Chloride () 10 - 40 ml IV UD PRN PRN Reason: SALINE FLUSH Last Admin: 06/29/19 14:57 Dose: 10 ml Documented by: Tramadol HCl (Ultram) 50 mg PO Q6H PRN PRN Reason: pain Last Admin: 06/29/19 22:13 Dose: 50 mg Documented by: Discharge Activity: May Not Drive Weight Bearing Status: Weight bearing as tolerated Call your doctor if you observe: Fever of 101 or Higher, Coldness, Increased Pain, Numbness or Tingling, Inability to urinate, Inability to have a bowel movement, Using more than one pad per hour, Shortness of breath, Dizziness, Fainting spells, Swelling in the ankles, Chest pain, Prolonged hiccoughing, Increased palpitations (irregular heartbeat), Calf discomfort, Uncontrolled pain Home Medications: Medications to take at Discharge Cholecalciferol (Vitamin D3) [Vitamin D3] 50,000 unit PO QWEEK 03/31/18 Citalopram [Celexa] 20 mg PO QHS 03/31/18 Fluticasone 0.05% [Flonase Nasal [place]] 2 spray NASAL DAILY 03/31/18 Levothyroxine [Synthroid] 137 mcg PO DAILY 03/31/18 Loratadine [Claritin] 10 mg PO DAILY 03/31/18 Multivitamin [Daily Multiple Vitamin] 1 ea PO QHS 03/31/18 Omeprazole [Prilosec] 20 mg PO DAILY 03/31/18 tramadol 50 mg tablet 50 mg PO Q6H PRN 07/28/18 Ascorbic Acid [Vitamin C] 500 mg PO DAILY 06/29/19 Primary Care Physician: Trent Horowitz DO [Primary Care Provider] - Please Follow Up With: Trent Horowitz DO Please Follow Up With: Latanya Massey DO When: In 2 weeks Medical Necessity - Tobacco Use Smoking Status: Never smoker Meaningful Use Info Meaningful Use Diagnoses (Choose all that apply): None applicable Code Visit Inpatient E&M: 25851 Disch Hosp
[2019-06-30 13:58] VITALS: BP 113/53; PULSE 86; RESP 18; TEMP 37.2; O2SAT 95
--- NOTE | 2019-06-30 15:23 | NURSING ---
WENT OVER DC INSTRUCTIONS W/PT & HER MOTHER. MOTHER VERBALIZED UNDERSTANDING.
[2019-06-30] MEDS: Acetaminophen 325 MG Tablet 650 MG PO (17:15)
[2019-06-30 18:19] VITALS: TEMP 37
--- NOTE | 2019-07-01 14:33 | CASEMGMT ---
MARINA SINGH Discharge Follow-Up Phone Call. [place]: 11 Strata: 3 Discharge Date: 06/30/19 Adm Dx: Abdominal pain Call to pt to inquire about how she has been doing since being discharged from the hospital. Pt's mom answered and states Noemy is resting right now but states she has been doing pretty good.. She states her pain is a lot better than it was. She is aware of the follow-up appts with Dr Horowitz's GLASS ETCHER and Dr Massey. She denies having any questions about the discharge instructions or medications. She denies having any recommendations for [facility] and states the staff on the first floor were really great w/Noemy. MARINA SINGH thanked Mrs Lu for taking the time to talk with MARINA SINGH and for choosing [facility]. Jennifer XIAO RN, CM
== END 2019-06-30 18:26 | disposition home or self-care (01) | DRG 532 ==
LOC: ED 21:39 → PCU 06-29 00:44
PROVIDERS: Admitting Provider Family Medicine; Emergency Provider Emergency Medicine; PCP Student in an Organized Health Care Education/Training Program; Visit Provider Internal Medicine
DX: N83.292 Other ovarian cyst, left side (principal); E87.6 Hypokalemia; Q90.9 Down syndrome, unspecified; Z68.42 Body mass index [BMI] 45.0-49.9, adult; E66.9 Obesity, unspecified
CPT/HCPCS: 36415; 74177; 76856; 80048; 80053; 81001; 83735; 84100; 84703; 85025; 93976; 94660; 99284; J7030; Q9967; A4216; J0744; J2405

== ENCOUNTER → 2019-12-24 09:46 | Outpatient (CLI) | payer MEDICAID, SELFPAY ==
[2019-06-29 00:06] VITALS: BMI 45.9
== END ==
PROVIDERS: Anesthesiology; PCP Student in an Organized Health Care Education/Training Program; Referring Provider Obstetrics & Gynecology; Visit Provider Obstetrics & Gynecology
DX: Z20.828 Contact with and (suspected) exposure to other viral communicable diseases (principal)
CPT/HCPCS: 87635; 94799; U0003

== ENCOUNTER 2019-12-30 08:32 | Day surgery (SDC) | payer MEDICAID, SELFPAY ==
[2019-06-29 00:06] VITALS: BMI 45.9
--- NOTE | 2019-12-29 12:31 | HP.PCM_ITS ---
- Problem List (1) Cervical cancer screening Status: Acute (2) Pelvic pain Status: Acute History and Physical Date of Admission: 12/30/19 DATE OF SERVICE: December 29, 2019 ? PROBLEM:?Pelvic pain, need for pap smear ? DIAGNOSIS:?Pelvic pain, need for pap smear ? PAST SURGICAL HISTORY:? PAST SURGICAL HISTORY PAST SURGICAL HISTORY Procedure Laterality Date ? APPENDECTOMY ? 01/28/2019 ? EGD W/O OR W/BRUSH/WASH ? 08/14/2011 ? EGD ? PAST SURGICAL HISTORY OF ? ? ? neck fused ? PAST SURGICAL HISTORY OF ? ? ? pelvicoscopy ? PAST SURGICAL HISTORY OF ? ? ? right hip plate and leg surgeries ? PAST SURGICAL HISTORY OF ? ? ? tubes in bilat ears. ? PAST MEDICAL HISTORY:? PAST MEDICAL HISTORY PAST MEDICAL HISTORY Diagnosis Date ? Abdominal pain, epigastric ? ? Abscess ? ? Allergic rhinitis, cause unspecified ? ? Anxiety ? ? Asthma ? ? mild intermittent, 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 Marley ? Cellulitis and abscess of upper arm and forearm ? ? Congenital heart disease ? ? Dr. Kong Customer Resource Specialist ? Congestive heart failure, unspecified ? ? CRP elevated ? ? Down's syndrome ? ? Fatty liver ? ? Hip pain ? ? Hypercholesteremia 06/2013 ? Hypothyroidism ? ? Juvenile osteochondrosis of hip and pelvis ? ? Knee pain ? ? Methicillin resistant Staphylococcus aureus in conditions classified elsewhere and of unspecified site ? ? Mitral valve disorders ? ? YVETTE on CPAP ? ? Osteoarthrosis, unspecified whether generalized or localized, lower leg ? ? Other candidiasis of other specified sites ? ? Other ventral hernia without mention of obstruction or gangrene ? ? Unspecified congenital anomaly of heart ? ? Vitamin D deficiency ? ? SUBJECTIVE:?Chronic pelvic pain. ? SOCIAL HISTORY:? SOCIAL HISTORY Social History ? Tobacco Use ? Smoking status: Never Smoker ? Smokeless tobacco: Never Used Substance Use Topics ? Alcohol use: No ? Drug use: No ? 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 ALLERGIES ALLERGIES Allergen Reactions ? Bactrim [Sulfametho* Hives ? Ceclor [Cefaclor] ?? Hives ? Penicillins ? Unknown ? Sulfasalazine ? Unknown Current Outpatient Medications on File Prior to Visit Medication Sig ? traMADol (ULTRAM) 50 mg tablet take 1 tablet by mouth every 8 hours if needed for pain ? BETAMETHASONE 0.1% CLOTRIMAZOLE 1% MUPIROCIN 2% NYSTATIN [id number] 1:1:1:1 NIPPLE OINTMENT Apply topically to forehead/affected area twice daily. ? multivitamin (TAB-A-AMADEO) tablet Take 1 tablet by mouth daily at bedtime. ? omeprazole (PRILOSEC) 20 mg capsule Take 1 capsule by mouth once daily. ? citalopram (CELEXA) 20 mg tablet Take 2 tablets by mouth once daily. ? vitamin B complex (B COMPLEX 1 ORAL) Take 1 tablet by mouth once daily. ? Calcium Carbonate 500 mg calcium (1,250 mg) capsule Take 1,250 mg by mouth once daily. ? diclofenac sodium (VOLTAREN) 1 % topical gel Apply 4 g to affected area four times daily. ? cetirizine (ZYRTEC) 10 mg tablet Take 1 tablet by mouth once daily. ? levothyroxine (LEVOXYL) 150 mcg tablet Take 1 tablet by mouth daily before breakfast. Take on empty stomach. For Thyroid. ? ondansetron orally disintegrating (ZOFRAN ODT) 4 mg disintegrating tablet Take 1 tablet by mouth every 6 hours as needed for Nausea/Vomiting. ? urea (CARMOL) 40 % crea Apply to affected area as needed. ? Leg Brace (PATRICIA KNEE BRACE) misc Elastic non binding knee support brace ? ascorbic acid, vitamin C, (VITAMIN C) 500 mg tablet Take 1 tablet by mouth once daily. ? cholecalciferol, Vitamin D3, (VITAMIN D3) 50,000 unit cap capsule Take 1 capsule by mouth one time a week. ? triamcinolone acetonide (KENALOG) 0.1 % cream Apply 1 application to affected area three times daily. Apply sparingly to area for rash/itching. ? fluticasone (FLONASE) 50 mcg/actuation nasal spray Use 2 Sprays in each nostril once daily. ? ALBUTEROL INHALATION Inhale ?as instructed. No current facility-administered medications on file prior to visit.? ? OBJECTIVE: ? VITALS:? BP 104/60 ? Pulse 78 ? Resp 20 ? Wt 231 lb 9.6 oz (105.1 kg) ? LMP 12/05/2019 ? BMI 48.40 kg/m? ? HEENT: ?Normocephalic, atraumatic, Mucus membranes moist without lesions. ? NECK: ???Soft and Supple. ?No adenopathy , thyromegaly or bruits. ? SKIN: No lesions. ? CHEST: Clear to auscultation. ?No wheezes or rales. ?Good air exchange. ? HEART: Regular rate and rhythm ? BACK: Nontender with no CVA tenderness. ? ABDOMEN: Soft, non-tender, non-distended, no masses, no hepatosplenomegaly. ? LOWER EXTREMITIES: There was no pitting edema, no palpable cords and no skin changes.? Plan is for pelvic exam under anesthesia and cervical pap smear for chronic pelvic pain and need for cervical cancer screening.? ? PLAN: The rationale for the proposed surgery was discussed in addition to risks, benefits, and alternatives. ?General pre- and post-operative care was reviewed. ?Questions were answered. ?After discussion, the patient and gaurdian?indicated a desire to proceed with the planned surgery. Consent signed by legal guardian.? ? Latanya Massey,?DO
[2019-12-30 09:06] VITALS: BP 131/64; PULSE 92; RESP 17; TEMP 37.2; O2SAT 100; BMI 45.1
[2019-12-30] MEDS: Lactated Ringers 1,000 ML 100 ML IV (09:26)
--- NOTE | 2019-12-30 10:29 | PCM.OPRPT ---
Problem List (1) Cervical cancer screening Status: Acute (2) Pelvic pain Status: Acute Report of Operation Date of Procedure: 12/30/19 Pre-Operative Diagnosis: Chronic pelvic pain, cervical cancer screening Post-Operative Diagnosis: As above Surgery/Procedure Performed:: Exam under anesthesia, cervical pap smear Description of Surgical Findings:: Hymen intact. Vulva, perineum normal appearing. Unable to visualize vaginal mucosa and cervix given discomfort during exam, and limitations with anesthesia given YVETTE. The uterus is midline, small, mobile. No adnexal masses palpated. Type of Anesthesia:: MAC Special Medications: None Specimen's removed: None Drains: None Estimated Blood Loss (mL): 0 Description of Procedure: Patient was taken to the OR where MAC anesthesia was induced. She was prepped and draped in the dorsal lithotomy position in yellowfin stirrups. A small speculum was placed into the vagina, but due to discomfort unable to perform a complete exam. A blind cervical Pap smear was obtained and sent to the pathologist for review. A bimanual exam was performed noting findings above. All instruments were removed from the vagina. Hemostasis was noted. Counts were correct and patient was taken to recovery room in stable condition. Grafts/Implants Used: None - Complications None - Admit VTE Documentation VTE Present on Admission: No VTE Mechan Device Prophylaxis: SCD's
--- NOTE | 2019-12-30 10:32 | DCINST_ITS ---
You will use the following diet at home:: No restrictions, Regular Discharge Activity: Return to Normal Activity Weight Bearing Status: Full weight bearing Lifting Restrictions: None Call your doctor if you observe: Fever of 101 or Higher, Inability to urinate, Inability to have a bowel movement, Using more than one pad per hour, Shortness of breath, Dizziness, Fainting spells, Chest pain, Calf discomfort, Uncontrolled pain Allergies/Adverse Reactions: Allergies cefaclor [From Ceclor] Allergy (Verified 12/30/19 08:54) Hives Penicillins Allergy (Verified 12/30/19 08:54) unknown sulfamethoxazole [From Bactrim] Allergy (Verified 12/30/19 08:54) Upset Stomach trimethoprim [From Bactrim] Allergy (Verified 12/30/19 08:54) Upset Stomach Medications to take at Discharge Cholecalciferol (Vitamin D3) [Vitamin D3] 50,000 unit PO QWEEK 03/31/18 Citalopram [Celexa] 40 mg PO QHS 03/31/18 Fluticasone 0.05% [Flonase Nasal [place]] 2 spray NASAL DAILY PRN 03/31/18 Levothyroxine [Synthroid] 150 mcg PO DAILY 03/31/18 Multivitamin [Daily Multiple Vitamin] 1 ea PO QHS 03/31/18 Omeprazole [Prilosec] 20 mg PO DAILY 03/31/18 tramadol 50 mg tablet 50 mg PO Q6H PRN 07/28/18 Ascorbic Acid [Vitamin C] 500 mg PO DAILY 06/29/19 Albuterol Aerosols [Ventolin Aerosols] 2.5 mg INHALATION Q4HWA.RT 12/23/19 Budesonide [Pulmicort] 0.5 mg IH PRN PRN 12/23/19 Cetirizine HCl [Zyrtec] 10 mg PO DAILY 12/23/19 Vitamin B Complex 1 ea PO DAILY 12/23/19 Orders to be completed after discharge: ,Urine Time Frame: 12/30/19, Facility: [facility], Location: Laboratory Primary Care Physician: Trent Horowitz DO [Primary Care Provider] - Test Results: Test results from this visit will be discussed in further detail at your follow- up appointment, if applicable. Please Follow Up With: Latanya Massey DO When: You do not need a follow up appointment. Will call with results of pap
[2019-12-30 11:01] VITALS: BP 109/73; BP 131/64; PULSE 69; RESP 16; TEMP 36.5; O2SAT 94
[2019-12-30 11:05] VITALS: BP 107/74; BP 131/64; PULSE 69; RESP 16; O2SAT 94
[2019-12-30 11:13] VITALS: BP 107/55; BP 131/64; PULSE 67; RESP 16; O2SAT 97
[2019-12-30 11:14] VITALS: BP 105/63; BP 131/64; PULSE 66; RESP 16; TEMP 36.9; O2SAT 94
[2019-12-30 11:35] VITALS: BP 131/64
[2020-01-05 20:16] LABS: HPV HC, High Risk Negative (Negative)
== END 2019-12-30 11:44 | disposition home or self-care (01) ==
LOC: SDC 08:33 → AC 08:35
PROVIDERS: PCP Student in an Organized Health Care Education/Training Program; Referring Provider Obstetrics & Gynecology; Visit Provider Obstetrics & Gynecology
PROC: (CPT 57410; principal; 2019-12-30 10:00)
DX: Z12.4 Encounter for screening for malignant neoplasm of cervix (principal); R10.2 Pelvic and perineal pain; G89.29 Other chronic pain; G47.33 Obstructive sleep apnea (adult) (pediatric); Q90.9 Down syndrome, unspecified; Q23.9 Congenital malformation of aortic and mitral valves, unspecified; I50.9 Heart failure, unspecified; E78.00 Pure hypercholesterolemia, unspecified; E03.9 Hypothyroidism, unspecified; E55.9 Vitamin D deficiency, unspecified; K21.9 Gastro-esophageal reflux disease without esophagitis; J45.20 Mild intermittent asthma, uncomplicated; F41.9 Anxiety disorder, unspecified; Z79.899 Other long term (current) drug therapy
CPT/HCPCS: 00940; 57410; 87624; 88175; J7120; G0145; J2405

== ENCOUNTER → 2020-09-20 06:58 | Outpatient (CLI) | payer MEDICARE, MEDICAID, SELFPAY ==
--- NOTE | 2020-09-20 07:09 | MRI_ITS ---
STUDY: MRI BRAIN WITH AND WITHOUT CONTRAST REASON FOR EXAM: Female, 34 years old. NEURO DEFICIT, ATAXIA TECHNIQUE: Standardized multiplanar fat and water weighted pulse sequences were obtained. IV dotarem 20cc was administered for the contrast portion of the examination. COMPARISON: None. FINDINGS: The study is markedly degraded by motion artifact which makes interpretation difficult. Next Normal size of the ventricles and extra-axial spaces for the patient''s age. Normal white matter tracts of the supratentorial brain. There is no evidence for recent intracranial ischemia or other cause of cytotoxic edema on diffusion weighted imaging (DWI). Normal T2* images of the brain without demonstrated susceptibility artifact. There is no demonstrated hemosiderin stain. Normal bilateral basal ganglia. Normal thalami. There is no extra-axial fluid accumulation. Normal flow voids within the major intracranial circulation suggesting patency by spin echo criteria. Normal venous enhancement. There is no enhancing intra-axial or extra-axial abnormality. Normal sella turcica, pituitary gland, infundibular stalk, optic chiasm and hypothalamus. Normal tectal plate and pineal gland. Normal midbrain, yamileth and medulla. Normal cerebellum. Normal basal cisterns. Normal bilateral temporal bones. Normal bilateral internal auditory canals. No demonstrated orbital abnormality, within the constraints of a routine brain study. Normal visualized paranasal sinuses. Normal calvarium and skull base. Normal visualized soft tissue structures. Normal visualized upper cervical spine. MRI/Brain W/WO Contrast IMPRESSION: Normal unenhanced and enhanced MRI of the brain. Electronically Signed: Baljinder Mcmanus MD at 12:48 EDT Tel , Service support ,
--- NOTE | 2020-09-20 07:09 | MRI_ITS ---
STUDY: MRA NECK WITH AND WITHOUT CONTRAST REASON FOR EXAM: Female, 34 years old. VERTEBRAL ARTERY STENOSIS TECHNIQUE: 3-D [id number] (TOF) imaging was performed in an 1.5 T MRI scanner. iv Dotarem 20 cc was administered for the contrast enhanced images. COMPARISON: None. FINDINGS: RIGHT CAROTID ARTERIES: Normal right common carotid artery (CCA). Normal right common carotid bulb. Normal origin of the right internal carotid (ICA) artery without a hemodynamically significant stenosis. Normal visualized cervical portion of the right internal carotid artery. Normal origin of the right external carotid artery (ECA). LEFT CAROTID ARTERIES: Normal left common carotid artery (CCA). Normal left common carotid bulb. Normal origin of the left internal carotid (ICA) artery without a hemodynamically significant stenosis. Normal visualized cervical portion of the left internal carotid artery. Normal origin of the left external carotid artery (ECA). VERTEBRAL ARTERIES: Normal antegrade flow within the bilateral vertebral artery without a hemodynamically significant stenosis. MRI/MRA Neck WITH and W/O Contrast IMPRESSION: Normal bilateral cervical carotid and vertebral arteries. Electronically Signed: Baljinder Mcmanus MD at 12:50 EDT Tel , Service support ,
--- NOTE | 2020-09-20 07:09 | MRI_ITS ---
STUDY: MRA OF THE HEAD WITHOUT CONTRAST REASON FOR EXAM: Female, 34 years old. STROKE FOLLOW UP, ATAXIA, CEREBRAL INFARCTION TECHNIQUE: 3-D [id number] (TOF) imaging was performed with MIPs. The study was performed unenhanced. COMPARISON: None. FINDINGS: The study is markedly degraded by motion artifact which makes interpretation difficult. Normal bilateral petrous carotid arteries. Normal right cavernous carotid artery with a normal supraclinoid bifurcation. Normal left cavernous carotid artery with a normal supraclinoid bifurcation. Normal right A1 segments of the anterior cerebral artery. Normal left A1 segments of the anterior cerebral artery. Normal intact anterior communicating artery (ACOM). Normal bilateral A2 segments of the anterior cerebral arteries. Normal right M1 and M2 segments of the middle cerebral arteries, with a normal M1 bifurcation. Normal left M1 and M2 segments of the middle cerebral arteries, with a normal M1 bifurcation. Normal right posterior communicating artery (PCOM). Normal left posterior communicating artery (PCOM). Normal bilateral vertebral arteries. Normal basilar artery with a normal basilar bifurcation. The visualized bilateral superior cerebellar (SCA) arteries are normal. Normal bilateral P1, P2 and visualized P3 segments of the posterior cerebral arteries. There is no demonstrated aneurysm of the [place] of [place]. There is no major vessel occlusion or hemodynamically significant stenosis. There is no demonstrated abnormality of the visualized brain. MRI/MRA Head ONLY without Contrast IMPRESSION: No obvious large vessel occlusion. However, the study is markedly degraded by motion artifact. Electronically Signed: Baljinder Mcmanus MD at 12:49 EDT Tel , Service support ,
== END ==
PROVIDERS: PCP Student in an Organized Health Care Education/Training Program
DX: R51.9 Headache, unspecified (principal); R29.818 Other symptoms and signs involving the nervous system; R90.89 Other abnormal findings on diagnostic imaging of central nervous system; R27.0 Ataxia, unspecified; Z86.73 Personal history of transient ischemic attack (TIA), and cerebral infarction without residual deficits
CPT/HCPCS: 70544; 70549; 70553; A9575; A4216

== ENCOUNTER → 2020-09-22 08:57 | Outpatient (CLI) | payer MEDICARE, MEDICAID, SELFPAY ==
--- NOTE | 2020-09-22 09:05 | CDU_ITS ---
Reason For Study: Abn CT of Brain Rt. Velocities/BP Lt. Velocities/BP Prox CCA 145/19 cm/sec. Prox CCA 145/27 cm/sec. Mid CCA 140/25 cm/sec. Mid CCA 140/27 cm/sec. Dist CCA 114/21 cm/sec. Dist CCA 81/17 cm/sec. Prox ICA 124/21 cm/sec. Prox ICA 73/24 cm/sec. Mid ICA 77/17 cm/sec. Mid ICA 82/28 cm/sec. Dist ICA 58/23 cm/sec. Dist ICA 116/40 cm/sec. Rt. ICA/CCA = 0.89. Lt. ICA/CCA = 0.83. Prox ECA 108/9 cm/sec. Prox ECA 111/16 cm/sec. Rt. Vert. 49/8 cm/sec. Lt. Vert. 83/17 cm/sec. Right Extracranial There is intimal thickening but no significant atherosclerotic plaque noted in the right common carotid artery. There is no significant atherosclerotic plaque noted in the right internal carotid artery. There is no significant atherosclerotic plaque noted in the right external carotid artery. Antegrade flow is noted in the right vertebral artery. Left Extracranial There is intimal thickening but no significant atherosclerotic plaque noted in the left common carotid artery. There is intimal thickening but no significant atherosclerotic plaque noted in the left internal carotid artery. There is no significant atherosclerotic plaque noted in the left external carotid artery. Antegrade flow is noted in the left vertebral artery. Procedure Carotid Duplex [id number]. The study was technically difficult. Patient scanned in wheelchair. Exam performed in department. VL/Carotid Duplex Ultrasound Interpretation Summary No significant atherosclerotic plaque or stenosis noted in the internal carotid arteries bilaterally. Flow within the vertebral arteries is antegrade bilaterally. Ordering Physician: Trent Horowitz Referring Physician: Trent Horowitz Performed By: Shona Tolentino, PHYLLISCS, RVT
== END ==
PROVIDERS: PCP Student in an Organized Health Care Education/Training Program; Referring Provider Student in an Organized Health Care Education/Training Program; Visit Provider Student in an Organized Health Care Education/Training Program
DX: R90.89 Other abnormal findings on diagnostic imaging of central nervous system (principal); R51.9 Headache, unspecified; Z86.73 Personal history of transient ischemic attack (TIA), and cerebral infarction without residual deficits
CPT/HCPCS: 93880

== ENCOUNTER 2021-06-04 13:07 | Outpatient (CLI) | payer MEDICARE, MEDICAID, SELFPAY ==
--- NOTE | 2021-06-04 13:12 | RAD_ITS ---
STUDY: X-RAY CHEST REASON FOR EXAM: Female, 35 years old. ASTHMA, DYSPNEA TECHNIQUE: PA and lateral views of the chest. COMPARISON: None. FINDINGS: The lungs are clear and expanded. There is no demonstrated pleural abnormality. Normal size heart. Normal mediastinum and bertha. Normal visualized pulmonary arteries. Normal visualized aortic arch and descending thoracic aorta. There is a dextroscoliosis of the thoracic spine. Normal visualized ribs, clavicles, and shoulders. There is no demonstrated abnormality of the visualized soft tissue structures of the upper abdomen. RAD/Chest PA and Lateral IMPRESSION: No acute abnormality is seen. Dextroscoliosis. Electronically Signed: Kofi Celis MD at 15:55 EST ,
== END 2021-06-04 23:59 | disposition short-term general hospital (02) ==
LOC: MTRAD 13:09
PROVIDERS: PCP Student in an Organized Health Care Education/Training Program; Referring Provider Internal Medicine Pulmonary Disease; Visit Provider Internal Medicine Pulmonary Disease
DX: G47.33 Obstructive sleep apnea (adult) (pediatric) (principal); J45.30 Mild persistent asthma, uncomplicated
CPT/HCPCS: 71046

== ENCOUNTER → 2022-12-02 | Outpatient (CLI) | payer MEDICARE, MEDICAID, SELFPAY | END | disposition home or self-care (01) | LOC: RAD 12:58 | PROVIDERS: PCP Student in an Organized Health Care Education/Training Program; Referring Provider Student in an Organized Health Care Education/Training Program; Visit Provider Student in an Organized Health Care Education/Training Program | DX: R13.19 Other dysphagia (principal) ==